=== PATIENT | male | born 1965 | race Caucasian/White ===

== ENCOUNTER → 2017-03-16 | Outpatient (CLI) | payer OTHER ==
[~2017-03-16] MED LIST: ACET325S8 PO; ALBUAER3 INH; AZIT500T2 PO; GABA300C5 PO; METH125I2 IM; PRED-503 PO; TYLE325T PO; XARE15TA PO
[2017-03-16 11:58] LABS: AUTOMATED NEUTROPHIL # 4.2 TH/MM3 (1.8-7.7); BASOPHIL # 0.1 TH/MM3 (0-0.2); EOSINOPHIL # 0.1 TH/MM3 (0-0.4); EOSINOPHIL % 1.4 % (0.0-4.0); HEMATOCRIT 42.7 % (39.0-51.0); HEMO FLAGS DIFF FINAL; LYMPH % 26.3 % (9.0-44.0); LYMPHOCYTE # 1.8 TH/MM3 (1.0-4.8); MEAN CELL VOLUME 92.7 FL (80.0-100.0); MEAN CORPUSCULAR HEMOGLOBIN 32.2 PG (27.0-34.0); MEAN CORPUSCULAR HGB CONC 34.7 % (32.0-36.0); MONO % 9.3 % (0.0-8.0); PLATELET COUNT 190 TH/MM3 (150-450); RED BLOOD COUNT 4.61 MIL/MM3 (4.50-5.90); RED CELL DISTRIBUTION WIDTH 14.7 % (11.6-17.2); WHITE BLOOD COUNT 6.7 TH/MM3 (4.0-11.0)
[2017-03-16 12:28] LABS: ALT (GPT) 20 U/L (12-78); ANION GAP 12 MEQ/L (5-15); AST (GOT) 31 U/L (15-37); BICARBONATE 24.1 MEQ/L (21.0-32.0); BLOOD UREA NITROGEN 5 MG/DL (7-18); CHLORIDE 100 MEQ/L (98-107); GLOMERULAR FILTRATION RATE 99 ML/MIN (>89); GLUCOSE,FASTING 75 MG/DL (74-99); POTASSIUM 3.9 MEQ/L (3.5-5.1); SODIUM (NA) 136 MEQ/L (136-145)
[2017-03-16 12:38] LABS: ALKALINE PHOSPHATASE 162 U/L (45-117); HDL CHOLESTEROL 118.8 MG/DL (40.0-60.0); LDL CHOLESTEROL 16 MG/DL (0-99)
== END ==
LOC: CLAB 11:33
PROVIDERS: ATTEND Family Medicine
DX: M25.512 Pain in left shoulder (principal); Z72.0 Tobacco use; M72.2 Plantar fascial fibromatosis; G62.9 Polyneuropathy, unspecified; F10.10 Alcohol abuse, uncomplicated
CPT/HCPCS: 36415; 80053; 80061; 84443; 85025

== ENCOUNTER 2017-03-24 13:01 | Emergency (ER) | payer OTHER ==
[~2017-03-24] VITALS: Ht 182.9 cm; Wt 54.5 kg
[~2017-03-24 13:01] MED LIST changes: -ALBUAER3 INH; -AZIT500T2 PO; -METH125I2 IM; -PRED-503 PO; -TYLE325T PO; -XARE15TA PO
[2017-03-24 13:02] VITALS: BP 207/93; PULSE 70; RESP 16; TEMP 97.8; O2SAT 98
--- NOTE | 2017-03-24 13:08 | PD ---
Physical Exam Date Seen by Provider: Mar 24, 2017 Time Seen by Provider: 13:06 Narrative 51 YOWM C/O SOB WORSE OVER 3 WEEKS. H/O PNEUMONIA AND COPD. NO F/C. VS REVIEWED PT WAITING FOR BED PLACEMENT. Data Data Last Documented VS Vital Signs Date Time Temp Pulse Resp B/P Pulse Ox O2 Delivery O2 Flow Rate FiO2 03/24/17 13:02 97.8 70 16 207/93 98 Room Air MDM Supervised Visit with CARA: No Condition: Stable Young Rubio Mar 24, 2017 13:08
--- NOTE | 2017-03-24 13:18 | PD ---
HPI Chief Complaint: Respiratory Symptoms Time Seen by Provider: 13:18 Travel History International Travel<30 days: No Contact w/Intl Traveler<30days: No Traveled to known affect area: No History of Present Illness HPI 51-year-old male presents to emergency Department with complaint of shortness of breath 3 weeks. Shortness of breath is worse while he is at work doing activity and in the humidity. Reports history of COPD. History of pneumonia and hospitalization 1 year ago. Has not used an inhaler and has never been prescribed one. Denies chest pain. Denies fevers, vomiting. Reports occasional cough with clear sputum production. Reports tobacco use daily. Denies hemoptysis. Denies recent surgery or travel. Patient's blood pressure is elevated in the ER. He denies headache, lightheadedness, dizziness, change in vision, diaphoresis, chest pain. Has been told his blood pressure was elevated in the past but has never been prescribed medications or diagnosed with hypertension. Symptoms are mild in severity. Allergies to aspirin. Has no other medical complaints. No other modifying factors or associated signs and symptoms. PFSH Past Medical History Blood Disorders: No Cardiovascular Problems: No Diminished Hearing: No Endocrine: No Gastrointestinal Disorders: Yes Genitourinary: Yes (DYSPHAGIA) Implanted Vascular Access Dvce: Yes Musculoskeletal: No Neurologic: No Psychiatric: No Reproductive: Yes (pneumonia) Respiratory: Yes (copd) Immunizations Current: No Pneumonia: Yes (in august) Ulcer: Yes (PEPTIC, bleeding ) Past Surgical History Abdominal Surgery: Yes (9 SURGERIES ILEOSTOMY, REVERSILE, ULCERS) Body Medical Devices: a few brennan or slips in abdomen for surgery Other Surgery: Yes Social History Alcohol Use: Yes (<6 PK daily) Tobacco Use: No (quit 08/24) Substance Use: No Allergies-Medications (Allergen,Severity, Reaction): Coded Allergies: aspirin (Unverified Allergy, Mild, ULCERS, 03/23/17) *MDRO Multi-Drug Resistant Organism (Verified Adverse Reaction, Unknown, ) 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 Reported Meds & Prescriptions Reported Meds & Active Scripts Active Azithromycin 500 Mg Tab 500 Mg PO DAILY Proair Hfa 8.5 GM Inh (Albuterol Sulfate) 90 Mcg/Act Aer 2 Puff INH Q4-6H PRN 108 mcg/actuation Deltasone (Prednisone) 20 Mg Tab 40 Mg PO DAILY 4 Days start 03/25/2017 Gabapentin 300 Mg Cap 300 Mg PO TID Reported Tylenol (Acetaminophen) 325 Mg Tab 500 Mg PO DAILY 4 tabs as needed once a day Review of Systems Except as stated in HPI: all other systems reviewed are Neg Physical Exam Narrative GENERAL: Thin, male patient, in no acute distress; afebrile, nontoxic- appearing; afebrile, nontoxic-appearing SKIN: Warm and dry. HEAD: Atraumatic. Normocephalic. EYES: Pupils equal and round. No scleral icterus. No injection or drainage. ENT: Mucosa pink and moist. EARS: Bilateral pinnae and external canals appear within normal limits. NECK: Trachea midline. CARDIOVASCULAR: Regular rate and rhythm. No murmur appreciated. RESPIRATORY: No accessory muscle use. Lungs with Wheezing throughout to auscultation. Breath sounds equal bilaterally. No retractions or tachypnea. No Audible wheezing noted. GASTROINTESTINAL: Flat. MUSCULOSKELETAL: No obvious deformities. No clubbing. No cyanosis. No edema. NEUROLOGICAL: Awake and alert. Oriented 3. No obvious cranial nerve deficits. Motor grossly within normal limits. Normal speech. Moves all extremities. 5/5 strength to all extremities. PSYCHIATRIC: Appropriate mood and affect; insight and judgment normal. Data Data Last Documented VS Vital Signs Date Time Temp Pulse Resp B/P Pulse Ox O2 Delivery O2 Flow Rate FiO2 03/24/17 13:26 58 18 178/97 99 Room Air 03/24/17 13:02 97.8 Orders Prednisone (Deltasone) (03/24/17 13:30) Albuterol Neb (Albuterol Neb) (03/24/17 13:30) Chest, Pa & Lat (03/24/17 13:16) [facility] Medical Decision Making Medical Screen Exam Complete: Yes Emergency Medical Condition: Yes Medical Record Reviewed: Yes Differential Diagnosis COPD exacerbation, pneumonia, less likely PE Narrative Course 51-year-old male with history of COPD physical exam and history of present illness consistent with COPD exacerbation. Patient does have history of pneumonia and hospitalization 1 year ago. I will obtain a chest x-ray to rule out acute findings. Patient is in no acute distress. His oxygen saturation is 98% on room air and he is without retractions or tachypnea. Wheezing throughout on auscultation of the lungs. Albuterol nebulizer, Deltasone, chest x-ray ordered. Patient's blood pressure is elevated in the ER. Blood pressure recheck decreased and I reviewed the patient's record and it is consistent with past blood pressures. Patient is asymptomatic. Patient has a follow-up appointment with Dr. Alvarez on Wednesday and I discussed with the patient to mention blood pressure and having Dr. Alvarez follow his blood pressure. 1415: Patient reports improvement in symptoms. Denies shortness of breath at this time. Says his breathing has improved immensely. On reexamination his lungs are clear and equal throughout. Chest x-ray concludes advanced COPD. Pro-air inhaler, Deltasone, azithromycin prescribed for home. Patient has follow-up appointment with Dr. Alvarez on Wednesday. Instructed patient to follow up with primary care provider. Patient verbalizes understanding and agreement with treatment plan. Patient is medically cleared and stable for discharge. Discussed reasons to return to the emergency department. Patient agrees with treatment plan. The patients vital signs are stable and the patient is stable for outpatient follow-up and treatment. Patient discharged home, stable and in no acute distress. Diagnosis Primary Impression: COPD exacerbation Referrals: Primary Care Physician Patient Instructions: COPD (Chronic Obstructive Pulmonary Disease) (ED), General Instructions Departure Forms: Tests/Procedures, Work Release Enter return to work date: Mar 25, 2017 Additional Instructions: Use albuterol inhaler as needed for shortness of breath and/or wheezing Take oral steroids as prescribed and complete full course Avoid asthma triggers such as smoking cigarettes, second hand smoke, dust, known allergens Follow-up with primary care provider Return to emergency department immediately with worsening of symptoms Med/Other Pt SpecificInfo: Prescription(s) given Scripts Azithromycin 500 Mg Fum954 Mg PO DAILY #5 TAB Ref 0 Prov:Zoraida Rios 03/24/17 Albuterol 8.5 GM Inh (Proair Hfa 8.5 GM Inh)90 Mcg/Act Aer2 Puff INH Q4-6H PRN ( SOB/WHEEZING) #1 INHALER Ref 0 108 mcg/actuation Prov:Zoraida Rios 03/24/17 Prednisone (Deltasone)20 Mg Tab40 Mg PO DAILY 4 Days Ref 0 start 03/25/2017 Prov:Zoraida Rios 03/24/17 Disposition: 01 DISCHARGE HOME Condition: Stable Zoraida Rios Mar 24, 2017 13:18
[2017-03-24 13:26] VITALS: BP 178/97; PULSE 58; RESP 18; O2SAT 99
[2017-03-24] MEDS ORDERED: RESP: ALBUTEROL 2.5 MG/3 ML NEB (SCH) INH ONE (13:30)
[2017-03-24] MEDS ORDERED: predniSONE 20 MG TAB PO ONE (13:30)
[2017-03-24] MEDS ORDERED: PRED-503 PO (14:17)
[2017-03-24] MEDS ORDERED: AZIT500T2 PO (14:17)
[2017-03-24] MEDS ORDERED: ALBUAER3 INH (14:17)
--- NOTE | 2017-03-24 15:23 | RADRPT ---
EXAM DATE/TIME: 03/24/2017 13:56 [facility] COMPARISON: BA SWALLOW W/SPEECH PATHOLOGY, April 29, 2016, 0:00. INDICATIONS : Short of breath, with congestion x3 wks. MEDICAL HISTORY : Chronic obstructive pulmonary disease. Pneumonia SURGICAL HISTORY : None. ENCOUNTER: Initial ACUITY: 3 weeks PAIN SCORE: 0/10 LOCATION: Bilateral chest FINDINGS: The exam demonstrates advanced COPD. No focal or segmental pneumonia is identified. There are areas o f chronic interstitial changes and scarring. The heart and mediastinal contours are within normal limits. Visualized bony structures are grossly i ntact. CONCLUSION: 1. Advanced COPD. Yony Sanders MD on March 24, 2017 at 15:21 Board Certified Radiologist. This report was verified electronically.
[2017-04-13] MEDS ORDERED: TYLE325T PO (09:34)
[2017-04-13] MEDS ORDERED: ALBUAER3 INH (10:18)
[2017-04-13] MEDS ORDERED: METH125I2 IM (10:18)
== END 2017-03-24 15:07 | disposition home or self-care (01) ==
LOC: NEPK 13:01
DX: J44.1 Chronic obstructive pulmonary disease with (acute) exacerbation (principal)
CPT/HCPCS: 71020; 94664; 99284; J7512; J7613

== ENCOUNTER 2017-05-19 15:51 | Inpatient (IN) | payer OTHER ==
[~2017-05-19] VITALS: Ht 182.9 cm; Wt 54.6 kg
[~2017-05-19 15:51] MED LIST changes: -IOHEXOL 350 MG/ML 10 ML VIAL (for RAD DIAG) IVCONTRAST ONE; -XARE15TA PO
--- NOTE | 2017-05-19 15:54 | PD ---
HPI Chief Complaint: PE Time Seen by Provider: 15:53 Travel History International Travel<30 days: No Contact w/Intl Traveler<30days: No Traveled to known affect area: No History of Present Illness HPI 51-year-old male came to the emergency room with history of progressive shortness of breath for past 3 months. Patient says he is having trouble ambulating even few steps without getting short of breath. His cough is worsening. He is producing a lot of phlegm which is mostly whitish in color. No blood in his mucus. No history of fever or chills. He has lost more than 20 pounds in 3 months. Patient smokes at least half a pack of cigarettes per day and has been smoking since he was 17 years old. His primary care sent him for a CAT scan of his chest to rule out PE and he was sent from CT since he has bilateral PE. Patient says he gets occasional chest pain/chest heaviness. Oxygen saturation was 93% on room air. Rest of the hemodynamics was within acceptable limits. No history of dizziness or lightheadedness. No history of syncopal episode. [facility], [facility] Past Medical History Narrative Medical List of his past medical, surgical, social and family history is reviewed from the nursing note. Blood Disorders: No Cardiovascular Problems: No Diminished Hearing: No Endocrine: No Gastrointestinal Disorders: Yes Genitourinary: Yes (DYSPHAGIA) Implanted Vascular Access Dvce: Yes Musculoskeletal: No Neurologic: No Psychiatric: No Reproductive: Yes (pneumonia) Respiratory: Yes (copd) Immunizations Current: No Pneumonia: Yes (in august) Ulcer: Yes (PEPTIC, bleeding ) Past Surgical History Abdominal Surgery: Yes (9 SURGERIES ILEOSTOMY, REVERSILE, ULCERS) Body Medical Devices: a few brennan or slips in abdomen for surgery Other Surgery: Yes Social History Alcohol Use: Yes (<6 PK daily) Tobacco Use: No (quit 08/24) Substance Use: No Allergies-Medications (Allergen,Severity, Reaction): Coded Allergies: aspirin (Unverified Allergy, Mild, ULCERS, 04/13/17) Comments List of his allergies reviewed from the nursing note. Reported Meds & Prescriptions Reported Meds & Active Scripts Active Proair Hfa 8.5 GM Inh (Albuterol Sulfate) 90 Mcg/Act Aer 2 Puff INH Q4-6H PRN 108 mcg/actuation Gabapentin 300 Mg Cap 300 Mg PO TID Reported Tylenol (Acetaminophen) 325 Mg Tab 650 Mg PO Q4H PRN Narrative Medication List of his home medications reviewed from the nursing note. Review of Systems Except as stated in HPI: all other systems reviewed are Neg General / Constitutional: Positive: Weight Loss Respiratory: Positive: Cough, Shortness of Breath Physical Exam Narrative GENERAL: Awake, alert, emaciated, moderate distress SKIN: Focused skin assessment warm/dry. Pale HEAD: Atraumatic. Normocephalic. EYES: Pupils equal and round. No scleral icterus. No injection or drainage. ENT: No nasal bleeding or discharge. Mucous membranes pink and moist. NECK: Trachea midline. No JVD. CARDIOVASCULAR: Regular rate and rhythm. No murmur appreciated. RESPIRATORY: No accessory muscle use. Clear to auscultation. Breath sounds equal bilaterally. GASTROINTESTINAL: Abdomen soft, non-tender, nondistended. Hepatic and splenic margins not palpable. MUSCULOSKELETAL: No obvious deformities. No clubbing. No cyanosis. No edema. NEUROLOGICAL: Awake and alert. No obvious cranial nerve deficits. Motor grossly within normal limits. Normal speech. PSYCHIATRIC: Appropriate mood and affect; insight and judgment normal. Data Data Last Documented VS Vital Signs Date Time Temp Pulse Resp B/P (MAP) Pulse Ox O2 Delivery O2 Flow Rate FiO2 05/19/17 16:44 77 168/82 (110) 05/19/17 16:44 25 96 05/19/17 16:20 Room Air 05/19/17 15:59 98.8 Orders Orders Complete Blood Count With Diff (05/19/17 15:55) Ecg Monitoring (05/19/17 15:55) Bilateral Bp Monitoring (05/19/17 15:55) Iv Access Insert/Monitor (05/19/17 15:55) Oximetry (05/19/17 15:55) Oxygen Administration (05/19/17 15:55) Sodium Chloride 0.9% Flush (Ns Flush) (05/19/17 16:00) Heparin Infusion CHRISTIANA.Q1H (05/19/17 16:20) Heparin Inj (Heparin Inj) (05/19/17 16:30) Act Partial Throm Time (Ptt) (05/19/17 16:20) Cbc No Diff, Includes Plts (05/22/17 06:00) Occult Blood (Hemoccult) Stool (05/19/17 16:20) Admit To Inpatient (05/19/17 ) Vital Signs (Adult) CHRISTIANA.Q4H (05/19/17 16:25) Sodium Chloride 0.9% Flush (Ns Flush) (05/19/17 16:30) Sodium Chloride 0.9% Flush (Ns Flush) (05/19/17 21:00) Inpatient Certification (05/19/17 ) Admit Order (Ed Use Only) (05/19/17 16:54) Labs Laboratory Tests Test 05/19/17 16:20 White Blood Count 8.0 TH/MM3 Red Blood Count 4.74 MIL/MM3 Hemoglobin 15.0 GM/DL Hematocrit 45.3 % Mean Corpuscular Volume 95.7 FL Mean Corpuscular Hemoglobin 31.6 PG Mean Corpuscular Hemoglobin Concent 33.1 % Red Cell Distribution Width 15.3 % Platelet Count 299 TH/MM3 Mean Platelet Volume 7.6 FL Neutrophils (%) (Auto) 61.0 % Lymphocytes (%) (Auto) 28.2 % Monocytes (%) (Auto) 8.2 % Eosinophils (%) (Auto) 2.0 % Basophils (%) (Auto) 0.6 % Neutrophils # (Auto) 4.9 TH/MM3 Lymphocytes # (Auto) 2.3 TH/MM3 Monocytes # (Auto) 0.7 TH/MM3 Eosinophils # (Auto) 0.2 TH/MM3 Basophils # (Auto) 0.0 TH/MM3 CBC Comment DIFF FINAL Differential Comment MDM Medical Decision Making Medical Screen Exam Complete: Yes Emergency Medical Condition: Yes Medical Record Reviewed: Yes Differential Diagnosis PE, lung cancer Narrative Course [address] scan was read as PE along with multiple lung masses which could be lung cancer. This would explain his other associated symptoms along with the new onset PE. I started him on heparin bolus and drip. He needs pulmonology workup with a bronchoscopy and rule out lung cancer. I've admitted him to the residence. Critical Care Narrative Aggregate critical care time was 30 minutes. Time to perform other separately billable procedures was not included in the critical care time. My time did not include minutes spent treating any other patients simultaneously or on activities that did not directly contribute to the patient's treatment. The services I provided to this patient were to treat and/or prevent clinically significant deterioration that could result in: PE bilat, lung mass vs possible mets, heparin bolus and drip I provided critical care services requiring my management, as noted below: Chart data review, documentation time, medication orders and management, vital sign assessments/reviewing monitor data, ordering and reviewing lab tests, ordering and interpreting/reviewing x-rays and diagnostic studies, care of the patient and discussion of the patient with the admitting physicians. Procedures EKG Prior to Arrival: No Diagnosis Primary Impression: Pulmonary embolism Qualified Codes: I26.99 - Other pulmonary embolism without acute cor pulmonale Additional Impression: Lung mass Admitting Information Admitting Physician Requests: it Kath Martinez MD May 19, 2017 15:54
[2017-05-19 15:59] VITALS: BP 165/92; PULSE 68; PULSE 77; RESP 15; TEMP 98.8; O2SAT 97
[2017-05-19] MEDS ORDERED: SODIUM CHLORIDE 0.9% FLUSH 10 ML FLUSH IVF PRN (16:00)
[2017-05-19] MEDS ORDERED: HEPARIN SODIUM - IV 10,000 UNITS/10 ML VIAL IV ONE (16:30)
[2017-05-19] MEDS ORDERED: SODIUM CHLORIDE 0.9% FLUSH 10 ML FLUSH IV FLUSH PRN (16:30)
[2017-05-19] MEDS ORDERED: HEPARIN-D5W 25,000 U/250 ML 250 ML IV ONE (16:30)
[2017-05-19 16:44] VITALS: BP 168/82; PULSE 62; PULSE 77; RESP 25; O2SAT 96
--- NOTE | 2017-05-19 16:46 | HHI.HP ---
[facility] Service Family Medicine Primary Care Physician Veronica Alvarez MD Admission Diagnosis Diagnoses: International Travel<30 Days: No Contact w/Intl Traveler<30days: No Known Affected Area: No History of Present Illness 51-year-old male is taken urgently to the ED after CTA is done and reveals bilateral nodular areas of consolidation, reflecting either pulmonary emboli or metastatic disease. This CTA reveals new findings as compared to CTA done one year ago. The patient states he has been feeling short of breath for the last 3 months. His shortness of breath started 1 day all of a sudden and he has continued to have shortness of breath every day during heavy activity. He particularly notices this when he is walking up the stairs to work every morning. He does also sometimes experience some chest pressure when he experiences this shortness of breath. The patient denies any fever/chills. The patient states that he has lost 20 pounds over the last 3 months. He has continued to smoke half a pack every day. He denies any sinusitis or sputum producing cough. He denies any sick household members or recent illnesses. Patient does complain of occasional leg cramping in the right leg. He states that 3-4 months ago his right leg was swollen, red, and painful. He attributed this to a sprain in his right ankle. Patient denies any current leg pains. Patient denies any current chest pain/shortness of breath/dizziness. (Celsa Barillas MD R2) Review of Systems Constitutional: DENIES: Fatigue, Fever Endocrine: DENIES: Polydipsia, Polyuria Eyes: DENIES: Blurred vision, Diplopia Ears, nose, mouth, throat: DENIES: Vertigo, Nasal discharge Respiratory: DENIES: Sputum production Cardiovascular: DENIES: Palpitations, Syncope Gastrointestinal: DENIES: Constipation, Diarrhea Genitourinary: DENIES: Urinary frequency, Urinary incontinence Musculoskeletal: DENIES: Joint pain Hematologic/lymphatic: DENIES: Bruising Neurologic: DENIES: Abnormal gait, Headache Psychiatric: DENIES: Anxiety, Confusion (Celsa Barillas MD R2) Past Family Social History Past Medical History COPD History of cavitary pneumoniain August 2015 History of Actinobacter infection in 2001 Past Surgical History Perforated peptic ulcer repair at 18 y/o with recurrent peptic ulcers [id number] status post ileostomy/reversal in 1999 (Celsa Barillas MD R2) Allergies: Coded Allergies: aspirin (Unverified Allergy, Mild, ULCERS, 04/13/17) Family History none that he knows of Social History smokin/2 ppd x 30 years drinkin tallboys per day x 30 years other drugs: denies (Celsa Barillsa MD R2) Physical Exam Vital Signs Vital Signs Date Time Temp Pulse Resp B/P (MAP) Pulse Ox O2 Delivery O2 Flow Rate FiO2 05/19/17 16:44 77 05/19/17 15:59 98.8 77 15 165/92 (116) 97 05/19/17 15:59 68 165/92 (116) Physical Exam GENERAL: This is a cachectic, good natured, conversational patient SKIN: No rashes, ecchymoses or lesions. Cool and dry. HEAD: Atraumatic. Normocephalic. No temporal or scalp tenderness. EYES: Pupils equal round and reactive. Extraocular motions intact. No scleral icterus. No injection or drainage. ENT: Nose without bleeding, purulent drainage or septal hematoma. Throat without erythema, tonsillar hypertrophy or exudate. Uvula midline. Airway patent. NECK: Trachea midline. No JVD or lymphadenopathy. Supple, nontender, no meningeal signs. CARDIOVASCULAR: Regular rate and rhythm without murmurs, gallops, or rubs. RESPIRATORY: Clear to auscultation. Breath sounds equal bilaterally. No wheezes , rales, or rhonchi. GASTROINTESTINAL: Abdomen soft, non-tender, nondistended. No hepato-splenomegaly , or palpable masses. No guarding. MUSCULOSKELETAL: Extremities without clubbing, cyanosis, or edema. No joint tenderness, effusion, or edema noted. No calf tenderness. Negative Homans sign bilaterally. NEUROLOGICAL: Awake and alert. Cranial nerves II through XII intact. Motor and sensory grossly within normal limits. Five out of 5 muscle strength in all muscle groups. Normal speech. (Celsa Barillas MD R2) Caprini VTE Risk Assessment Caprini VTE Risk Assessment: Mod/High Risk (score >= 2) Caprini Risk Assessment Model Point Value = 1 Point Value = 2 Point Value = 3 Point Value = 5 Age 41-60 Minor surgery BMI > 25 kg/m2 Swollen legs Varicose veins or History of unexplained or recurrent spontaneous Oral contraceptives or hormone replacement Sepsis (< 1 month) Serious lung disease, including pneumonia (< 1 month) Abnormal pulmonary function Acute myocardial infarction Congestive heart failure (< 1 month) History of inflammatory bowel disease Medical patient at bed rest Age 61-74 Arthroscopic surgery Major open surgery (> 45 min) Laparoscopic surgery (> 45 min) Malignancy Confined to bed (> 72 hours) Immobilizing plaster cast Central venous access Age >= 75 History of VTE Family history of VTE Factor V Leiden Prothrombin [id number] Lupus anticoagulant Anticardiolipin antibodies Elevated serum homocysteine Heparin-induced thrombocytopenia Other congenital or acquired thrombophilia Stroke (< 1 month) Elective arthroplasty Hip, pelvis, or leg fracture Acute spinal cord injury (< 1 month) Prophylaxis Regimen Total Risk Factor Score Risk Level Prophylaxis Regimen 0-1 Low Early ambulation 2 Moderate Order ONE of the following: *Sequential Compression Device (SCD) *Heparin 5000 units SQ BID 3-4 Higher Order ONE of the following medications: *Heparin 5000 units SQ TID *Enoxaparin/Lovenox 40 mg SQ daily (WT < 150 kg, CrCl > 30 mL/min) *Enoxaparin/Lovenox 30 mg SQ daily (WT < 150 kg, CrCl > 10-29 mL/min) *Enoxaparin/Lovenox 30 mg SQ BID (WT < 150 kg, CrCl > 30 mL/min) AND/OR *Sequential Compression Device (SCD) 5 or more Highest Order ONE of the following medications: *Heparin 5000 units SQ TID (Preferred with Epidurals) *Enoxaparin/Lovenox 40 mg SQ daily (WT < 150 kg, CrCl > 30 mL/min) *Enoxaparin/Lovenox 30 mg SQ daily (WT < 150 kg, CrCl > 10-29 mL/min) *Enoxaparin/Lovenox 30 mg SQ BID (WT < 150 kg, CrCl > 30 mL/min) AND *Sequential Compression Device (SCD) (Celsa Barillas MD R2) Assessment and Plan Assessment and Plan 51-year-old male, history of alcohol and tobacco abuse, with a 3 month history of weight loss and shortness of breath presents with multiple bilateral PEs and bilateral DVTs. Code Status Full code Discussed Condition With Dr. Colbert (Celsa Barillas MD R2) Attending Attestation THIS CASE WAS DISCUSSED WITH THE RESIDENT PHYSICIANS. I HAVE REVIEWED THE RECORD AND AGREE WITH THE ABOVE NOTE AND PLAN OF CARE WAS DISCUSSED. I HAVE AUTHORIZED THE ORDER FOR ADMISSION TO AN IN-PATIENT STATUS. (Joanne Mancia MD) Problem List: (1) Pulmonary embolism ICD Codes: I26.99 - Other pulmonary embolism without acute cor pulmonale Status: Acute Plan: -Heparin drip -pulse ox - telemetry -O2 to titrate O2 sat >93% - will consider coumadin vs. novel anticoagulation agent ABG: ph: 7.50, pO2: 88 , pCO2: 34 - consistent with respiratory alkalosis via PE CTA: Bilateral nodular areas of consolidation which are new from the prior study and likely relate to an acute inflammatory or infectious process. I cannot exclude septic emboli.The prior examination is one year ago as opposed to one month ago. This changes the list of differential possibilities for these lung lesions. I would place at the top of the list metastatic disease as a primary consideration. Septic emboli will still be within the differential. (2) Hypercoagulable state ICD Codes: D68.59 - Other primary thrombophilia Status: Acute Plan: Weight loss and multiple clots, r/o carcinoma - f/u CBC, BMP - f/u glucose, HbA1c - f/u Calcium - f/u UA - f/u LFTs - f/u TSH - f/u Hemoccult - f/u ESR/CRP - f/u HIV Ab - f/u Hep C ab - f/u with colonoscopy when stable (3) Weight loss ICD Codes: R63.4 - Abnormal weight loss Status: Acute Plan: see workup for HIV/Carcinoma above (4) Shortness of breath dyspnea ICD Codes: R06.02 - Shortness of breath Status: Acute Plan: Likely related to PE vs. cardiac cause - f/u EKG - f/u troponin x 3 (5) Alcohol abuse ICD Codes: F10.10 - Alcohol abuse, uncomplicated Status: Chronic Plan: CIWA protocol - Rally pack No history of withdrawal or seizures per patient (6) Peptic ulcer disease with hemorrhage ICD Codes: K27.4 - Chronic or unspecified peptic ulcer, site unspecified, with hemorrhage Status: Chronic Plan: Multiple episodes of peptic ulcers, perforations, and bowel surgeries - Protonix 40 daily for prophylaxis - Monitor H&H - Daily abdominal exams (7) fen/ppx Status: Acute Plan: Fluids: Encourage by mouth fluid intake Electrolytes: BMP within normal limits, follow-up BMP tomorrow Nutrition: Regular diet GI prophylaxis: Protonix 40 daily - history of peptic ulcers (Celsa Barillas MD R2) Physician Certification 2 Midnight Certification Type: Admission for Inpatient Services Order for Inpatient Services The services are ordered in accordance with Medicare regulations or non- Medicare payer requirements, as applicable. In the case of services not specified as inpatient-only, they are appropriately provided as inpatient services in accordance with the 2-midnight benchmark. Estimated LOS (days): 2 days is the estimated time the patient will need to remain in the hospital, assuming treatment plan goals are met and no additional complications. Post-Hospital Plan: Not yet determined (Clesa Barillas MD R2) 2 Midnight Certification Type: Admission for Inpatient Services Post-Hospital Plan: Not yet determined (Joanne Mancia MD) Problem Qualifiers (1) Pulmonary embolism: Qualified Codes: I26.99 - Other pulmonary embolism without acute cor pulmonale Celsa Barillas MD R2 May 19, 2017 16:46 Joanne Mancia MD May 20, 2017 14:34
[2017-05-19] MEDS ORDERED: HEPARIN 25,000 UNITS-D5W 250 ML - PREMIX IV ONE (17:15)
[2017-05-19 17:20] LABS: AUTOMATED NEUTROPHIL # 4.9 TH/MM3 (1.8-7.7); BASOPHIL % 0.6 % (0.0-2.0); EOSINOPHIL # 0.2 TH/MM3 (0-0.4); HEMATOCRIT 45.3 % (39.0-51.0); HEMO FLAGS DIFF FINAL; LYMPH % 28.2 % (9.0-44.0); LYMPHOCYTE # 2.3 TH/MM3 (1.0-4.8); MEAN CELL VOLUME 95.7 FL (80.0-100.0); MEAN CORPUSCULAR HEMOGLOBIN 31.6 PG (27.0-34.0); MEAN CORPUSCULAR HGB CONC 33.1 % (32.0-36.0); MONO % 8.2 % (0.0-8.0); PLATELET COUNT 299 TH/MM3 (150-450); RED BLOOD COUNT 4.74 MIL/MM3 (4.50-5.90); RED CELL DISTRIBUTION WIDTH 15.3 % (11.6-17.2)
[2017-05-19] MEDS ORDERED: LORazepam 1 MG TAB PO PRN (17:45)
[2017-05-19] MEDS ORDERED: LORazepam 2 MG TAB PO PRN (17:45)
[2017-05-19] MEDS ORDERED: LORazepam 2 MG/ML VIAL IV PUSH PRN ×4 (17:45)
[2017-05-19] MEDS ORDERED: FLUMAZENIL 0.5 MG/5 ML VIAL IV PUSH PRN (17:45)
[2017-05-19] MEDS ORDERED: ONDANSETRON HCL 4 MG/2 ML VIAL IV PUSH PRN (17:45)
[2017-05-19 17:55] VITALS: BP 174/100; PULSE 59; RESP 22; TEMP 98; O2SAT 98
--- NOTE | 2017-05-19 19:06 | RADRPT ---
EXAM DATE/TIME: 05/19/2017 18:10 [facility] COMPARISON: No previous studies available for comparison. INDICATIONS : Bilateral leg swelling. MEDICAL HISTORY : Chronic obstructive pulmonary disease. Glasses. Emphysema. Pnemonia. Peptic ulcer. Dysphagia. Ingui nal hernia. SURGICAL HISTORY : Inguinal hernia repair. Colon resection. Ileostomy. ENCOUNTER: Initial ACUITY: 1 day PAIN SCORE: 0/10 LOCATION: Bilateral legs. TECHNIQUE: Venous ultrasound of the left and right leg was performed from the inguinal ligament to the proximal calf. Real-time, color Doppler and spectral tracing, compression and augmentation techniques were us ed. FINDINGS: RIGHT LEG: There is evidence of nonocclusive thrombus throughout the right lower extremity. This involves the pe roneal and posterior tibial veins in the calf, the popliteal vein and mid and distal SFV are involved . There does appear to be flow in the proximal SFA. There is flow in the greater saphenous vein. LEFT LEG: There is evidence of nonocclusive thrombus throughout the left lower extremity. This extends from the calf all the way up to the common femoral vein at the groin. There is also thrombus in the greater s aphenous vein. CONCLUSION: Bilateral DVT with nonocclusive thrombus noted in the deep venous systems of both lower extremities. Piter Garcia MD on May 19, 2017 at 19:00 Board Certified Radiologist. This report was verified electronically.
[2017-05-19 19:08] LABS: BLOOD GAS BASE EXCESS 1.7 mmol/L (-2-2); BLOOD GAS HCO3 25 mmol/L (22-26); BLOOD GAS O2 HGB SATURATION 88 % (90-100); BLOOD GAS OXYGEN CONTENT 16.2 Vol % (12.0-20.0); BLOOD GAS PCO2 32 mmHg (38-42); BLOOD GAS PO2 60 mmHg (61-120); BLOOD GAS TOTAL HGB 13.1 G/DL (12.0-16.0); DRAW SITE RT RADIAL; FIO2 21 %; NUMBER OF ARTERIAL PUNCTURES 1; OXYGEN DEVICE ROOM AIR; TEMP CORR TO 98.6; ULNAR PULSE PRESENT
[2017-05-19 19:09] LABS: CRITICAL VALUE YES; STAT NO
[2017-05-19] MEDS ORDERED: cloNIDine HCL 0.1 MG TAB PO PRN (19:45)
[2017-05-19 20:00] VITALS: BP 170/85; PULSE 53; PULSE 79; RESP 17; TEMP 97.9; O2SAT 98
[2017-05-19] MEDS: GABAPENTIN 300 MG CAP PO SCH (20:18)
[2017-05-19] MEDS: PANTOPRAZOLE SOD 40 MG DELAYED RELEASE TAB PO SCH (20:18)
[2017-05-19] MEDS: SODIUM CHLORIDE 0.9% FLUSH 10 ML FLUSH IV FLUSH SCH (20:18)
[2017-05-19 21:00] VITALS: BP 158/78
[2017-05-19 22:00] LABS: APTT (PATIENT) 30.7 SEC (24.3-30.1)
[2017-05-19 22:07] LABS: ANION GAP 7 MEQ/L (5-15); BLOOD UREA NITROGEN 6 MG/DL (7-18); CHLORIDE 103 MEQ/L (98-107); GLOMERULAR FILTRATION RATE 103 ML/MIN (>89); POTASSIUM 4.3 MEQ/L (3.5-5.1); SODIUM (NA) 138 MEQ/L (136-145)
[2017-05-19 22:20] LABS: ALCOHOL LESS THAN 3 MG/DL (0-5)
[2017-05-19 22:24] LABS: HEMOGLOBIN A1b 1.6 %; HEMOGLOBIN Ao 84.7 %; HEMOGLOBIN P3 5.3 %
[2017-05-20] VITALS (8 sets, daily range): BP systolic 152–159; BP diastolic 85–92; PULSE 57–83; RESP 16–20; TEMP 97.4–98.4; O2SAT 89–95
[2017-05-20 05:14] LABS: AUTOMATED NEUTROPHIL # 3.4 TH/MM3 (1.8-7.7); BASOPHIL # 0.1 TH/MM3 (0-0.2); BASOPHIL % 1.1 % (0.0-2.0); EOSINOPHIL # 0.3 TH/MM3 (0-0.4); EOSINOPHIL % 3.9 % (0.0-4.0); HEMATOCRIT 39.2 % (39.0-51.0); HEMO FLAGS DIFF FINAL; LYMPH % 36.5 % (9.0-44.0); LYMPHOCYTE # 2.5 TH/MM3 (1.0-4.8); MEAN CELL VOLUME 94.7 FL (80.0-100.0); MEAN CORPUSCULAR HGB CONC 33.7 % (32.0-36.0); MONO % 8.1 % (0.0-8.0); NEUT % 50.4 % (16.0-70.0); PLATELET COUNT 266 TH/MM3 (150-450); RED BLOOD COUNT 4.14 MIL/MM3 (4.50-5.90); WHITE BLOOD COUNT 6.8 TH/MM3 (4.0-11.0)
[2017-05-20 05:36] LABS: APTT (PATIENT) 66.5 SEC (24.3-30.1); PROTHROMBIN TIME - PATIENT 10.7 SEC (9.8-11.6)
[2017-05-20 05:42] LABS: ALT (GPT) 14 U/L (12-78); ANION GAP 8 MEQ/L (5-15); AST (GOT) 18 U/L (15-37); BICARBONATE 27.4 MEQ/L (21.0-32.0); BLOOD UREA NITROGEN 6 MG/DL (7-18); CHLORIDE 103 MEQ/L (98-107); GLOMERULAR FILTRATION RATE 144 ML/MIN (>89); POTASSIUM 3.6 MEQ/L (3.5-5.1); SODIUM (NA) 138 MEQ/L (136-145)
[2017-05-20 05:46] LABS: ALKALINE PHOSPHATASE 195 U/L (45-117); TOTAL BILIRUBIN ADULT 0.6 MG/DL (0.2-1.0)
[2017-05-20] MEDS: PANTOPRAZOLE SOD 40 MG DELAYED RELEASE TAB PO SCH (08:25)
[2017-05-20] MEDS: MULTIVITAMINS/MINERALS THERAPEUTIC TAB PO SCH (08:25)
[2017-05-20] MEDS: GABAPENTIN 300 MG CAP PO SCH ×3 (08:25→16:57)
[2017-05-20] MEDS: THIAMINE HCL 100 MG TAB PO SCH (08:25)
[2017-05-20] MEDS: FOLIC ACID 1 MG TAB PO SCH (08:25)
[2017-05-20] MEDS: SODIUM CHLORIDE 0.9% FLUSH 10 ML FLUSH IV FLUSH SCH ×2 (08:26→19:57)
[2017-05-20] MEDS ORDERED: PNEUMOCOCCAL POLYVALENT INJ 25 MCG/0.5 ML SYR IM ONE (10:00)
[2017-05-20] MEDS ORDERED: INFLUENZA VIRUS VACCINE (QUADRIVALENT) 0.5 ML SYR IM ONE (10:00)
--- NOTE | 2017-05-20 12:14 | EKG ---
Date Performed: 05/20/2017 Time Performed: 07:59:12 PTAGE: 51 years EKG: Sinus rhythm . Prolonged QT interval Possible anterior infarct - age undetermined Low QRS voltages in precordial l fanny Abnormal ECG No prior tracing DOCTOR: Katlin Milner Interpretating Date/Time 05/20/2017 12:12:15
--- NOTE | 2017-05-20 13:15 | HHI.FPPN ---
Problem Problem List: (1) Pulmonary embolism (2) Hypercoagulable state (3) Weight loss (4) Shortness of breath dyspnea (5) Tobacco use disorder Subjective Subjective 51 year old male that was admitted for bilateral DVT and PE -- he is normally active but had noticed all the sudden that he was SOB when going up and down stairs for the past couple of months. Describes LE swelling intermittently that is severe. ALso decribes an unintentional 20 pound weight loss over the past two months. Did not think much about this but then eventually went to the doctor and CT chest was done which showed bilateral PE along with probable metastatic lesions to the lungs. He was transferred to the ED and admitted. At the time of my exam the patient is resting comfortably in bed. Describe no symptoms of SOB or LE edema. States he feels fine and overnight his vitals remained stable. PMH/PSH COPD h/o cavitary pnuemonia in 2016 h/o actinobater infection h/o PUD with rupture and repair h/o ileostomy and reversal SOCIAL + tobacco and + ETOH, no illicits does work, does not have home of his own - lives with friends/family FH no known cancers, NC at this time ROS negative except as above ALL: [facility] Objective Objective Laboratory Tests - Abnormals Test 05/19/17 16:20 05/19/17 18:55 05/19/17 21:14 05/20/17 04:50 Monocytes (%) (Auto) 8.2 % 8.1 % Blood Gas Oxygen Saturation 88 % Arterial Blood pH 7.50 Arterial Blood Partial Pressure CO2 32 mmHg Arterial Blood Partial Pressure O2 60 mmHg Erythrocyte Sedimentation Rate 33 mm/hr Activated Partial Thromboplast Time 30.7 SEC 66.5 SEC Blood Urea Nitrogen 6 MG/DL 6 MG/DL Troponin I LESS THAN 0.02 NG/ML LESS THAN 0.02 NG/ML C-Reactive Protein 3.80 MG/DL Red Blood Count 4.14 MIL/MM3 Creatinine 0.59 MG/DL Random Glucose 69 MG/DL Total Protein 6.3 GM/DL Albumin 2.1 GM/DL Calcium Level 8.1 MG/DL Alkaline Phosphatase 195 U/L Vital Signs 05/19/17 05/19/17 05/19/17 05/19/17 15:59 15:59 16:20 16:44 Temp 98.8 Pulse 68 77 62 Resp 15 25 B/P (MAP) 165/92 (116) 165/92 (116) 168/82 (110) Pulse Ox 97 96 96 O2 Delivery Room Air 05/19/17 05/19/17 05/19/17 05/19/17 16:44 17:55 20:00 20:00 Temp 98.0 97.9 Pulse 77 59 53 79 Resp 22 17 B/P (MAP) 168/82 (110) 174/100 (124) 170/85 (113) Pulse Ox 98 98 05/19/17 05/20/17 05/20/17 05/20/17 21:00 00:00 04:00 08:00 Temp 97.4 98.4 97.6 Pulse 83 71 73 Resp 16 16 18 B/P (MAP) 158/78 (104) 155/92 (113) 153/85 (107) 152/88 (109) Pulse Ox 94 94 89 05/20/17 05/20/17 05/20/17 08:31 08:37 12:00 Temp 98.0 Pulse 57 68 Resp 16 B/P (MAP) 159/92 (114) Pulse Ox 92 93 FiO2 21 Physical exam O. CONSTITUTIONAL/GEN: cachectic appearing male, no respiratory distress EYES: conjunctiva normal, PERRLA, EOMI. ENT: Mouth and pharynx normal. NECK: thyroid midline, carotids symmetrical. LUNGS: clear A-P, respiratory effort is normal. CARDIOVASCULAR: RR without murmur or gallop. No significant edema. GI/ABD: soft without masses, without organomegaly, surgical scar from prior bowel ileostomy : no CVA tenderness NEURO: No focal deficits. Gait is normal SKIN: color normal, no rashes noted. HEME/LYMPH: no bruising, petechia or significant adenopathy MUSC: back is normal in appearance. Extremities are normal in appearance except for extreme thinness and some muscle wasting. PSYCH/MENTAL STATUS: Alert and oriented x 3. Assessment Assessment: (1) Pulmonary embolism Plan: this is bilateral and likely the result of the bilateral DVTs, CT report does not rule out septic emboli but given the clinical picture this is low likelihood at this time. He is hemodynamically stable and clinically stable as well. Continue the heparin drip with close monitoring Oxygen if needed hemodynamic support if needed cause is unknown and workup pending -- given the CT and his clinical picture -- high likelihood of cancer with mets (2) Lung mass Plan: high likelihood of metastatic lesions in his lungs -- workup pending to assess for underlying cancer and source. Check abd/pelvis CT and brain CT as well CEA and PSA, Calcium sent (3) Weight loss Plan: likely due to probable underlying malignancy -- will support his diet with additional protein supplement shakes at this time r/o HIV, hep C and TB as well (4) Hypercoagulable state Plan: likely probable underlying malignancy but will also rule out other source of hypercoagulability as well -- workup is pending (5) Peptic ulcer disease with hemorrhage Plan: this is historical but will continue PPI for prevention (6) Tobacco use disorder Plan: nicotine patch if needed tobacco cessation counseling prior to discharge Assessment 51 year old male with bilateral PE and DVT and probable underlying malignancy with metastatic lesions to the lungs. Workup pending to assess for possible malignancy and source, possible underlying other hypercoagulable issue or infectious process. He remains stable at this time. Will continue with anticoagulation of heparin and close monitoring of his oxygenation and hemodynamic status until we can determine the source as above. PLAN PLAN Patient was seen and dw the resident team - Dr. Anand, Dr. Barillas, Joanne Moses MD May 20, 2017 13:15
[2017-05-20] MEDS ORDERED: DIATRIZOATE MEGLUM/DIATRIZOATE SOD 9 ML CUP PO ONE (13:18)
[2017-05-20 14:32] LABS: APTT (PATIENT) 40.9 SEC (24.3-30.1)
[2017-05-20] MEDS ORDERED: HEPARIN SODIUM - IV 10,000 UNITS/10 ML VIAL IV PUSH PRN (21:15)
[2017-05-20] MEDS ORDERED: HEPARIN - 10,000 UNITS/ML IV ADDITIVE IV PUSH PRN (21:15)
[2017-05-20] MEDS ORDERED: IOHEXOL 350 MG/ML 10 ML VIAL (for RAD DIAG) IVCONTRAST ONE (21:25)
--- NOTE | 2017-05-20 21:59 | RADRPT ---
EXAM DATE/TIME: 05/20/2017 21:18 [facility] COMPARISON: No previous studies available for comparison. INDICATIONS : Possible lung carcinoma, evaluate metastatic disease. IV CONTRAST: 100 cc Omnipaque 350 (iohexol) IV ; Cumulative dose for multiple exams. RADIATION DOSE: 44.17 CTDIvol (mGy) MEDICAL HISTORY : Carcinoma, lung. SURGICAL HISTORY : None. ENCOUNTER: Initial ACUITY: 1 day PAIN SCALE: 0/10 LOCATION: cranial TECHNIQUE: Multiple contiguous axial images were obtained of the head. Using automated exposure control and adj ustment of the mA and/or kV according to patient size, radiation dose was kept as low as reasonably a chievable to obtain optimal diagnostic quality images. DICOM format image data is available electro nically for review and comparison. FINDINGS: CEREBRUM: The ventricles are normal for age. No evidence of midline shift, cerebral edema or blood products. No extra-axial fluid collections are seen. POSTERIOR FOSSA: The cerebellum and brainstem are intact. The 4th ventricle is midline. The cerebellar pontine angle is unremarkable. EXTRACRANIAL: The visualized portion of the orbits is intact. SKULL: The calvaria is intact. No evidence of skull fracture. POST CONTRAST: No abnormal areas of parenchymal or dural enhancement. No evidence of blood-brain barrier breakdown. CONCLUSION: Normal examination for a patient of this age. Young Dodd MD on May 20, 2017 at 21:56 Board Certified Radiologist. This report was verified electronically.
--- NOTE | 2017-05-20 22:02 | RADRPT ---
EXAM DATE/TIME: 05/20/2017 21:21 [facility] COMPARISON: No previous studies available for comparison. INDICATIONS : Possible lung carcinoma, evaluate metastatic disease. IV CONTRAST: 100 cc Omnipaque 350 (iohexol) IV ; Cumulative dose for multiple exams. ORAL CONTRAST: Prescribed oral contrast ingested. RADIATION DOSE: 4.52 CTDIvol (mGy) MEDICAL HISTORY : Carcinoma, lung. SURGICAL HISTORY : Colon resection. ENCOUNTER: Initial ACUITY: 1 day PAIN SCALE: 0/10 LOCATION: abdomen TECHNIQUE: Volumetric scanning of the abdomen and pelvis was performed. Using automated exposure control and ad justment of the mA and/or kV according to patient size, radiation dose was kept as low as reasonably achievable to obtain optimal diagnostic quality images. DICOM format image data is available electro nically for review and comparison. FINDINGS: Parenchymal scarring noted at both lung bases. No acute findings in the liver, spleen, adrenals, kidn eys or pancreas. Previous cholecystectomy. No bowel obstruction. No free air or free fluid. No acute bony abnormalities. CONCLUSION: 1. Negative for metastatic disease in the abdomen and pelvis. Parenchymal scarring at the lung bases with mild bronchiectasis on the right. Cholecystectomy. Young Dodd MD on May 20, 2017 at 21:58 Board Certified Radiologist. This report was verified electronically.
[2017-05-20 22:20] LABS: M. TUBERCULOSIS PCR NOT DETECTED (NOT DETECT)
[2017-05-20 23:26] LABS: APTT (PATIENT) 30.3 SEC (24.3-30.1)
[2017-05-21] VITALS (9 sets, daily range): BP systolic 135–159; BP diastolic 79–93; PULSE 51–75; RESP 18–20; TEMP 97–98.6; O2SAT 95–99
[2017-05-21] MEDS: ACETAMINOPHEN 325 MG TAB PO PRN (00:12)
[2017-05-21] MEDS: HEPARIN-D5W 25,000 U/250 ML 250 ML IV PRN (00:17)
[2017-05-21] MEDS: PANTOPRAZOLE SOD 40 MG DELAYED RELEASE TAB PO SCH (09:43)
[2017-05-21] MEDS: GABAPENTIN 300 MG CAP PO SCH ×3 (09:43→17:04)
[2017-05-21] MEDS: THIAMINE HCL 100 MG TAB PO SCH (09:43)
[2017-05-21] MEDS: SODIUM CHLORIDE 0.9% FLUSH 10 ML FLUSH IV FLUSH SCH ×2 (09:43→20:21)
[2017-05-21] MEDS: FOLIC ACID 1 MG TAB PO SCH (09:43)
[2017-05-21] MEDS: MULTIVITAMINS/MINERALS THERAPEUTIC TAB PO SCH (09:43)
[2017-05-21 11:42] LABS: HEMATOCRIT 38.8 % (39.0-51.0); REVIEW FLAG FINAL
[2017-05-21 11:48] LABS: APTT (PATIENT) 37.8 SEC (24.3-30.1)
[2017-05-21 12:04] LABS: MAGNESIUM 1.6 MG/DL (1.5-2.5); POTASSIUM 3.3 MEQ/L (3.5-5.1)
--- NOTE | 2017-05-21 13:47 | HHI.FPPN ---
Subjective Remarks Patient seen and examined this morning. Patient continues to be asymptomatic and felt completely fine. Patient has no complaints overnight. Patient denies chest pain/shortness of breath/dizziness. Patient denies fever/chills. He shouldn't is asking when he will be discharged. (Celsa Barillas MD R2) Objective Vitals Vital Signs Date Time Temp Pulse Resp B/P (MAP) Pulse Ox O2 Delivery O2 Flow Rate FiO2 05/21/17 11:21 21 05/21/17 10:00 51 05/21/17 08:00 97.4 69 18 135/83 (100) 99 05/21/17 04:00 98.6 75 20 148/82 (104) 95 05/21/17 00:00 98.0 75 18 149/79 (102) 96 05/20/17 20:28 21 05/20/17 20:00 97.5 75 20 158/90 (112) 94 05/20/17 16:00 97.4 67 16 158/92 (114) 95 I/O 05/20/17 05/20/17 05/20/17 05/21/17 05/21/17 05/21/17 07:00 15:00 23:00 07:00 15:00 23:00 Intake Total 960 ml 919 ml 580 ml Output Total 950 ml 700 ml 350 ml Balance 10 ml 219 ml 230 ml Intake Oral 960 ml 720 ml 580 ml IV Total 199 ml Output Urine Total 950 ml 700 ml 350 ml # Bowel Movements 1 1 (Celsa Barillas MD R2) Result Diagram: 05/21/17 1115 05/21/17 1115 Objective Remarks GENERAL: No acute distress, lying comfortably, skinny chachectic male SKIN: Warm and dry. HEAD: Normocephalic. EYES: No scleral icterus. No injection or drainage. NECK: Supple, trachea midline. No JVD or lymphadenopathy. CARDIOVASCULAR: Regular rate and rhythm without murmurs, gallops, or rubs. RESPIRATORY: Distant Breath sounds, course rhonchi and crackles in lower lobes equal bilaterally. No accessory muscle use. GASTROINTESTINAL: abdomen sunk in, Abdomen soft, non-tender, nondistended. MUSCULOSKELETAL: No cyanosis, or edema. BACK: Nontender without obvious deformity. No CVA tenderness. (Celsa Barillas MD R2) A/P Assessment and Plan 51-year-old male, history of alcohol and tobacco abuse, with a 3 month history of weight loss and shortness of breath presents with multiple bilateral PEs and bilateral DVTs. Discharge Planning pending heme/onc consult and establishment, and anticoagulation d/c plan (Celsa Barillas MD R2) Attending Attestation Patient seen and examined. Case reviewed and discussed with the resident team. Agree with plan of care as discussed with me and documented in the resident note. OUr workup thus far has been pretty unrevealing -- will consult heme/onc for assistance with the workup and plan for this patient. MD SCAR (Joanne Mancia MD) Problem List: (1) Pulmonary embolism ICD Codes: I26.99 - Other pulmonary embolism without acute cor pulmonale Status: Acute Plan: -Heparin drip -pulse ox - telemetry -O2 to titrate O2 sat >93% - will consider coumadin vs. novel anticoagulation agent - consult case management for future d/c planning ABG: ph: 7.50, pO2: 88 , pCO2: 34 - consistent with respiratory alkalosis via PE CTA: Bilateral nodular areas of consolidation which are new from the prior study and likely relate to an acute inflammatory or infectious process. I cannot exclude septic emboli.The prior examination is one year ago as opposed to one month ago. This changes the list of differential possibilities for these lung lesions. I would place at the top of the list metastatic disease as a primary consideration. Septic emboli will still be within the differential. (2) Hypercoagulable state ICD Codes: D68.59 - Other primary thrombophilia Status: Acute Plan: Weight loss and multiple clots, r/o carcinoma - f/u CBC, BMP : WNL - f/u glucose, HbA1c: WNL - f/u Calcium: WNL - f/u UA - f/u LFTs: WNL - f/u TSH: WNL - f/u Hemoccult : negative - f/u ESR/CRP : 33/3.80 - f/u HIV Ab: negative - f/u Hep C ab: negative - CEA: 5.3 - f/u with colonoscopy when stable - f/u with heme/onc for coagulability w/u , cancer w/u (3) Weight loss ICD Codes: R63.4 - Abnormal weight loss Status: Acute Plan: see workup for HIV/Carcinoma above (4) Shortness of breath dyspnea ICD Codes: R06.02 - Shortness of breath Status: Acute Plan: Likely related to PE vs. cardiac cause - EKG x2 : WNL - troponin x 3: WNL (5) Alcohol abuse ICD Codes: F10.10 - Alcohol abuse, uncomplicated Status: Chronic Plan: CIWA protocol - Rally pack No history of withdrawal or seizures per patient (6) Peptic ulcer disease with hemorrhage ICD Codes: K27.4 - Chronic or unspecified peptic ulcer, site unspecified, with hemorrhage Status: Chronic Plan: Multiple episodes of peptic ulcers, perforations, and bowel surgeries - Protonix 40 daily for prophylaxis - Monitor H&H - Daily abdominal exams (7) fen/ppx Status: Acute Plan: Fluids: Encourage by mouth fluid intake Electrolytes: BMP within normal limits, follow-up BMP tomorrow Nutrition: Regular diet GI prophylaxis: Protonix 40 daily - history of peptic ulcers (Celsa Barillas MD R2) Problem Qualifiers (1) Pulmonary embolism: Qualified Codes: I26.99 - Other pulmonary embolism without acute cor pulmonale Celsa Barillas MD R2 May 21, 2017 13:47 Joanne Mancia MD May 21, 2017 14:21
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
[2017-05-21] MEDS: POTASSIUM CHLORIDE 10 MEQ CAP PO SCH (17:04)
[2017-05-21 22:50] LABS: APTT (PATIENT) 51.1 SEC (24.3-30.1)
[2017-05-22] VITALS (7 sets, daily range): BP systolic 131–157; BP diastolic 73–90; PULSE 56–85; RESP 18–20; TEMP 97.8–99.2; O2SAT 96–99
[2017-05-22] MEDS: HEPARIN-D5W 25,000 U/250 ML 250 ML IV PRN (02:43)
[2017-05-22 05:35] LABS: AUTOMATED NEUTROPHIL # 5.5 TH/MM3 (1.8-7.7); BASOPHIL # 0.1 TH/MM3 (0-0.2); BASOPHIL % 0.7 % (0.0-2.0); EOSINOPHIL # 0.2 TH/MM3 (0-0.4); EOSINOPHIL % 1.9 % (0.0-4.0); HEMATOCRIT 35.2 % (39.0-51.0); HEMO FLAGS DIFF FINAL; LYMPHOCYTE # 2.3 TH/MM3 (1.0-4.8); MEAN CELL VOLUME 93.7 FL (80.0-100.0); MEAN CORPUSCULAR HEMOGLOBIN 32.1 PG (27.0-34.0); MEAN CORPUSCULAR HGB CONC 34.3 % (32.0-36.0); MONO % 11.2 % (0.0-8.0); NEUT % 61.2 % (16.0-70.0); PLATELET COUNT 275 TH/MM3 (150-450); RED BLOOD COUNT 3.75 MIL/MM3 (4.50-5.90); RED CELL DISTRIBUTION WIDTH 14.9 % (11.6-17.2)
[2017-05-22 05:42] LABS: APTT (PATIENT) 39.2 SEC (24.3-30.1)
[2017-05-22 05:44] LABS: BICARBONATE 24.8 MEQ/L (21.0-32.0); POTASSIUM 3.8 MEQ/L (3.5-5.1)
[2017-05-22] MEDS: THIAMINE HCL 100 MG TAB PO SCH (08:29)
[2017-05-22] MEDS: GABAPENTIN 300 MG CAP PO SCH ×3 (08:29→17:05)
[2017-05-22] MEDS: SODIUM CHLORIDE 0.9% FLUSH 10 ML FLUSH IV FLUSH SCH ×2 (08:30→21:10)
[2017-05-22] MEDS: POTASSIUM CHLORIDE 10 MEQ CAP PO SCH (08:30)
[2017-05-22] MEDS: MULTIVITAMINS/MINERALS THERAPEUTIC TAB PO SCH (08:30)
[2017-05-22] MEDS: FOLIC ACID 1 MG TAB PO SCH (08:30)
[2017-05-22] MEDS: PANTOPRAZOLE SOD 40 MG DELAYED RELEASE TAB PO SCH (08:30)
--- NOTE | 2017-05-22 10:15 | HHI.FPPN ---
Subjective Remarks Patient feels well. Denies any complaints. AFVSS. Patient reports that he can walk to the bathroom without TOVAR, but he cannot walk to the nurses' station without TOVAR. (Miles Anand MD R2) Objective Vitals Vital Signs Date Time Temp Pulse Resp B/P (MAP) Pulse Ox O2 Delivery O2 Flow Rate FiO2 05/22/17 08:00 98.3 68 20 134/77 (96) 97 05/22/17 08:00 85 05/22/17 04:00 98.0 77 20 131/90 (104) 96 05/22/17 00:00 99.2 75 20 143/84 (103) 99 05/21/17 20:31 99 05/21/17 20:15 75 05/21/17 20:00 98.5 71 20 159/93 (115) 96 05/21/17 16:00 97.3 75 18 146/80 (102) 99 05/21/17 12:00 97.0 75 18 145/87 (106) 99 05/21/17 11:21 21 I/O 05/21/17 05/21/17 05/21/17 05/22/17 05/22/17 05/22/17 07:00 15:00 23:00 07:00 15:00 23:00 Intake Total 580 ml 1140 ml 1314 ml Output Total 350 ml 1100 ml 775 ml Balance 230 ml 40 ml 539 ml Intake Oral 580 ml 960 ml 1080 ml IV Total 180 ml 234 ml Output Urine Total 350 ml 1100 ml 775 ml # Bowel Movements 1 0 (Miles Anand MD R2) Result Diagram: 05/22/1743905/22/17439 Imaging Last Impressions Head CT 05/20/17 Signed Impressions: Service Date/Time: May 21:18 - CONCLUSION: Normal examination for a patient of this age. Young Dodd MD Abdomen/Pelvis CT 05/20/17 Signed Impressions: Service Date/Time: May 21:21 - CONCLUSION: 1. Negative for metastatic disease in the abdomen and pelvis. Parenchymal scarring at the lung bases with mild bronchiectasis on the right. Cholecystectomy. Young Dodd MD Lower Extremity Ultrasound 05/19/17 Signed Impressions: Service Date/Time: Friday, May 19, 2017 18:10 - CONCLUSION: Bilateral DVT with nonocclusive thrombus noted in the deep venous systems of both lower extremities. Piter Garcia MD Objective Remarks GENERAL: No acute distress, sitting up in bed eating breakfast comfortably, cachetic male SKIN: Warm and dry. HEAD: Normocephalic. EYES: No scleral icterus. No injection or drainage. NECK: Supple, trachea midline. No JVD or lymphadenopathy. CARDIOVASCULAR: Regular rate and rhythm without murmurs, gallops, or rubs. RESPIRATORY: Coarse breath sounds relatively equal bilaterally. No accessory muscle use. GASTROINTESTINAL: Extensive laparotomy scar s/p multiple surgeries. Abdomen soft , non-tender, nondistended. MUSCULOSKELETAL: No cyanosis, or edema. BACK: Nontender without obvious deformity. (Miles Anand MD R2) A/P Assessment and Plan 51-year-old male, history of alcohol and tobacco abuse, with a 3 month history of weight loss and shortness of breath presented with multiple bilateral PEs and bilateral DVTs. Admitted for AC and cancer work up. Discharge Planning pending heme/onc consult and establishment, and anticoagulation d/c plan (Miles Anand MD R2) Attending Attestation Patient seen and examined. Case reviewed and discussed with the resident team. Agree with plan of care as discussed with me and documented in the resident note. (Joanne Mancia MD) Problem List: (1) Pulmonary embolism ICD Codes: I26.99 - Other pulmonary embolism without acute cor pulmonale Status: Acute Plan: -Stop Heparin drip and transition to Xarelto -pulse ox -telemetry -O2 to titrate O2 sat >93% -consult case management for future d/c planning -Heme/Onc c/s appreciated re hypercoagulability ABG: ph: 7.50, pO2: 88 , pCO2: 34 - consistent with respiratory alkalosis via PE CTA: Bilateral nodular areas of consolidation which are new from the prior study and likely relate to an acute inflammatory or infectious process. I cannot exclude septic emboli.The prior examination is one year ago as opposed to one month ago. This changes the list of differential possibilities for these lung lesions. I would place at the top of the list metastatic disease as a primary consideration. Septic emboli will still be within the differential. (2) Hypercoagulable state ICD Codes: D68.59 - Other primary thrombophilia Status: Acute Plan: Weight loss and multiple clots, r/o carcinoma -GI, oncology, pulmonology consults appreciated. Work up: - CBC, BMP : WNL - glucose, HbA1c: WNL - Calcium: WNL - f/u UA - LFTs: WNL - TSH: WNL - Hemoccult : negative - ESR/CRP : 33/3.80 - HIV Ab: negative - Hep C ab: negative - CEA: 5.3 (3) Weight loss ICD Codes: R63.4 - Abnormal weight loss Status: Acute Plan: see A/P for clots from possible infection or malignancy above (4) Shortness of breath dyspnea ICD Codes: R06.02 - Shortness of breath Status: Acute Plan: Likely related to PE vs. lung vs. cardiac cause Work up: - EKG : WNL - troponin x 3: WNL (5) Alcohol abuse ICD Codes: F10.10 - Alcohol abuse, uncomplicated Status: Resolved Plan: CIWA scores all 0. -d/c CIWA -d/c Rally pack No history of withdrawal or seizures per patient. (6) Peptic ulcer disease with hemorrhage ICD Codes: K27.4 - Chronic or unspecified peptic ulcer, site unspecified, with hemorrhage Status: Resolved Plan: Multiple episodes of peptic ulcers, perforations, and bowel surgeries - Protonix 40 daily for prophylaxis - Monitor H&H - Daily abdominal exams (7) fen/ppx Status: Acute Plan: Fluids: Encourage by mouth fluid intake Electrolytes: BMP within normal limits, follow-up BMP tomorrow Nutrition: Regular diet GI prophylaxis: Protonix 40 daily - history of peptic ulcers (Miles Anand MD R2) Problem Qualifiers (1) Pulmonary embolism: Qualified Codes: I26.99 - Other pulmonary embolism without acute cor pulmonale Miles Anand MD R2 May 22, 2017 10:15 Joanne Mancia MD May 23, 2017 10:25
--- NOTE | 2017-05-22 10:24 | PD.ONC.PN ---
Subjective Subjective Remarks Afebrile overnight. Patient feeling good today. Ate 2 bagels and some fruit for breakfast. No bleeding. No pain. Objective Data Date Time Temp Pulse Resp B/P (MAP) Pulse Ox O2 Delivery O2 Flow Rate FiO2 05/22/17 08:00 98.3 68 20 134/77 (96) 97 05/22/17 08:00 85 05/22/17 04:00 98.0 77 20 131/90 (104) 96 05/22/17 00:00 99.2 75 20 143/84 (103) 99 05/21/17 20:31 99 05/21/17 20:15 75 05/21/17 20:00 98.5 71 20 159/93 (115) 96 05/21/17 16:00 97.3 75 18 146/80 (102) 99 05/21/17 12:00 97.0 75 18 145/87 (106) 99 05/21/17 11:21 21 05/22/17 05/22/17 05/22/17 07:00 15:00 23:00 Intake Total 1314 ml Output Total 775 ml Balance 539 ml Result Diagram: 05/22/17 0440 05/22/17 0440 Laboratory Results Laboratory Tests Test 05/21/17 11:15 05/21/17 21:59 05/22/17 04:40 Hemoglobin 13.0 GM/DL 12.1 GM/DL Hematocrit 38.8 % 35.2 % Activated Partial Thromboplast Time 37.8 SEC 51.1 SEC 39.2 SEC Blood Urea Nitrogen 6 MG/DL 6 MG/DL Creatinine 0.53 MG/DL 0.48 MG/DL Random Glucose 123 MG/DL 86 MG/DL Calcium Level 8.5 MG/DL 8.6 MG/DL Phosphorus Level 2.6 MG/DL Magnesium Level 1.6 MG/DL Sodium Level 135 MEQ/L 135 MEQ/L Potassium Level 3.3 MEQ/L 3.8 MEQ/L Chloride Level 102 MEQ/L 102 MEQ/L Carbon Dioxide Level 24.0 MEQ/L 24.8 MEQ/L Anion Gap 9 MEQ/L 8 MEQ/L Estimat Glomerular Filtration Rate 163 ML/MIN 183 ML/MIN Tumor Marker Alpha Fetoprotein 7.4 NG/ML CA 19-9 Antigen 15.8 U/ML CA 125 Antigen 13.7 U/ML Tumor Marker HCG LESS THAN 1 MIU/ML White Blood Count 9.0 TH/MM3 Red Blood Count 3.75 MIL/MM3 Mean Corpuscular Volume 93.7 FL Mean Corpuscular Hemoglobin 32.1 PG Mean Corpuscular Hemoglobin Concent 34.3 % Red Cell Distribution Width 14.9 % Platelet Count 275 TH/MM3 Mean Platelet Volume 7.8 FL Neutrophils (%) (Auto) 61.2 % Lymphocytes (%) (Auto) 25.0 % Monocytes (%) (Auto) 11.2 % Eosinophils (%) (Auto) 1.9 % Basophils (%) (Auto) 0.7 % Neutrophils # (Auto) 5.5 TH/MM3 Lymphocytes # (Auto) 2.3 TH/MM3 Monocytes # (Auto) 1.0 TH/MM3 Eosinophils # (Auto) 0.2 TH/MM3 Basophils # (Auto) 0.1 TH/MM3 CBC Comment DIFF FINAL Differential Comment Culture Results Microbiology Date/Time Source Procedure Growth Status 05/20/17 10:32 Stool Stool Stool Occult Blood (CHATA) - Final HEMOCCULT NEGATIVE Complete Imaging Studies Last Impressions Head CT 05/20/17 0000 Signed Impressions: Service Date/Time: May 21:18 - CONCLUSION: Normal examination for a patient of this age. Young Dodd MD Abdomen/Pelvis CT 05/20/17 0000 Signed Impressions: Service Date/Time: May 21:21 - CONCLUSION: 1. Negative for metastatic disease in the abdomen and pelvis. Parenchymal scarring at the lung bases with mild bronchiectasis on the right. Cholecystectomy. Young Dodd MD Lower Extremity Ultrasound 05/19/17 0000 Signed Impressions: Service Date/Time: Friday, May 19, 2017 18:10 - CONCLUSION: Bilateral DVT with nonocclusive thrombus noted in the deep venous systems of both lower extremities. Piter Garcia MD Administered Medications Medications (Trade) Dose Ordered Sig/Willow Route PRN Reason Start Time Stop Time Status Last Admin Dose Admin Sodium Chloride (NS Flush) 2 ml BID IV FLUSH 05/19/17 21:00 05/21/17 09:43 Acetaminophen (Tylenol) 650 mg Q4H PRN PO PAIN SCALE 1 TO 2 05/19/17 17:00 05/21/17 00:12 Gabapentin (Neurontin) 300 mg TID PO 05/19/17 18:00 05/22/17 08:29 Folic Acid (Folate) 1 mg DAILY PO 05/20/17 09:00 05/25/17 08:59 05/22/17 08:30 Thiamine HCl (Vitamin B1) 100 mg DAILY PO 05/20/17 09:00 05/22/17 08:29 Multivitamins/ Minerals Therapeutic (Theragran M Tab) 1 tab DAILY PO 05/20/17 09:00 05/25/17 08:59 05/22/17 08:30 Pantoprazole Sodium (Protonix) 40 mg DAILY PO 05/19/17 17:45 05/22/17 08:30 Heparin Sodium (Porcine) (Heparin Inj) 2,500 units UNSCH PRN IV PUSH APTT 25 TO 39 05/20/17 21:15 05/21/17 00:33 Heparin Sodium/ Dextrose 250 ml @ 9.486 mls/ hr TITRATE PRN IV Coagulation management 05/20/17 15:15 05/22/17 02:43 Potassium Chloride (KCl) 20 meq DAILY PO 05/21/17 14:15 05/22/17 08:30 Objective Remarks GENERAL: Pleasant middle aged male upright in bed in nad. SKIN: Warm and dry. HEAD: Normocephalic. EYES: No injection or drainage. NECK: Supple, trachea midline. CARDIOVASCULAR: Regular rate and rhythm RESPIRATORY: occasional wheeze GASTROINTESTINAL: Abdomen soft, non-tender, nondistended. EXTREMITIES: No cyanosis NEUROLOGICAL: No obvious focal deficit. Awake, alert, and oriented x3. Assessment/Plan Problem List: (1) Pulmonary embolism ICD Codes: I26.99 - Other pulmonary embolism without acute cor pulmonale Status: Acute Plan: --on heparin gtt --U/S legs shows bilateral LE DVT (2) Mass of middle lobe of right lung ICD Codes: R91.8 - Other nonspecific abnormal finding of lung field Status: Acute Plan: --CTA: showed bilateral nodular areas of consolidation. differential includes septic emboli, metastatic disease --CEA elevated --CT ab/pelvis showed no mets --GI following but has no plans for EGD at this time. Assessment 51y/o male with DVT, PE, weight loss. h/o COPD, perforated peptic ulcer repair -- alcohol and tobacco abuse Attending Statement The exam, history, and the medical decision-making described in the above note were completed with the assistance of the mid-level provider. I reviewed and agree with the findings presented. I attest that I had a [id number] encounter with the patient on the same day, and personally performed and documented my assessment and findings in the medical record. no c/o offer Ok to start xarelto. No lung mass bx at this time due to PE. GI input reviewed. Tumor markers are NL except CEA is mildly high. Problem Qualifiers (1) Pulmonary embolism: Qualified Codes: I26.99 - Other pulmonary embolism without acute cor pulmonale Seema Gunderson May 22, 2017 10:24 Benedict Hastings MD May 22, 2017 19:40
--- NOTE | 2017-05-22 10:44 | MB ---
cc: SUNDAR BACA M.D. DATE OF CONSULTATION: 05/21/2017 REASON FOR CONSULTATION: Consult requested by Dr. Montoya for evaluation of bilateral DVT of the lower legs with bilateral pulmonary embolism. HISTORY OF PRESENT ILLNESS Mohit is a 51-year-old male. He has a history of perforated peptic ulcer disease. The patient underwent partial gastrectomy and has had multiple abdominal surgeries. According to him he had a total of nine abdominal surgeries, at one time he had the colostomy bag. This was subsequently reversed. He also has a history of lung nodules and underwent bronchoscopy and lung biopsies last year which was reported to be negative. The patient has been evaluated by infectious disease on multiple occasions. No TB was detected. The patient was in his usual state of health up until about 2 months ago he started losing weight. He stated he loss 20 pounds. He was started having severe difficulty breathing he call his primary physician Dr. Alvarez who had ordered the CT angiogram which showed bilateral pulmonary embolism. The patient was advised to report to the emergency room. The patient is admitted to the hospital. The patient has been started on anticoagulant by the family practice residency program. The patient has been on heparin. The plan is to transition into as Xarelto. I have been asked to see the patient for further evaluation. The patient states that his breathing has somewhat improved. He denies any nausea or vomiting. He is complaining of weight loss in spite of having a good appetite. The rest of the review of systems is negative. PAST MEDICAL HISTORY 1. Perforated gastric ulcer. 2. Multiple lung masses in the past 3. bronchoscopy and biopsy 4. lung biopsies have been negative. PAST SURGICAL HISTORY Multiple abdominal surgeries Also he underwent partial gastrectomy for perforated gastric ulcer at a young age. ALLERGIES ASPIRIN MEDICATIONS 1. Folic acid 2. vitamin B1. 3. Folate. 4. Protonix. 5. Neurontin. 6. Tylenol. 7. Zofran. 8. Heparin. FAMILY HISTORY: Family history is noncontributory. SOCIAL HISTORY The patient smokes cigarettes. Seven cigarettes a day also drinks alcohol six pack a day. PHYSICAL EXAMINATION: IN GENERAL: Physical examination is a well-developed, white male in no apparent distress. VITAL SIGNS: Temperature 97.3, heart rate is 75, blood pressure 146/80, O2 saturation 99%. HEAD, EYES, EARS, NOSE, AND THROAT: Pupils equal, round, reactive to light and accommodation, extraocular muscles intact, anicteric. No oral lesions noted. NECK: No lymphadenopathy noted. LUNGS: Clear. No wheezing, rhonchi or rales. HEART: Heart is regular rate and rhythm. ABDOMEN: Abdomen is soft, multiple surgical scars noted. EXTREMITIES: No pedal edema. NEUROLOGIC: Neurology awake, alert, oriented times three. SKIN: No significant lesions noted. ASSESSMENT: 1) Bilateral DVTs with bilateral pulmonary embolism. This is his first episode. 2) 20 pounds weight loss in the last two months. The etiology of that is unknown. 3) Lung Masses 4) History of PUD s/p Partial gastrectomy for perforation. PLAN I have reviewed his available records and I have discussed with the patient regarding the bilateral DVTs with bilateral pulmonary embolism. I agree with anticoagulation with heparin and transitioned into Xarelto. I would not recommend to order any hypercoagulable panel at this time since the management is not going to be changed. Given the weight loss, he could have underlying malignancy which certainly can cause hypercoagulable state. I will order the tumor markers. The patient had a CT scan of the chest which showed lung masses. The CT scan of the abdomen and pelvis is negative. The patient previously had bronchoscopy and lung mass biopsies which have been negative. The patient should be evaluated by buhr mill operator for repeat bronchoscopy once the patient becomes stable from pulmonary embolism standpoint. Also my recommendation is to consult GI to evaluate for upper endoscopy and colonoscopy, to find out if he has any GI malignancy which could could be causing the weight loss and hypercoagulable state causing pulmonary embolism and bilateral DVTs. Further recommendations based on his hospital stay. Thank you for asking my opinion. MD MARTELL Desouza/krupa /12:32 AM /10:30 AM VITALIY
[2017-05-22 13:37] LABS: APTT (PATIENT) 48.2 SEC (24.3-30.1)
[2017-05-22] MEDS ORDERED: HEPARIN-D5W 25,000 U/250 ML 250 ML IV PRN (15:30)
[2017-05-22] MEDS ORDERED: HEPARIN - 10,000 UNITS/ML IV ADDITIVE IV PUSH PRN (15:30)
[2017-05-22 17:24] LABS: BLOOD, URINE NEG (NEG); GLUCOSE,URINE 300 mg/dL (NEG); KETONE, URINE NEG (NEG); NITRITE,URINE NEG (NEG); URINE COLOR YELLOW (YELLW/STRAW)
[2017-05-22 17:25] LABS: COMMENT (UR) CULT NOT INDICATED; CULTURE IF INDICATED CULT NOT INDICATED
[2017-05-22 18:52] LABS: APTT (PATIENT) 35.3 SEC (24.3-30.1)
[2017-05-22] MEDS: RIVAROXABAN 15 MG TAB PO SCH (21:10)
[2017-05-23] VITALS (8 sets, daily range): BP systolic 123–170; BP diastolic 73–84; PULSE 54–101; RESP 18–20; TEMP 97.5–98.9; O2SAT 93–100
[2017-05-23] MEDS: ACETAMINOPHEN 325 MG TAB PO PRN (05:25)
--- NOTE | 2017-05-23 08:30 | HHI.FPPN ---
Subjective Remarks Was afebrile overnight. No tachycardia or hypoxemia overnight. O2 sats 97%. Patient denies pain. Endorses a lot of congestion/phlegm. States that this morning when he went to the bathroom he coughed up "clot of blood." He is concerned about peptic ulcer. No other complaints. (Tasha Singleton MD R1) Objective Vitals Vital Signs Date Time Temp Pulse Resp B/P (MAP) Pulse Ox O2 Delivery O2 Flow Rate FiO2 05/23/17 05:00 98.3 67 20 146/74 (98) 97 05/23/17 00:00 98.1 62 20 150/84 (106) 97 05/23/17 00:00 98.9 101 20 123/84 (97) 100 05/22/17 21:08 99 21 05/22/17 20:00 97.8 56 18 152/80 (104) 99 05/22/17 16:00 98.0 80 18 154/80 (104) 97 05/22/17 12:00 99.0 73 18 157/73 (101) 97 I/O 05/22/17 05/22/17 05/22/17 05/23/17 05/23/17 05/23/17 07:00 15:00 23:00 07:00 15:00 23:00 Intake Total 1314 ml 960 ml 480 ml Output Total 775 ml 1500 ml Balance 539 ml -540 ml 480 ml Intake Oral 1080 ml 960 ml 480 ml IV Total 234 ml Output Urine Total 775 ml 1500 ml # Voids 2 # Bowel Movements 1 1 (Tasha Singleton MD R1) Result Diagram: 05/22/1743905/22/17439 Objective Remarks GENERAL: No acute distress, cachetic male SKIN: Warm and dry. HEAD: Normocephalic. EYES: No scleral icterus. No injection or drainage. NECK: Supple, trachea midline. CARDIOVASCULAR: Regular rate and rhythm without murmurs, gallops, or rubs. RESPIRATORY: Coarse breath sounds relatively equal bilaterally. No accessory muscle use. GASTROINTESTINAL: Extensive laparotomy scar s/p multiple surgeries. Abdomen soft , non-tender, nondistended. MUSCULOSKELETAL: No cyanosis, or edema. (Tasha Singleton MD R1) A/P Assessment and Plan 51-year-old male, history of alcohol and tobacco abuse, with a 3 month history of weight loss and shortness of breath presented with multiple bilateral PEs and bilateral DVTs. Admitted for AC and cancer work up. Discharge Planning Cleared for discharge by case management (Tasha Singleton MD R1) Attending Attestation Patient seen and examined. Case reviewed and discussed with the resident team. Agree with plan of care as discussed with me and documented in the resident note. (Joanne Mancia MD) Problem List: (1) Pulmonary embolism ICD Codes: I26.99 - Other pulmonary embolism without acute cor pulmonale Status: Acute Plan: -Xarelto 05/22 -pulse ox -telemetry -consult case management for future d/c planning -Heme/Onc consulted (2) Hypercoagulable state ICD Codes: D68.59 - Other primary thrombophilia Status: Acute Plan: Weight loss and multiple clots, r/o carcinoma - CEA and ESR/CRP elevated - can pursue further work-up outpatient after further treatment of PE (3) Weight loss ICD Codes: R63.4 - Abnormal weight loss Status: Acute Plan: see A/P for clots from possible infection or malignancy above (4) Shortness of breath dyspnea ICD Codes: R06.02 - Shortness of breath Status: Acute Plan: Likely related to PE vs. lung vs. cardiac cause Work up: - EKG : WNL - troponin x 3: WNL (5) fen/ppx Status: Acute Plan: Fluids: Encourage by mouth fluid intake Nutrition: Regular diet GI prophylaxis: Protonix 40 daily - history of peptic ulcers (Tasha Singleton MD R1) Problem Qualifiers (1) Pulmonary embolism: Qualified Codes: I26.99 - Other pulmonary embolism without acute cor pulmonale Tasha Singleton MD R1 May 23, 2017 08:30 Joanne Mancia MD May 23, 2017 11:31
[2017-05-23] MEDS: POTASSIUM CHLORIDE 10 MEQ CAP PO SCH (08:48)
[2017-05-23] MEDS: RIVAROXABAN 15 MG TAB PO SCH ×2 (08:48→21:31)
[2017-05-23] MEDS: SODIUM CHLORIDE 0.9% FLUSH 10 ML FLUSH IV FLUSH SCH ×2 (08:48→21:32)
[2017-05-23] MEDS: GABAPENTIN 300 MG CAP PO SCH ×3 (08:48→17:37)
--- NOTE | 2017-05-23 10:44 | PD.ONC.PN ---
Subjective Subjective Remarks Afebrile overnight. Patient resting in bed in nad. Took first dose of xarelto this AM. tolerating breakfast. wanting to know when he can go home. Objective Data Date Time Temp Pulse Resp B/P (MAP) Pulse Ox O2 Delivery O2 Flow Rate FiO2 05/23/17 08:00 97.7 54 18 137/73 (94) 97 05/23/17 05:00 98.3 67 20 146/74 (98) 97 05/23/17 00:00 98.1 62 20 150/84 (106) 97 05/23/17 00:00 98.9 101 20 123/84 (97) 100 05/22/17 21:08 99 21 05/22/17 20:00 97.8 56 18 152/80 (104) 99 05/22/17 16:00 98.0 80 18 154/80 (104) 97 05/22/17 12:00 99.0 73 18 157/73 (101) 97 05/23/17 05/23/17 05/23/17 07:00 15:00 23:00 Intake Total 480 ml Balance 480 ml Result Diagram: 05/22/170 05/22/17439 Laboratory Results Laboratory Tests Test 05/22/17 12:40 05/22/17 17:00 05/22/17 18:20 Activated Partial Thromboplast Time 48.2 SEC 35.3 SEC Urine Color YELLOW Urine Turbidity CLEAR Urine pH 7.0 Urine Specific [place] 1.008 Urine Protein NEG mg/dL Urine Glucose (UA) 300 mg/dL Urine Ketones NEG mg/dL Urine Occult Blood NEG Urine Nitrite NEG Urine Bilirubin NEG Urine Urobilinogen LESS THAN 2.0 MG/DL Urine Leukocyte Esterase NEG Urine RBC LESS THAN 1 /hpf Urine WBC 1 /hpf Microscopic Urinalysis Comment CULT NOT INDICATED Administered Medications Medications (Trade) Dose Ordered Sig/Willow Route PRN Reason Start Time Stop Time Status Last Admin Dose Admin Sodium Chloride (NS Flush) 2 ml BID IV FLUSH 05/19/17 21:00 05/23/17 08:48 Acetaminophen (Tylenol) 650 mg Q4H PRN PO PAIN SCALE 1 TO 2 05/19/17 17:00 05/23/17 05:25 Gabapentin (Neurontin) 300 mg TID PO 05/19/17 18:00 05/23/17 08:48 Potassium Chloride (KCl) 20 meq DAILY PO 05/21/17 14:15 05/23/17 08:48 Rivaroxaban (Xarelto) 15 mg BID PO 05/22/17 21:00 05/23/17 08:48 Objective Remarks GENERAL: Middle aged male sitting up in bed eating breakfast. SKIN: Warm and dry. HEAD: Normocephalic. EYES: No injection or drainage. NECK: Supple, trachea midline. CARDIOVASCULAR: Regular rate and rhythm RESPIRATORY: diminished at bases, scattered wheeze GASTROINTESTINAL: Abdomen soft, non-tender, nondistended. EXTREMITIES: No cyanosis NEUROLOGICAL: No obvious focal deficit. Awake, alert, and oriented x3. Assessment/Plan Problem List: (1) Pulmonary embolism ICD Codes: I26.99 - Other pulmonary embolism without acute cor pulmonale Status: Acute Plan: 05/23: continue xarelto, monitor for bleeding. --U/S legs shows bilateral LE DVT (2) Mass of middle lobe of right lung ICD Codes: R91.8 - Other nonspecific abnormal finding of lung field Status: Acute Plan: 05/23: fs faxed to new patient referrals for follow up in clinic once discharged. --CTA: showed bilateral nodular areas of consolidation. differential includes septic emboli, metastatic disease --CEA elevated --CT ab/pelvis showed no mets --GI following but has no plans for EGD at this time. Assessment 51y/o male with DVT, PE, weight loss. h/o COPD, perforated peptic ulcer repair -- alcohol and tobacco abuse Attending Statement The exam, history, and the medical decision-making described in the above note were completed with the assistance of the mid-level provider. I reviewed and agree with the findings presented. I attest that I had a [id number] encounter with the patient on the same day, and personally performed and documented my assessment and findings in the medical record. No new c/o wants to go home now on xarelto ok to d/c Problem Qualifiers (1) Pulmonary embolism: Qualified Codes: I26.99 - Other pulmonary embolism without acute cor pulmonale Seema Gunderson May 23, 2017 10:44 Benedict Hastings MD May 23, 2017 17:37
[2017-05-23 12:05] LABS: AUTOMATED NEUTROPHIL # 3.7 TH/MM3 (1.8-7.7); BASOPHIL # 0.1 TH/MM3 (0-0.2); BASOPHIL % 0.9 % (0.0-2.0); EOSINOPHIL # 0.1 TH/MM3 (0-0.4); EOSINOPHIL % 1.7 % (0.0-4.0); HEMATOCRIT 37.3 % (39.0-51.0); HEMO FLAGS DIFF FINAL; LYMPHOCYTE # 1.8 TH/MM3 (1.0-4.8); MEAN CELL VOLUME 94.8 FL (80.0-100.0); MEAN CORPUSCULAR HEMOGLOBIN 31.7 PG (27.0-34.0); MEAN CORPUSCULAR HGB CONC 33.5 % (32.0-36.0); MONO % 12.4 % (0.0-8.0); PLATELET COUNT 294 TH/MM3 (150-450); RED BLOOD COUNT 3.93 MIL/MM3 (4.50-5.90); RED CELL DISTRIBUTION WIDTH 14.9 % (11.6-17.2); WHITE BLOOD COUNT 6.5 TH/MM3 (4.0-11.0)
[2017-05-23 12:29] LABS: BICARBONATE 24.7 MEQ/L (21.0-32.0); POTASSIUM 3.6 MEQ/L (3.5-5.1)
--- NOTE | 2017-05-23 14:18 | MB ---
cc: JUAN MARTINEZ M.D. DATE OF CONSULTATION: 05/23/2017. REASON FOR CONSULTATION: DVT and PE. HISTORY OF PRESENT ILLNESS: Mr. Brady is a 51-year-old male who has been complaining of increasing shortness of breath. He had seen Dr. Alvarez in the outpatient where a CT angiogram was ordered of the chest revealing bilateral pulmonary emboli. Lower extremity ultrasound revealed DVT as well. The patient was started on anticoagulant therapy. The patient's shortness of breath has improved. He denies history of fevers, chills, cough or expectoration or hemoptysis. The patient has had progressive weight loss over the last two to three months. PAST MEDICAL HISTORY: His past medical history is: 1. Perforated peptic ulcer, which was surgically treated. 2. History of progressive weight loss, as mentioned above. 3. Bilateral nodules with negative bronchoscopy and biopsy and infectious disease evaluation negative with no suggestive of active infection. 4. He has had multiple abdominal surgeries in the past and partial gastrectomy for a perforated peptic ulcer. MEDICATIONS AT HOME: 1. Folic acid. 2. Vitamin D1. 3. Protonix. 4. Neurontin. 5. Zofran as needed. 6. Tylenol. 7. Heparin. 8. Presently on Xarelto. FAMILY HISTORY: Positive for hypertension, heart disease and otherwise unremarkable. SOCIAL HISTORY: Long heavy smoking history of about 30 pack/years. Drinks a six-pack a day. He does not use drugs. REVIEW OF SYSTEMS: A twelve-point review of systems is as per the history of present illness and past history, otherwise negative. PHYSICAL EXAMINATION: GENERAL: On exam, the patient is alert. VITAL SIGNS: Temperature 97.5, pulse 80, respirations 16, blood pressure 140/78, oxygen saturation 99% room air. HEAD, EYES, EARS, NOSE, THROAT: Exam unremarkable. Eyes without icterus. NECK: Without adenopathy or thyroid enlargement. Central trachea. CHEST: Without dullness to percussion, clear to auscultation. CARDIAC: PMI distant. S1-S2 audible. No murmur or rub. ABDOMEN: Lax. Bowel sounds audible. EXTREMITIES: No clubbing, cyanosis or edema. IMAGING STUDIES: CT abdomen and pelvis without suggestion of metastatic disease. Some scarring at lung bases is noted. LABORATORY DATA: White count 6.5, hemoglobin 12, hematocrit 37, platelets 7.9. Arterial blood gas room air shows pH 7.50, pCO2 32 and pO2 of 60. IMPRESSION: 1. DVT, PE. 2. Abnormal chest x-ray; workup negative for active infection TB or malignancy. 3. Weight loss. PLAN: The patient is anticoagulated. He is on Xarelto at present. Oncology is following the patient. Dr. Hastings has seen him and evaluation for possible underlying malignancy is being undertaken in view of the patient's weight loss. We will check baseline pulmonary function and chest x-ray. Will follow the patient's course along with you and depending on findings proceed further. I do thank you for asking me to partake in Mr. Brady's care. Juan Martinez MD WWW/[facility] /12:21 PM /2:06 PM
--- NOTE | 2017-05-23 15:34 | RADRPT ---
EXAM DATE/TIME: 05/23/2017 14:33 [place] COMPARISON: CHEST PA & LAT, March 24, 2017, 13:56. INDICATIONS : Short of breath. Wheezing. MEDICAL HISTORY : Carcinoma, lung. SURGICAL HISTORY : Colon resection. ENCOUNTER: Subsequent ACUITY: 4 - 6 days PAIN SCORE: 0/10 LOCATION: Bilateral chest FINDINGS: The cardiac silhouette is normal in transverse diameter. The lungs are hyperinflated. There are sever e emphysematous changes bilaterallyThere is no evidence of pneumothorax. No pleural effusions are id entified. There is a new 15 mm nodule in the left midlung. Malignancy is not excluded. CT scan is rec ommended for further evaluation if clinically indicated. Severe bilaterally CONCLUSION: 1. Severe emphysema 2. No acute cardiopulmonary disease. 3. 15 mm nodule left midlung. CT scan is recommended for further evaluation if clinically indicated. Alonzo Vazquez MD on May 23, 2017 at 15:30 Board Certified Radiologist. This report was verified electronically.
[2017-05-24] VITALS: BP 148/81; PULSE 59; RESP 16; TEMP 98.3; O2SAT 96
[2017-05-24 04:00] VITALS: BP 148/76; PULSE 73; RESP 20; TEMP 98.4; O2SAT 97
[2017-05-24 08:00] VITALS: BP 134/87; PULSE 78; RESP 18; TEMP 98.7; O2SAT 97
[2017-05-24 08:41] VITALS: O2SAT 97
[2017-05-24] MEDS: POTASSIUM CHLORIDE 10 MEQ CAP PO SCH (08:41)
[2017-05-24] MEDS: RIVAROXABAN 15 MG TAB PO SCH (08:41)
[2017-05-24] MEDS: GABAPENTIN 300 MG CAP PO SCH ×2 (08:41→14:04)
[2017-05-24] MEDS: SODIUM CHLORIDE 0.9% FLUSH 10 ML FLUSH IV FLUSH SCH (08:42)
--- NOTE | 2017-05-24 10:34 | PD.ONC.PN ---
Subjective Subjective Remarks Afebrile overnight. Patient resting in bed eating breakfast. Denies any bleeding. Tolerating xarelto. dyspnea improved. Objective Data Date Time Temp Pulse Resp B/P (MAP) Pulse Ox O2 Delivery O2 Flow Rate FiO2 05/24/17 08:41 97 05/24/17 08:00 98.7 78 18 134/87 (103) 97 05/24/17 04:00 98.4 73 20 148/76 (100) 97 05/24/17 00:00 98.3 59 16 148/81 (103) 96 05/23/17 21:04 98 21 05/23/17 20:00 97.5 77 18 170/83 (112) 98 05/23/17 16:08 98 05/23/17 16:00 97.6 75 18 164/81 (108) 93 05/23/17 12:00 97.5 56 18 146/79 (101) 93 05/24/17 05/24/17 05/24/17 07:00 15:00 23:00 Intake Total 240 ml Balance 240 ml Result Diagram: 05/23/17 1040 05/23/17 1040 Laboratory Results Laboratory Tests Test 05/23/17 10:40 White Blood Count 6.5 TH/MM3 Red Blood Count 3.93 MIL/MM3 Hemoglobin 12.5 GM/DL Hematocrit 37.3 % Mean Corpuscular Volume 94.8 FL Mean Corpuscular Hemoglobin 31.7 PG Mean Corpuscular Hemoglobin Concent 33.5 % Red Cell Distribution Width 14.9 % Platelet Count 294 TH/MM3 Mean Platelet Volume 7.9 FL Neutrophils (%) (Auto) 57.0 % Lymphocytes (%) (Auto) 28.0 % Monocytes (%) (Auto) 12.4 % Eosinophils (%) (Auto) 1.7 % Basophils (%) (Auto) 0.9 % Neutrophils # (Auto) 3.7 TH/MM3 Lymphocytes # (Auto) 1.8 TH/MM3 Monocytes # (Auto) 0.8 TH/MM3 Eosinophils # (Auto) 0.1 TH/MM3 Basophils # (Auto) 0.1 TH/MM3 CBC Comment DIFF FINAL Differential Comment Blood Urea Nitrogen 5 MG/DL Creatinine 0.53 MG/DL Random Glucose 88 MG/DL Calcium Level 8.6 MG/DL Sodium Level 136 MEQ/L Potassium Level 3.6 MEQ/L Chloride Level 102 MEQ/L Carbon Dioxide Level 24.7 MEQ/L Anion Gap 9 MEQ/L Estimat Glomerular Filtration Rate 163 ML/MIN Administered Medications Medications (Trade) Dose Ordered Sig/Willow Route PRN Reason Start Time Stop Time Status Last Admin Dose Admin Sodium Chloride (NS Flush) 2 ml BID IV FLUSH 05/19/17 21:00 05/24/17 08:42 Acetaminophen (Tylenol) 650 mg Q4H PRN PO PAIN SCALE 1 TO 2 05/19/17 17:00 05/23/17 05:25 Gabapentin (Neurontin) 300 mg TID PO 05/19/17 18:00 05/24/17 08:41 Potassium Chloride (KCl) 20 meq DAILY PO 05/21/17 14:15 05/24/17 08:41 Rivaroxaban (Xarelto) 15 mg BID PO 05/22/17 21:00 05/24/17 08:41 Objective Remarks GENERAL: Middle aged male upright in bed in nad SKIN: Warm and dry. HEAD: Normocephalic. EYES: No injection or drainage. NECK: Supple, trachea midline. CARDIOVASCULAR: Regular rate and rhythm RESPIRATORY: occasional wheeze GASTROINTESTINAL: Abdomen soft, non-tender, nondistended. EXTREMITIES: No cyanosis NEUROLOGICAL: awake and alert, normal speech. moving all extremities. Assessment/Plan Problem List: (1) Pulmonary embolism ICD Codes: I26.99 - Other pulmonary embolism without acute cor pulmonale Status: Acute Plan: 05/24: continue xarelto. patient clear for discharge. will need follow up with Dr. Hastings in clinic in 1-2 weeks. --fs faxed to npr --U/S legs shows bilateral LE DVT (2) Mass of middle lobe of right lung ICD Codes: R91.8 - Other nonspecific abnormal finding of lung field Status: Acute Plan: --fs faxed to new patient referrals for follow up in clinic --CTA: showed bilateral nodular areas of consolidation. differential includes septic emboli, metastatic disease --CEA elevated --CT ab/pelvis showed no mets --GI following but has no plans for EGD at this time. Assessment 51y/o male with DVT, PE, weight loss. h/o COPD, perforated peptic ulcer repair -- alcohol and tobacco abuse Attending Statement no ne wc/o tolerating xarelto well clear for d/c sign off available prn The exam, history, and the medical decision-making described in the above note were completed with the assistance of the mid-level provider. I reviewed and agree with the findings presented. I attest that I had a [id number] encounter with the patient on the same day, and personally performed and documented my assessment and findings in the medical record. Problem Qualifiers (1) Pulmonary embolism: Qualified Codes: I26.99 - Other pulmonary embolism without acute cor pulmonale Seema Gunderson May 24, 2017 10:34 Benedict Hastings MD May 24, 2017 17:34
[2017-05-24 12:00] VITALS: BP 161/83; PULSE 69; RESP 18; TEMP 97.5; O2SAT 94
[2017-05-24] MEDS ORDERED: XARE15TA PO (15:05)
--- NOTE | 2017-05-24 15:05 | HHI.DCPOC ---
Discharge Care Plan Diagnosis: (1) Gastritis (2) Hypokalemia (3) Lung mass (4) Hypercoagulable state (5) Pulmonary embolism Goals to Promote Your Health * To prevent worsening of your condition and complications * To maintain your health at the optimal level Directions to Meet Your Goals Take your medications as prescribed Follow your dietary instruction Follow activity as directed Keep your appointments as scheduled Take your immunizations and boosters as scheduled If your symptoms worsen call your PCP, if no PCP go to Urgent Care Center or Emergency Room Smoking is Dangerous to Your Health. Avoid second hand smoke Call the 24-hour hour crisis hotline for domestic abuse at Maninder Byrd MD, R3 May 24, 2017 15:05
--- NOTE | 2017-05-24 15:29 | HHI.FPPN ---
Subjective Remarks No fevers. No complaints. Adequate oral intake and output. Patient is stable, would like to go home. (Tasha Singleton MD R1) Objective Vitals Vital Signs Date Time Temp Pulse Resp B/P (MAP) Pulse Ox O2 Delivery O2 Flow Rate FiO2 05/24/17 12:00 97.5 69 18 161/83 (109) 94 05/24/17 08:41 97 05/24/17 08:00 98.7 78 18 134/87 (103) 97 05/24/17 07:15 Room Air 05/24/17 04:00 98.4 73 20 148/76 (100) 97 05/24/17 00:00 98.3 59 16 148/81 (103) 96 05/23/17 21:04 98 21 05/23/17 20:00 97.5 77 18 170/83 (112) 98 05/23/17 16:08 98 05/23/17 16:00 97.6 75 18 164/81 (108) 93 I/O 05/23/17 05/23/17 05/23/17 05/24/17 05/24/17 05/24/17 07:00 15:00 23:00 07:00 15:00 23:00 Intake Total 480 ml 960 ml 240 ml Output Total 1600 ml Balance 480 ml -640 ml 240 ml Intake Oral 480 ml 960 ml 240 ml Output Urine Total 1600 ml # Voids 2 3 # Bowel Movements 1 1 0 (Tasha Singleton MD R1) Result Diagram: 05/23/17 1040 05/23/17 1040 Objective Remarks GENERAL: No acute distress, cachetic male SKIN: Warm and dry. HEAD: Normocephalic. EYES: No scleral icterus. No injection or drainage. NECK: Supple, trachea midline. CARDIOVASCULAR: Regular rate and rhythm without murmurs, gallops, or rubs. RESPIRATORY: Coarse breath sounds bilaterally. No accessory muscle use. GASTROINTESTINAL: Extensive laparotomy scar s/p multiple surgeries. Abdomen soft , non-tender, nondistended. MUSCULOSKELETAL: No cyanosis, or edema. (Tasha Singleton MD R1) A/P Assessment and Plan 51-year-old male, history of alcohol and tobacco abuse, with a 3 month history of weight loss and shortness of breath presented with multiple bilateral PEs and bilateral DVTs. Admitted for AC and cancer work up. Discharge Planning Cleared for discharge by case management (Tasha Singleton MD R1) Attending Attestation Patient seen and examined. Case reviewed and discussed with the resident team. Agree with plan of care as discussed with me and documented in the resident note. (Joanne Mancia MD) Problem List: (1) Pulmonary embolism ICD Codes: I26.99 - Other pulmonary embolism without acute cor pulmonale Status: Acute Plan: -Xarelto 05/22 -pulse ox -telemetry (2) Lung nodule < 6cm on CT ICD Codes: R91.1 - Solitary pulmonary nodule Plan: 15mm nodule in left midlung seen on CT Pulmonology would like f/u in office to manage outpatient (3) Weight loss ICD Codes: R63.4 - Abnormal weight loss Status: Acute Plan: see A/P for clots from possible infection or malignancy above - will f/u with GI to investigate for GI malignancy at 2 week f/u visit (4) Shortness of breath dyspnea ICD Codes: R06.02 - Shortness of breath Status: Acute Plan: Likely related to PE vs. lung vs. cardiac cause Work up: - EKG : WNL - troponin x 3: WNL (5) fen/ppx Status: Acute Plan: Fluids: Encourage by mouth fluid intake Nutrition: Regular diet GI prophylaxis: Protonix 40 daily - history of peptic ulcers (Tasha Singleton MD R1) Problem Qualifiers (1) Pulmonary embolism: Qualified Codes: I26.99 - Other pulmonary embolism without acute cor pulmonale Tasha Singleton MD R1 May 24, 2017 15:29 Joanne Mancia MD May 24, 2017 15:39
[2017-05-24 16:00] VITALS: BP 160/90; PULSE 67; RESP 18; TEMP 97.7; O2SAT 98
--- NOTE | 2017-05-24 16:20 | HHI.PR ---
Subjective Remarks alewrt VSS Objective Vital Signs Date Time Temp Pulse Resp B/P (MAP) Pulse Ox O2 Delivery O2 Flow Rate FiO2 05/24/17 12:00 97.5 69 18 161/83 (109) 94 05/24/17 08:41 97 05/24/17 08:00 98.7 78 18 134/87 (103) 97 05/24/17 07:15 Room Air 05/24/17 04:00 98.4 73 20 148/76 (100) 97 05/24/17 00:00 98.3 59 16 148/81 (103) 96 05/23/17 21:04 98 21 05/23/17 20:00 97.5 77 18 170/83 (112) 98 I/O 05/23/17 05/23/17 05/23/17 05/24/17 05/24/17 05/24/17 07:00 15:00 23:00 07:00 15:00 23:00 Intake Total 480 ml 960 ml 240 ml Output Total 1600 ml Balance 480 ml -640 ml 240 ml Intake Oral 480 ml 960 ml 240 ml Output Urine Total 1600 ml # Voids 2 3 # Bowel Movements 1 1 0 Result Diagram: 05/23/17 1040 05/23/17 1040 Objective Remarks GENERAL: SKIN: Warm and dry. HEAD: Atraumatic. Normocephalic. EYES: Pupils equal and round. No scleral icterus. No injection or drainage. ENT: No nasal bleeding or discharge. Mucous membranes pink and moist. NECK: Trachea midline. No JVD. CARDIOVASCULAR: Regular rate and rhythm. RESPIRATORY: No accessory muscle use. Clear to auscultation. Breath sounds equal bilaterally. GASTROINTESTINAL: Abdomen soft, non-tender, nondistended. Hepatic and splenic margins not palpable. MUSCULOSKELETAL: Extremities without clubbing, cyanosis, or edema. No obvious deformities. NEUROLOGICAL: Awake and alert. No obvious cranial nerve deficits. Motor grossly within normal limits. Five out of 5 muscle strength in the arms and legs. Normal speech. PSYCHIATRIC: Appropriate mood and affect; insight and judgment normal. Assessment and Plan Assessment and Plan DVT PE PLAN OK FOR D/C OFFICE I WEEK Juan Martinez MD May 24, 2017 16:20
[2017-05-24 16:30] LABS: MITOGEN MINUS NIL RESULT >10.00 IU/mL; NIL RESULT 0.04 IU/mL; QUANTIFERON TB GOLD RESULT Negative (Negative)
--- NOTE | 2017-05-27 11:58 | HHI.DS ---
Discharge Summary Admission Date May 19, 2017 at 16:55 Discharge Date: May 24, 2017 Admitting Diagnosis (1) Pulmonary embolism Plan: -Xarelto 05/22 -pulse ox -telemetry ICD Codes: I26.99 - Other pulmonary embolism without acute cor pulmonale Status: Acute (2) Lung nodule < 6cm on CT Plan: 15mm nodule in left midlung seen on CT Pulmonology would like f/u in office to manage outpatient ICD Codes: R91.1 - Solitary pulmonary nodule (3) Weight loss Plan: see A/P for clots from possible infection or malignancy above - will f/u with GI to investigate for GI malignancy at 2 week f/u visit ICD Codes: R63.4 - Abnormal weight loss Status: Chronic (4) Shortness of breath dyspnea Plan: Likely related to PE vs. lung vs. cardiac cause Work up: - EKG : WNL - troponin x 3: WNL ICD Codes: R06.02 - Shortness of breath Status: Acute (5) fen/ppx Plan: Fluids: Encourage by mouth fluid intake Nutrition: Regular diet GI prophylaxis: Protonix 40 daily - history of peptic ulcers [facility], hematology, pulmonology Brief History 51-year-old male is taken urgently to the ED after CTA is done and reveals bilateral nodular areas of consolidation, reflecting either pulmonary emboli or metastatic disease. This CTA reveals new findings as compared to CTA done one year ago. The patient states he has been feeling short of breath for the last 3 months. His shortness of breath started 1 day all of a sudden and he has continued to have shortness of breath every day during heavy activity. He particularly notices this when he is walking up the stairs to work every morning. He does also sometimes experience some chest pressure when he experiences this shortness of breath. The patient denies any fever/chills. The patient states that he has lost 20 pounds over the last 3 months. He has continued to smoke half a pack every day. He denies any sinusitis or sputum producing cough. He denies any sick household members or recent illnesses. Patient does complain of occasional leg cramping in the right leg. He states that 3-4 months ago his right leg was swollen, red, and painful. He attributed this to a sprain in his right ankle. Patient denies any current leg pains. Patient denies any current chest pain/shortness of breath/dizziness. CBC/BMP: 05/23/17 1040 05/23/17 1040 Imaging Lower extremity U/S 05/19 : CONCLUSION: Bilateral DVT with nonocclusive thrombus noted in the deep venous systems of both lower extremities. CT Brain wwo IV contrast 05/20: CONCLUSION: Normal examination for a patient of this age. CT Abdomen IV Contrast 05/20: CONCLUSION: 1. Negative for metastatic disease in the abdomen and pelvis. Parenchymal scarring at the lung bases with mild bronchiectasis on the right. Cholecystectomy. CXR PA LAT 05/23: CONCLUSION: 1. Severe emphysema 2. No acute cardiopulmonary disease. 3. 15 mm nodule left midlung. CT scan is recommended for further evaluation if clinically indicated. PE at Discharge GENERAL: No acute distress, cachetic male SKIN: Warm and dry. HEAD: Normocephalic. EYES: No scleral icterus. No injection or drainage. NECK: Supple, trachea midline. CARDIOVASCULAR: Regular rate and rhythm without murmurs, gallops, or rubs. RESPIRATORY: Coarse breath sounds bilaterally. No accessory muscle use. GASTROINTESTINAL: Extensive laparotomy scar s/p multiple surgeries. Abdomen soft , non-tender, nondistended. MUSCULOSKELETAL: No cyanosis, or edema. Hospital Course Patient is a 51-year-old male with a history of alcohol and tobacco use and 3 month history of weight loss was admitted for chronic shortness of breath and leg cramping. He went to his primary care who sent him for a CT of the chest to rule out PE, CT of the chest showed bilateral PEs and 15 mm nodule in the left midlung. Found to have bilateral DVTs with lower extremity ultrasound. Patient was admitted for multiple bilateral PEs and bilateral DVTs. Patient was placed on a heparin drip. Was thought that patient's weight loss was secondary to underlying malignancy. HIV, hep C, and TB was ruled out. Tumor markers were ordered and saldivar CT was performed. CEA was found to be mildly high. Patient was started on Xarelto in the hospital and d/c'd on oral Xarelto with orders to follow up with pulmonology, oncology (for further cancer work-up), and PCP within a wek. Pt Condition on Discharge: Stable Discharge Disposition: Discharge Home Discharge Instructions DIET: Follow Instructions for: As Tolerated, No Restrictions Speech Therapy-Diet Recommends: Regular Activities you can perform: Regular-No Restrictions Follow up Referrals: Oncology/Hematology - 1 Week with Benedict Hastings MD PCP Follow-up - 1 Week Pulmonology - 1 Week with Juan Martinez MD New Medications: Rivaroxaban (Xarelto) 15 Mg Tab 15 MG PO Q12HR for Blood Clot Prevention for 21 Days, #42 TAB 0 Refills Please take 15 mg BID for 21 days, followed by 20 mg daily with food. Continued Medications: Acetaminophen (Tylenol) 325 Mg Tab 650 MG PO Q4H PRN for PAIN SCALE 1 TO 2, TAB 0 Refills Albuterol 8.5 GM Inh (Proair Hfa 8.5 GM Inh) 90 Mcg/Act Aer 2 PUFF INH Q4-6H PRN for SOB/WHEEZING, #1 INHALER 1 Refill 108 mcg/actuation Gabapentin (Gabapentin) 300 Mg Cap 300 MG PO TID, #90 CAP 4 Refills Tasha Singleton MD R1 May 27, 2017 11:58
== END 2017-05-24 18:10 | disposition home or self-care (01) | DRG 176 ==
LOC: NEPE 15:51 → NEDA 16:55 → N04A 17:46
PROVIDERS: ADMIT Family Medicine; ATTEND Family Medicine
DX: I26.99 Other pulmonary embolism without acute cor pulmonale (principal); R64 Cachexia; D68.59 Other primary thrombophilia; I82.493 Acute embolism and thrombosis of other specified deep vein of lower extremity, bilateral; Z68.1 Body mass index [BMI] 19.9 or less, adult; R63.4 Abnormal weight loss; J44.9 Chronic obstructive pulmonary disease, unspecified; F10.10 Alcohol abuse, uncomplicated; Z87.11 Personal history of peptic ulcer disease; Z90.3 Acquired absence of stomach [part of]; R91.8 Other nonspecific abnormal finding of lung field; F17.210 Nicotine dependence, cigarettes, uncomplicated; Z23 Encounter for immunization
CPT/HCPCS: 36600; 70470; 71020; 74177; 80048; 80053; 80307; 81001; 81240; 81241; 82105; 82272; 82378; 82805; 82948; 83036; 83735; 84100; 84153; 84443; 84484; 84702; 85014; 85018; 85025; 85303; 85306; 85598; 85610; 85613; 85652; 85730; 86140; 86146; 86147; 86301; 86304; 86480; 86703; 86803; 87556; 87798; 90686; 90732; 93005; 93970; 94150; J1644; Q2038; Q9963; Q9967

== ENCOUNTER → 2017-05-19 | Outpatient (CLI) | payer OTHER ==
[~2017-05-19] MED LIST changes: -ACET325S8 PO; +ALBUAER3 INH; +IOHEXOL 350 MG/ML 10 ML VIAL (for RAD DIAG) IVCONTRAST ONE; +TYLE325T PO; +XARE15TA PO
--- NOTE | 2017-05-19 16:02 | RADRPT ---
EXAM DATE/TIME: 05/19/2017 14:46 This report includes an Addendum and supersedes previous reports for this exam. [facility] COMPARISON: CT THORAX W CONTRAST, May 25, 2016, 15:07. INDICATIONS : History of lung mass. Shortness of breath. IV CONTRAST: 62 cc Omnipaque 350 (iohexol) IV RADIATION DOSE: 5.1 CTDIvol (mGy) MEDICAL HISTORY : Smoker, lung mass SURGICAL HISTORY : None. ENCOUNTER: Initial ACUITY: 2 weeks PAIN SCALE: 0/10 LOCATION: chest TECHNIQUE: Volumetric scanning of the chest was performed. Using automated exposure control and adjustment of t he mA and/or kV according to patient size, radiation dose was kept as low as reasonably achievable to obtain optimal diagnostic quality images. DICOM format image data is available electronically for review and comparison. Follow-up recommendations for detected pulmonary nodules are based at a minimum on nodule size and pa tient risk factors according to Fleischner Society Guidelines. FINDINGS: LUNGS: Diffuse emphysematous changes. 3 nodular densities has shown interval appearance from the prior study . Within the posterior segment of the right upper lobe this measures 2.6 x 1.8 cm, anterior segment o f the left upper lobe 1.8 x 1.5 cm, and superior segment of the left lower lobe 1.6 x 1.1 cm. Linear areas of scarring are seen scattered throughout the lungs. PLEURA: There is no pleural thickening or pleural effusion. MEDIASTINUM: Multiple filling defects are seen bilaterally consistent with acute pulmonary emboli. There is modest volume of thrombus seen. Thrombus is seen involving the peripheral right main pulmonary artery exten ding into the apical segmental branch of the right upper lobe as well as thrombus in the distal inter lobar pulmonary artery on the right with extension into the basilar segmental branches. Thrombus is s een within the peripheral left main pulmonary artery with extension into the lingular and lower lobe segmental branches. These filling defects are new from the prior exam. AXILLAE: Within normal limits. No lymphadenopathy. SKELETAL: Within normal limits for patient age. MISCELLANEOUS: The visualized upper abdominal organs demonstrate no acute abnormality. CONCLUSION: 1. Acute pulmonary emboli which is moderate in volume as detailed above. 2. Diffuse emphysematous changes. 3. Bilateral nodular areas of consolidation which are new from the prior study and likely relate to a n acute inflammatory or infectious process. I cannot exclude septic emboli. 4. The patient was transported to the emergency department. I spoke to the charge nurse prior to archuleta sport of the patient. Matt Brooks Jr., MD on May 19, 2017 at 15:55 Board Certified Radiologist. This report was verified electronically. ADDENDUM: The prior examination is one year ago as opposed to one month ago. This changes the list of different ial possibilities for these lung lesions. I would place at the top of the list metastatic disease as a primary consideration. Septic emboli will still be within the differential. Matt Brooks Jr., MD on May 19, 2017 at 16:24 Board Certified Radiologist. This report was verified electronically.
== END ==
LOC: HRAD 13:33
PROVIDERS: ATTEND Family Medicine
DX: R91.8 Other nonspecific abnormal finding of lung field (principal); R63.4 Abnormal weight loss; F17.200 Nicotine dependence, unspecified, uncomplicated
CPT/HCPCS: 71260; Q9967

== ENCOUNTER 2017-06-08 15:18 | Inpatient (IN) | payer OTHER ==
[~2017-06-08] VITALS: Ht 182.9 cm; Wt 60.9 kg
[~2017-06-08 15:18] MED LIST changes: +XARE15TA PO
[2017-06-08 15:21] VITALS: BP 127/91; PULSE 108; RESP 18; TEMP 98.8; O2SAT 97
--- NOTE | 2017-06-08 15:46 | PD ---
Physical Exam Date Seen by Provider: Jun 08, 2017 Time Seen by Provider: 15:44 Narrative 51-year-old white male presents to emergency department for evaluation of flulike symptoms. He states that he has had subjective fever chills, cough, congestion, blood-tinged sputum. He states he was just discharged the hospital the last few weeks for DVT and PE. The patient is currently taken Xarelto Vital signs reviewed. Pt waiting for bed placement. Data Data Last Documented VS Vital Signs Date Time Temp Pulse Resp B/P (MAP) Pulse Ox O2 Delivery O2 Flow Rate FiO2 06/08/17 15:21 98.8 108 18 127/91 (103) 97 Room Air [facility] Medical Record Reviewed: No Supervised Visit with CARA: Young Kern Jun 08, 2017 15:46
--- NOTE | 2017-06-08 17:51 | RADRPT ---
EXAM DATE/TIME: 06/08/2017 17:34 [facility] COMPARISON: CHEST SINGLE AP, December 17, 2015, 5:31. INDICATIONS : Cough and left rib pain. MEDICAL HISTORY : Carcinoma, lung. SURGICAL HISTORY : Colon resection. ENCOUNTER: Initial ACUITY: 1 day PAIN SCORE: 3/10 LOCATION: Bilateral chest FINDINGS: The cardiac silhouette is normal in transverse diameter. There is parenchymal opacity in the left upp er lobe characteristic of pneumonia. In addition there is a new nodular density in the right upper lo be measuring 10 mm. Malignancy is not excluded. There is tenting of both hemidiaphragms. CONCLUSION: 1. Left upper lobe pneumonia 2. Right upper lobe nodules above. CT scan is recommended for further evaluation if clinically indica lauren. Alonzo Vazquez MD on June 08, 2017 at 17:47 Board Certified Radiologist. This report was verified electronically.
[2017-06-08 17:59] VITALS: BP 141/97; PULSE 77; RESP 22; O2SAT 99
[2017-06-08 18:19] LABS: AUTOMATED NEUTROPHIL # 14.7 TH/MM3 (1.8-7.7); BASOPHIL # 0.1 TH/MM3 (0-0.2); BASOPHIL % 0.3 % (0.0-2.0); EOSINOPHIL % 0.1 % (0.0-4.0); HEMATOCRIT 38.4 % (39.0-51.0); HEMO FLAGS DIFF FINAL; LYMPH % 10.9 % (9.0-44.0); MEAN CORPUSCULAR HEMOGLOBIN 31.8 PG (27.0-34.0); MEAN CORPUSCULAR HGB CONC 33.8 % (32.0-36.0); MONO % 8.4 % (0.0-8.0); NEUT % 80.3 % (16.0-70.0); PLATELET COUNT 387 TH/MM3 (150-450); RED BLOOD COUNT 4.08 MIL/MM3 (4.50-5.90); RED CELL DISTRIBUTION WIDTH 14.6 % (11.6-17.2); WHITE BLOOD COUNT 18.3 TH/MM3 (4.0-11.0)
[2017-06-08 18:41] LABS: ANION GAP 8 MEQ/L (5-15); AST (GOT) 11 U/L (15-37); BLOOD UREA NITROGEN 10 MG/DL (7-18); CHLORIDE 98 MEQ/L (98-107); GLOMERULAR FILTRATION RATE 102 ML/MIN (>89); MAGNESIUM 1.6 MG/DL (1.5-2.5); POTASSIUM 4.6 MEQ/L (3.5-5.1); SODIUM (NA) 132 MEQ/L (136-145)
[2017-06-08 18:42] LABS: ALT (GPT) 14 U/L (12-78)
[2017-06-08 18:44] LABS: ALKALINE PHOSPHATASE 157 U/L (45-117); TOTAL BILIRUBIN ADULT 0.9 MG/DL (0.2-1.0)
[2017-06-08 18:46] LABS: APTT (PATIENT) 53.5 SEC (24.3-30.1); INTERNATIONAL NORMALIZED RATIO 1.2 RATIO; PROTHROMBIN TIME - PATIENT 13.5 SEC (9.8-11.6)
[2017-06-08] MEDS ORDERED: IOHEXOL 350 MG/ML 10 ML VIAL (for RAD DIAG) IVCONTRAST ONE (19:24)
--- NOTE | 2017-06-08 19:41 | RADRPT ---
EXAM DATE/TIME: 06/08/2017 18:55 [facility] COMPARISON: No previous studies available for comparison. INDICATIONS : Cephalgia. RADIATION DOSE: 56.35 CTDIvol (mGy) MEDICAL HISTORY : None SURGICAL HISTORY : None. ENCOUNTER: Initial ACUITY: 1 day PAIN SCALE: 5/10 LOCATION: cranial TECHNIQUE: Multiple contiguous axial images were obtained of the head. Using automated exposure control and adj ustment of the mA and/or kV according to patient size, radiation dose was kept as low as reasonably a chievable to obtain optimal diagnostic quality images. DICOM format image data is available electro nically for review and comparison. FINDINGS: CEREBRUM: There is mild to moderate atrophic change with sulcal and ventricular prominence. Mild periventricula r white matter lucencies are noted most characteristic of chronic small vessel ischemic change.. No evidence of midline shift, mass lesion, hemorrhage or acute infarction. No extra-axial fluid collect ions are seen. POSTERIOR FOSSA: The cerebellum and brainstem are intact. The 4th ventricle is midline. The cerebellopontine angle i s unremarkable. EXTRACRANIAL: The visualized portion of the orbits is intact. SKULL: The calvaria is intact. No evidence of skull fracture. CONCLUSION: 1. Mild to moderate atrophic change and chronic small vessel ischemic changes. 2. No acute hemorrhage or mass effect. Miles Kauffman MD on June 08, 2017 at 19:38 Board Certified Radiologist. This report was verified electronically.
[2017-06-08] MEDS ORDERED: cefTRIAXone INJ 1,000 MG in SODIUM CHLORIDE 0.9% INJ 100 ML IV ONE (19:45)
--- NOTE | 2017-06-08 19:47 | RADRPT ---
EXAM DATE/TIME: 06/08/2017 19:02 [facility] COMPARISON: CHEST SINGLE AP, June 08, 2017, 17:34. INDICATIONS : Short of breath. Abnormal chest x-ray demonstrating right upper lobe nodular opacity and left upper l obe pneumonia IV CONTRAST: 50 cc Omnipaque 350 (iohexol) IV RADIATION DOSE: 4.60 CTDIvol (mGy) MEDICAL HISTORY : Chronic obstructive pulmonary disease. Emphysema. Pulmonary Embolisms SURGICAL HISTORY : None. ENCOUNTER: Initial ACUITY: 1 week PAIN SCALE: 0/10 LOCATION: chest TECHNIQUE: Volumetric scanning of the chest was performed using a pulmonary embolism protocol MIP images were re constructed. Using automated exposure control and adjustment of the mA and/or kV according to patien t size, radiation dose was kept as low as reasonably achievable to obtain optimal diagnostic quality images. DICOM format image data is available electronically for review and comparison. Follow-up recommendations for detected pulmonary nodules are based at a minimum on nodule size and pa tient risk factors according to Fleischner Society Guidelines. FINDINGS: PULMONARY ARTERIES: The main pulmonary artery and right and left main branch vessels are patent. There is a small area of pulmonary embolism with nonocclusive filling defect in the proximal left lower lobe pulmonary artery best seen on coronal image #71. No additional filling defects are identified. LUNGS: There is no pneumothorax . There is hyperinflation and underlying emphysema with bullous change. Ther e is a dense area consolidation in the left upper lobe central cavitary areas. There are bronchograms . There is a cavitary lesion in the right upper lobe measuring 1.9 x 2.5 cm. There is a small cavitar y lesion in the superior segment of the left lower lobe measuring up to 1.5 cm. PLEURAE: There is no pleural thickening or pleural effusion. MEDIASTINUM: There is good visualization of the great vessels of the middle mediastinum. No evidence of mediastin al or hilar adenopathy/mass. MUSCULOSKELETAL: Within normal limits for patient age. MISCELLANEOUS: The visualized upper abdominal organs demonstrate no acute abnormality. CONCLUSION: 1. Small area of pulmonary embolism involving the proximal left lower lobe artery. 2. Dense consolidation in the left upper lobe with multiple small cavities centrally. This could repr esent a necrotic pneumonia or fungal infection. 3. 2 smaller cavitary masses. 4. Underlying emphysema. Miles Kauffman MD on June 08, 2017 at 19:39 Board Certified Radiologist. This report was verified electronically.
[2017-06-08] MEDS ORDERED: SODIUM CHLORIDE 0.9% FLUSH 10 ML FLUSH IV FLUSH PRN ×2 (20:30→23:15)
--- NOTE | 2017-06-08 20:30 | PD ---
HPI Chief Complaint: Cold / Flu Symptoms Time Seen by Provider: 17:16 Travel History International Travel<30 days: No Contact w/Intl Traveler<30days: No Traveled to known affect area: No History of Present Illness HPI 51-year-old male that presents to the ED for evaluation of cold-like symptoms for the past 3 days. Patient was recently released about 2 weeks ago for pulmonary embolism on Xarelto and gabapentin. He states that he's been compliant with the medications but for the past 3 days he developed congestion and cough as well as headache and some shortness of breath and left rib pain. Per patient he comes and goes. Per patient symptoms are different from when he was admitted. Per patient he was doing okay since been discharged except for not been able to have follow-up as was told. He states that he does not have any shortness of breath or time with cough. He also having hemodialysis. He has an allergy to aspirin. He denies any chest pain other than the left rib pain with cough and deep breaths. Denies any nausea or vomiting. No bowel movement or urinary issues. States having body aches and chills. PFSH Past Medical History Hx Anticoagulant Therapy: Yes (XARELTO) Blood Disorders: No Cancer: No Cardiovascular Problems: No COPD: Yes Diminished Hearing: No Endocrine: No Gastrointestinal Disorders: Yes Genitourinary: No Immune Disorder: No Inguinal Hernia: Yes Implanted Vascular Access Dvce: Yes Musculoskeletal: No Neurologic: No Psychiatric: No Reproductive: No Respiratory: Yes (copd, pneumonia) Immunizations Current: No Pneumonia: Yes Ulcer: Yes (PEPTIC, bleeding ) Tetanus Vaccination: < 5 Years Influenza Vaccination: Yes Past Surgical History Abdominal Surgery: Yes (9 SURGERIES ILEOSTOMY, REVERSILE, ) Body Medical Devices: a few brennan or slips in abdomen for surgery Other Surgery: Yes Social History Alcohol Use: Yes (couple of beers daily) Tobacco Use: Yes (1/2 PPD ) Substance Use: No Allergies-Medications (Allergen,Severity, Reaction): Coded Allergies: aspirin (Unverified Allergy, Mild, ULCERS, 06/08/17) Reported Meds & Prescriptions Reported Meds & Active Scripts Active Xarelto (Rivaroxaban) 15 Mg Tab 15 Mg PO Q12HR 21 Days Please take 15 mg BID for 21 days, followed by 20 mg daily with food. Proair Hfa 8.5 GM Inh (Albuterol Sulfate) 90 Mcg/Act Aer 2 Puff INH Q4-6H PRN 108 mcg/actuation Gabapentin 300 Mg Cap 300 Mg PO TID Reported Tylenol (Acetaminophen) 325 Mg Tab 650 Mg PO Q4H PRN Review of Systems Except as stated in HPI: all other systems reviewed are Neg Physical Exam Narrative GENERAL: Well-nourished, well-developed patient in no apparent distress. SKIN: Warm and dry. HEAD: Atraumatic. Normocephalic. EYES: Pupils equal and round reactive to light and accommodation. No scleral icterus. No injection or drainage. ENT: No nasal bleeding or discharge. Mucous membranes pink and moist. TMs are clear with no sign of infection or perforation. No mastoid tenderness. Ear canals are intact bilaterally. No lymphadenopathy. Nostril mucosa is red and moist with clear mucus noted. No sinus tenderness to palpation noted. Tonsils are not enlarged or swollen. No ulvua Deviation. Tongue is midline. NECK: Trachea midline. No JVD. No meningeal signs noted CARDIOVASCULAR: Regular rate and rhythm. RESPIRATORY: No accessory muscle use. Clear to auscultation. Breath sounds equal bilaterally. GASTROINTESTINAL: Abdomen soft, non-tender, nondistended. Hepatic and splenic margins not palpable. MUSCULOSKELETAL: Extremities without clubbing, cyanosis, or edema. No obvious deformities. NEUROLOGICAL: Awake and alert. No obvious cranial nerve deficits. Motor grossly within normal limits. Five out of 5 muscle strength in the arms and legs. Normal speech. PSYCHIATRIC: Appropriate mood and affect; insight and judgment normal. Data Data Last Documented VS Vital Signs Date Time Temp Pulse Resp B/P (MAP) Pulse Ox O2 Delivery O2 Flow Rate FiO2 06/08/17 17:59 22 99 Room Air 06/08/17 17:59 77 06/08/17 15:21 98.8 Orders Orders Complete Blood Count With Diff (06/08/17 17:16) Comprehensive Metabolic Panel (06/08/17 17:16) Prothrombin Time / Inr (Pt) (06/08/17 17:16) Act Partial Throm Time (Ptt) (06/08/17 17:16) Blood Culture (06/08/17 17:16) Urinalysis - C+S If Indicated (06/08/17 17:16) Magnesium (Mg) (06/08/17 17:16) Influenzae A/B Antigen (06/08/17 17:16) Chest, Single Ap (06/08/17 17:16) Iv Access Insert/Monitor (06/08/17 17:16) Ecg Monitoring (06/08/17 17:16) Oximetry (06/08/17 17:16) Type And Screen (06/08/17 17:16) Ct Brain W/O Iv Contrast(Rout) (06/08/17 ) Ct Pulmonary Angiogram (06/08/17 17:49) Iohexol 350 Inj (Omnipaque 350 Inj) (06/08/17 19:24) Ceftriaxone Inj (Rocephin Inj) (06/08/17 19:45) Red Blood Cells (Rbc) (06/08/17 17:50) Admit Order (Ed Use Only) (06/08/17 20:23) Labs Laboratory Tests Test 06/08/17 17:50 White Blood Count 18.3 TH/MM3 Red Blood Count 4.08 MIL/MM3 Hemoglobin 13.0 GM/DL Hematocrit 38.4 % Mean Corpuscular Volume 94.0 FL Mean Corpuscular Hemoglobin 31.8 PG Mean Corpuscular Hemoglobin Concent 33.8 % Red Cell Distribution Width 14.6 % Platelet Count 387 TH/MM3 Mean Platelet Volume 7.4 FL Neutrophils (%) (Auto) 80.3 % Lymphocytes (%) (Auto) 10.9 % Monocytes (%) (Auto) 8.4 % Eosinophils (%) (Auto) 0.1 % Basophils (%) (Auto) 0.3 % Neutrophils # (Auto) 14.7 TH/MM3 Lymphocytes # (Auto) 2.0 TH/MM3 Monocytes # (Auto) 1.5 TH/MM3 Eosinophils # (Auto) 0.0 TH/MM3 Basophils # (Auto) 0.1 TH/MM3 CBC Comment DIFF FINAL Differential Comment Prothrombin Time 13.5 SEC Prothromb Time International Ratio 1.2 RATIO Activated Partial Thromboplast Time 53.5 SEC Blood Urea Nitrogen 10 MG/DL Creatinine 0.80 MG/DL Random Glucose 95 MG/DL Total Protein 7.4 GM/DL Albumin 2.4 GM/DL Calcium Level 9.0 MG/DL Magnesium Level 1.6 MG/DL Alkaline Phosphatase 157 U/L Aspartate Amino Transf (AST/SGOT) 11 U/L Alanine Aminotransferase (ALT/SGPT) 14 U/L Total Bilirubin 0.9 MG/DL Sodium Level 132 MEQ/L Potassium Level 4.6 MEQ/L Chloride Level 98 MEQ/L Carbon Dioxide Level 26.0 MEQ/L Anion Gap 8 MEQ/L Estimat Glomerular Filtration Rate 102 ML/MIN MDM Medical Decision Making Medical Screen Exam Complete: Yes Emergency Medical Condition: Yes Medical Record Reviewed: Yes Interpretation(s) Last Impressions CT Angiography 06/08/17 1749 Signed Impressions: Service Date/Time: Thursday, June 08, 2017 19:02 - CONCLUSION: 1. Small area of pulmonary embolism involving the proximal left lower lobe artery. 2. Dense consolidation in the left upper lobe with multiple small cavities centrally. This could represent a necrotic pneumonia or fungal infection. 3. 2 smaller cavitary masses. 4. Underlying emphysema. Miles Kauffman MD Chest X-Ray 06/08/17 1716 Signed Impressions: Service Date/Time: Thursday, June 08, 2017 17:34 - CONCLUSION: 1. Left upper lobe pneumonia 2. Right upper lobe nodules above. CT scan is recommended for further evaluation if clinically indicated. Alonzo Vazquez MD Head CT 06/08/17 0000 Signed Impressions: Service Date/Time: Thursday, June 08, 2017 18:55 - CONCLUSION: 1. Mild to moderate atrophic change and chronic small vessel ischemic changes. 2. No acute hemorrhage or mass effect. Miles Kauffman MD CBC & BMP Diagram 06/08/17 17:50 Total Protein 7.4, Albumin 2.4 L, Calcium Level 9.0, Magnesium Level 1.6, Alkaline Phosphatase 157 H, Aspartate Amino Transf (AST/SGOT) 11 L, Alanine Aminotransferase (ALT/SGPT) 14, Total Bilirubin 0.9 influenza negative Differential Diagnosis Pneumonia versus URI versus influenza versus COPD exacerbation versus PE versus cough Narrative Course 51-year-old male that presents to the ED for evaluation of cold-like symptoms. Patient was properly examined and was found to have signs and symptoms concerning for infectious etiology. Patient does have risk factors for PE including having had PE are in the past as well as tachycardia on initial evaluation. Patient also has pleurisy. Recommendation at this time per my attending Dr. Marte is to do another CTA as well as blood work and imaging to make sure there is nothing else. Labs and imaging were done. Labs and imaging show positive for what appears to be new onset pneumonia. On the left lung. Patient does have a leukocytosis. Patient had recent admission. My attending HIS coronaries with need for admission. Patient agrees with this plan as well. Patient was started on ceftriaxone and azithromycin at this time. Case discussed with the residents who agreed to admission. Patient was admitted. Sepsis Criteria SIRS Criteria (2 or more): Heart rate over 90, WBC > 94722, < 4000 or > 10% bands Sepsis Criteria (SIRS+source): Infect source susp/known Criteria Outcome: Meets sepsis criteria Diagnosis Primary Impression: Pneumonia with cavity of lung Additional Impressions: Pulmonary embolism Qualified Codes: I27.82 - Chronic pulmonary embolism Sepsis Qualified Codes: A41.9 - Sepsis, unspecified organism Admitting Information Admitting Physician Requests: Admit Guanakito Lee Jun 08, 2017 20:30
[2017-06-08 20:42] VITALS: O2SAT 97
[2017-06-08 20:59] VITALS: BP 164/89; PULSE 90; RESP 20; O2SAT 94
[2017-06-08] MEDS ORDERED: SODIUM CHLORIDE 0.9% FLUSH 10 ML FLUSH IV FLUSH SCH (21:00)
[2017-06-08] MEDS ORDERED: AZITHROMYCIN INJ 500 MG in SODIUM CHLOR 0.9% 250 ML INJ 250 ML IV ONE (21:00)
[2017-06-08] MEDS: SODIUM CHLOR 0.9% 1000 ML INJ 1,000 ML IV SCH ×2 (21:00→22:18)
--- NOTE | 2017-06-08 21:22 | HHI.HP ---
HPI Service Family Medicine Primary Care Physician No Primary Care Physician Admission Diagnosis acute pneumonia, PE, recent admission Diagnoses: International Travel<30 Days: No Contact w/Intl Traveler<30days: No Known Affected Area: No History of Present Illness CC: Worsening chest pain HPI: Started having pain on the left side of his chest. The pain has gotten worse in the past 3-4 days. He got worried that he had another blood clot. The pain was a "12,15,19 out of 10". He was also having a productive cough during the past several days. The sputum is a very yellow / green. Also having headaches and body aches during this time. He also had fevers and chills. He was sent home from work today because sweat was pouring down his face. "I just felt drained". No hemoptysis or vomiting. The past couple of days he is having SOB when coughing. He denies burning with urination. He denies any abdominal pain. He denies diarrhea, no blood in urine or stools. Does report nose bleeds recently. He has been taking his xarelto regularly. Denies recent travel. Denies exposure to fungi that he knows. ROS: Lost 50 lbs in the past 4 months MEDS: Xarelto BID Gabapentin Ax: NKDA PMHx: Foot ulcers PUD Blood clots PSHx: Colostomy reversal 9 abdominal surgeries FMx: Mother - Peptic ulcers in mother, heart failure, COPD, PAD. Brother - healthy sister - healthy Father - unknown Social: Lives with Step Dad 1/2 ppd for the past 25 years Etoh - "I had to cut way back" - currently 2 beers a day (16 ounces). Cocaine or Heroine Sexually active with GF Past Family Social History Allergies: Coded Allergies: aspirin (Unverified Allergy, Mild, ULCERS, 06/08/17) Physical Exam Vital Signs Vital Signs Date Time Temp Pulse Resp B/P (MAP) Pulse Ox O2 Delivery O2 Flow Rate FiO2 06/08/17 20:59 90 20 164/89 (114) 94 06/08/17 20:42 97 21 06/08/17 17:59 22 99 Room Air 06/08/17 17:59 77 22 141/97 (112) 99 Room Air 06/08/17 15:21 98.8 108 18 127/91 (103) 97 Room Air Physical Exam GENERAL: Thin-appearing, cachectic, disheveled, in no acute distress. SKIN: Warm and dry. EYES: Pupils equal round and reactive. Movements intact. HENT: Normocephalic. Atraumatic. MMM. NECK: No visible JVD or lymphadenopathy. CARDIOVASCULAR: Warm and well perfused. Tachycardia. No obvious murmurs. Pulses 2+ tallish remedies. No calf tenderness. No pitting edema of the lower extremities. RESPIRATORY: Normal respiratory effort. Diffuse rhonchi on expiration throughout, decreased breath sounds at left base. Transmitted upper airway sounds. GASTROINTESTINAL: Abdomen nondistended. Multiple abdominal scars. Nontender to palpation. MUSCULOSKELETAL: Strength grossly WNL. BACK: Without obvious deformity. NEURO/PSYCH: Afocal. Awake, alert, and oriented x3. Laboratory Laboratory Tests Test 06/08/17 17:50 White Blood Count 18.3 Red Blood Count 4.08 Hemoglobin 13.0 Hematocrit 38.4 Mean Corpuscular Volume 94.0 Mean Corpuscular Hemoglobin 31.8 Mean Corpuscular Hemoglobin Concent 33.8 Red Cell Distribution Width 14.6 Platelet Count 387 Mean Platelet Volume 7.4 Neutrophils (%) (Auto) 80.3 Lymphocytes (%) (Auto) 10.9 Monocytes (%) (Auto) 8.4 Eosinophils (%) (Auto) 0.1 Basophils (%) (Auto) 0.3 Neutrophils # (Auto) 14.7 Lymphocytes # (Auto) 2.0 Monocytes # (Auto) 1.5 Eosinophils # (Auto) 0.0 Basophils # (Auto) 0.1 CBC Comment DIFF FINAL Differential Comment Prothrombin Time 13.5 Prothromb Time International Ratio 1.2 Activated Partial Thromboplast Time 53.5 Blood Urea Nitrogen 10 Creatinine 0.80 Random Glucose 95 Total Protein 7.4 Albumin 2.4 Calcium Level 9.0 Magnesium Level 1.6 Alkaline Phosphatase 157 Aspartate Amino Transf (AST/SGOT) 11 Alanine Aminotransferase (ALT/SGPT) 14 Total Bilirubin 0.9 Sodium Level 132 Potassium Level 4.6 Chloride Level 98 Carbon Dioxide Level 26.0 Anion Gap 8 Estimat Glomerular Filtration Rate 102 Date/Time Source Procedure Growth Status 06/08/17 17:50 Blood Peripheral Aerobic Blood Culture Pending Received 06/08/17 17:50 Blood Peripheral Anaerobic Blood Culture Pending Received 06/08/17 17:50 Nasal Washing Influenza Types A,B Antigen (CHATA) - Final NEGATIVE FOR FLU A AND B ANTIGEN.... Complete Result Diagram: 06/08/17174906/08/171749 Imaging Last [address] Angiography 06/08/171748 Signed Impressions: Service Date/Time: Thursday, June 08, 2017 19:02 - CONCLUSION: 1. Small area of pulmonary embolism involving the proximal left lower lobe artery. 2. Dense consolidation in the left upper lobe with multiple small cavities centrally. This could represent a necrotic pneumonia or fungal infection. 3. 2 smaller cavitary masses. 4. Underlying emphysema. Miles Kauffman MD Chest X-Ray 06/08/17 1716 Signed Impressions: Service Date/Time: Thursday, June 08, 2017 17:34 - CONCLUSION: 1. Left upper lobe pneumonia 2. Right upper lobe nodules above. CT scan is recommended for further evaluation if clinically indicated. Alonzo Vazquez MD Head CT 06/08/17 0000 Signed Impressions: Service Date/Time: Thursday, June 08, 2017 18:55 - CONCLUSION: 1. Mild to moderate atrophic change and chronic small vessel ischemic changes. 2. No acute hemorrhage or mass effect. Miles Kauffman MD Septic Shock Reassessment Heart: Regular rate and rhythm Lungs: Course Skin: Warm Peripheral Pulses: Bounding Right Radial Bounding Left Radial Bounding Right Posterior Tibial Bounding Left Posterior Tibial Capillary Refill: <2 seconds Caprini VTE Risk Assessment Caprini VTE Risk Assessment: No/Low Risk (score <= 1) VTE Pharm Contraindication: Caprini Risk Assessment Model Point Value = 1 Point Value = 2 Point Value = 3 Point Value = 5 Age 41-60 Minor surgery BMI > 25 kg/m2 Swollen legs Varicose veins or History of unexplained or recurrent spontaneous Oral contraceptives or hormone replacement Sepsis (< 1 month) Serious lung disease, including pneumonia (< 1 month) Abnormal pulmonary function Acute myocardial infarction Congestive heart failure (< 1 month) History of inflammatory bowel disease Medical patient at bed rest Age 61-74 Arthroscopic surgery Major open surgery (> 45 min) Laparoscopic surgery (> 45 min) Malignancy Confined to bed (> 72 hours) Immobilizing plaster cast Central venous access Age >= 75 History of VTE Family history of VTE Factor V Leiden Prothrombin [id number] Lupus anticoagulant Anticardiolipin antibodies Elevated serum homocysteine Heparin-induced thrombocytopenia Other congenital or acquired thrombophilia Stroke (< 1 month) Elective arthroplasty Hip, pelvis, or leg fracture Acute spinal cord injury (< 1 month) Prophylaxis Regimen Total Risk Factor Score Risk Level Prophylaxis Regimen 0-1 Low Early ambulation 2 Moderate Order ONE of the following: *Sequential Compression Device (SCD) *Heparin 5000 units SQ BID 3-4 Higher Order ONE of the following medications: *Heparin 5000 units SQ TID *Enoxaparin/Lovenox 40 mg SQ daily (WT < 150 kg, CrCl > 30 mL/min) *Enoxaparin/Lovenox 30 mg SQ daily (WT < 150 kg, CrCl > 10-29 mL/min) *Enoxaparin/Lovenox 30 mg SQ BID (WT < 150 kg, CrCl > 30 mL/min) AND/OR *Sequential Compression Device (SCD) 5 or more Highest Order ONE of the following medications: *Heparin 5000 units SQ TID (Preferred with Epidurals) *Enoxaparin/Lovenox 40 mg SQ daily (WT < 150 kg, CrCl > 30 mL/min) *Enoxaparin/Lovenox 30 mg SQ daily (WT < 150 kg, CrCl > 10-29 mL/min) *Enoxaparin/Lovenox 30 mg SQ BID (WT < 150 kg, CrCl > 30 mL/min) AND *Sequential Compression Device (SCD) Assessment and Plan Assessment and Plan Mr. Brady is a 51-year-old male, presenting with increasing respiratory distress, who was recently discharged on May 24, 2017 after being diagnosed with lateral pulmonary emboli. He was found to have a dense consolidation left upper lobe. He will be admitted with the presumptive diagnosis of necrotic pneumonia. Code Status Full Code. Discussed Condition With [facility] Dr. Cruz Problem List: (1) Sepsis ICD Codes: A41.9 - Sepsis, unspecified organism Status: Resolved Plan: Presents with sepsis WBC 18.3 k, Tachycardia to 108, and source of infection being lungs. Likely source is a necrotizing pneumonia given CT scan that showed : "Dense consolidation in the left upper lobe with multiple small cavity centrally." PLAN: Given 1 L normal saline, we will start maintenance fluids. Start broad-spectrum antibiotics to cover for a hospital-acquired pneumonia: * Zosyn 4.5 g every 8 hours * Levaquin 750 mg IV daily * Vancomycin 1 g every 12 hours Will get blood cultures, UA (negative for signs of UTI), urine legionella and pneumococcal Ags, sputum cultures. Follow lactic acid. (2) Pulmonary embolism ICD Codes: I26.99 - Other pulmonary embolism without acute cor pulmonale Status: Acute Plan: Previous pulmonary embolism, anticoagulated with Xarelto twice a day. Will continue. Repeat CT showed no new Emboli. Hemodynamically stable. Previous CT from 05/19/2017 showed "multiple filling defects are seen bilaterally consistent with acute pulmonary emboli. There is modest volume of thrombus seen. Thrombus is seen involving the right main pulmonary artery extending to the segmental branch of the right lower as well as a thrombus in the distal interlobar pulmonary artery on the right which extended to the basilar segmental branches. Thrombus is seen within the left peripheral main pulmonary artery." Repeat CTA on 06/08/17 showed "small area of pulmonary embolism involving the proximal left lower lobe artery." (3) Peptic ulcer disease with hemorrhage ICD Codes: K27.4 - Chronic or unspecified peptic ulcer, site unspecified, with hemorrhage Status: Resolved Plan: He was diagnosed with peptic ulcer disease requiring 9 abdominal surgeries. We will treat with pantoprazole 40 mg by mouth daily while hospitalized. (4) Tobacco use disorder ICD Codes: F17.200 - Nicotine dependence, unspecified, uncomplicated Status: Acute Plan: Nicotine patches as necessary. (5) Mass of middle lobe of right lung ICD Codes: R91.8 - Other nonspecific abnormal finding of lung field Status: Acute Plan: Weight loss of 50 pounds within the past 4 months. TB test on 05/20/17 were negative. Coccidioides antigens and antibodies were negative. HIV 1 and 2 antibodies were negative. Hepatitis C antibodies negative. M. tuberculosis DNA PCR was not detected. Quantiferon gold was also negative. Elevated CEA of 5.3 normal was between 0.2-5.0. CA 19-9 ag WNL CA 125 WNL PSA WNL HCG WNL AFP WNL Beta-2-GPI IgG, IgA, IgM WNL Anticariolipin IgA IgM IgG WNL. (6) Weight loss ICD Codes: R63.4 - Abnormal weight loss Status: Chronic Plan: He'll need follow-up with pulmonology as an outpatient once pneumonia has cleared. (7) Pneumonia with cavity of lung ICD Codes: J18.9 - Pneumonia, unspecified organism; J98.4 - Other disorders of lung Status: Acute Plan: Plan as above. (8) Alcohol abuse ICD Codes: F10.10 - Alcohol abuse, uncomplicated Status: Resolved Plan: CIWA protocol (9) fen/ppx Status: Acute Plan: Fluids: NS 100 ml/hr Electrolytes: WNL (na 132) continue to monitor. DVT ppx: xarleto GI ppx: Pantoprazole 40 mg daily PO. [facility] Dr. Cruz. Physician Certification 2 Midnight Certification Type: Admission for Inpatient Services Order for Inpatient Services The services are ordered in accordance with Medicare regulations or non- Medicare payer requirements, as applicable. In the case of services not specified as inpatient-only, they are appropriately provided as inpatient services in accordance with the 2-midnight benchmark. Estimated LOS (days): 3 3 days is the estimated time the patient will need to remain in the hospital, assuming treatment plan goals are met and no additional complications. Post-Hospital Plan: Home Problem Qualifiers (1) Sepsis: Qualified Codes: A41.9 - Sepsis, unspecified organism (2) Pulmonary embolism: Qualified Codes: I27.82 - Chronic pulmonary embolism Maninder Byrd MD, R3 Jun 08, 2017 21:22
[2017-06-08 22:39] VITALS: PULSE 105
[2017-06-08] MEDS ORDERED: SODIUM CHLOR 0.9% 1000 ML INJ 1,000 ML IV ONE (23:00)
[2017-06-08] MEDS ORDERED: Vancomycin Consult Pharmacy 1 EA OTHER SCH (23:00)
[2017-06-08] MEDS ORDERED: NITROGLYCERIN 0.4 MG SL 25 TABS/BTL SL PRN (23:15)
[2017-06-08] MEDS ORDERED: LORazepam 1 MG TAB PO PRN (23:15)
[2017-06-08] MEDS ORDERED: LORazepam 2 MG/ML VIAL IV PUSH PRN ×4 (23:15)
[2017-06-08] MEDS ORDERED: FLUMAZENIL 0.5 MG/5 ML VIAL IV PUSH PRN (23:15)
[2017-06-08] MEDS ORDERED: LORazepam 2 MG TAB PO PRN (23:15)
[2017-06-08] MEDS ORDERED: MORPHINE SULFATE 2 MG/ML INJ IM PRN (23:15)
[2017-06-08] MEDS: LEVOFLOXACIN 750 MG PREMIX INJ 150 ML IV SCH (23:43)
[2017-06-08] MEDS: RIVAROXABAN 15 MG TAB PO SCH (23:44)
[2017-06-08 23:49] LABS: BLOOD, URINE NEG (NEG); COMMENT (UR) CULT NOT INDICATED; CULTURE IF INDICATED CULT NOT INDICATED; GLUCOSE,URINE NEG (NEG); HYALINE CAST, URINE 1 /lpf (RARE); KETONE, URINE NEG (NEG); MUCUS URINE FEW /lpf (OCC); NITRITE,URINE NEG (NEG); PH, URINE 5.5 (5.0-8.5); SQUAMOUS EPITHELIAL CELL URINE <1 /hpf (0-5); URINE COLOR YELLOW (YELLW/STRAW)
[2017-06-09] VITALS (9 sets, daily range): BP systolic 124–147; BP diastolic 62–77; PULSE 77–98; RESP 16–20; TEMP 99.1–101.1; O2SAT 95–100
[2017-06-09] MEDS ORDERED: VANCOMYCIN INJ 1,000 MG in SODIUM CHLOR 0.9% 250 ML INJ 250 ML IV SCH (01:00)
[2017-06-09 02:11] LABS: LACTIC ACID GHOST NOT REPORTABLE
[2017-06-09] MEDS: PIPERACIL-TAZO 4.5 GM PREMIX 100 ML IV SCH ×3 (02:29→17:16)
[2017-06-09 04:00] LABS: AUTOMATED NEUTROPHIL # 12.1 TH/MM3 (1.8-7.7); BASOPHIL # 0.1 TH/MM3 (0-0.2); BASOPHIL % 0.3 % (0.0-2.0); EOSINOPHIL # 0.1 TH/MM3 (0-0.4); EOSINOPHIL % 0.6 % (0.0-4.0); HEMATOCRIT 35.2 % (39.0-51.0); HEMO FLAGS DIFF FINAL; LYMPH % 11.2 % (9.0-44.0); LYMPHOCYTE # 1.7 TH/MM3 (1.0-4.8); MEAN CELL VOLUME 93.4 FL (80.0-100.0); MEAN CORPUSCULAR HEMOGLOBIN 30.8 PG (27.0-34.0); MONO % 8.6 % (0.0-8.0); NEUT % 79.3 % (16.0-70.0); PLATELET COUNT 373 TH/MM3 (150-450); RED BLOOD COUNT 3.77 MIL/MM3 (4.50-5.90); RED CELL DISTRIBUTION WIDTH 14.6 % (11.6-17.2); WHITE BLOOD COUNT 15.2 TH/MM3 (4.0-11.0)
[2017-06-09 04:19] LABS: ALKALINE PHOSPHATASE 123 U/L (45-117); ALT (GPT) 11 U/L (12-78); ANION GAP 10 MEQ/L (5-15); AST (GOT) 10 U/L (15-37); BLOOD UREA NITROGEN 7 MG/DL (7-18); CHLORIDE 98 MEQ/L (98-107); GLOMERULAR FILTRATION RATE 113 ML/MIN (>89); POTASSIUM 3.6 MEQ/L (3.5-5.1); SODIUM (NA) 133 MEQ/L (136-145); TOTAL BILIRUBIN ADULT 0.6 MG/DL (0.2-1.0)
[2017-06-09] MEDS ORDERED: PNEUMOCOCCAL POLYVALENT INJ 25 MCG/0.5 ML SYR IM ONE (09:00)
[2017-06-09] MEDS ORDERED: INFLUENZA VIRUS VACCINE (QUADRIVALENT) 0.5 ML SYR IM ONE (09:00)
[2017-06-09] MEDS: DOCUSATE SODIUM 50 MG/SENNA 8.6 MG TAB PO SCH ×2 (09:00→21:00)
--- NOTE | 2017-06-09 09:35 | HHI.HP ---
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 The pain has gotten worse in the past 3-4 days. He got worried that he had another blood clot. The pain was a "12,15,19 out of 10". He was also having a productive cough during the past several days. The sputum is a very yellow / green. Also having headaches and body aches during this time. He also had fevers and chills. He was sent home from work because sweat was pouring down his face. "I just felt drained". No hemoptysis or vomiting. The past couple of days he is having SOB when coughing. He denies burning with urination. He denies any abdominal pain. He denies diarrhea, no blood in urine or stools. Does report nose bleeds recently. He has been taking his xarelto regularly. Denies recent travel. Denies exposure to fungi that he knows. ROS: Lost 50 lbs in the past 4 months, decreased appetite MEDS: Xarelto BID Gabapentin Ax: NKDA PMHx: Foot ulcers PUD Blood clots PSHx: Colostomy reversal 9 abdominal surgeries FMx: Mother - Peptic ulcers in mother, heart failure, COPD, PAD. Brother - healthy sister - healthy Father - unknown Social: Lives with Step Dad 1/2 ppd for the past 25 years Etoh - "I had to cut way back" - currently 2 beers a day (16 ounces). Cocaine or Heroine Sexually active with GF Review of Systems Constitutional: COMPLAINS OF: Weight loss (decreased appetite) Respiratory: COMPLAINS OF: Cough, Shortness of breath Cardiovascular: COMPLAINS OF: Chest pain Gastrointestinal: COMPLAINS OF: Anorexia, DENIES: Vomiting, Difficulty Swallowing Integumentary: DENIES: Abnormal pigmentation Neurologic: DENIES: Abnormal gait, Speech Problems Past Family Social History Allergies: Coded Allergies: aspirin (Unverified Allergy, Mild, ULCERS, 06/08/17) Physical Exam Vital Signs Vital Signs Date Time Temp Pulse Resp B/P (MAP) Pulse Ox O2 Delivery O2 Flow Rate FiO2 06/09/17 08:00 100.1 87 18 129/70 (89) 98 06/09/17 04:00 101.1 93 18 124/67 (86) 97 06/09/17 00:00 100.2 81 18 147/62 (90) 96 06/08/17 22:54 06/08/17 22:39 105 06/08/17 20:59 90 20 164/89 (114) 94 06/08/17 20:42 97 21 06/08/17 17:59 22 99 Room Air 06/08/17 17:59 77 22 141/97 (112) 99 Room Air 06/08/17 15:21 98.8 108 18 127/91 (103) 97 Room Air Physical Exam GENERAL: Thin-appearing, cachectic, disheveled, in no acute distress. SKIN: Warm and dry. EYES: Pupils equal round and reactive. Movements intact. HENT: Normocephalic. Atraumatic. MMM. NECK: No visible JVD or lymphadenopathy. CARDIOVASCULAR: Warm and well perfused. Tachycardia. No obvious murmurs. Pulses 2+ . No calf tenderness. No pitting edema of the lower extremities. RESPIRATORY: Normal respiratory effort. Diffuse rhonchi on expiration throughout, decreased breath sounds at left base. Transmitted upper airway sounds. GASTROINTESTINAL: Abdomen nondistended. Multiple abdominal scars. Nontender to palpation. MUSCULOSKELETAL: Strength grossly WNL. BACK: Without obvious deformity. NEURO/PSYCH: Afocal. Awake, alert, and oriented x3. Laboratory Laboratory Tests Test 06/08/17 17:50 06/08/17 23:30 06/09/17 00:00 06/09/17 03:14 White Blood Count 18.3 15.2 Red Blood Count 4.08 3.77 Hemoglobin 13.0 11.6 Hematocrit 38.4 35.2 Mean Corpuscular Volume 94.0 93.4 Mean Corpuscular Hemoglobin 31.8 30.8 Mean Corpuscular Hemoglobin Concent 33.8 33.0 Red Cell Distribution Width 14.6 14.6 Platelet Count 387 373 Mean Platelet Volume 7.4 7.2 Neutrophils (%) (Auto) 80.3 79.3 Lymphocytes (%) (Auto) 10.9 11.2 Monocytes (%) (Auto) 8.4 8.6 Eosinophils (%) (Auto) 0.1 0.6 Basophils (%) (Auto) 0.3 0.3 Neutrophils # (Auto) 14.7 12.1 Lymphocytes # (Auto) 2.0 1.7 Monocytes # (Auto) 1.5 1.3 Eosinophils # (Auto) 0.0 0.1 Basophils # (Auto) 0.1 0.1 CBC Comment DIFF FINAL DIFF FINAL Differential Comment Prothrombin Time 13.5 Prothromb Time International Ratio 1.2 Activated Partial Thromboplast Time 53.5 Blood Urea Nitrogen 10 7 Creatinine 0.80 0.73 Random Glucose 95 91 Total Protein 7.4 6.0 Albumin 2.4 1.8 Calcium Level 9.0 7.7 Magnesium Level 1.6 Alkaline Phosphatase 157 123 Aspartate Amino Transf (AST/SGOT) 11 10 Alanine Aminotransferase (ALT/SGPT) 14 11 Total Bilirubin 0.9 0.6 Sodium Level 132 133 Potassium Level 4.6 3.6 Chloride Level 98 98 Carbon Dioxide Level 26.0 25.0 Anion Gap 8 10 Estimat Glomerular Filtration Rate 102 113 Troponin I LESS THAN 0.02 LESS THAN 0.02 LESS THAN 0.02 Urine Color YELLOW Urine Turbidity HAZY Urine pH 5.5 Urine Specific [place] 1.050 Urine Protein 30 Urine Glucose (UA) NEG Urine Ketones NEG Urine Occult Blood NEG Urine Nitrite NEG Urine Bilirubin NEG Urine Urobilinogen 2.0 Urine Leukocyte Esterase NEG Urine RBC 1 Urine WBC 1 Urine Squamous Epithelial Cells <1 Urine Amorphous Sediment RARE Urine Hyaline Casts 1 Urine Mucus FEW Microscopic Urinalysis Comment CULT NOT INDICATED Lactic Acid Level 2.3 1.5 Date/Time Source Procedure Growth Status 06/08/17 17:50 Blood Peripheral Aerobic Blood Culture Pending Received 06/08/17 17:50 Blood Peripheral Anaerobic Blood Culture Pending Received 06/08/17 17:50 Nasal Washing Influenza Types A,B Antigen (CHATA) - Final NEGATIVE FOR FLU A AND B ANTIGEN.... Complete 06/08/17 23:30 Urine Random Urine Legionella Antigen - Final PRESUMPTIVE NEGATIVE FOR LEGIONELLA P... Complete 06/08/17 23:30 Urine Random Urine Streptococcus pneumoniae Antigen (M - Final PRESUMPTIVE NEGATIVE FOR STREPTOCOCCU... Complete Result Diagram: 06/09/1731306/09/174 Imaging Last [address] Angiography 06/08/17 1749 Signed Impressions: Service Date/Time: Thursday, June 08, 2017 19:02 - CONCLUSION: 1. Small area of pulmonary embolism involving the proximal left lower lobe artery. 2. Dense consolidation in the left upper lobe with multiple small cavities centrally. This could represent a necrotic pneumonia or fungal infection. 3. 2 smaller cavitary masses. 4. Underlying emphysema. Miles Kauffman MD Chest X-Ray 06/08/17 1716 Signed Impressions: Service Date/Time: Thursday, June 08, 2017 17:34 - CONCLUSION: 1. Left upper lobe pneumonia 2. Right upper lobe nodules above. CT scan is recommended for further evaluation if clinically indicated. Alonzo Vazquez MD Head CT 06/08/17 0000 Signed Impressions: Service Date/Time: Thursday, June 08, 2017 18:55 - CONCLUSION: 1. Mild to moderate atrophic change and chronic small vessel ischemic changes. 2. No acute hemorrhage or mass effect. Miles Kauffman MD Caprini VTE Risk Assessment Caprini VTE Risk Assessment: No/Low Risk (score <= 1) VTE Pharm Contraindication: Caprini Risk Assessment Model Point Value = 1 Point Value = 2 Point Value = 3 Point Value = 5 Age 41-60 Minor surgery BMI > 25 kg/m2 Swollen legs Varicose veins or History of unexplained or recurrent spontaneous Oral contraceptives or hormone replacement Sepsis (< 1 month) Serious lung disease, including pneumonia (< 1 month) Abnormal pulmonary function Acute myocardial infarction Congestive heart failure (< 1 month) History of inflammatory bowel disease Medical patient at bed rest Age 61-74 Arthroscopic surgery Major open surgery (> 45 min) Laparoscopic surgery (> 45 min) Malignancy Confined to bed (> 72 hours) Immobilizing plaster cast Central venous access Age >= 75 History of VTE Family history of VTE Factor V Leiden Prothrombin [id number] Lupus anticoagulant Anticardiolipin antibodies Elevated serum homocysteine Heparin-induced thrombocytopenia Other congenital or acquired thrombophilia Stroke (< 1 month) Elective arthroplasty Hip, pelvis, or leg fracture Acute spinal cord injury (< 1 month) Prophylaxis Regimen Total Risk Factor Score Risk Level Prophylaxis Regimen 0-1 Low Early ambulation 2 Moderate Order ONE of the following: *Sequential Compression Device (SCD) *Heparin 5000 units SQ BID 3-4 Higher Order ONE of the following medications: *Heparin 5000 units SQ TID *Enoxaparin/Lovenox 40 mg SQ daily (WT < 150 kg, CrCl > 30 mL/min) *Enoxaparin/Lovenox 30 mg SQ daily (WT < 150 kg, CrCl > 10-29 mL/min) *Enoxaparin/Lovenox 30 mg SQ BID (WT < 150 kg, CrCl > 30 mL/min) AND/OR *Sequential Compression Device (SCD) 5 or more Highest Order ONE of the following medications: *Heparin 5000 units SQ TID (Preferred with Epidurals) *Enoxaparin/Lovenox 40 mg SQ daily (WT < 150 kg, CrCl > 30 mL/min) *Enoxaparin/Lovenox 30 mg SQ daily (WT < 150 kg, CrCl > 10-29 mL/min) *Enoxaparin/Lovenox 30 mg SQ BID (WT < 150 kg, CrCl > 30 mL/min) AND *Sequential Compression Device (SCD) Assessment and Plan Assessment and Plan Mr. Brady is a 51-year-old male, presenting with increasing respiratory distress, who was recently discharged on May 24, 2017 after being diagnosed with lateral pulmonary emboli. He was found to have a dense consolidation left upper lobe. He will be admitted with the presumptive diagnosis of necrotic pneumonia. Problem List: (1) Sepsis ICD Codes: A41.9 - Sepsis, unspecified organism Status: Resolved Plan: Presents with sepsis WBC 18.3 k, Tachycardia to 108, and source of infection being lungs. Likely source is a necrotizing pneumonia given CT scan that showed : "Dense consolidation in the left upper lobe with multiple small cavity centrally." PLAN: Given 1 L normal saline, we will start maintenance fluids. Start broad-spectrum antibiotics to cover for a hospital-acquired pneumonia: * Zosyn 4.5 g every 8 hours * Levaquin 750 mg IV daily * Vancomycin 1 g every 12 hours Will get blood cultures, UA (negative for signs of UTI), urine legionella and pneumococcal Ags, sputum cultures. Follow lactic acid. he has seen Dr Farooq in the past so will consult him (2) Pulmonary embolism ICD Codes: I26.99 - Other pulmonary embolism without acute cor pulmonale Status: Acute Plan: Previous pulmonary embolism, anticoagulated with Xarelto twice a day. Will continue. Repeat CT showed no new Emboli. Hemodynamically stable. Previous CT from 05/19/2017 showed "multiple filling defects are seen bilaterally consistent with acute pulmonary emboli. There is modest volume of thrombus seen. Thrombus is seen involving the right main pulmonary artery extending to the segmental branch of the right lower as well as a thrombus in the distal interlobar pulmonary artery on the right which extended to the basilar segmental branches. Thrombus is seen within the left peripheral main pulmonary artery." Repeat CTA on 06/08/17 showed "small area of pulmonary embolism involving the proximal left lower lobe artery. (3) Peptic ulcer disease with hemorrhage ICD Codes: K27.4 - Chronic or unspecified peptic ulcer, site unspecified, with hemorrhage Status: Resolved Plan: He was diagnosed with peptic ulcer disease requiring 9 abdominal surgeries. We will treat with pantoprazole 40 mg by mouth daily while hospitalized. (4) Tobacco use disorder ICD Codes: F17.200 - Nicotine dependence, unspecified, uncomplicated Status: Acute Plan: Nicotine patches as necessary. (5) Mass of middle lobe of right lung ICD Codes: R91.8 - Other nonspecific abnormal finding of lung field Status: Acute Plan: Weight loss of 50 pounds within the past 4 months. TB test on 05/20/17 were negative. Coccidioides antigens and antibodies were negative. HIV 1 and 2 antibodies were negative. Hepatitis C antibodies negative. M. tuberculosis DNA PCR was not detected. Quantiferon gold was also negative. Elevated CEA of 5.3 normal was between 0.2-5.0. CA 19-9 ag WNL CA 125 WNL PSA WNL HCG WNL AFP WNL Beta-2-GPI IgG, IgA, IgM WNL Anticariolipin IgA IgM IgG WNL. consider biopsy (6) Weight loss ICD Codes: R63.4 - Abnormal weight loss Status: Chronic Plan: He'll need follow-up with pulmonology as an outpatient once pneumonia has cleared. (7) Pneumonia with cavity of lung ICD Codes: J18.9 - Pneumonia, unspecified organism; J98.4 - Other disorders of lung Status: Acute Plan: Plan as above. (8) Alcohol abuse ICD Codes: F10.10 - Alcohol abuse, uncomplicated Status: Resolved Plan: CIWA protocol (9) fen/ppx Status: Acute Plan: Fluids: NS 100 ml/hr Electrolytes: WNL (na 132) continue to monitor. DVT ppx: xarleto GI ppx: Pantoprazole 40 mg daily PO. Problem Qualifiers (1) Sepsis: Qualified Codes: A41.9 - Sepsis, unspecified organism (2) Pulmonary embolism: Qualified Codes: I27.82 - Chronic pulmonary embolism Jennifer Cruz MD Jun 09, 2017 09:35
[2017-06-09] MEDS: RESP: ALBUTEROL 2.5 MG/IPRATROPIUM 0.5 MG NEB (SCH) NEB ×2 (09:59→14:28)
[2017-06-09] MEDS: THIAMINE HCL 100 MG TAB PO SCH (10:29)
[2017-06-09] MEDS: SODIUM CHLORIDE 0.9% FLUSH 10 ML FLUSH IV FLUSH SCH ×2 (10:29→21:22)
[2017-06-09] MEDS: PANTOPRAZOLE SOD 40 MG DELAYED RELEASE TAB PO SCH (10:29)
[2017-06-09] MEDS: MULTIVITAMINS/MINERALS THERAPEUTIC TAB PO SCH (10:29)
[2017-06-09] MEDS: FOLIC ACID 1 MG TAB PO SCH (10:29)
[2017-06-09] MEDS: RIVAROXABAN 15 MG TAB PO SCH ×2 (10:55→21:21)
--- NOTE | 2017-06-09 15:26 | EKG ---
Date Performed: 06/09/2017 Time Performed: 04:40:52 PTAGE: 51 years EKG: Sinus rhythm Possible anteroseptal infarct - age undetermined Abnormal ECG PREVIOUS TRACING : 06/09/2017 00.14 Compared to prior tracing no significant change DOCTOR: Glen John Interpretating Date/Time 06/09/2017 15:25:13
--- NOTE | 2017-06-09 15:31 | EKG ---
Date Performed: 06/09/2017 Time Performed: 00:14:00 PTAGE: 51 years EKG: Sinus rhythm Possible septal infarct - age undetermined Abnormal ECG PREVIOUS TRACING : 05/20/2017 07.59 DOCTOR: Glen John Interpretating Date/Time 06/09/2017 15:30:13
[2017-06-09] MEDS: VANCOMYCIN 1,000 MG/NS 250 ML IV SCH ×2 (15:45)
[2017-06-09] MEDS: SODIUM CHLOR 0.9% 1000 ML INJ 1,000 ML IV SCH (16:19)
[2017-06-09] MEDS: LEVOFLOXACIN 750 MG PREMIX INJ 150 ML IV SCH (23:34)
[2017-06-10] VITALS (10 sets, daily range): BP systolic 125–153; BP diastolic 67–80; PULSE 71–85; RESP 16–19; TEMP 98.5–101.3; O2SAT 93–98
[2017-06-10] MEDS: PIPERACIL-TAZO 4.5 GM PREMIX 100 ML IV SCH ×3 (00:44→16:46)
[2017-06-10] MEDS: VANCOMYCIN 1,000 MG/NS 250 ML IV SCH ×4 (02:16→14:18)
[2017-06-10] MEDS: SODIUM CHLOR 0.9% 1000 ML INJ 1,000 ML IV SCH ×5 (02:22→22:14)
[2017-06-10] MEDS: RESP: ALBUTEROL 2.5 MG/IPRATROPIUM 0.5 MG NEB (SCH) NEB ×3 (08:25→21:03)
[2017-06-10 09:18] LABS: AUTOMATED NEUTROPHIL # 14.5 TH/MM3 (1.8-7.7); BASOPHIL % 0.1 % (0.0-2.0); EOSINOPHIL # 0.1 TH/MM3 (0-0.4); EOSINOPHIL % 0.4 % (0.0-4.0); HEMATOCRIT 31.1 % (39.0-51.0); LYMPH % 8.3 % (9.0-44.0); LYMPHOCYTE # 1.5 TH/MM3 (1.0-4.8); MEAN CELL VOLUME 93.9 FL (80.0-100.0); MEAN CORPUSCULAR HEMOGLOBIN 30.7 PG (27.0-34.0); MEAN CORPUSCULAR HGB CONC 32.6 % (32.0-36.0); MONO % 10.7 % (0.0-8.0); NEUT % 80.5 % (16.0-70.0); PLATELET COUNT 314 TH/MM3 (150-450); RED BLOOD COUNT 3.31 MIL/MM3 (4.50-5.90); RED CELL DISTRIBUTION WIDTH 14.7 % (11.6-17.2)
[2017-06-10 09:21] LABS: HEMO FLAGS AUTO DIFF
--- NOTE | 2017-06-10 09:40 | MB ---
cc: JUAN MARTINEZ M.D. DATE OF CONSULTATION: 06/10/2017 REASON FOR CONSULTATION Pulmonary embolism and question lung mass. HISTORY OF PRESENT ILLNESS Mr. Brady is a 51-year-old male, smoker, who was admitted with left chest pain. CT angiogram reveals evidence of pulmonary embolization. He has a chronic cough, expectoration of occasionally white-yellowish sputum. No hemoptysis. No TB, no previous industrial exposure. Denies shortness of breath. PAST MEDICAL HISTORY 1. Pulmonary embolism. 2. Peptic ulcer disease. 3. Foot ulceration. MEDICATION 1. Xarelto. 2. Gabapentin. ALLERGIES ASPIRIN. FAMILY HISTORY Noncontributory. SOCIAL HISTORY Smokes half a pack a day for the last 25 years. Drinks two beers a day. Does not use drugs. REVIEW OF SYSTEMS 12-point review of systems as per HPI and past history, otherwise negative. PHYSICAL EXAMINATION GENERAL: The patient is alert. VITAL SIGNS: Temperature 98, pulse 80, respirations 20, blood pressure 140/90, oxygen saturation 94% on room air. HEENT: Exam unremarkable. Eyes without icterus. NECK: Without adenopathy or thyroid enlargement. CHEST: Few scattered rhonchi bilaterally. CARDIOVASCULAR: PMI distant. S1-S2 audible. No murmur or rub. ABDOMEN: Lax, bowel sounds audible. EXTREMITIES: No clubbing, cyanosis or edema. SKIN: Normal. No lymphadenopathy. LABORATORY DATA White count 18,000, hemoglobin 13, hematocrit 38, platelets 387,000, sodium 132, potassium 4.6, BUN 10, creatinine 0.8. CT angiogram with small emboli in the left lower lung, left upper lobe pneumonia with cavitation. IMPRESSION 1. Pulmonary embolism. 2. Pneumonia with cavitation. 3. Tobacco abuse. 4. Peptic ulcer disease. PLAN The patient does have cavitary pneumonia, etiology of which is not clear. Infectious process related to recurrent aspiration is a possibility, chronic inflammatory process like TB, fungal infection are considerations as well. Malignancy to be entertained. Would continue antibiotic therapy. Infectious disease should be consulted for further evaluation as well. Anticoagulant therapy would be appropriate. Would consult hematology to evaluate for hypercoagulable state. The patient has been on Xarelto. I will follow the patient's course closely. If need be bronchoscopic examination would be undertaken. I do thank you for asking me to partake in Mr. Brady's care. Juan Martinez MD WWW/HARSHADL /9:07 AM /9:31 AM
[2017-06-10] MEDS: PANTOPRAZOLE SOD 40 MG DELAYED RELEASE TAB PO SCH (09:42)
[2017-06-10] MEDS: THIAMINE HCL 100 MG TAB PO SCH (09:42)
[2017-06-10] MEDS: DOCUSATE SODIUM 50 MG/SENNA 8.6 MG TAB PO SCH ×2 (09:42→21:00)
[2017-06-10] MEDS: RIVAROXABAN 15 MG TAB PO SCH ×2 (09:42→22:11)
[2017-06-10] MEDS: SODIUM CHLORIDE 0.9% FLUSH 10 ML FLUSH IV FLUSH SCH ×2 (09:43→22:11)
[2017-06-10] MEDS: MULTIVITAMINS/MINERALS THERAPEUTIC TAB PO SCH (09:43)
[2017-06-10] MEDS: FOLIC ACID 1 MG TAB PO SCH (09:43)
[2017-06-10 10:06] LABS: BANDS 9 % (0-6); BASOPHILS 1 % (0-2); NEUTROPHIL # MANUAL DIFF 15.3 TH/MM3 (1.8-7.7); POLYS (SEG NEUTROPHILS) 76 % (16-70); WBC DIFF SAMPLE 100
[2017-06-10 10:07] LABS: PLATELET ESTIMATE SMEAR NORMAL (NORMAL); PLATELET MORPHOLOGY NORMAL (NORMAL); SCAN/DIFF FINAL DIFF MANUAL; TOXIC GRANULATION 1+ (NORMAL)
[2017-06-10 10:30] LABS: ANION GAP 11 MEQ/L (5-15); BICARBONATE 24.3 MEQ/L (21.0-32.0); BLOOD UREA NITROGEN 4 MG/DL (7-18); CHLORIDE 99 MEQ/L (98-107); GLOMERULAR FILTRATION RATE 131 ML/MIN (>89); POTASSIUM 3.3 MEQ/L (3.5-5.1); SODIUM (NA) 134 MEQ/L (136-145)
[2017-06-10 10:46] LABS: ALKALINE PHOSPHATASE 112 U/L (45-117); ALT (GPT) 9 U/L (12-78); AST (GOT) 14 U/L (15-37); TOTAL BILIRUBIN ADULT 0.7 MG/DL (0.2-1.0)
[2017-06-10] MEDS ORDERED: PHARMACY ORDERED LAB ONE (13:45)
--- NOTE | 2017-06-10 14:45 | HHI.FPPN ---
Subjective Remarks No acute events overnight. Tmax of 100.2. Vital stable. Patient denies any fevers or chills, chest pain, shortness of breath, or worsening cough. Denies night sweats. No pain or swelling in legs. (Nicolas Palomares MD R2) Objective Vitals Vital Signs Date Time Temp Pulse Resp B/P (MAP) Pulse Ox O2 Delivery O2 Flow Rate FiO2 06/10/17 12:00 98.5 71 17 125/70 (88) 97 06/10/17 08:28 93 21 06/10/17 08:00 98.7 76 17 153/73 (99) 94 06/10/17 03:43 98.8 79 16 137/73 (94) 96 06/09/17 23:00 99.9 81 16 146/76 (99) 97 06/09/17 20:00 77 06/09/17 19:50 99.1 80 16 133/77 (95) 97 06/09/17 16:15 100.2 81 20 147/76 (99) 95 I/O 06/09/17 06/09/17 06/09/17 06/10/17 06/10/17 06/10/17 07:00 15:00 23:00 07:00 15:00 23:00 Intake Total 1940 ml 700 ml 3700 ml Output Total 300 ml Balance 1940 ml 700 ml 3400 ml Intake Oral 240 ml 700 ml 1200 ml IV Total 1700 ml 2500 ml Output Urine Total 300 ml # Voids 1 2 2 # Bowel Movements 1 1 2 (Nicolas Palomares MD R2) Result Diagram: 06/10/17 0556 06/10/17 0556 Objective Remarks GENERAL: Thin-appearing, cachectic, disheveled, in no acute distress. SKIN: Warm and dry. EYES: EOMI. No scleral icterus. No injection. HENT: Normocephalic. Atraumatic. MMM. NECK: No JVD. CARDIOVASCULAR: Regular rate and rhythm. No obvious murmurs. Pulses 2+. No calf tenderness. No pitting edema of the lower extremities. RESPIRATORY: Normal respiratory effort. Diffuse rhonchi on expiration throughout , decreased breath sounds at left base. Transmitted upper airway sounds. GASTROINTESTINAL: Abdomen nondistended. Multiple abdominal scars. Soft. Nontender to palpation. MUSCULOSKELETAL: Strength grossly WNL. NEURO/PSYCH: Afocal. Awake, alert, and oriented x3. (Nicolas Palomares MD R2) A/P Assessment and Plan Mr. Brady is a 51-year-old male, presenting with increasing respiratory distress, who was recently discharged on May 24, 2017 after being diagnosed with lateral pulmonary emboli. He was found to have a dense consolidation left upper lobe. He will be admitted with the presumptive diagnosis of necrotic pneumonia. (Nicolas Palomares MD R2) Attending Attestation Patient seen and examined. Case reviewed and discussed with the resident team. Agree with plan of care as discussed with me and documented in the resident note. appreciate help of Pulmonary. his huge weight loss and decline is concerning as well as his cavitary lesions (Jennifer Cruz MD) Problem List: (1) Sepsis ICD Codes: A41.9 - Sepsis, unspecified organism Status: Acute Plan: Presents meeting sepsis criteria Likely source is a necrotizing pneumonia given CT scan with findings of dense consolidation in the left upper lobe with multiple small cavity centrally Continue broad-spectrum antibiotics to cover for a hospital-acquired pneumonia: * Zosyn 4.5 g every 8 hours * Levaquin 750 mg IV daily * Vancomycin 1 g every 12 hours Blood cultures no growth after 2 days Regional and streptococcal antigens negative Will need repeat specimen of sputum for culture Acid-fast bacilli and fungal culture ordered Pulmonology consulted, appreciate recommendations Etiology of cavitary pneumonia is unclear at this time Would appreciate infectious disease consultation for recommendations on antibiotic therapy (2) Pulmonary embolism ICD Codes: I26.99 - Other pulmonary embolism without acute cor pulmonale Status: Acute Plan: Previous pulmonary embolism, anticoagulated with Xarelto twice a day. Will continue. Repeat CT showed no new Emboli. Hemodynamically stable. Previous CT from 05/19/2017 showed "multiple filling defects are seen bilaterally consistent with acute pulmonary emboli. There is modest volume of thrombus seen. Thrombus is seen involving the right main pulmonary artery extending to the segmental branch of the right lower as well as a thrombus in the distal interlobar pulmonary artery on the right which extended to the basilar segmental branches. Thrombus is seen within the left peripheral main pulmonary artery." Repeat CTA on 06/08/17 showed "small area of pulmonary embolism involving the proximal left lower lobe artery. 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 TB test on 05/20/17 were negative. Coccidioides antigens and antibodies were negative. HIV 1 and 2 antibodies were negative. Hepatitis C antibodies negative. M. tuberculosis DNA PCR was not detected. Quantiferon gold was also negative. Elevated CEA of 5.3 normal was between 0.2-5.0. CA 19-9 ag WNL CA 125 WNL PSA WNL HCG WNL AFP WNL Beta-2-GPI IgG, IgA, IgM WNL Anti-cariolipin. IgA IgM IgG WNL. Consider bronchoscopic examination per pulmonology recommendations for further investigation if this may be a malignancy (4) Pneumonia with cavity of lung ICD Codes: J18.9 - Pneumonia, unspecified organism; J98.4 - Other disorders of lung Status: Acute Plan: Plan as above. (5) Alcohol abuse ICD Codes: F10.10 - Alcohol abuse, uncomplicated Status: Resolved Plan: CIWA protocol Rally pack (6) Peptic ulcer disease with hemorrhage ICD Codes: K27.4 - Chronic or unspecified peptic ulcer, site unspecified, with hemorrhage Status: Resolved Plan: He was diagnosed with peptic ulcer disease requiring 9 abdominal surgeries Continue Protonix 40 mg po daily (7) fen/ppx Status: Acute Plan: Fluids: NS at 100 cc/hr Electrolytes: continue to monitor Nutrition: regular DVT ppx: Continue Xarelto GI ppx: Protonix 40 mg po daily (Nicolas Palomares MD R2) Problem Qualifiers (1) Sepsis: Qualified Codes: A41.9 - Sepsis, unspecified organism (2) Pulmonary embolism: Qualified Codes: I27.82 - Chronic pulmonary embolism Nicolas Palomares MD R2 Jun 10, 2017 14:45 Jennifer Cruz MD Jun 11, 2017 15:43
[2017-06-10] MEDS ORDERED: POTASSIUM CHLORIDE 20 MEQ CONTROLLED RELEASE TAB PO ONE (15:00)
[2017-06-10] MEDS: VANCOMYCIN INJ 1,250 MG in SODIUM CHLOR 0.9% 250 ML INJ 250 ML IV SCH (22:12)
[2017-06-10] MEDS: ACETAMINOPHEN 325 MG TAB PO PRN (23:12)
[2017-06-10] MEDS: LEVOFLOXACIN 750 MG PREMIX INJ 150 ML IV SCH (23:12)
[2017-06-11] VITALS (10 sets, daily range): BP systolic 119–156; BP diastolic 58–86; PULSE 63–95; RESP 16–18; TEMP 98.5–99.9; O2SAT 95–99
[2017-06-11] MEDS: PIPERACIL-TAZO 4.5 GM PREMIX 100 ML IV SCH ×3 (00:38→17:04)
[2017-06-11 08:17] LABS: AUTOMATED NEUTROPHIL # 13.7 TH/MM3 (1.8-7.7); BASOPHIL % 0.1 % (0.0-2.0); EOSINOPHIL # 0.2 TH/MM3 (0-0.4); EOSINOPHIL % 1.1 % (0.0-4.0); HEMATOCRIT 29.3 % (39.0-51.0); HEMO FLAGS DIFF FINAL; LYMPH % 6.8 % (9.0-44.0); LYMPHOCYTE # 1.1 TH/MM3 (1.0-4.8); MEAN CELL VOLUME 93.1 FL (80.0-100.0); MEAN CORPUSCULAR HEMOGLOBIN 30.9 PG (27.0-34.0); MEAN CORPUSCULAR HGB CONC 33.2 % (32.0-36.0); MONO % 10.1 % (0.0-8.0); NEUT % 81.9 % (16.0-70.0); PLATELET COUNT 295 TH/MM3 (150-450); RED BLOOD COUNT 3.15 MIL/MM3 (4.50-5.90); RED CELL DISTRIBUTION WIDTH 14.3 % (11.6-17.2); WHITE BLOOD COUNT 16.7 TH/MM3 (4.0-11.0)
--- NOTE | 2017-06-11 08:21 | HHI.PR ---
Subjective Remarks ALERT NO SOB N Objective Vital Signs Date Time Temp Pulse Resp B/P (MAP) Pulse Ox O2 Delivery O2 Flow Rate FiO2 06/11/17 04:05 98.5 70 18 119/63 (81) 99 06/11/17 04:00 Room Air 06/11/17 00:00 Room Air 06/10/17 23:25 100.8 85 18 139/67 (91) 97 06/10/17 21:04 93 21 06/10/17 20:00 76 06/10/17 20:00 Room Air 06/10/17 19:55 99.0 72 18 144/80 (101) 98 06/10/17 17:37 75 06/10/17 16:00 101.3 80 19 147/74 (98) 96 06/10/17 12:00 98.5 71 17 125/70 (88) 97 06/10/17 08:28 93 21 I/O 06/10/17 06/10/17 06/10/17 06/11/17 06/11/17 06/11/17 07:00 15:00 23:00 07:00 15:00 23:00 Intake Total 3700 ml 1380 ml 992.5 ml Output Total 300 ml 1000 ml Balance 3400 ml 380 ml 992.5 ml Intake Oral 1200 ml 380 ml 480 ml IV Total 2500 ml 1000 ml 512.5 ml Output Urine Total 300 ml 1000 ml # Voids 2 2 5 # Bowel Movements 2 1 2 Result Diagram: 06/10/17 0556 06/10/17 0556 Assessment and Plan Assessment and Plan CAVITARY PNA PE PLAN ANTICOAGS ANTIBIOTICS INCREASE ACTIVITY F/U CXRAY Juan Martinez MD Jun 11, 2017 08:21
[2017-06-11] MEDS: MULTIVITAMINS/MINERALS THERAPEUTIC TAB PO SCH (08:28)
[2017-06-11] MEDS: PANTOPRAZOLE SOD 40 MG DELAYED RELEASE TAB PO SCH (08:28)
[2017-06-11] MEDS: RIVAROXABAN 15 MG TAB PO SCH ×2 (08:28→22:50)
[2017-06-11] MEDS: THIAMINE HCL 100 MG TAB PO SCH (08:28)
[2017-06-11] MEDS: FOLIC ACID 1 MG TAB PO SCH (08:28)
[2017-06-11] MEDS: DOCUSATE SODIUM 50 MG/SENNA 8.6 MG TAB PO SCH ×2 (08:31→22:49)
[2017-06-11] MEDS: SODIUM CHLORIDE 0.9% FLUSH 10 ML FLUSH IV FLUSH SCH (08:31)
[2017-06-11 08:41] LABS: BICARBONATE 21.5 MEQ/L (21.0-32.0)
[2017-06-11] MEDS: RESP: ALBUTEROL 2.5 MG/IPRATROPIUM 0.5 MG NEB (SCH) NEB ×3 (08:41→20:48)
[2017-06-11 08:47] LABS: POTASSIUM 2.7 MEQ/L (3.5-5.1)
[2017-06-11] MEDS: POTASSIUM CHLORIDE 25 MEQ EFFERVESCENT TAB PO SCH ×2 (10:33→22:49)
[2017-06-11] MEDS: VANCOMYCIN INJ 1,250 MG in SODIUM CHLOR 0.9% 250 ML INJ 250 ML IV SCH ×2 (10:34→22:50)
--- NOTE | 2017-06-11 16:03 | HHI.FPPN ---
Subjective Remarks Vitals within normal limits. Good intake and output. Patient states he has had a good appetite while here. Denies shortness of breath or fevers. (Tasha Singleton MD R1) Objective Vitals Vital Signs Date Time Temp Pulse Resp B/P (MAP) Pulse Ox O2 Delivery O2 Flow Rate FiO2 06/11/17 12:00 98.6 68 16 140/77 (98) 98 06/11/17 08:41 98 21 06/11/17 08:00 Room Air 06/11/17 08:00 98.5 63 16 132/70 (90) 98 06/11/17 08:00 80 06/11/17 04:05 98.5 70 18 119/63 (81) 99 06/11/17 04:00 Room Air 06/11/17 00:00 Room Air 06/10/17 23:25 100.8 85 18 139/67 (91) 97 06/10/17 21:04 93 21 06/10/17 20:00 76 06/10/17 20:00 Room Air 06/10/17 19:55 99.0 72 18 144/80 (101) 98 06/10/17 17:37 75 06/10/17 16:00 101.3 80 19 147/74 (98) 96 I/O 06/10/17 06/10/17 06/10/17 06/11/17 06/11/17 06/11/17 07:00 15:00 23:00 07:00 15:00 23:00 Intake Total 3700 ml 1380 ml 992.5 ml 100 ml Output Total 300 ml 1000 ml Balance 3400 ml 380 ml 992.5 ml 100 ml Intake Oral 1200 ml 380 ml 480 ml IV Total 2500 ml 1000 ml 512.5 ml 100 ml Output Urine Total 300 ml 1000 ml # Voids 2 2 5 # Bowel Movements 2 1 2 (Tasha Singleton MD R1) Result Diagram: 06/11/1715 06/11/17 0715 Objective Remarks GENERAL: Thin-appearing, cachectic, disheveled, in no acute distress. SKIN: Warm and dry. EYES: EOMI. No scleral icterus. No injection. HENT: Normocephalic. Atraumatic. MMM. NECK: No JVD. CARDIOVASCULAR: Regular rate and rhythm. No obvious murmurs. No calf tenderness. No pitting edema of the lower extremities. RESPIRATORY: Normal respiratory effort. Decreased breath sounds bilaterally with occasional crackles. GASTROINTESTINAL: Abdomen nondistended. Multiple abdominal scars. Soft. Nontender to palpation. MUSCULOSKELETAL: Strength grossly WNL. NEURO/PSYCH: Afocal. Awake, alert, and oriented x3. (Tasha Singleton MD R1) A/P Assessment and Plan Mr. Brady is a 51-year-old male admitted for sepsis secondary to cavitary pneumona. Was recently discharged on May 24, 2017 after being diagnosed with bilateral pulmonary emboli and bilateral DVTs (d/c'd on Xarelto) . He was found to have a dense consolidation left upper lobe leading to suspicion for cancer but was recommended to follow-up outpatient for further work-up. He has a history of lung nodules and underwent bronchoscopy and lung biopsies last year which was reported to be negative. The patient has been evaluated by infectious disease on multiple occasions. No TB was detected at that time. 06/08 CTA shows dense consolidation in the left upper lobe with multiple small cavities centrally. 2 smaller cavitary masses can be seen as well. On admission, patient was placed on broad-spectrum antibiotics. Sputum and blood cx testing for Tb, fungus, and bacteria were ordered. Pulmonology and ID were consulted to obtain further recommendations. Differential: fungal infx v Tb v neoplastic process. May consider ordering bronchoscopy of masses. Discharge Planning D/C pending complete clinical work-up (Tasha Singleton MD R1) Attending Attestation Patient seen and examined. Case reviewed and discussed with the resident team. Agree with plan of care as discussed with me and documented in the resident note. will replace K and still unsure of exact cause of pneumonia (Jennifer Cruz MD) Problem List: (1) Cavitary pneumonia ICD Codes: J18.9 - Pneumonia, unspecified organism; J98.4 - Other disorders of lung Plan: Improved Presents w/increasing dyspnea, productive cough, and chest pain, met sepsis criteria Likely source is a cavitary pneumonia given CT scan with findings of dense consolidation in the left upper lobe with multiple small cavity centrally Blood cx negative urine antigens, flu negative acid-fast bacilli and fungal cx ordered Continue broad-spectrum antibiotics to cover for a hospital-acquired pneumonia: * Zosyn 4.5 g every 8 hours * Levaquin 750 mg IV daily * Vancomycin 1 g every 12 hours ID consulted, appreciate recs (2) Pulmonary embolism ICD Codes: I26.99 - Other pulmonary embolism without acute cor pulmonale Status: Chronic Plan: Previous pulmonary embolism, anticoagulated with Xarelto twice a day. Will continue. Repeat CT showed no new Emboli. Hemodynamically stable. (3) Peptic ulcer disease with hemorrhage ICD Codes: K27.4 - Chronic or unspecified peptic ulcer, site unspecified, with hemorrhage Status: Resolved Plan: He was diagnosed with peptic ulcer disease requiring 9 abdominal surgeries Continue Protonix 40 mg po daily (4) fen/ppx Status: Acute Plan: Fluids: NS at 100 cc/hr Electrolytes: continue to monitor Nutrition: regular DVT ppx: Continue Xarelto GI ppx: Protonix 40 mg po daily (Tasha Singleton MD R1) Problem Qualifiers (1) Pulmonary embolism: Qualified Codes: I27.82 - Chronic pulmonary embolism Tasha Singleton MD R1 Jun 11, 2017 16:03 Jennifer Cruz MD Jun 14, 2017 14:21
[2017-06-11] MEDS: ACETAMINOPHEN 325 MG TAB PO PRN (22:49)
[2017-06-12] VITALS (7 sets, daily range): BP systolic 138–181; BP diastolic 67–87; PULSE 58–83; RESP 16–17; TEMP 97.8–98.7; O2SAT 95–100
[2017-06-12] MEDS: LEVOFLOXACIN 750 MG PREMIX INJ 150 ML IV SCH (00:36)
[2017-06-12] MEDS: PIPERACIL-TAZO 4.5 GM PREMIX 100 ML IV SCH ×4 (01:54→23:30)
[2017-06-12] MEDS: ACETAMINOPHEN 325 MG TAB PO PRN (05:28)
[2017-06-12] MEDS: SODIUM CHLOR 0.9% 1000 ML INJ 1,000 ML IV SCH ×2 (05:28→17:30)
[2017-06-12] MEDS: RESP: ALBUTEROL 2.5 MG/IPRATROPIUM 0.5 MG NEB (SCH) NEB ×3 (08:10→20:00)
[2017-06-12] MEDS: PANTOPRAZOLE SOD 40 MG DELAYED RELEASE TAB PO SCH (08:59)
[2017-06-12] MEDS: RIVAROXABAN 15 MG TAB PO SCH ×2 (09:00→21:15)
[2017-06-12] MEDS: DOCUSATE SODIUM 50 MG/SENNA 8.6 MG TAB PO SCH (09:00)
[2017-06-12] MEDS: POTASSIUM CHLORIDE 25 MEQ EFFERVESCENT TAB PO SCH ×2 (09:00→21:15)
[2017-06-12] MEDS ORDERED: PHARMACY ORDERED LAB ONE (09:45)
[2017-06-12] MEDS: VANCOMYCIN INJ 1,250 MG in SODIUM CHLOR 0.9% 250 ML INJ 250 ML IV SCH (10:00)
--- NOTE | 2017-06-12 11:55 | RADRPT ---
EXAM DATE/TIME: 06/12/2017 11:21 [facility] COMPARISON: CT PULMONARY ANGIOGRAM, June 08, 2017, 19:02. CHEST SINGLE AP, June 08, 2017, 17:34. CHEST PA & LAT, May 23, 2017, 14:33. INDICATIONS : Chest pain. MEDICAL HISTORY : Carcinoma, lung. SURGICAL HISTORY : Colon resection. ENCOUNTER: Initial ACUITY: 1 week PAIN SCORE: 3/10 LOCATION: Bilateral chest FINDINGS: Progressive airspace consolidation in the left midlung zone with redemonstration of bilateral cavitar y masses. Diffuse emphysematous changes with bilateral small pleural effusions and associated airspac e disease at the lung bases. Cardiomediastinal contours are stable. Remainder of the exam is unchange d. CONCLUSION: 1. Progressive airspace consolidation in the left midlung zone. 2. Redemonstration of bilateral cavitary masses. 3. Interval development of small bilateral pleural effusions with associated airspace disease at the lung bases, likely atelectasis. Sohan Callahan MD on June 12, 2017 at 11:50 Board Certified Radiologist. This report was verified electronically.
--- NOTE | 2017-06-12 13:55 | HHI.FPPN ---
Subjective Remarks Patient states he is feeling well today. Endorses some upper back pain and increased diarrhea/stool output. States stools are watery and loose, denies change in color. States he has been getting stool softeners and does not want to receive it anymore. (Tasha Singleton MD R1) Objective Vitals Vital Signs Date Time Temp Pulse Resp B/P (MAP) Pulse Ox O2 Delivery O2 Flow Rate FiO2 06/12/17 12:00 97.8 58 17 153/74 (100) 100 06/12/17 08:12 96 21 06/12/17 08:00 97.8 72 17 151/68 (95) 96 06/12/17 03:52 98.2 72 16 138/67 (90) 96 06/11/17 23:26 99.2 95 16 122/58 (79) 96 06/11/17 21:00 Room Air 06/11/17 20:48 98 21 06/11/17 20:45 77 06/11/17 20:22 99.1 76 16 156/78 (104) 95 06/11/17 16:00 99.9 80 16 153/86 (108) 96 06/11/17 15:00 76 I/O 06/11/17 06/11/17 06/11/17 06/12/17 06/12/17 06/12/17 07:00 15:00 23:00 07:00 15:00 23:00 Intake Total 992.5 ml 100 ml 420 ml 2220 ml Balance 992.5 ml 100 ml 420 ml 2220 ml Intake Oral 480 ml 420 ml 720 ml IV Total 512.5 ml 100 ml 1500 ml # Voids 5 4 6 # Bowel Movements 2 2 3 (Tasha Singleton MD R1) Result Diagram: 06/11/1771406/11/17714 Objective Remarks GENERAL: Thin-appearing, cachectic, disheveled, in no acute distress. SKIN: Warm and dry. EYES: EOMI. No scleral icterus. No injection. HENT: Normocephalic. Atraumatic. MMM. NECK: No JVD. CARDIOVASCULAR: Regular rate and rhythm. No obvious murmurs. No calf tenderness. No pitting edema of the lower extremities. RESPIRATORY: Normal respiratory effort. Decreased breath sounds bilaterally with occasional crackles. GASTROINTESTINAL: Abdomen nondistended. Multiple abdominal scars. Soft. Nontender to palpation. MUSCULOSKELETAL: Strength grossly WNL. NEURO/PSYCH: Afocal. Awake, alert, and oriented x3. (Tasha Singleton MD R1) A/P Assessment and Plan Mr. Brady is a 51-year-old male admitted for sepsis secondary to cavitary pneumona. Was recently discharged on May 24, 2017 after being diagnosed with bilateral pulmonary emboli and bilateral DVTs (d/c'd on Xarelto) . He was found to have a dense consolidation left upper lobe leading to suspicion for cancer but was recommended to follow-up outpatient for further work-up. He has a history of lung nodules and underwent bronchoscopy and lung biopsies last year which was reported to be negative. The patient has been evaluated by infectious disease on multiple occasions. No TB was detected at that time. 06/08 CTA shows dense consolidation in the left upper lobe with multiple small cavities centrally. 2 smaller cavitary masses can be seen as well. On admission, patient was placed on broad-spectrum antibiotics. Sputum and blood cx testing for Tb, fungus, and bacteria were ordered. Pulmonology and ID were consulted to obtain further recommendations. Differential: fungal infx v Tb v neoplastic process. May consider ordering bronchoscopy of masses. Discharge Planning D/C pending complete clinical work-up (Tasha Singleton MD R1) Attending Attestation Patient seen and examined. Case reviewed and discussed with the resident team. Agree with plan of care as discussed with me and documented in the resident note. concerning for thrombosis and weight loss (Jennifer Cruz MD) Problem List: (1) Cavitary pneumonia ICD Codes: J18.9 - Pneumonia, unspecified organism; J98.4 - Other disorders of lung Plan: Improved, Day 5 Abx Presents w/increasing dyspnea, productive cough, and chest pain, met sepsis criteria Likely source is a cavitary pneumonia given CT scan with findings of dense consolidation in the left upper lobe with multiple small cavity centrally Alcohol abuse hx, possible aspiration. Cannot rule out neoplastic etiology HIV, Hep C, and Tb (gold, DNA,mitogen, antigen) negative from 05/19 admission blood cx, urine antigens, flu negative, acid fast and fungal smears negative acid-fast bacilli and fungal cx ordered Spoke with pulmonology today. Plan for possible bronchoscopy before d/c Continue broad-spectrum antibiotics to cover for a hospital-acquired pneumonia: 06/08 * Zosyn 4.5 g every 8 hours * Levaquin 750 mg IV daily * Vancomycin 1 g every 12 hours ID consulted, juanito blandon (2) Pulmonary embolism ICD Codes: I26.99 - Other pulmonary embolism without acute cor pulmonale Status: Chronic Plan: Previous pulmonary embolism, anticoagulated with Xarelto twice a day. Will continue. Repeat CT showed no new Emboli. Hemodynamically stable. (3) Peptic ulcer disease with hemorrhage ICD Codes: K27.4 - Chronic or unspecified peptic ulcer, site unspecified, with hemorrhage Status: Resolved Plan: He was diagnosed with peptic ulcer disease requiring 9 abdominal surgeries Continue Protonix 40 mg po daily (4) Diarrhea ICD Codes: R19.7 - Diarrhea, unspecified Plan: Patient attributes to stool softeners 5x BM since yesterday (5) fen/ppx Status: Acute Plan: Fluids: NS at 100 cc/hr Electrolytes: continue to monitor Nutrition: regular DVT ppx: Continue Xarelto GI ppx: Protonix 40 mg po daily (Tasha Singleton MD R1) Problem Qualifiers (1) Pulmonary embolism: Qualified Codes: I27.82 - Chronic pulmonary embolism Tasha Singleton MD R1 Jun 12, 2017 13:55 Jennifer Cruz MD Jun 14, 2017 14:22
[2017-06-12 14:36] LABS: ANION GAP 14 MEQ/L (5-15); AST (GOT) 17 U/L (15-37); BICARBONATE 18.7 MEQ/L (21.0-32.0); BLOOD UREA NITROGEN 8 MG/DL (7-18); CHLORIDE 107 MEQ/L (98-107); GLOMERULAR FILTRATION RATE 39 ML/MIN (>89); POTASSIUM 3.3 MEQ/L (3.5-5.1); SODIUM (NA) 140 MEQ/L (136-145)
[2017-06-12 14:37] LABS: ALT (GPT) 10 U/L (12-78)
[2017-06-12 14:39] LABS: ALKALINE PHOSPHATASE 94 U/L (45-117); TOTAL BILIRUBIN ADULT 0.7 MG/DL (0.2-1.0)
--- NOTE | 2017-06-12 15:15 | HHI.PR ---
Subjective Remarks ALERT NO SOB COUGH WHITISH YELLOWISH SPUTUM CXRAY PRORESSIVE INFILTRATES Objective Vital Signs Date Time Temp Pulse Resp B/P (MAP) Pulse Ox O2 Delivery O2 Flow Rate FiO2 06/12/17 12:00 97.8 58 17 153/74 (100) 100 06/12/17 08:12 96 21 06/12/17 08:00 97.8 72 17 151/68 (95) 96 06/12/17 03:52 98.2 72 16 138/67 (90) 96 06/11/17 23:26 99.2 95 16 122/58 (79) 96 06/11/17 21:00 Room Air 06/11/17 20:48 98 21 06/11/17 20:45 77 06/11/17 20:22 99.1 76 16 156/78 (104) 95 06/11/17 16:00 99.9 80 16 153/86 (108) 96 I/O 06/11/17 06/11/17 06/11/17 06/12/17 06/12/17 06/12/17 07:00 15:00 23:00 07:00 15:00 23:00 Intake Total 992.5 ml 100 ml 420 ml 2220 ml Balance 992.5 ml 100 ml 420 ml 2220 ml Intake Oral 480 ml 420 ml 720 ml IV Total 512.5 ml 100 ml 1500 ml # Voids 5 4 6 # Bowel Movements 2 2 3 Result Diagram: 06/11/17 0715 06/12/17 1010 Objective Remarks GENERAL: SKIN: Warm and dry. HEAD: Atraumatic. Normocephalic. EYES: Pupils equal and round. No scleral icterus. No injection or drainage. ENT: No nasal bleeding or discharge. Mucous membranes pink and moist. NECK: Trachea midline. No JVD. CARDIOVASCULAR: Regular rate and rhythm. RESPIRATORY: No accessory muscle use. Clear to auscultation. Breath sounds equal bilaterally. GASTROINTESTINAL: Abdomen soft, non-tender, nondistended. Hepatic and splenic margins not palpable. MUSCULOSKELETAL: Extremities without clubbing, cyanosis, or edema. No obvious deformities. NEUROLOGICAL: Awake and alert. No obvious cranial nerve deficits. Motor grossly within normal limits. Five out of 5 muscle strength in the arms and legs. Normal speech. PSYCHIATRIC: Appropriate mood and affect; insight and judgment normal. Assessment and Plan Assessment and Plan PROGRESSIVE CAVITARY PNA PE PLAN ANTICOAGS ANTIBIOTICS INCREASE ACTIVITY BRONCHOSCOPY WEDNESDAY Juan Martinez MD Jun 12, 2017 15:15
--- NOTE | 2017-06-12 17:37 | PD.ID.CON ---
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 necrotic pneumonia or fungal infection Expectorated sputum with normal rylie (NRF), negative AFB/fungal smears Presented with low grade temp up to 101 and leukocytosis up to 18K Improved leukoctytoisis, resolved fever on current abx denies hemoptyysis Weight deficit appaers chronic , going as far as into 2012 He was seen by Dr Martinez and bronch is planned on Wednesday Last bronch in 2015, no malignacy and no growth other than NRF Review of Systems Constitutional: COMPLAINS OF: Weight loss Respiratory: COMPLAINS OF: Cough, Shortness of breath Cardiovascular: COMPLAINS OF: Chest pain, Dyspnea on Exertion Except as stated in HPI: all other systems reviewed are Neg Past Family Social History Allergies: Coded Allergies: aspirin (Unverified Allergy, Mild, ULCERS, 06/08/17) Past Medical History His past medical history is: 1. Perforated peptic ulcer, which was surgically treated. 2. History of progressive weight loss, as mentioned above. 3. Bilateral nodules with negative bronchoscopy and biopsy and infectious disease evaluation negative with no suggestive of active infection. 4. He has had multiple abdominal surgeries in the past and partial gastrectomy for a perforated peptic ulcer. Past Surgical History Multiple abd surgeries related rto perforated ulcers bronchoispcopy in 12/2015 Active Ordered Medications Medications where reviewed in EMR Antibiotics Include: zosyn levaquine vancomycin Family History Positive for hypertension, heart disease and otherwise unremarkable. Social History + tobacco 30 pack/years. Drinks a six-pack a day. No drugs. Physical Exam Vital Signs Vital Signs Date Time Temp Pulse Resp B/P (MAP) Pulse Ox O2 Delivery O2 Flow Rate FiO2 06/12/17 12:00 97.8 58 17 153/74 (100) 100 06/12/17 09:13 Room Air 06/12/17 08:12 96 21 06/12/17 08:00 97.8 72 17 151/68 (95) 96 06/12/17 03:52 98.2 72 16 138/67 (90) 96 06/11/17 23:26 99.2 95 16 122/58 (79) 96 06/11/17 21:00 Room Air 06/11/17 20:48 98 21 06/11/17 20:45 77 06/11/17 20:22 99.1 76 16 156/78 (104) 95 Physical Exam CONSTITUTIONAL/GENERAL: This is a thin undernourished patient, in no apparent distress. TUBES/LINES/DRAINS: SKIN: No jaundice, rashes, or lesions. Ecchymoses on upper extremities. No wounds seen anteriorly. Skin temperature appropriate. Not diaphoretic. HEAD: Atraumatic. Normocephalic. EYES: Pupils equal and round and reactive. Extraocular motions intact. No scleral icterus. No injection or drainage. Fundi not examined. ENT: Hearing grossly normal. Nose without bleeding or purulent drainage. Oral mucosae without visible erythema, exudates, masses, or lesions. Extremely poor dentition Temporal wasting NECK: Trachea midline. Supple, nontender. CARDIOVASCULAR: Regular rate and rhythm without murmurs, gallops, or rubs. No JVD. Peripheral pulses symmetric. RESPIRATORY/CHEST: Symmetric, unlabored respirations. Rhonchi L to auscultation. Breath sounds equal bilaterally. No wheezes, rales, or rhonchi. GASTROINTESTINAL: Abdomen soft, non-tender, nondistended. No hepato-splenomegaly , or palpable masses. No guarding. Bowel sounds present. GENITOURINARY: Without palpable bladder distension. MUSCULOSKELETAL: Extremities + clubbing, cyanosis, or edema. No joint tenderness or effusion noted. No calf tenderness. No mottling Excellent 2/2 periferal pulses LYMPHATICS: No palpable cervical axillae or supraclavicular adenopathy. NEUROLOGICAL: Awake and alert. Motor and sensory grossly within normal limits. Follows commands. Clear speech . Moves all extremities. PSYCHIATRIC: No obvious anxiety/depression. no apparent hallucinations or other psychotic thought process. Laboratory Laboratory Tests Test 06/12/17 10:10 Blood Urea Nitrogen 8 Creatinine 1.82 Random Glucose 84 Total Protein 5.4 Albumin 1.4 Calcium Level 8.0 Alkaline Phosphatase 94 Aspartate Amino Transf (AST/SGOT) 17 Alanine Aminotransferase (ALT/SGPT) 10 Total Bilirubin 0.7 Sodium Level 140 Potassium Level 3.3 Chloride Level 107 Carbon Dioxide Level 18.7 Anion Gap 14 Estimat Glomerular Filtration Rate 39 Vancomycin Level Trough 31.3 Date/Time Source Procedure Growth Status 06/08/17 17:50 Blood Peripheral Aerobic Blood Culture - Preliminary NO GROWTH IN 4 DAYS Resulted 06/08/17 17:50 Blood Peripheral Anaerobic Blood Culture - Preliminary NO GROWTH IN 4 DAYS Resulted 06/09/17 11:30 Sputum Expectorated Sputum Fungal Smear - Final NO FUNGAL ELEMENTS SEEN. Resulted 06/09/17 11:30 Sputum Expectorated Sputum Fungal Culture Pending Resulted 06/08/17 23:30 Urine Random Urine Legionella Antigen - Final PRESUMPTIVE NEGATIVE FOR LEGIONELLA P... Complete 06/08/17 23:30 Urine Random Urine Streptococcus pneumoniae Antigen (M - Final PRESUMPTIVE NEGATIVE FOR STREPTOCOCCU... Complete Result Diagram: 06/11/17 0715 06/12/17 1010 Imaging Last Impressions Chest X-Ray 06/12/17 0000 Signed Impressions: Service Date/Time: Monday, June 12, 2017 11:21 - CONCLUSION: 1. Progressive airspace consolidation in the left midlung zone. 2. Redemonstration of bilateral cavitary masses. 3. Interval development of small bilateral pleural effusions with associated airspace disease at the lung bases, likely atelectasis. Sohan Callahan MD CT Angiography 06/08/17 1749 Signed Impressions: Service Date/Time: Thursday, June 08, 2017 19:02 - CONCLUSION: 1. Small area of pulmonary embolism involving the proximal left lower lobe artery. 2. Dense consolidation in the left upper lobe with multiple small cavities centrally. This could represent a necrotic pneumonia or fungal infection. 3. 2 smaller cavitary masses. 4. Underlying emphysema. Miles Kauffman MD Head CT 06/08/17 0000 Signed Impressions: Service Date/Time: Thursday, June 08, 2017 18:55 - CONCLUSION: 1. Mild to moderate atrophic change and chronic small vessel ischemic changes. 2. No acute hemorrhage or mass effect. Miles Kauffman MD Assessment and Plan Assessment and Plan Cavitary PNA FAUSTO ? bacterial vs fungal PNA ? underlying cancer Recent PE Tobacco +, ETOHism COPD -c ont zosyn dc vanco - dc levaquine agree with plan for bronch - more rec;'s per bronchoscopy and path results Tamara Barrett MD Jun 12, 2017 17:37
[2017-06-12 17:49] LABS: AUTOMATED NEUTROPHIL # 18.7 TH/MM3 (1.8-7.7); BASOPHIL % 0.1 % (0.0-2.0); EOSINOPHIL # 0.1 TH/MM3 (0-0.4); EOSINOPHIL % 0.5 % (0.0-4.0); HEMATOCRIT 31.5 % (39.0-51.0); HEMO FLAGS DIFF FINAL; LYMPH % 3.7 % (9.0-44.0); LYMPHOCYTE # 0.8 TH/MM3 (1.0-4.8); MEAN CELL VOLUME 93.4 FL (80.0-100.0); MEAN CORPUSCULAR HEMOGLOBIN 30.8 PG (27.0-34.0); MONO % 7.2 % (0.0-8.0); NEUT % 88.5 % (16.0-70.0); PLATELET COUNT 309 TH/MM3 (150-450); RED BLOOD COUNT 3.37 MIL/MM3 (4.50-5.90); RED CELL DISTRIBUTION WIDTH 14.4 % (11.6-17.2); WHITE BLOOD COUNT 21.1 TH/MM3 (4.0-11.0)
[2017-06-12] MEDS ORDERED: POTASSIUM CHLORIDE 10 MEQ CONTROLLED RELEASE TAB PO ONE (18:45)
[2017-06-12] MEDS: TEMAZEPAM 15 MG CAP PO PRN (21:15)
[2017-06-13] VITALS (9 sets, daily range): BP systolic 125–159; BP diastolic 58–83; PULSE 75–98; RESP 16–18; TEMP 97.8–99.3; O2SAT 90–100
[2017-06-13 01:43] LABS: C. DIFF EPI 027 PRESUMPTIVE NEGATIVE (NEGATIVE)
[2017-06-13] MEDS: SODIUM CHLOR 0.9% 1000 ML INJ 1,000 ML IV SCH ×3 (02:55→21:00)
[2017-06-13] MEDS: RESP: ALBUTEROL 2.5 MG/IPRATROPIUM 0.5 MG NEB (SCH) NEB ×3 (07:44→20:17)
[2017-06-13 08:34] LABS: HEMATOCRIT 28.5 % (39.0-51.0); MEAN CELL VOLUME 92.2 FL (80.0-100.0); MEAN CORPUSCULAR HGB CONC 33.7 % (32.0-36.0); PLATELET COUNT 317 TH/MM3 (150-450); RED BLOOD COUNT 3.09 MIL/MM3 (4.50-5.90); RED CELL DISTRIBUTION WIDTH 14.5 % (11.6-17.2); REVIEW FLAG FINAL; WHITE BLOOD COUNT 20.5 TH/MM3 (4.0-11.0)
[2017-06-13 08:59] LABS: AST (GOT) 20 U/L (15-37); BLOOD UREA NITROGEN 8 MG/DL (7-18); CHLORIDE 110 MEQ/L (98-107); POTASSIUM 3.2 MEQ/L (3.5-5.1); SODIUM (NA) 141 MEQ/L (136-145)
[2017-06-13 09:25] LABS: ALKALINE PHOSPHATASE 107 U/L (45-117); ALT (GPT) 9 U/L (12-78); ANION GAP 11 MEQ/L (5-15); BICARBONATE 20.3 MEQ/L (21.0-32.0); GLOMERULAR FILTRATION RATE 41 ML/MIN (>89); TOTAL BILIRUBIN ADULT 0.6 MG/DL (0.2-1.0)
[2017-06-13] MEDS: POTASSIUM CHLORIDE 25 MEQ EFFERVESCENT TAB PO SCH ×2 (09:41→20:56)
[2017-06-13] MEDS: RIVAROXABAN 15 MG TAB PO SCH ×2 (09:41→20:56)
[2017-06-13] MEDS: PANTOPRAZOLE SOD 40 MG DELAYED RELEASE TAB PO SCH (09:41)
[2017-06-13] MEDS: PIPERACIL-TAZO 4.5 GM PREMIX 100 ML IV SCH ×3 (09:42→18:17)
--- NOTE | 2017-06-13 10:40 | HHI.FPPN ---
Subjective Remarks Reports worse SOB this AM when walking to the restroom. Needed to use his rescue inhaler. Refused breathing treatment yesterday because his chest felt tight and painful "across both cavities." Denies new fevers or chills. Denies difficulties with bowel or bladder functions. (Maninder Byrd MD, R3) Objective Vitals Vital Signs Date Time Temp Pulse Resp B/P (MAP) Pulse Ox O2 Delivery O2 Flow Rate FiO2 06/13/17 08:00 97.8 87 18 157/83 (107) 90 06/13/17 07:46 93 21 06/13/17 04:00 98.2 84 16 137/79 (98) 92 06/13/17 00:00 99.3 85 16 138/67 (90) 95 06/12/17 20:20 95 21 06/12/17 20:05 76 06/12/17 20:00 98.7 83 17 181/87 (118) 96 06/12/17 20:00 Room Air 06/12/17 12:00 97.8 58 17 153/74 (100) 100 I/O 06/12/17 06/12/17 06/12/17 06/13/17 06/13/17 06/13/17 07:00 15:00 23:00 07:00 15:00 23:00 Intake Total 2220 ml 350 ml 1050 ml 1295 ml Balance 2220 ml 350 ml 1050 ml 1295 ml Intake Oral 720 ml 0 ml 840 ml IV Total 1500 ml 350 ml 1050 ml 455 ml # Voids 6 6 2 # Bowel Movements 3 2 2 (Maninder Byrd MD, R3) Result Diagram: 06/13/17 0705 06/13/17 0702 Imaging Last 72 hours Impressions Chest X-Ray 06/12/17 0000 Signed Impressions: Service Date/Time: Monday, June 12, 2017 11:21 - CONCLUSION: 1. Progressive airspace consolidation in the left midlung zone. 2. Redemonstration of bilateral cavitary masses. 3. Interval development of small bilateral pleural effusions with associated airspace disease at the lung bases, likely atelectasis. Sohan Callahan MD Objective Remarks GENERAL: Thin-appearing, cachectic, disheveled, in no acute distress. SKIN: Warm and dry. EYES: EOMI. No scleral icterus. No injection. HENT: Normocephalic. Atraumatic. MMM. NECK: No JVD. CARDIOVASCULAR: Regular rate and rhythm. No obvious murmurs. No calf tenderness. No pitting edema of the lower extremities. RESPIRATORY: Normal respiratory effort. Decreased breath sounds bilaterally with occasional crackles. GASTROINTESTINAL: Abdomen nondistended. Multiple abdominal scars. Soft. Nontender to palpation. MUSCULOSKELETAL: Strength grossly WNL. NEURO/PSYCH: Afocal. Awake, alert, and oriented x3. (Maninder Byrd MD, R3) A/P Assessment and Plan Mr. Brady is a 51-year-old male admitted for sepsis secondary to cavitary pneumonia. Was recently discharged on May 24, 2017, after being diagnosed with bilateral pulmonary emboli and bilateral DVTs (d/c'd on Xarelto) . He was found to have a dense consolidation left upper lobe leading to suspicion for cancer but was recommended to follow-up outpatient for further work-up. He has a history of lung nodules and underwent bronchoscopy and lung biopsies last year which was reported to be negative. The patient has been evaluated by infectious disease on multiple occasions. No TB was detected at that time. 06/08 CTA shows dense consolidation in the left upper lobe with multiple small cavities centrally. 2 smaller cavitary masses can be seen as well. On admission, patient was placed on broad-spectrum antibiotics. Sputum and blood cx testing for Tb, fungus, and bacteria were ordered. Pulmonology and ID were consulted to obtain further recommendations. Differential: fungal infx v Tb v neoplastic process. May consider ordering bronchoscopy of masses. Discharge Planning D/C pending complete clinical work-up (Maninder Byrd MD, R3) Attending Attestation Patient seen and examined. Case reviewed and discussed with the resident team. Agree with plan of care as discussed with me and documented in the resident note. getting bronchoscopy Wednesday (Jennifer Cruz MD) Problem List: (1) Cavitary pneumonia ICD Codes: J18.9 - Pneumonia, unspecified organism; J98.4 - Other disorders of lung Plan: Improved, Day 5 Abx Presents w/increasing dyspnea, productive cough, and chest pain, met sepsis criteria Likely source is a cavitary pneumonia given CT scan with findings of dense consolidation in the left upper lobe with multiple small cavity centrally Alcohol abuse hx, possible aspiration. Cannot rule out neoplastic etiology HIV, Hep C, and Tb (gold, DNA,mitogen, antigen) negative from 05/19 admission blood cx, urine antigens, flu negative, acid fast and fungal smears negative acid-fast bacilli and fungal cx ordered Spoke with pulmonology today. Plan for possible bronchoscopy before d/c Continue broad-spectrum antibiotics to cover for a hospital-acquired pneumonia: 06/08 * Zosyn 4.5 g every 8 hours (Day 5) * Levaquin 750 mg IV daily (DC 06/12) * Vancomycin 1 g every 12 hours (DC 06/12) ID consulted, appreciate recs Pulmonology plans to precede with bronchoscopy on Wednesday06/14/2017. (2) Pulmonary embolism ICD Codes: I26.99 - Other pulmonary embolism without acute cor pulmonale Status: Chronic Plan: Previous pulmonary embolism, anticoagulated with Xarelto twice a day. Will continue. Repeat CT showed no new Emboli. Hemodynamically stable. (3) Peptic ulcer disease with hemorrhage ICD Codes: K27.4 - Chronic or unspecified peptic ulcer, site unspecified, with hemorrhage Status: Resolved Plan: He was diagnosed with peptic ulcer disease requiring 9 abdominal surgeries Continue Protonix 40 mg po daily (4) Diarrhea ICD Codes: R19.7 - Diarrhea, unspecified Plan: Patient attributes to stool softeners 5x BM since yesterday (5) fen/ppx Status: Acute Plan: Fluids: NS at 100 cc/hr Electrolytes: continue to monitor Nutrition: regular DVT ppx: Continue Xarelto GI ppx: Protonix 40 mg po daily (Maninder Byrd MD, R3) Problem Qualifiers (1) Pulmonary embolism: Qualified Codes: I27.82 - Chronic pulmonary embolism Maninder Byrd MD, R3 Jun 13, 2017 10:40 Jennifer Cruz MD Jun 14, 2017 14:23
[2017-06-13] MEDS: ACETAMINOPHEN 325 MG TAB PO PRN ×2 (13:29→18:16)
[2017-06-13] MEDS ORDERED: AZITHROMYCIN INJ 500 MG in SODIUM CHLOR 0.9% 250 ML INJ 250 ML IV SCH (14:00)
[2017-06-13] MEDS ORDERED: cefTRIAXone INJ 2,000 MG in SODIUM CHLORIDE 0.9% INJ 100 ML IV SCH (14:00)
[2017-06-13] MEDS ORDERED: POTASSIUM CHLORIDE 10 MEQ CONTROLLED RELEASE TAB PO ONE (14:00)
[2017-06-13] MEDS ORDERED: PIPERACIL-TAZO 3.375 GM PREMIX 50 ML IV SCH (16:00)
--- NOTE | 2017-06-13 16:41 | HHI.PR ---
Subjective Remarks ALERT NO SOB COUGH WHITISH YELLOWISH SPUTUM CXRAY PRORESSIVE INFILTRATES Objective Vital Signs Date Time Temp Pulse Resp B/P (MAP) Pulse Ox O2 Delivery O2 Flow Rate FiO2 06/13/17 14:29 18 06/13/17 12:00 98.4 75 18 159/81 (107) 97 06/13/17 08:00 97.8 87 18 157/83 (107) 90 06/13/17 07:46 93 21 06/13/17 07:00 Room Air 21 06/13/17 04:00 98.2 84 16 137/79 (98) 92 06/13/17 00:00 99.3 85 16 138/67 (90) 95 06/12/17 20:20 95 21 06/12/17 20:05 76 06/12/17 20:00 98.7 83 17 181/87 (118) 96 06/12/17 20:00 Room Air I/O 06/12/17 06/12/17 06/12/17 06/13/17 06/13/17 06/13/17 07:00 15:00 23:00 07:00 15:00 23:00 Intake Total 2220 ml 350 ml 1050 ml 1295 ml Balance 2220 ml 350 ml 1050 ml 1295 ml Intake Oral 720 ml 0 ml 840 ml IV Total 1500 ml 350 ml 1050 ml 455 ml # Voids 6 6 2 # Bowel Movements 3 2 2 Result Diagram: 06/13/17 0706/13/17 07 Objective Remarks GENERAL: SKIN: Warm and dry. HEAD: Atraumatic. Normocephalic. EYES: Pupils equal and round. No scleral icterus. No injection or drainage. ENT: No nasal bleeding or discharge. Mucous membranes pink and moist. NECK: Trachea midline. No JVD. CARDIOVASCULAR: Regular rate and rhythm. RESPIRATORY: No accessory muscle use. Clear to auscultation. Breath sounds equal bilaterally. GASTROINTESTINAL: Abdomen soft, non-tender, nondistended. Hepatic and splenic margins not palpable. MUSCULOSKELETAL: Extremities without clubbing, cyanosis, or edema. No obvious deformities. NEUROLOGICAL: Awake and alert. No obvious cranial nerve deficits. Motor grossly within normal limits. Five out of 5 muscle strength in the arms and legs. Normal speech. PSYCHIATRIC: Appropriate mood and affect; insight and judgment normal. Assessment and Plan Assessment and Plan PROGRESSIVE CAVITARY PNA PE PLAN ANTICOAGS ANTIBIOTICS INCREASE ACTIVITY BRONCHOSCOPY WEDNESDAY Juna Martinez MD Jun 13, 2017 16:41
[2017-06-13 18:44] LABS: BASOPHIL % 0.2 % (0.0-2.0); EOSINOPHIL # 0.1 TH/MM3 (0-0.4); EOSINOPHIL % 0.8 % (0.0-4.0); HEMATOCRIT 29.6 % (39.0-51.0); HEMO FLAGS DIFF FINAL; LYMPH % 5.9 % (9.0-44.0); LYMPHOCYTE # 1.1 TH/MM3 (1.0-4.8); MEAN CELL VOLUME 92.6 FL (80.0-100.0); MEAN CORPUSCULAR HEMOGLOBIN 31.2 PG (27.0-34.0); MEAN CORPUSCULAR HGB CONC 33.7 % (32.0-36.0); MONO % 8.4 % (0.0-8.0); NEUT % 84.7 % (16.0-70.0); PLATELET COUNT 329 TH/MM3 (150-450); RED BLOOD COUNT 3.19 MIL/MM3 (4.50-5.90); RED CELL DISTRIBUTION WIDTH 14.9 % (11.6-17.2); WHITE BLOOD COUNT 18.9 TH/MM3 (4.0-11.0)
[2017-06-13 19:03] LABS: INTERNATIONAL NORMALIZED RATIO 1.7 RATIO; PROTHROMBIN TIME - PATIENT 19.2 SEC (9.8-11.6)
[2017-06-13] MEDS: TEMAZEPAM 15 MG CAP PO PRN (20:55)
[2017-06-13] MEDS: PIPERACIL-TAZO 3.375 GM PREMIX 50 ML IV SCH (22:51)
--- NOTE | 2017-06-13 23:16 | HHI.PR ---
Addendum to Inpatient Note Additional Information OFF SERVICE NOTE 51 y/o M w/hx of bilateral PEs and DVTs (on Xarelto) presenting w/SOB. Recent hospitalization 05/19 for bilateral PEs and DVTs. Cancer was suspected due to associated months of unintentional weight loss. Tb work-up and cancer markers were negative. D/C'd to follow up for assessment outpatient. On this admission, CT was significant for for FAUSTO cavitary lesion and 2 smaller cavitary masses. Admitted for sepsis secondary to cavitary pneumonia. Pulmonology consulted. Placed on Vanc, Levaquin, and Zosyn. ID consulted, DC'd Vanc and Levaquin. Currently on Zosyn Day 6 (06/09). Patient has seen improvement in his symptoms. Bronchoscopy planned for tomorrow. If any questions thus far, please notify me. Thank you for caring for this patient. Tasha Singleton MD R1 Jun 13, 2017 23:16
[2017-06-14] VITALS (9 sets, daily range): BP systolic 132–174; BP diastolic 66–86; PULSE 64–77; RESP 18–20; TEMP 97.1–99; O2SAT 94–99
[2017-06-14] MEDS: ACETAMINOPHEN 325 MG TAB PO PRN ×3 (01:45→21:43)
[2017-06-14] MEDS: SODIUM CHLOR 0.9% 1000 ML INJ 1,000 ML IV SCH ×2 (03:00→17:00)
[2017-06-14] MEDS: PIPERACIL-TAZO 3.375 GM PREMIX 50 ML IV SCH ×3 (05:01→18:09)
--- NOTE | 2017-06-14 08:27 | HHI.PR ---
Subjective Remarks ALERT NO SOB COUGH WHITISH YELLOWISH SPUTUM CXRAY PRORESSIVE INFILTRATES Objective Vital Signs Date Time Temp Pulse Resp B/P (MAP) Pulse Ox O2 Delivery O2 Flow Rate FiO2 06/14/17 04:13 Room Air 06/14/17 04:00 97.8 64 20 132/81 (98) 95 06/14/17 00:48 Room Air 06/14/17 00:00 98.4 66 20 133/66 (88) 94 06/13/17 20:26 98 06/13/17 20:20 93 06/13/17 20:00 97.9 77 18 125/78 (94) 97 06/13/17 20:00 Room Air 06/13/17 19:16 18 06/13/17 16:00 98.4 90 18 129/58 (81) 100 06/13/17 12:00 98.4 75 18 159/81 (107) 97 I/O 06/13/17 06/13/17 06/13/17 06/14/17 06/14/17 06/14/17 07:00 15:00 23:00 07:00 15:00 23:00 Intake Total 1295 ml 795 ml 1360 ml 705 ml 700 ml Output Total 800 ml 600 ml 0 ml Balance 1295 ml 795 ml 560 ml 105 ml 700 ml Intake Oral 840 ml 1260 ml 0 ml IV Total 455 ml 795 ml 100 ml 705 ml 700 ml Output Urine Total 800 ml 600 ml Estimated Blood Loss 0 ml # Voids 2 2 # Bowel Movements 2 0 0 Result Diagram: 06/13/17 1801 06/13/17 0702 Objective Remarks GENERAL: SKIN: Warm and dry. HEAD: Atraumatic. Normocephalic. EYES: Pupils equal and round. No scleral icterus. No injection or drainage. ENT: No nasal bleeding or discharge. Mucous membranes pink and moist. NECK: Trachea midline. No JVD. CARDIOVASCULAR: Regular rate and rhythm. RESPIRATORY: No accessory muscle use. Clear to auscultation. Breath sounds equal bilaterally. GASTROINTESTINAL: Abdomen soft, non-tender, nondistended. Hepatic and splenic margins not palpable. MUSCULOSKELETAL: Extremities without clubbing, cyanosis, or edema. No obvious deformities. NEUROLOGICAL: Awake and alert. No obvious cranial nerve deficits. Motor grossly within normal limits. Five out of 5 muscle strength in the arms and legs. Normal speech. PSYCHIATRIC: Appropriate mood and affect; insight and judgment normal. Assessment and Plan Assessment and Plan PROGRESSIVE CAVITARY PNA PE PLAN ANTICOAGS ANTIBIOTICS INCREASE ACTIVITY BRONCHOSCOPY WEDNESDAY Juan Martinez MD Jun 14, 2017 08:27
[2017-06-14] MEDS ORDERED: DO NOT ADM ANY ANTICOAGULANT DRUGS PRN (08:34)
[2017-06-14] MEDS: RESP: ALBUTEROL 2.5 MG/IPRATROPIUM 0.5 MG NEB (SCH) NEB ×3 (08:35→20:00)
[2017-06-14] MEDS: PANTOPRAZOLE SOD 40 MG DELAYED RELEASE TAB PO SCH (09:29)
[2017-06-14] MEDS: RIVAROXABAN 15 MG TAB PO SCH ×2 (09:29→21:45)
[2017-06-14] MEDS: POTASSIUM CHLORIDE 25 MEQ EFFERVESCENT TAB PO SCH ×2 (09:30→21:44)
--- NOTE | 2017-06-14 11:03 | MR ---
cc: JUAN MARTINEZ M.D. DATE: 06/14/2017 PROCEDURE PERFORMED Fiberoptic bronchoscopy, flexible. REASON FOR BRONCHOSCOPY Cavitary infiltrate left upper lung. PROCEDURE Fiberoptic bronchoscopy was performed via LMA. Vocal cords intact. Trachea mildly hyperemic. Riya is sharp. Right mainstem bronchus, right upper, middle and lower lobe, left main bronchus, left upper and lower lobe inspected. Washings were obtained from both sides of the tracheobronchial tree for routine TB, fungal cultures, cytological exam. The right upper, middle lobes were without obstruction or mass lesion. The left upper and lower lobes were without obstruction or mass lesion. Moderate amount of thick mucoid whitish secretion was removed. Cytologic brush biopsy left upper lung lobe and lingula as well as microbiology brushing sent for cultures. The procedure was well tolerated. The patient was transferred to recovery in stable condition. IMPRESSION 1. Mild tracheobronchitis. 2. No obstruction or mass lesion. 3. Samples obtained for cultures and cytology. 4. The procedure was well tolerated. 5. The patient was transferred to recovery in stable condition. Juan Martinez MD WWW/DC /8:34 AM /10:56 AM
[2017-06-14] MEDS ORDERED: PROPOFOL 200 MG/20 ML AMP IV ONE (12:00)
[2017-06-14] MEDS ORDERED: MIDAZOLAM HCL 2 MG/2 ML VIAL IV ONE (12:00)
[2017-06-14] MEDS ORDERED: GLYCOPYRROLATE 1 MG/5 ML SYRINGE IV PUSH ONE (12:00)
[2017-06-14] MEDS ORDERED: LIDOCAINE HCL 1% PF 5 ML AMPULE OTHER ONE (12:00)
[2017-06-14] MEDS ORDERED: PHENYLEPH/NS 1000 MCG/10 ML SYR IV ONE (12:00)
--- NOTE | 2017-06-14 14:36 | HHI.FPPN ---
Subjective Remarks No acute events overnight. Afebrile, vital signs within normal limits and stable. The pressure moderately elevated, see below. Today expresses frustration over the process of medical care but otherwise feels well. He endorses persistent shortness of breath, especially on walking. Denies chest pain, leg pain. (Manny Hassan MD R2) Objective Vitals Vital Signs Date Time Temp Pulse Resp B/P (MAP) Pulse Ox O2 Delivery O2 Flow Rate FiO2 06/14/17 12:47 97.1 75 20 162/86 (111) 99 06/14/17 12:21 98 21 06/14/17 10:30 97.5 77 20 146/78 (100) 95 06/14/17 09:38 74 06/14/17 09:10 98.0 80 15 143/85 (104) 100 Room Air 2 06/14/17 08:45 90 15 105/75 (85) 100 Room Air 2 06/14/17 08:35 97.0 80 15 103/66 (78) 100 Simple Mask 6 06/14/17 04:13 Room Air 06/14/17 04:00 97.8 64 20 132/81 (98) 95 06/14/17 00:48 Room Air 06/14/17 00:00 98.4 66 20 133/66 (88) 94 06/13/17 20:26 98 06/13/17 20:20 93 06/13/17 20:00 97.9 77 18 125/78 (94) 97 06/13/17 20:00 Room Air 06/13/17 19:16 18 06/13/17 16:00 98.4 90 18 129/58 (81) 100 I/O 06/13/17 06/13/17 06/13/17 06/14/17 06/14/17 06/14/17 07:00 15:00 23:00 07:00 15:00 23:00 Intake Total 1295 ml 795 ml 1360 ml 705 ml 800 ml Output Total 800 ml 600 ml 0 ml Balance 1295 ml 795 ml 560 ml 105 ml 800 ml Intake Oral 840 ml 1260 ml 0 ml IV Total 455 ml 795 ml 100 ml 705 ml 800 ml Output Urine Total 800 ml 600 ml 0 ml Estimated Blood Loss 0 ml # Voids 2 2 # Bowel Movements 2 0 0 (Manny Hassan MD R2) Result Diagram: 06/13/17 1801 06/13/17 0702 Objective Remarks GENERAL: Thin-appearing, cachectic, disheveled, in no acute distress. SKIN: Warm and dry. NECK: No JVD. CARDIOVASCULAR: Regular rate and rhythm. No obvious murmurs. No calf tenderness. No edema BLE. RESPIRATORY: Normal respiratory effort. Decreased breath sounds bilaterally with no crackles or wheezes. GASTROINTESTINAL: Abdomen nondistended. Multiple abdominal scars. Soft. Nontender to palpation. MUSCULOSKELETAL: Strength grossly WNL. NEURO/PSYCH: Afocal. Awake, alert. Grossly nonfocal. (Manny Hassan MD R2) A/P Assessment and Plan Mr. Brady is a 51-year-old male admitted for sepsis secondary to cavitary pneumonia. Was recently discharged on May 24, 2017, after being diagnosed with bilateral pulmonary emboli and bilateral DVTs (d/c'd on Xarelto) . He was found to have a dense consolidation left upper lobe leading to suspicion for cancer but was recommended to follow-up outpatient for further work-up. He has a history of lung nodules and underwent bronchoscopy and lung biopsies last year which was reported to be negative. The patient has been evaluated by infectious disease on multiple occasions. No TB was detected at that time. 06/08 CTA shows dense consolidation in the left upper lobe with multiple small cavities centrally. 2 smaller cavitary masses can be seen as well. On admission, patient was placed on broad-spectrum antibiotics. Sputum and blood cx testing for Tb, fungus, and bacteria were ordered. Pulmonology and ID were consulted to obtain further recommendations. Differential: fungal infx v Tb v neoplastic process. May consider ordering bronchoscopy of masses. Discharge Planning D/C pending complete clinical work-up (Manny Hassan MD R2) Attending Attestation Patient seen and examined. Case reviewed and discussed with the resident team. Agree with plan of care as discussed with me and documented in the resident note. appreciate help of Pulmonary and ID (Jennifer Cruz MD) Problem List: (1) Cavitary pneumonia ICD Codes: J18.9 - Pneumonia, unspecified organism; J98.4 - Other disorders of lung Plan: Improved, Day 6 Abx Likely source is a cavitary pneumonia given CT scan with findings of dense consolidation in the left upper lobe with multiple small cavity centrally Alcohol abuse hx, possible aspiration. Cannot rule out neoplastic etiology HIV, Hep C, and Tb (gold, DNA,mitogen, antigen) negative from 05/19 admission blood cx, urine antigens, flu negative, acid fast and fungal smears negative acid-fast bacilli and fungal cx ordered Bronchoscopy performed 06/14, cultures of washings are pending Consulted pulmonology, appreciate assistance - Bronchoscopy performed with washings, see below ID consulted, appreciate recommendations - Awaiting bronchoscopy culture results Continue broad-spectrum antibiotics to cover for a hospital-acquired pneumonia * Zosyn 4.5 g every 8 hours (Day 6) * s/p Levaquin 750 mg IV daily (DC 06/12) * s/p Vancomycin 1 g every 12 hours (DC 06/12) (2) Pulmonary embolism ICD Codes: I26.99 - Other pulmonary embolism without acute cor pulmonale Status: Chronic Plan: Previous pulmonary embolism, anticoagulated with Xarelto 15 mg twice a day. Will continue. Repeat CT showed no new Emboli. Hemodynamically stable. (3) Peptic ulcer disease with hemorrhage ICD Codes: K27.4 - Chronic or unspecified peptic ulcer, site unspecified, with hemorrhage Status: Resolved Plan: He was diagnosed with peptic ulcer disease requiring 9 abdominal surgeries Continue Protonix 40 mg po daily (4) Diarrhea ICD Codes: R19.7 - Diarrhea, unspecified Plan: Improved from yesterday (5) fen/ppx Status: Acute Plan: Fluids: NS at 100 cc/hr Electrolytes: continue to monitor Nutrition: regular DVT ppx: On Xarelto GI ppx: Protonix 40 mg po daily (Manny Hassan MD R2) Problem Qualifiers (1) Pulmonary embolism: Qualified Codes: I27.82 - Chronic pulmonary embolism Manny Hassan MD R2 Jun 14, 2017 14:36 Jennifer Cruz MD Jun 19, 2017 14:48
--- NOTE | 2017-06-14 15:29 | RADRPT ---
EXAM DATE/TIME: 06/14/2017 14:13 [facility] COMPARISON: CHEST PA & LAT, June 12, 2017, 11:21. INDICATIONS : Shortness of breath; pneumonia. MEDICAL HISTORY : Chronic obstructive pulmonary disease. Emphysema. Pulmonary embolisms. SURGICAL HISTORY : Colon resection. ENCOUNTER: Subsequent ACUITY: 1 week PAIN SCORE: 0/10 LOCATION: Bilateral chest FINDINGS: Lungs are markedly hyperinflated with progression of consolidative changes laterally in the left lung . Moderate airspace disease emboli are present in the right lung. There is minimal blunting of the right and left culture and sulci. CONCLUSION: Minimal progression of the masslike opacity left mid lung. Moderate hyperinflation. Juan Carlos Sanders MD FACR on June 14, 2017 at 15:26 Board Certified Radiologist. This report was verified electronically.
[2017-06-14 16:38] LABS: AUTOMATED NEUTROPHIL # 14.6 TH/MM3 (1.8-7.7); BASOPHIL % 0.1 % (0.0-2.0); EOSINOPHIL # 0.3 TH/MM3 (0-0.4); EOSINOPHIL % 1.8 % (0.0-4.0); HEMATOCRIT 37.7 % (39.0-51.0); HEMO FLAGS DIFF FINAL; LYMPH % 6.5 % (9.0-44.0); LYMPHOCYTE # 1.1 TH/MM3 (1.0-4.8); MEAN CELL VOLUME 93.8 FL (80.0-100.0); MEAN CORPUSCULAR HEMOGLOBIN 30.4 PG (27.0-34.0); MEAN CORPUSCULAR HGB CONC 32.4 % (32.0-36.0); MONO % 7.2 % (0.0-8.0); NEUT % 84.4 % (16.0-70.0); PLATELET COUNT 358 TH/MM3 (150-450); RED BLOOD COUNT 4.01 MIL/MM3 (4.50-5.90); RED CELL DISTRIBUTION WIDTH 15.1 % (11.6-17.2); WHITE BLOOD COUNT 17.4 TH/MM3 (4.0-11.0)
[2017-06-14 16:54] LABS: MAGNESIUM 1.4 MG/DL (1.5-2.5); POTASSIUM 4.3 MEQ/L (3.5-5.1)
[2017-06-15] VITALS (10 sets, daily range): BP systolic 120–166; BP diastolic 67–90; PULSE 65–113; RESP 16–20; TEMP 97.6–98.5; O2SAT 94–99
[2017-06-15] MEDS: PIPERACIL-TAZO 3.375 GM PREMIX 50 ML IV SCH ×3 (00:33→13:20)
[2017-06-15] MEDS: SODIUM CHLOR 0.9% 1000 ML INJ 1,000 ML IV SCH ×2 (03:53→14:05)
[2017-06-15] MEDS: POTASSIUM CHLORIDE 25 MEQ EFFERVESCENT TAB PO SCH ×2 (08:16→22:05)
[2017-06-15] MEDS: PANTOPRAZOLE SOD 40 MG DELAYED RELEASE TAB PO SCH (08:19)
[2017-06-15] MEDS: ACETAMINOPHEN 325 MG TAB PO PRN ×2 (08:19→22:06)
[2017-06-15] MEDS: RIVAROXABAN 15 MG TAB PO SCH ×2 (08:20→22:06)
[2017-06-15] MEDS: RESP: ALBUTEROL 2.5 MG/IPRATROPIUM 0.5 MG NEB (SCH) NEB ×3 (08:29→20:55)
[2017-06-15] MEDS ORDERED: RESP: ALBUTEROL 2.5 MG/3 ML NEB (PRN) NEB (11:00)
--- NOTE | 2017-06-15 12:01 | HHI.FPPN ---
Subjective Remarks Patient seen and examined at bedside. Pt reports improvement of sxs after breathing treatments. No acute events overnight. VS WNL. Denies CP, chills, fever. (Ron Ulloa MD, R1) Objective Vitals Vital Signs Date Time Temp Pulse Resp B/P (MAP) Pulse Ox O2 Delivery O2 Flow Rate FiO2 06/15/17 08:29 96 06/15/17 08:15 Nasal Cannula 3.00 06/15/17 08:01 98.2 80 18 150/78 (102) 94 06/15/17 04:00 98.5 68 20 141/69 (93) 96 06/15/17 00:00 98.2 70 20 138/90 (106) 99 06/14/17 20:34 95 06/14/17 20:00 67 06/14/17 20:00 Room Air 06/14/17 20:00 99.0 68 18 174/81 (112) 97 164/80 (108) 06/14/17 16:00 97.7 72 20 140/85 (103) 96 06/14/17 16:00 Room Air 06/14/17 12:47 97.1 75 20 162/86 (111) 99 06/14/17 12:21 98 21 I/O 06/14/17 06/14/17 06/14/17 06/15/17 06/15/17 06/15/17 07:00 15:00 23:00 07:00 15:00 23:00 Intake Total 705 ml 800 ml 1180 ml 530 ml Output Total 600 ml 0 ml Balance 105 ml 800 ml 1180 ml 530 ml Intake Oral 0 ml 480 ml 480 ml IV Total 705 ml 800 ml 700 ml 50 ml Output Urine Total 600 ml 0 ml Estimated Blood Loss 0 ml # Voids 5 3 # Bowel Movements 0 1 0 (Ron Ulloa MD, R1) Result Diagram: 06/14/17 1555 06/14/17 1555 Objective Remarks GENERAL: Thin-appearing, cachectic, disheveled, in no acute distress. SKIN: Warm and dry. NECK: No JVD. CARDIOVASCULAR: Regular rate and rhythm. No obvious murmurs. No calf tenderness. No edema BLE. RESPIRATORY: Normal respiratory effort. Decreased breath sounds bilaterally. Expiratory wheezing noted on Left lung freeman. GASTROINTESTINAL: Abdomen nondistended. Multiple abdominal scars. Soft. Nontender to palpation. MUSCULOSKELETAL: Strength grossly WNL. NEURO/PSYCH: Afocal. Awake, alert. Grossly nonfocal. (Ron Ulloa MD, R1) A/P Assessment and Plan Mr. Brady is a 51-year-old male admitted for sepsis secondary to cavitary pneumonia. Was recently discharged on May 24, 2017, after being diagnosed with bilateral pulmonary emboli and bilateral DVTs (d/c'd on Xarelto) . He was found to have a dense consolidation left upper lobe leading to suspicion for cancer but was recommended to follow-up outpatient for further work-up. He has a history of lung nodules and underwent bronchoscopy and lung biopsies last year which was reported to be negative. The patient has been evaluated by infectious disease on multiple occasions. No TB was detected at that time. 06/08 CTA shows dense consolidation in the left upper lobe with multiple small cavities centrally. 2 smaller cavitary masses can be seen as well. On admission, patient was placed on broad-spectrum antibiotics. Sputum and blood cx testing for Tb, fungus, and bacteria were ordered. Pulmonology and ID following. Differential: fungal infx v Tb v neoplastic process. Pt s/p bronchoscopy, results pending. Discharge Planning D/C pending complete clinical work-up (Ron Ulloa MD, R1) Attending Attestation Patient seen and examined. Case reviewed and discussed with the resident team. Agree with plan of care as discussed with me and documented in the resident note. some SOB after PE plus infection (Jennifer Cruz MD) Problem List: (1) Cavitary pneumonia ICD Codes: J18.9 - Pneumonia, unspecified organism; J98.4 - Other disorders of lung Plan: Improved, Day 7 Abx Likely source is a cavitary pneumonia given CT scan with findings of dense consolidation in the left upper lobe with multiple small cavity centrally Alcohol abuse hx, possible aspiration. Cannot rule out neoplastic etiology HIV, Hep C, and Tb (gold, DNA,mitogen, antigen) negative from 05/19 admission blood cx, urine antigens, flu negative, acid fast and fungal smears negative acid-fast bacilli and fungal cx ordered -c/w duonebs Q6h, albuterol 2.5mg neb Q6h added PRN for sob Bronchoscopy performed 06/14, cultures of washings are pending Consulted pulmonology, appreciate assistance - Bronchoscopy performed with washings, see below ID consulted, appreciate recommendations - Awaiting bronchoscopy culture results Continue broad-spectrum antibiotics to cover for a hospital-acquired pneumonia * Zosyn 4.5 g every 8 hours (Day 7) * s/p Levaquin 750 mg IV daily (DC 11/) * s/p Vancomycin 1 g every 12 hours (DC 06/12) (2) Pulmonary embolism ICD Codes: I26.99 - Other pulmonary embolism without acute cor pulmonale Status: Chronic Plan: Previous pulmonary embolism, anticoagulated with Xarelto 15 mg twice a day. Will continue. Repeat CT showed no new Emboli. Hemodynamically stable. (3) Peptic ulcer disease with hemorrhage ICD Codes: K27.4 - Chronic or unspecified peptic ulcer, site unspecified, with hemorrhage Status: Resolved Plan: He was diagnosed with peptic ulcer disease requiring 9 abdominal surgeries Continue Protonix 40 mg po daily -Pt with downtrending H/H, will continue to monitor -f/u am labs- cbc (4) fen/ppx Status: Acute Plan: Fluids: NS at 100 cc/hr Electrolytes: continue to monitor Nutrition: regular DVT ppx: On Xarelto GI ppx: Protonix 40 mg po daily (Ron Ulloa MD, R1) Problem Qualifiers (1) Pulmonary embolism: Qualified Codes: I27.82 - Chronic pulmonary embolism Ron Ulloa MD, R1 Jun 15, 2017 12:01 Jennifer Cruz MD Jun 19, 2017 14:49
[2017-06-15 12:47] LABS: AUTOMATED NEUTROPHIL # 13.6 TH/MM3 (1.8-7.7); BASOPHIL % 0.3 % (0.0-2.0); EOSINOPHIL # 0.1 TH/MM3 (0-0.4); EOSINOPHIL % 0.8 % (0.0-4.0); HEMATOCRIT 31.2 % (39.0-51.0); HEMO FLAGS DIFF FINAL; LYMPH % 6.7 % (9.0-44.0); LYMPHOCYTE # 1.1 TH/MM3 (1.0-4.8); MEAN CELL VOLUME 91.8 FL (80.0-100.0); MEAN CORPUSCULAR HEMOGLOBIN 30.9 PG (27.0-34.0); MEAN CORPUSCULAR HGB CONC 33.7 % (32.0-36.0); MONO % 9.1 % (0.0-8.0); NEUT % 83.1 % (16.0-70.0); PLATELET COUNT 375 TH/MM3 (150-450); RED CELL DISTRIBUTION WIDTH 14.8 % (11.6-17.2); WHITE BLOOD COUNT 16.3 TH/MM3 (4.0-11.0)
[2017-06-15] MEDS ORDERED: MAGNESIUM SULFATE 1 GM PREMIX 100 ML IV ONE (13:15)
[2017-06-15 13:22] LABS: BICARBONATE 18.1 MEQ/L (21.0-32.0); POTASSIUM 3.4 MEQ/L (3.5-5.1)
--- NOTE | 2017-06-15 16:32 | HHI.PR ---
Subjective Remarks ALERT NO SOB COUGH WHITISH YELLOWISH SPUTUM CXRAY PRORESSIVE INFILTRATES Objective Vital Signs Date Time Temp Pulse Resp B/P (MAP) Pulse Ox O2 Delivery O2 Flow Rate FiO2 06/15/17 14:09 68 06/15/17 12:16 97.6 113 18 120/67 (84) 95 06/15/17 08:29 96 06/15/17 08:15 Nasal Cannula 3.00 06/15/17 08:01 98.2 80 18 150/78 (102) 94 06/15/17 07:30 65 06/15/17 04:00 98.5 68 20 141/69 (93) 96 06/15/17 00:00 98.2 70 20 138/90 (106) 99 06/14/17 20:34 95 06/14/17 20:00 67 06/14/17 20:00 Room Air 06/14/17 20:00 99.0 68 18 174/81 (112) 97 164/80 (108) I/O 06/14/17 06/14/17 06/14/17 06/15/17 06/15/17 06/15/17 07:00 15:00 23:00 07:00 15:00 23:00 Intake Total 705 ml 800 ml 1180 ml 530 ml 1150 ml Output Total 600 ml 0 ml Balance 105 ml 800 ml 1180 ml 530 ml 1150 ml Intake Oral 0 ml 480 ml 480 ml IV Total 705 ml 800 ml 700 ml 50 ml 1150 ml Output Urine Total 600 ml 0 ml Estimated Blood Loss 0 ml # Voids 5 3 # Bowel Movements 0 1 0 Result Diagram: 06/15/17 1232 06/15/17 1232 Objective Remarks GENERAL: SKIN: Warm and dry. HEAD: Atraumatic. Normocephalic. EYES: Pupils equal and round. No scleral icterus. No injection or drainage. ENT: No nasal bleeding or discharge. Mucous membranes pink and moist. NECK: Trachea midline. No JVD. CARDIOVASCULAR: Regular rate and rhythm. RESPIRATORY: No accessory muscle use. Clear to auscultation. Breath sounds equal bilaterally. GASTROINTESTINAL: Abdomen soft, non-tender, nondistended. Hepatic and splenic margins not palpable. MUSCULOSKELETAL: Extremities without clubbing, cyanosis, or edema. No obvious deformities. NEUROLOGICAL: Awake and alert. No obvious cranial nerve deficits. Motor grossly within normal limits. Five out of 5 muscle strength in the arms and legs. Normal speech. PSYCHIATRIC: Appropriate mood and affect; insight and judgment normal. Assessment and Plan Assessment and Plan PROGRESSIVE CAVITARY PNA PE ASPERGILLUS IN BRONCHIAL WASHINGS PLAN ANTICOAGS ANTIBIOTICS INCREASE ACTIVITY BRONCHOSCOPY WEDNESDAY ANTI FUNGUL THERAPY Juan Martinez MD Jun 15, 2017 16:32
--- NOTE | 2017-06-15 16:37 | HHI.IDPN ---
Subjective Subjective Remarks co worsening TOVAR afebrile growing Aspergilla in BAL clx Antibiotics zosyn Allergies: Coded Allergies: aspirin (Unverified Allergy, Mild, ULCERS, 06/08/17) Objective . Vital Signs Date Time Temp Pulse Resp B/P (MAP) Pulse Ox O2 Delivery O2 Flow Rate FiO2 06/15/17 14:09 68 06/15/17 12:16 97.6 113 18 120/67 (84) 95 06/15/17 08:29 96 06/15/17 08:15 Nasal Cannula 3.00 06/15/17 08:01 98.2 80 18 150/78 (102) 94 06/15/17 07:30 65 06/15/17 04:00 98.5 68 20 141/69 (93) 96 06/15/17 00:00 98.2 70 20 138/90 (106) 99 06/14/17 20:34 95 06/14/17 20:00 67 06/14/17 20:00 Room Air 06/14/17 20:00 99.0 68 18 174/81 (112) 97 164/80 (108) 06/15/17 06/15/17 06/16/17 15:00 23:00 07:00 Intake Total 1150 ml Balance 1150 ml IV Total 1150 ml . Laboratory Tests Test 06/13/17 18:01 06/14/17 15:55 06/15/17 12:32 White Blood Count 18.9 TH/MM3 17.4 TH/MM3 16.3 TH/MM3 Red Blood Count 3.19 MIL/MM3 4.01 MIL/MM3 3.40 MIL/MM3 Hemoglobin 10.0 GM/DL 12.2 GM/DL 10.5 GM/DL Hematocrit 29.6 % 37.7 % 31.2 % Mean Corpuscular Volume 92.6 FL 93.8 FL 91.8 FL Mean Corpuscular Hemoglobin 31.2 PG 30.4 PG 30.9 PG Mean Corpuscular Hemoglobin Concent 33.7 % 32.4 % 33.7 % Red Cell Distribution Width 14.9 % 15.1 % 14.8 % Platelet Count 329 TH/MM3 358 TH/MM3 375 TH/MM3 Mean Platelet Volume 7.9 FL 7.7 FL 7.9 FL Neutrophils (%) (Auto) 84.7 % 84.4 % 83.1 % Lymphocytes (%) (Auto) 5.9 % 6.5 % 6.7 % Monocytes (%) (Auto) 8.4 % 7.2 % 9.1 % Eosinophils (%) (Auto) 0.8 % 1.8 % 0.8 % Basophils (%) (Auto) 0.2 % 0.1 % 0.3 % Neutrophils # (Auto) 16.0 TH/MM3 14.6 TH/MM3 13.6 TH/MM3 Lymphocytes # (Auto) 1.1 TH/MM3 1.1 TH/MM3 1.1 TH/MM3 Monocytes # (Auto) 1.6 TH/MM3 1.3 TH/MM3 1.5 TH/MM3 Eosinophils # (Auto) 0.1 TH/MM3 0.3 TH/MM3 0.1 TH/MM3 Basophils # (Auto) 0.0 TH/MM3 0.0 TH/MM3 0.0 TH/MM3 CBC Comment DIFF FINAL DIFF FINAL DIFF FINAL Differential Comment Laboratory Tests Test 06/14/17 15:55 06/15/17 12:32 Blood Urea Nitrogen 11 MG/DL 12 MG/DL Creatinine 1.71 MG/DL 1.53 MG/DL Random Glucose 88 MG/DL 104 MG/DL Calcium Level 7.8 MG/DL 7.9 MG/DL Magnesium Level 1.4 MG/DL Sodium Level 140 MEQ/L 140 MEQ/L Potassium Level 4.3 MEQ/L 3.4 MEQ/L Chloride Level 108 MEQ/L 110 MEQ/L Carbon Dioxide Level 20.0 MEQ/L 18.1 MEQ/L Anion Gap 12 MEQ/L 12 MEQ/L Estimat Glomerular Filtration Rate 42 ML/MIN 48 ML/MIN Microbiology Date/Time Source Procedure Growth Status 06/14/17 08:10 Bronchial Brushings Other Fungal Smear - Final Resulted 06/14/17 08:10 Bronchial Brushings Other Fungal Culture Pending Resulted 06/14/17 08:10 Bronchial Brushings Other Acid Fast Stain - Final NO ACID FAST BACILLI SEEN Resulted 06/14/17 08:10 Bronchial Brushings Other Mycobacterial Culture Pending Resulted 06/14/17 08:10 Bronchial Brushings Other Bronchial Aspirate Culture - Preliminary NO GROWTH IN 24 HOURS. Resulted 06/14/17 08:10 Bronchial Washings Other Fungal Smear - Final NO FUNGAL ELEMENTS SEEN. Resulted 06/14/17 08:10 Bronchial Washings Other Fungal Culture Pending Resulted 06/14/17 08:10 Bronchial Washings Other Acid Fast Stain - Final NO ACID FAST BACILLI SEEN Resulted 06/14/17 08:10 Bronchial Washings Other Mycobacterial Culture Pending Resulted 06/14/17 08:10 Bronchial Washings Other Gram Stain - Final Resulted 06/14/17 08:10 Bronchial Culture - Preliminary Aspergillus Species Resulted Imaging Last Impressions Chest X-Ray 06/14/17 0700 Signed Impressions: Service Date/Time: Wednesday, June 14, 2017 14:13 - CONCLUSION: Minimal progression of the masslike opacity left mid lung. Moderate hyperinflation. Juan Carlos Sanders MD FACR CT Angiography 06/08/17 1749 Signed Impressions: Service Date/Time: Thursday, June 08, 2017 19:02 - CONCLUSION: 1. Small area of pulmonary embolism involving the proximal left lower lobe artery. 2. Dense consolidation in the left upper lobe with multiple small cavities centrally. This could represent a necrotic pneumonia or fungal infection. 3. 2 smaller cavitary masses. 4. Underlying emphysema. Miles Kauffman MD Head CT 06/08/17 0000 Signed Impressions: Service Date/Time: Thursday, June 08, 2017 18:55 - CONCLUSION: 1. Mild to moderate atrophic change and chronic small vessel ischemic changes. 2. No acute hemorrhage or mass effect. Miles Kauffman MD Physical Exam CONSTITUTIONAL/GENERAL: This is a thin undernourished patient, in no apparent distress. TUBES/LINES/DRAINS: SKIN: No jaundice, rashes, or lesions. . Skin temperature appropriate. Not diaphoretic. EYES: Pupils equal and round and reactive. No scleral icterus. No injection or drainage. Fundi not examined. ENT: Hearing grossly normal. Nose without bleeding or purulent drainage. Oral mucosae without visible erythema, exudates, masses, or lesions. Extremely poor dentition Temporal wasting CARDIOVASCULAR: Regular rate and rhythm without murmurs, gallops, or rubs. No JVD. Peripheral pulses symmetric. RESPIRATORY/CHEST: Symmetric, unlabored respirations. Rhonchi L to auscultation. Breath sounds equal bilaterally. No wheezes, rales, or rhonchi. GASTROINTESTINAL: Abdomen soft, non-tender, nondistended. No hepato-splenomegaly , or palpable masses. No guarding. Bowel sounds present. GENITOURINARY: Without palpable bladder distension. MUSCULOSKELETAL: Extremities + clubbing, cyanosis, or edema. No joint tenderness or effusion noted. No calf tenderness. No mottling Excellent 2/2 periferal pulses NEUROLOGICAL: Awake and alert. Motor and sensory grossly within normal limits. Follows commands. Clear speech . Moves all extremities. PSYCHIATRIC: No obvious anxiety/depression. no apparent hallucinations or other psychotic thought process. Assessment & Plan Remarks Cavitary PNA FAUSTO fungal PNA, growing aspergilla, however just one culture ? underlying cancer Recent PE Tobacco +, ETOHism COPD new/worsening SOB -dc zosyn - fu clx start voriconazole LFTs - chk CXR dw Tamara Newell MD Jun 15, 2017 16:37
--- NOTE | 2017-06-15 18:24 | RADRPT ---
EXAM DATE/TIME: 06/15/2017 17:35 [facility] COMPARISON: CHEST PA & LAT, June 14, 2017, 14:13. CHEST SINGLE AP, June 08, 2017, 17:34. INDICATIONS : Short of breath. pneumonia. MEDICAL HISTORY : Chronic obstructive pulmonary disease. Emphysema. Pulmonary pneumonia. SURGICAL HISTORY : Colon resection. ENCOUNTER: Initial ACUITY: 1 week PAIN SCORE: 0/10 LOCATION: Bilateral chest FINDINGS: Portable AP views of the chest demonstrate a normal-sized cardiac silhouette. Lungs remain hyperinfla lauren. The severe left upper lobe airspace consolidation and right lower lung zone air space consolidat ion remain present and not significantly changed. There is persistent blunting of the costophrenic alexandra lci. No pneumothorax is identified. CONCLUSION: Stable chest x-ray with severe left upper lobe and mild right lower lung zone airspace consolidation with small bilateral pleural effusions. Teodoro Boothe MD on June 15, 2017 at 18:21 Board Certified Radiologist. This report was verified electronically.
[2017-06-15] MEDS: TEMAZEPAM 15 MG CAP PO PRN (22:05)
[2017-06-16] VITALS (8 sets, daily range): BP systolic 148–162; BP diastolic 78–86; PULSE 63–112; RESP 18–20; TEMP 97.8–99.4; O2SAT 92–95
[2017-06-16] MEDS: SODIUM CHLOR 0.9% 1000 ML INJ 1,000 ML IV SCH ×2 (02:33→08:19)
[2017-06-16] MEDS: POTASSIUM CHLORIDE 25 MEQ EFFERVESCENT TAB PO SCH ×2 (08:16→22:36)
[2017-06-16] MEDS: SODIUM CHLORIDE 0.9% IV SCH ×2 (08:16→22:33)
[2017-06-16] MEDS: VORICONAZOLE IV SCH ×2 (08:16→22:33)
[2017-06-16] MEDS: RIVAROXABAN 15 MG TAB PO SCH ×2 (08:17→22:37)
[2017-06-16] MEDS: PANTOPRAZOLE SOD 40 MG DELAYED RELEASE TAB PO SCH (08:17)
[2017-06-16 09:14] LABS: AUTOMATED NEUTROPHIL # 10.7 TH/MM3 (1.8-7.7); BASOPHIL # 0.1 TH/MM3 (0-0.2); BASOPHIL % 0.6 % (0.0-2.0); EOSINOPHIL # 0.5 TH/MM3 (0-0.4); EOSINOPHIL % 3.3 % (0.0-4.0); HEMATOCRIT 30.1 % (39.0-51.0); HEMO FLAGS DIFF FINAL; LYMPH % 9.5 % (9.0-44.0); LYMPHOCYTE # 1.3 TH/MM3 (1.0-4.8); MEAN CELL VOLUME 91.5 FL (80.0-100.0); MEAN CORPUSCULAR HEMOGLOBIN 30.6 PG (27.0-34.0); MEAN CORPUSCULAR HGB CONC 33.5 % (32.0-36.0); MONO % 10.1 % (0.0-8.0); NEUT % 76.5 % (16.0-70.0); PLATELET COUNT 403 TH/MM3 (150-450); RED BLOOD COUNT 3.29 MIL/MM3 (4.50-5.90); RED CELL DISTRIBUTION WIDTH 14.8 % (11.6-17.2)
[2017-06-16] MEDS: RESP: ALBUTEROL 2.5 MG/IPRATROPIUM 0.5 MG NEB (SCH) NEB ×3 (09:34→19:49)
[2017-06-16 13:01] LABS: INDIRECT BILIRUBIN 0.2 MG/DL (0.0-0.8); TOTAL BILIRUBIN ADULT 0.4 MG/DL (0.2-1.0)
[2017-06-16] MEDS ORDERED: RESP: IPRATROPIUM 0.5 MG/2.5 ML NEB NEB SCH (16:00)
--- NOTE | 2017-06-16 19:03 | HHI.PR ---
Subjective Remarks ALERT NO SOB COUGH WHITISH YELLOWISH SPUTUM CXRAY PRORESSIVE INFILTRATES Objective Vital Signs Date Time Temp Pulse Resp B/P (MAP) Pulse Ox O2 Delivery O2 Flow Rate FiO2 06/16/17 16:01 99.4 81 18 152/81 (104) 95 06/16/17 16:00 95 Room Air 06/16/17 12:00 95 Room Air 06/16/17 12:00 98.6 112 20 148/83 (104) 95 06/16/17 09:35 94 21 06/16/17 08:01 98.1 69 18 162/86 (111) 95 06/16/17 08:00 94 Room Air 06/16/17 04:00 98.2 67 20 158/79 (105) 92 06/16/17 00:00 97.8 63 20 153/78 (103) 92 06/15/17 20:58 96 06/15/17 20:00 Room Air 06/15/17 20:00 98.5 70 16 166/80 (108) 96 I/O 06/15/17 06/15/17 06/15/17 06/16/17 06/16/17 06/16/17 07:00 15:00 23:00 07:00 15:00 23:00 Intake Total 530 ml 1150 ml 720 ml 965 ml 720 ml Output Total 600 ml Balance 530 ml 1150 ml 720 ml -600 ml 965 ml 720 ml Intake Oral 480 ml 720 ml 720 ml IV Total 50 ml 1150 ml 965 ml Output Urine Total 600 ml # Voids 3 3 3 # Bowel Movements 0 1 0 Result Diagram: 06/16/17 0810 06/15/17 1232 Objective Remarks GENERAL: SKIN: Warm and dry. HEAD: Atraumatic. Normocephalic. EYES: Pupils equal and round. No scleral icterus. No injection or drainage. ENT: No nasal bleeding or discharge. Mucous membranes pink and moist. NECK: Trachea midline. No JVD. CARDIOVASCULAR: Regular rate and rhythm. RESPIRATORY: No accessory muscle use. Clear to auscultation. Breath sounds equal bilaterally. GASTROINTESTINAL: Abdomen soft, non-tender, nondistended. Hepatic and splenic margins not palpable. MUSCULOSKELETAL: Extremities without clubbing, cyanosis, or edema. No obvious deformities. NEUROLOGICAL: Awake and alert. No obvious cranial nerve deficits. Motor grossly within normal limits. Five out of 5 muscle strength in the arms and legs. Normal speech. PSYCHIATRIC: Appropriate mood and affect; insight and judgment normal. Assessment and Plan Assessment and Plan PROGRESSIVE CAVITARY PNA PE ASPERGILLUS IN BRONCHIAL WASHINGS PLAN ANTICOAGS ANTIBIOTICS INCREASE ACTIVITY ANTI FUNGUL THERAPY Juan Martinez MD Jun 16, 2017 19:03
--- NOTE | 2017-06-16 20:08 | HHI.FPPN ---
Subjective Remarks Seen and examined ~0930. Feeling the same as yesterday, still having some productive cough and dyspnea on exertion. Hasn't gotten up to walk very much. No fevers/chills. No other concerns. (Manny Hassan MD R2) Objective Vitals Vital Signs Date Time Temp Pulse Resp B/P (MAP) Pulse Ox O2 Delivery O2 Flow Rate FiO2 06/16/17 19:51 94 06/16/17 16:01 99.4 81 18 152/81 (104) 95 06/16/17 16:00 95 Room Air 06/16/17 12:00 95 Room Air 06/16/17 12:00 98.6 112 20 148/83 (104) 95 06/16/17 09:35 94 21 06/16/17 08:01 98.1 69 18 162/86 (111) 95 06/16/17 08:00 94 Room Air 06/16/17 04:00 98.2 67 20 158/79 (105) 92 06/16/17 00:00 97.8 63 20 153/78 (103) 92 06/15/17 20:58 96 06/15/17 20:00 Room Air 06/15/17 20:00 98.5 70 16 166/80 (108) 96 I/O 06/15/17 06/15/17 06/15/17 06/16/17 06/16/17 06/16/17 07:00 15:00 23:00 07:00 15:00 23:00 Intake Total 530 ml 1150 ml 720 ml 965 ml 720 ml Output Total 600 ml Balance 530 ml 1150 ml 720 ml -600 ml 965 ml 720 ml Intake Oral 480 ml 720 ml 720 ml IV Total 50 ml 1150 ml 965 ml Output Urine Total 600 ml # Voids 3 3 3 # Bowel Movements 0 1 0 (Manny Hassan MD R2) Result Diagram: 06/16/17 0810 06/15/17 1232 Objective Remarks GENERAL: Thin-appearing, cachectic, disheveled, in no acute distress. SKIN: Warm and dry. NECK: No JVD. CARDIOVASCULAR: Regular rate and rhythm. No obvious murmurs. No calf tenderness. No edema BLE. RESPIRATORY: Normal respiratory effort. Decreased breath sounds bilaterally. Expiratory wheezing noted on Left lung freeman, slightly decreased from previously. GASTROINTESTINAL: Abdomen nondistended. Multiple abdominal scars. Soft. Nontender to palpation. NEURO/PSYCH: Afocal. Awake, alert. Grossly nonfocal. (Manny Hassan MD R2) A/P Assessment and Plan Mr. Brady is a 51-year-old male admitted for sepsis secondary to cavitary pneumonia. Was recently discharged on May 24, 2017, after being diagnosed with bilateral pulmonary emboli and bilateral DVTs (d/c'd on Xarelto) . He was found to have a dense consolidation left upper lobe leading to suspicion for cancer but was recommended to follow-up outpatient for further work-up. He has a history of lung nodules and underwent bronchoscopy and lung biopsies last year which was reported to be negative. The patient has been evaluated by infectious disease on multiple occasions. No TB was detected at that time. 06/08 CTA shows dense consolidation in the left upper lobe with multiple small cavities centrally. 2 smaller cavitary masses can be seen as well. On admission, patient was placed on broad-spectrum antibiotics. Sputum and blood cx testing for Tb, fungus, and bacteria were ordered. Pulmonology and ID following. Differential: fungal infx v Tb v neoplastic process. Pt s/p bronchoscopy, results pending. Discharge Planning D/C pending final ID antibiotic recommendations (Manny Hassan MD R2) Attending Attestation Patient seen and examined. Case reviewed and discussed with the resident team. Agree with plan of care as discussed with me and documented in the resident note. very weak after his long illness and multiple hospitalizations, declines rehab and wants to go home (Jennifer Cruz MD) Problem List: (1) Cavitary pneumonia ICD Codes: J18.9 - Pneumonia, unspecified organism; J98.4 - Other disorders of lung Plan: Improved Likely source is a cavitary pneumonia given CT scan with findings of dense consolidation in the left upper lobe with multiple small cavity centrally Alcohol abuse hx, possible aspiration. Cannot rule out neoplastic etiology HIV, Hep C, and Tb (gold, DNA,mitogen, antigen) negative from 05/19 admission blood cx, urine antigens, flu negative, acid fast and fungal smears negative Bronchoscopy performed 06/14 Fungal Cx bronchial washing showing aspergillus Cont duonebs Q6h, albuterol 2.5mg neb Q6h added PRN for sob Home O2 walk test (stable at rest of room air, but has TOVAR) Increase activity with PT Consulted pulmonology, appreciate assistance - Bronchoscopy performed with washings 06/14 - Increase activity as above ID consulted, appreciate recommendations - Bronchoscopy culture shows Aspergillus - Voriconazole IV 100 mg Q12H - tomorrow AM, start voriconazole PO 200 mg BID Antibiotic history * s/p Zosyn 4.5 g every 8 hours (06/08-06/15) * s/p Levaquin 750 mg IV daily (-06/12) * s/p Vancomycin 1 g every 12 hours (06/09-06/12) (2) Pulmonary embolism ICD Codes: I26.99 - Other pulmonary embolism without acute cor pulmonale Status: Chronic Plan: Previous pulmonary embolism, anticoagulated with Xarelto 15 mg twice a day. Will continue. Repeat CT showed no new Emboli. Hemodynamically stable. (3) Peptic ulcer disease with hemorrhage ICD Codes: K27.4 - Chronic or unspecified peptic ulcer, site unspecified, with hemorrhage Status: Resolved Plan: He was diagnosed with peptic ulcer disease requiring 9 abdominal surgeries Continue Protonix 40 mg po daily -Pt with stable H/H, will continue to monitor (4) fen/ppx Status: Acute Plan: Fluids: PO only Electrolytes: continue to monitor Nutrition: regular DVT ppx: On Xarelto GI ppx: Protonix 40 mg po daily (Manny Hassan MD R2) Problem Qualifiers (1) Pulmonary embolism: Qualified Codes: I27.82 - Chronic pulmonary embolism Manny Hassan MD R2 Jun 16, 2017 20:08 Jennifer Cruz MD Jun 19, 2017 14:50
[2017-06-16] MEDS: TEMAZEPAM 15 MG CAP PO PRN (22:37)
[2017-06-17] VITALS: BP 138/74; PULSE 72; RESP 16; TEMP 98.3; O2SAT 91
[2017-06-17 04:00] VITALS: BP 141/85; PULSE 78; RESP 18; TEMP 98.6; O2SAT 93
[2017-06-17 08:00] VITALS: BP_SYST 118; BP_SYST 132; BP_DIAS 72; BP_DIAS 73; PULSE 71; PULSE 91; RESP 18; RESP 20; TEMP 98; TEMP 98.3; O2SAT 92; O2SAT 96
[2017-06-17 08:23] LABS: AUTOMATED NEUTROPHIL # 9.5 TH/MM3 (1.8-7.7); BASOPHIL # 0.1 TH/MM3 (0-0.2); BASOPHIL % 0.8 % (0.0-2.0); EOSINOPHIL # 0.4 TH/MM3 (0-0.4); EOSINOPHIL % 2.9 % (0.0-4.0); HEMATOCRIT 27.3 % (39.0-51.0); HEMO FLAGS DIFF FINAL; LYMPH % 13.6 % (9.0-44.0); LYMPHOCYTE # 1.8 TH/MM3 (1.0-4.8); MEAN CELL VOLUME 90.3 FL (80.0-100.0); MEAN CORPUSCULAR HEMOGLOBIN 29.8 PG (27.0-34.0); MONO % 9.5 % (0.0-8.0); NEUT % 73.2 % (16.0-70.0); PLATELET COUNT 390 TH/MM3 (150-450); RED BLOOD COUNT 3.02 MIL/MM3 (4.50-5.90); RED CELL DISTRIBUTION WIDTH 14.6 % (11.6-17.2)
[2017-06-17 08:45] VITALS: O2SAT 93
[2017-06-17 08:56] LABS: ALKALINE PHOSPHATASE 213 U/L (45-117); ALT (GPT) 10 U/L (12-78); ANION GAP 12 MEQ/L (5-15); AST (GOT) 17 U/L (15-37); BICARBONATE 21.1 MEQ/L (21.0-32.0); BLOOD UREA NITROGEN 7 MG/DL (7-18); CHLORIDE 109 MEQ/L (98-107); GLOMERULAR FILTRATION RATE 54 ML/MIN (>89); SODIUM (NA) 142 MEQ/L (136-145); TOTAL BILIRUBIN ADULT 0.3 MG/DL (0.2-1.0)
[2017-06-17 08:59] LABS: POTASSIUM 2.7 MEQ/L (3.5-5.1)
[2017-06-17] MEDS: RIVAROXABAN 15 MG TAB PO SCH ×2 (10:11→21:43)
[2017-06-17] MEDS: VORICONAZOLE 200 MG TAB PO SCH ×2 (10:11→21:43)
[2017-06-17] MEDS: PANTOPRAZOLE SOD 40 MG DELAYED RELEASE TAB PO SCH (10:11)
[2017-06-17] MEDS: POTASSIUM CHLORIDE 25 MEQ EFFERVESCENT TAB PO SCH ×2 (10:11→21:00)
[2017-06-17] MEDS ORDERED: POTASSIUM CHLORIDE 10 MEQ CONTROLLED RELEASE TAB PO ONE (10:30)
[2017-06-17 12:00] VITALS: BP 177/86; PULSE 65; RESP 20; TEMP 98.4; O2SAT 98
[2017-06-17 14:20] LABS: BICARBONATE 23.4 MEQ/L (21.0-32.0); MAGNESIUM 1.4 MG/DL (1.5-2.5)
--- NOTE | 2017-06-17 14:25 | HHI.FPPN ---
Subjective Remarks No fevers overnight. O2 saturation 98% on room air. Some isolated episodes of hypertension. No significant change since yesterday. She having a productive cough. Still having dyspnea on exertion. No chest pain. No calf tenderness or swelling. Has increased loose stools, multiple times a day. White count trending down to 13 today from 21.5 on 06/12. 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 (Miles Reyes MD R3) Objective Vitals Vital Signs Date Time Temp Pulse Resp B/P (MAP) Pulse Ox O2 Delivery O2 Flow Rate FiO2 06/17/17 12:00 98.4 65 20 177/86 (116) 98 06/17/17 09:00 93 Room Air 06/17/17 08:00 98.0 71 18 132/73 (92) 92 06/17/17 04:00 98.6 78 18 141/85 (103) 93 06/17/17 00:00 98.3 72 16 138/74 (95) 91 06/16/17 20:00 Room Air 06/16/17 20:00 99.2 71 18 06/16/17 19:51 94 06/16/17 16:01 99.4 81 18 152/81 (104) 95 06/16/17 16:00 95 Room Air I/O 06/16/17 06/16/17 06/16/17 06/17/17 06/17/17 06/17/17 07:00 15:00 23:00 07:00 15:00 23:00 Intake Total 965 ml 720 ml 580 ml Output Total 600 ml Balance -600 ml 965 ml 720 ml 580 ml Intake Oral 720 ml 480 ml IV Total 965 ml 100 ml Output Urine Total 600 ml # Voids 3 6 # Bowel Movements 0 4 (Miles Reyes MD R3) Result Diagram: 06/17/17 0735 06/17/17 0735 Imaging Last 72 hours Impressions Chest X-Ray 06/15/17 0000 Signed Impressions: Service Date/Time: Thursday, June 15, 2017 17:35 - CONCLUSION: Stable chest x-ray with severe left upper lobe and mild right lower lung zone airspace consolidation with small bilateral pleural effusions. Teodoro Boothe MD Objective Remarks GENERAL: Thin male, no distress, sitting up in bed, somewhat disheveled appearance, on room air SKIN: No rashes or lesions CARDIOVASCULAR: Regular rate and rhythm. No murmurs. No calf tenderness. No edema BLE. RESPIRATORY: Wheezing heard more in lung bases, not on oxygen, no respiratory distress, 98% O2 on room air GASTROINTESTINAL: Abdomen nondistended. Multiple abdominal scars. Soft. Nontender to palpation. NEURO/PSYCH: Awake, alert. (Miles Reyes MD R3) A/P Assessment and Plan 51-year-old male admitted for sepsis secondary to cavitary pneumonia. Was recently discharged on May 24, 2017, after being diagnosed with bilateral pulmonary emboli and bilateral DVTs (d/c'd on Xarelto). He was found to have a dense consolidation left upper lobe leading to suspicion for cancer but was recommended to follow-up outpatient for further work-up. He has a history of lung nodules and underwent bronchoscopy and lung biopsies last year which was reported to be negative. The patient has been evaluated by infectious disease on multiple occasions. No TB was detected at that time. 06/08 CTA shows dense consolidation in the left upper lobe with multiple small cavities centrally. 2 smaller cavitary masses can be seen as well. On admission, patient was placed on broad-spectrum antibiotics. Sputum and blood cx testing for Tb, fungus, and bacteria were ordered. Pulmonology and ID following. Discharge Planning D/C pending final ID antibiotic recommendations and safe disposition. Working with case management to ensure he can afford all of his medications. Physical therapy to evaluate his functional status before discharge. (Miles Reyes MD R3) Attending Attestation Patient seen and examined. Case reviewed and discussed with the resident team. Agree with plan of care as discussed with me and documented in the resident note. improvement overall in his WBC (Jennifer Cruz MD) Problem List: (1) Cavitary pneumonia ICD Codes: J18.9 - Pneumonia, unspecified organism; J98.4 - Other disorders of lung Plan: Likely source is a cavitary pneumonia given CT scan with findings of dense consolidation in the left upper lobe with multiple small cavities centrally Alcohol abuse hx, possible aspiration. HIV, Hep C, and Tb (gold, DNA,mitogen, antigen) negative from 05/19 admission blood cx, urine antigens, flu negative, acid fast and fungal smears negative Bronchoscopy performed 06/14 Fungal Cx bronchial washing showing aspergillus Cont duonebs Q6h, albuterol 2.5mg neb Q6h added PRN for sob Home O2 walk test (stable at rest of room air, but has TOVAR) PT to evaluate functional status Case management to ensure he can get his medications at discharge Consulted pulmonology, appreciate assistance - Bronchoscopy performed with washings 06/14 ID consulted, appreciate recommendations - Bronchoscopy culture shows Aspergillus - Voriconazole IV 200 mg Q12H started 05/17, monitor liver enzymes Antibiotic history * s/p Zosyn 4.5 g every 8 hours (06/08-06/15) * s/p Levaquin 750 mg IV daily (D108/09-06/12) * s/p Vancomycin 1 g every 12 hours (06/09-06/12) Previous workup for lung mass and weight loss: TB test on 05/20/17 were negative. Coccidioides antigens and antibodies were negative. HIV 1 and 2 antibodies were negative. Hepatitis C antibodies negative. M. tuberculosis DNA PCR was not detected. Quantiferon gold was also negative. Elevated CEA of 5.3 normal was between 0.2-5.0. CA 19-9 ag WNL CA 125 WNL PSA WNL HCG WNL AFP WNL Beta-2-GPI IgG, IgA, IgM WNL Anticardiolipin IgA IgM IgG WNL. Lung biopsies last year negative (2) Pulmonary embolism ICD Codes: I26.99 - Other pulmonary embolism without acute cor pulmonale Status: Chronic Plan: Previous pulmonary embolism. Repeat CT showed no new Emboli. Hemodynamically stable. - Continue Xarelto 15 mg bid - Ensure he can get Xarelto at discharge, working with case management. (3) Peptic ulcer disease with hemorrhage ICD Codes: K27.4 - Chronic or unspecified peptic ulcer, site unspecified, with hemorrhage Status: Resolved Plan: He was diagnosed with peptic ulcer disease requiring 9 abdominal surgeries. Pt with stable H/H, will continue to monitor. - Continue Protonix 40 mg po daily (4) fen/ppx Status: Acute Plan: Fluids: PO only Electrolytes: hypokalemia, having diarrhea, continue to monitor Nutrition: regular DVT ppx: On Xarelto GI ppx: Protonix 40 mg po daily (Miles Reyes MD R3) Problem Qualifiers (1) Pulmonary embolism: Qualified Codes: I27.82 - Chronic pulmonary embolism Miles Reyes MD R3 Jun 17, 2017 14:25 Jennifer Cruz MD Jun 19, 2017 14:51
--- NOTE | 2017-06-17 16:50 | HHI.IDPN ---
Subjective Subjective Remarks no new co afebrile growing Aspergilla in BAL clx, just one clx Antibiotics Vfend Allergies: Coded Allergies: aspirin (Unverified Allergy, Mild, ULCERS, 06/08/17) Objective . Vital Signs Date Time Temp Pulse Resp B/P (MAP) Pulse Ox O2 Delivery O2 Flow Rate FiO2 06/17/17 12:00 98.4 65 20 177/86 (116) 98 06/17/17 09:00 93 Room Air 06/17/17 08:00 98.0 71 18 132/73 (92) 92 06/17/17 04:00 98.6 78 18 141/85 (103) 93 06/17/17 00:00 98.3 72 16 138/74 (95) 91 06/16/17 20:00 Room Air 06/16/17 20:00 99.2 71 18 06/16/17 19:51 94 . Laboratory Tests Test 06/16/17 08:10 06/17/17 07:35 White Blood Count 14.0 TH/MM3 13.0 TH/MM3 Red Blood Count 3.29 MIL/MM3 3.02 MIL/MM3 Hemoglobin 10.1 GM/DL 9.0 GM/DL Hematocrit 30.1 % 27.3 % Mean Corpuscular Volume 91.5 FL 90.3 FL Mean Corpuscular Hemoglobin 30.6 PG 29.8 PG Mean Corpuscular Hemoglobin Concent 33.5 % 33.0 % Red Cell Distribution Width 14.8 % 14.6 % Platelet Count 403 TH/MM3 390 TH/MM3 Mean Platelet Volume 7.6 FL 7.6 FL Neutrophils (%) (Auto) 76.5 % 73.2 % Lymphocytes (%) (Auto) 9.5 % 13.6 % Monocytes (%) (Auto) 10.1 % 9.5 % Eosinophils (%) (Auto) 3.3 % 2.9 % Basophils (%) (Auto) 0.6 % 0.8 % Neutrophils # (Auto) 10.7 TH/MM3 9.5 TH/MM3 Lymphocytes # (Auto) 1.3 TH/MM3 1.8 TH/MM3 Monocytes # (Auto) 1.4 TH/MM3 1.2 TH/MM3 Eosinophils # (Auto) 0.5 TH/MM3 0.4 TH/MM3 Basophils # (Auto) 0.1 TH/MM3 0.1 TH/MM3 CBC Comment DIFF FINAL DIFF FINAL Differential Comment Laboratory Tests Test 06/16/17 08:10 06/17/17 07:35 06/17/17 13:20 Total Bilirubin 0.4 MG/DL 0.3 MG/DL Direct Bilirubin 0.2 MG/DL Indirect Bilirubin 0.2 MG/DL Aspartate Amino Transf (AST/SGOT) 15 U/L 17 U/L Alanine Aminotransferase (ALT/SGPT) 12 U/L 10 U/L Alkaline Phosphatase 225 U/L 213 U/L Total Protein 5.8 GM/DL 5.4 GM/DL Albumin 1.3 GM/DL 1.2 GM/DL Blood Urea Nitrogen 7 MG/DL 7 MG/DL Creatinine 1.38 MG/DL 1.47 MG/DL Random Glucose 82 MG/DL 79 MG/DL Calcium Level 8.4 MG/DL 8.8 MG/DL Sodium Level 142 MEQ/L 143 MEQ/L Potassium Level 2.7 MEQ/L 3.0 MEQ/L Chloride Level 109 MEQ/L 108 MEQ/L Carbon Dioxide Level 21.1 MEQ/L 23.4 MEQ/L Anion Gap 12 MEQ/L 12 MEQ/L Estimat Glomerular Filtration Rate 54 ML/MIN 50 ML/MIN Magnesium Level 1.4 MG/DL Imaging Last Impressions Chest X-Ray 06/15/17 0000 Signed Impressions: Service Date/Time: Thursday, June 15, 2017 17:35 - CONCLUSION: Stable chest x-ray with severe left upper lobe and mild right lower lung zone airspace consolidation with small bilateral pleural effusions. Teodoro Boothe MD CT Angiography 06/08/17 1749 Signed Impressions: Service Date/Time: Thursday, June 08, 2017 19:02 - CONCLUSION: 1. Small area of pulmonary embolism involving the proximal left lower lobe artery. 2. Dense consolidation in the left upper lobe with multiple small cavities centrally. This could represent a necrotic pneumonia or fungal infection. 3. 2 smaller cavitary masses. 4. Underlying emphysema. Miles Kauffman MD Head CT 06/08/17 0000 Signed Impressions: Service Date/Time: Thursday, June 08, 2017 18:55 - CONCLUSION: 1. Mild to moderate atrophic change and chronic small vessel ischemic changes. 2. No acute hemorrhage or mass effect. Miles Kauffman MD Physical Exam CONSTITUTIONAL/GENERAL: This is a thin undernourished patient, in no apparent distress. TUBES/LINES/DRAINS: SKIN: No jaundice, rashes, or lesions. . Skin temperature appropriate. Not diaphoretic. EYES: Pupils equal and round and reactive. No scleral icterus. No injection or drainage. Fundi not examined. ENT: Hearing grossly normal. Nose without bleeding or purulent drainage. Oral mucosae without visible erythema, exudates, masses, or lesions. Extremely poor dentition Temporal wasting CARDIOVASCULAR: Regular rate and rhythm without murmurs, gallops, or rubs. No JVD. Peripheral pulses symmetric. RESPIRATORY/CHEST: Symmetric, unlabored respirations. Rhonchi L to auscultation. Breath sounds equal bilaterally. No wheezes, rales, or rhonchi. GASTROINTESTINAL: Abdomen soft, non-tender, nondistended. No hepato-splenomegaly , or palpable masses. No guarding. Bowel sounds present. GENITOURINARY: Without palpable bladder distension. MUSCULOSKELETAL: Extremities + clubbing, cyanosis, or edema. No joint tenderness or effusion noted. No calf tenderness. No mottling Excellent 2/2 periferal pulses NEUROLOGICAL: Awake and alert. Motor and sensory grossly within normal limits. Follows commands. Clear speech . Moves all extremities. PSYCHIATRIC: No obvious anxiety/depression. no apparent hallucinations or other psychotic thought process. Assessment & Plan Remarks Cavitary PNA FAUSTO fungal PNA, growing aspergilla, however just one culture ? underlying cancer Recent PE Tobacco +, ETOHism COPD new/worsening SOB- no changes on CXR - fu clx cont voriconazole; liekly will d/c on Vfend x 6 -8 wks fu LFTs weekly - chk CXR dw Tamara Rodriguez MD Jun 17, 2017 16:50
[2017-06-17] MEDS ORDERED: POTASSIUM CHLORIDE 20 MEQ CONTROLLED RELEASE TAB PO ONE (17:00)
[2017-06-17 20:00] VITALS: BP 179/93; PULSE 79; RESP 18; TEMP 98.7; O2SAT 92
[2017-06-17] MEDS: ACETAMINOPHEN 325 MG TAB PO PRN (22:30)
[2017-06-18] VITALS: BP 131/61; PULSE 74; RESP 18; TEMP 98.6; O2SAT 91
[2017-06-18 02:54] LABS: C. DIFF EPI 027 PRESUMPTIVE NEGATIVE (NEGATIVE)
[2017-06-18 04:00] VITALS: BP 151/76; PULSE 60; RESP 18; TEMP 97.6; O2SAT 94
[2017-06-18 08:00] VITALS: BP 154/85; PULSE 64; RESP 19; TEMP 97.9; O2SAT 92
[2017-06-18 08:40] LABS: MEAN CELL VOLUME 90.2 FL (80.0-100.0); MEAN CORPUSCULAR HEMOGLOBIN 30.4 PG (27.0-34.0); MEAN CORPUSCULAR HGB CONC 33.8 % (32.0-36.0); PLATELET COUNT 413 TH/MM3 (150-450); RED CELL DISTRIBUTION WIDTH 14.7 % (11.6-17.2); REVIEW FLAG FINAL; WHITE BLOOD COUNT 13.1 TH/MM3 (4.0-11.0)
[2017-06-18 09:52] LABS: BICARBONATE 21.1 MEQ/L (21.0-32.0)
[2017-06-18 10:10] LABS: ALKALINE PHOSPHATASE 193 U/L (45-117); ALT (GPT) 10 U/L (12-78); AST (GOT) 15 U/L (15-37); BLOOD UREA NITROGEN 8 MG/DL (7-18); GLOMERULAR FILTRATION RATE 52 ML/MIN (>89); TOTAL BILIRUBIN ADULT 0.3 MG/DL (0.2-1.0)
[2017-06-18 10:11] LABS: ANION GAP 14 MEQ/L (5-15); CHLORIDE 108 MEQ/L (98-107); POTASSIUM 3.3 MEQ/L (3.5-5.1); SODIUM (NA) 143 MEQ/L (136-145)
[2017-06-18] MEDS: POTASSIUM CHLORIDE 20 MEQ CONTROLLED RELEASE TAB PO SCH ×2 (10:11→21:45)
[2017-06-18] MEDS: PANTOPRAZOLE SOD 40 MG DELAYED RELEASE TAB PO SCH (10:11)
[2017-06-18] MEDS: POTASSIUM CHLORIDE 25 MEQ EFFERVESCENT TAB PO SCH ×2 (10:11→21:45)
[2017-06-18] MEDS: VORICONAZOLE 200 MG TAB PO SCH ×2 (10:11→21:44)
[2017-06-18] MEDS: RIVAROXABAN 15 MG TAB PO SCH ×2 (10:12→21:44)
[2017-06-18] MEDS ORDERED: ALBUAER3 INH (11:24)
[2017-06-18] MEDS ORDERED: IPRA17I INH (11:24)
[2017-06-18] MEDS ORDERED: VORI200 PO (11:24)
--- NOTE | 2017-06-18 11:28 | HHI.DCPOC ---
Discharge Care Plan Diagnosis: (1) Cavitary pneumonia (2) Aspergillus pneumonia (3) Pulmonary embolism (4) COPD exacerbation (5) Weight loss Goals to Promote Your Health * To prevent worsening of your condition and complications * To maintain your health at the optimal level Directions to Meet Your Goals Follow up with Dr. Martinez as directed in 2 weeks; you will need to call his office for an appointment Follow up with your new primary care provider in a week or so Take your inhalers (Albuterol and Ipratropium) as directed Continue to avoid smoking cigarettes Check labwork weekly as ordered; results will get faxed to Dr. Martinez and Dr. Johnston until you set up with another PCP Take your medications as prescribed Follow your dietary instruction Follow activity as directed Keep your appointments as scheduled Take your immunizations and boosters as scheduled If your symptoms worsen call your PCP, if no PCP go to Urgent Care Center or Emergency Room Smoking is Dangerous to Your Health. Avoid second hand smoke Call the 24-hour hour crisis hotline for domestic abuse at Manny Hassan MD R2 Jun 18, 2017 11:28 am
[2017-06-18 12:00] VITALS: BP 156/79; PULSE 92; RESP 19; TEMP 97.9; O2SAT 96
--- NOTE | 2017-06-18 12:37 | HHI.FPPN ---
Subjective Remarks No acute events overnight. Vitals as below. Today feels well and has been walking without difficulty. Denies CP. Mild SOB at baseline. Mild productive cough, improved overall from yesterday. (Manny Hassan MD R2) Objective Vitals Vital Signs Date Time Temp Pulse Resp B/P (MAP) Pulse Ox O2 Delivery O2 Flow Rate FiO2 06/18/17 10:17 Room Air 06/18/17 08:00 97.9 64 19 154/85 (108) 92 06/18/17 04:00 97.6 60 18 151/76 (101) 94 06/18/17 04:00 Room Air 06/18/17 00:00 Room Air 06/18/17 00:00 98.6 74 18 131/61 (84) 91 06/17/17 21:37 21 06/17/17 20:00 98.7 79 18 179/93 (121) 92 06/17/17 20:00 Room Air I/O 06/17/17 06/17/17 06/17/17 06/18/17 06/18/17 06/18/17 07:00 15:00 23:00 07:00 15:00 23:00 Intake Total 580 ml 720 ml 1080 ml Output Total 1500 ml Balance 580 ml 720 ml -420 ml Intake Oral 480 ml 720 ml 1080 ml IV Total 100 ml Output Urine Total 1500 ml # Voids 6 3 2 # Bowel Movements 4 1 4 (Manny Hassan MD R2) Result Diagram: 06/18/17 0720 06/18/17 0720 Imaging Last Impressions Chest X-Ray 06/15/17 0000 Signed Impressions: Service Date/Time: Thursday, June 15, 2017 17:35 - CONCLUSION: Stable chest x-ray with severe left upper lobe and mild right lower lung zone airspace consolidation with small bilateral pleural effusions. Teodoro Boothe MD CT Angiography 06/08/17 1749 Signed Impressions: Service Date/Time: Thursday, June 08, 2017 19:02 - CONCLUSION: 1. Small area of pulmonary embolism involving the proximal left lower lobe artery. 2. Dense consolidation in the left upper lobe with multiple small cavities centrally. This could represent a necrotic pneumonia or fungal infection. 3. 2 smaller cavitary masses. 4. Underlying emphysema. Miles Kauffman MD Head CT 06/08/17 0000 Signed Impressions: Service Date/Time: Thursday, June 08, 2017 18:55 - CONCLUSION: 1. Mild to moderate atrophic change and chronic small vessel ischemic changes. 2. No acute hemorrhage or mass effect. Miles Kauffman MD Objective Remarks GENERAL: Thin male, no distress, sitting up in bed, comfortable on room air SKIN: No rashes or lesions CARDIOVASCULAR: normal rate, regular rhythm. No murmurs. No calf tenderness. No edema BLE. RESPIRATORY: Wheezing left anterior lung field not on oxygen, no respiratory distress, 98% O2 on room air GASTROINTESTINAL: Abdomen nondistended. Multiple abdominal scars. Soft. Nontender to palpation. NEURO/PSYCH: Awake, alert. (Manny Hassan MD R2) A/P Assessment and Plan 51-year-old male admitted for sepsis secondary to cavitary pneumonia. Was recently discharged on May 24, 2017, after being diagnosed with bilateral pulmonary emboli and bilateral DVTs (d/c'd on Xarelto). He was found to have a dense consolidation left upper lobe leading to suspicion for cancer but was recommended to follow-up outpatient for further work-up. He has a history of lung nodules and underwent bronchoscopy and lung biopsies last year which was reported to be negative. The patient has been evaluated by infectious disease on multiple occasions. No TB was detected at that time. 06/08 CTA shows dense consolidation in the left upper lobe with multiple small cavities centrally. 2 smaller cavitary masses can be seen as well. On admission, patient was placed on broad-spectrum antibiotics. Sputum and blood cx testing for Tb, fungus, and bacteria were ordered. Pulmonology and ID following. Discharge Planning D/C tomorrow after one more day of monitoring LFTs on voriconazole (Manny Hassan MD R2) Attending Attestation Patient seen and examined. Case reviewed and discussed with the resident team. Agree with plan of care as discussed with me and documented in the resident note. plan for d/c home soon (Jennifer Cruz MD) Problem List: (1) Cavitary pneumonia ICD Codes: J18.9 - Pneumonia, unspecified organism; J98.4 - Other disorders of lung Plan: CT scan with findings of dense consolidation in the left upper lobe with multiple small cavities centrally Alcohol abuse hx, possible aspiration. HIV, Hep C, and Tb (gold, DNA,mitogen, antigen) negative from 05/19 admission blood cx, urine antigens, flu negative, acid fast and fungal smears negative Bronchoscopy performed 06/14 Fungal Cx bronchial washing showing aspergillus Cont duonebs Q6h, albuterol 2.5mg neb Q6h added PRN for sob - At home - ipratropium inhaler Q6H scheduled, albuterol Q6H for 2 weeks then PRN PT evaluated functional status - determined no needs for discharge Case management to ensure he can get his medications at discharge Consulted pulmonology, appreciate assistance - Bronchoscopy performed with washings 06/14 - Will see patient in office 2 weeks after discharge ID consulted, appreciate recommendations - Bronchoscopy culture shows Aspergillus - Voriconazole IV 200 mg Q12H started 05/17, monitor liver enzymes - Will need 6 weeks minimum of voriconazole most likely, pulmonology to determine final duration in office - Weekly CBC, LFT while on voriconazole - Refer to ophthalmology for periodic monitoring of pulmonary toxicity Antibiotic history * s/p Zosyn 4.5 g every 8 hours (06/08-06/15) * s/p Levaquin 750 mg IV daily (D108/09-06/12) * s/p Vancomycin 1 g every 12 hours (06/09-06/12) Previous workup for lung mass and weight loss: TB test on 05/20/17 were negative. Coccidioides antigens and antibodies were negative. HIV 1 and 2 antibodies were negative. Hepatitis C antibodies negative. M. tuberculosis DNA PCR was not detected. Quantiferon gold was also negative. Elevated CEA of 5.3 normal was between 0.2-5.0. CA 19-9 ag WNL CA 125 WNL PSA WNL HCG WNL AFP WNL Beta-2-GPI IgG, IgA, IgM WNL Anticardiolipin IgA IgM IgG WNL. Lung biopsies last year negative (2) Pulmonary embolism ICD Codes: I26.99 - Other pulmonary embolism without acute cor pulmonale Status: Chronic Plan: Previous pulmonary embolism. Repeat CT showed no new Emboli. Hemodynamically stable. - Continue Xarelto 15 mg bid x 20 days, then 20 mg daily for remainder of treatment (6 total months) - Ensure he can get Xarelto at discharge (3) Peptic ulcer disease with hemorrhage ICD Codes: K27.4 - Chronic or unspecified peptic ulcer, site unspecified, with hemorrhage Status: Resolved Plan: He was diagnosed with peptic ulcer disease requiring 9 abdominal surgeries. Pt with stable H/H, will continue to monitor. - Continue Protonix 40 mg po daily (4) fen/ppx Status: Acute Plan: Fluids: PO only Electrolytes: hypokalemia, having diarrhea, continue to monitor Nutrition: regular DVT ppx: On Xarelto GI ppx: Protonix 40 mg po daily (Manny Hassan MD R2) Problem Qualifiers (1) Pulmonary embolism: Qualified Codes: I27.82 - Chronic pulmonary embolism Manny Hassan MD R2 Jun 18, 2017 12:37 Jennifer Cruz MD Jun 19, 2017 14:52
[2017-06-18] MEDS ORDERED: XARE20TA PO (14:15)
--- NOTE | 2017-06-18 14:41 | HHI.IDPN ---
Subjective Subjective Remarks afebrile growing Aspergilla in BAL clx, just one clx states he feels better cough with large amount of thin bloody sputum (dark blood) Antibiotics Vfend Allergies: Coded Allergies: aspirin (Unverified Allergy, Mild, ULCERS, 06/08/17) Objective . Vital Signs Date Time Temp Pulse Resp B/P (MAP) Pulse Ox O2 Delivery O2 Flow Rate FiO2 06/18/17 12:00 97.9 92 19 156/79 (104) 96 06/18/17 10:17 Room Air 06/18/17 08:00 97.9 64 19 154/85 (108) 92 06/18/17 04:00 97.6 60 18 151/76 (101) 94 06/18/17 04:00 Room Air 06/18/17 00:00 Room Air 06/18/17 00:00 98.6 74 18 131/61 (84) 91 06/17/17 21:37 21 06/17/17 20:00 98.7 79 18 179/93 (121) 92 06/17/17 20:00 Room Air . Laboratory Tests Test 06/17/17 07:35 06/18/17 07:20 White Blood Count 13.0 TH/MM3 13.1 TH/MM3 Red Blood Count 3.02 MIL/MM3 3.00 MIL/MM3 Hemoglobin 9.0 GM/DL 9.1 GM/DL Hematocrit 27.3 % 27.0 % Mean Corpuscular Volume 90.3 FL 90.2 FL Mean Corpuscular Hemoglobin 29.8 PG 30.4 PG Mean Corpuscular Hemoglobin Concent 33.0 % 33.8 % Red Cell Distribution Width 14.6 % 14.7 % Platelet Count 390 TH/MM3 413 TH/MM3 Mean Platelet Volume 7.6 FL 7.6 FL Neutrophils (%) (Auto) 73.2 % Lymphocytes (%) (Auto) 13.6 % Monocytes (%) (Auto) 9.5 % Eosinophils (%) (Auto) 2.9 % Basophils (%) (Auto) 0.8 % Neutrophils # (Auto) 9.5 TH/MM3 Lymphocytes # (Auto) 1.8 TH/MM3 Monocytes # (Auto) 1.2 TH/MM3 Eosinophils # (Auto) 0.4 TH/MM3 Basophils # (Auto) 0.1 TH/MM3 CBC Comment DIFF FINAL Differential Comment Laboratory Tests Test 06/17/17 07:35 06/17/17 13:20 06/18/17 07:20 Blood Urea Nitrogen 7 MG/DL 7 MG/DL 8 MG/DL Creatinine 1.38 MG/DL 1.47 MG/DL 1.44 MG/DL Random Glucose 82 MG/DL 79 MG/DL 78 MG/DL Total Protein 5.4 GM/DL 5.8 GM/DL Albumin 1.2 GM/DL 1.3 GM/DL Calcium Level 8.4 MG/DL 8.8 MG/DL 8.3 MG/DL Alkaline Phosphatase 213 U/L 193 U/L Aspartate Amino Transf (AST/SGOT) 17 U/L 15 U/L Alanine Aminotransferase (ALT/SGPT) 10 U/L 10 U/L Total Bilirubin 0.3 MG/DL 0.3 MG/DL Sodium Level 142 MEQ/L 143 MEQ/L 143 MEQ/L Potassium Level 2.7 MEQ/L 3.0 MEQ/L 3.3 MEQ/L Chloride Level 109 MEQ/L 108 MEQ/L 108 MEQ/L Carbon Dioxide Level 21.1 MEQ/L 23.4 MEQ/L 21.1 MEQ/L Anion Gap 12 MEQ/L 12 MEQ/L 14 MEQ/L Estimat Glomerular Filtration Rate 54 ML/MIN 50 ML/MIN 52 ML/MIN Magnesium Level 1.4 MG/DL Imaging Last Impressions Chest X-Ray 06/15/17 0000 Signed Impressions: Service Date/Time: Thursday, June 15, 2017 17:35 - CONCLUSION: Stable chest x-ray with severe left upper lobe and mild right lower lung zone airspace consolidation with small bilateral pleural effusions. Teodoro Boothe MD CT Angiography 06/08/17 1749 Signed Impressions: Service Date/Time: Thursday, June 08, 2017 19:02 - CONCLUSION: 1. Small area of pulmonary embolism involving the proximal left lower lobe artery. 2. Dense consolidation in the left upper lobe with multiple small cavities centrally. This could represent a necrotic pneumonia or fungal infection. 3. 2 smaller cavitary masses. 4. Underlying emphysema. Miles Kauffman MD Head CT 06/08/17 0000 Signed Impressions: Service Date/Time: Thursday, June 08, 2017 18:55 - CONCLUSION: 1. Mild to moderate atrophic change and chronic small vessel ischemic changes. 2. No acute hemorrhage or mass effect. Miles Kauffman MD Physical Exam CONSTITUTIONAL/GENERAL: This is a thin undernourished patient, in no apparent distress. TUBES/LINES/DRAINS: SKIN: No jaundice, rashes, or lesions. . Skin temperature appropriate. Not diaphoretic. EYES: Pupils equal and round and reactive. No scleral icterus. No injection or drainage. Fundi not examined. ENT: Hearing grossly normal. Nose without bleeding or purulent drainage. Oral mucosae without visible erythema, exudates, masses, or lesions. Extremely poor dentition Temporal wasting CARDIOVASCULAR: Regular rate and rhythm without murmurs, gallops, or rubs. No JVD. Peripheral pulses symmetric. RESPIRATORY/CHEST: Symmetric, unlabored respirations. Rhonchi L to auscultation. Breath sounds equal bilaterally. No wheezes, rales, or rhonchi. GASTROINTESTINAL: Abdomen soft, non-tender, nondistended. No hepato-splenomegaly , or palpable masses. No guarding. Bowel sounds present. MUSCULOSKELETAL: Extremities + clubbing, cyanosis, or edema. No joint tenderness or effusion noted. No calf tenderness. No mottling NEUROLOGICAL: Awake and alert. Non focal PSYCHIATRIC: No obvious anxiety/depression. no apparent hallucinations or other psychotic thought process. Assessment & Plan Remarks Cavitary PNA FAUSTO fungal PNA, growing aspergilla, however just one culture no e/o underlying cancer on cytology Recent PE Tobacco +, ETOHism COPD new/worsening SOB- no changes on CXR - fu clx cont voriconazole; liekly will d/c on Vfend x 6 -8 wks fu LFTs weekly Monitoring parameters: CBC, creatinine, LFTs, total CKs and visual changes - chk above labs weekly - pt was instructed report nausea, vomiting, visual problems - chk CXR dw Ángel Cedeno,Tamara Baer MD Jun 18, 2017 14:41
[2017-06-18] MEDS ORDERED: POTA20TA5 PO (14:57)
[2017-06-18 16:00] VITALS: BP 165/98; PULSE 80; RESP 19; TEMP 98.1; O2SAT 94
--- NOTE | 2017-06-18 16:39 | HHI.PR ---
Subjective Remarks ALERT NO SOB COUGH WHITISH YELLOWISH SPUTUM CXRAY PRORESSIVE INFILTRATES Objective Vital Signs Date Time Temp Pulse Resp B/P (MAP) Pulse Ox O2 Delivery O2 Flow Rate FiO2 06/18/17 12:00 97.9 92 19 156/79 (104) 96 06/18/17 10:17 Room Air 06/18/17 08:00 97.9 64 19 154/85 (108) 92 06/18/17 04:00 97.6 60 18 151/76 (101) 94 06/18/17 04:00 Room Air 06/18/17 00:00 Room Air 06/18/17 00:00 98.6 74 18 131/61 (84) 91 06/17/17 21:37 21 06/17/17 20:00 98.7 79 18 179/93 (121) 92 06/17/17 20:00 Room Air I/O 06/17/17 06/17/17 06/17/17 06/18/17 06/18/17 06/18/17 07:00 15:00 23:00 07:00 15:00 23:00 Intake Total 580 ml 720 ml 1080 ml Output Total 1500 ml Balance 580 ml 720 ml -420 ml Intake Oral 480 ml 720 ml 1080 ml IV Total 100 ml Output Urine Total 1500 ml # Voids 6 3 2 # Bowel Movements 4 1 4 Result Diagram: 06/18/1771906/18/1720 Objective Remarks GENERAL: SKIN: Warm and dry. HEAD: Atraumatic. Normocephalic. EYES: Pupils equal and round. No scleral icterus. No injection or drainage. ENT: No nasal bleeding or discharge. Mucous membranes pink and moist. NECK: Trachea midline. No JVD. CARDIOVASCULAR: Regular rate and rhythm. RESPIRATORY: No accessory muscle use. Clear to auscultation. Breath sounds equal bilaterally. GASTROINTESTINAL: Abdomen soft, non-tender, nondistended. Hepatic and splenic margins not palpable. MUSCULOSKELETAL: Extremities without clubbing, cyanosis, or edema. No obvious deformities. NEUROLOGICAL: Awake and alert. No obvious cranial nerve deficits. Motor grossly within normal limits. Five out of 5 muscle strength in the arms and legs. Normal speech. PSYCHIATRIC: Appropriate mood and affect; insight and judgment normal. Assessment and Plan Assessment and Plan PROGRESSIVE CAVITARY PNA PE ASPERGILLUS IN BRONCHIAL WASHINGS PLAN ANTICOAGS ANTIBIOTICS INCREASE ACTIVITY ANTI FUNGUL THERAPY Juan Martinez MD Jun 18, 2017 16:39
[2017-06-18 20:00] VITALS: BP 166/87; PULSE 76; RESP 17; TEMP 99.3; O2SAT 94
[2017-06-18] MEDS: ACETAMINOPHEN 325 MG TAB PO PRN (21:56)
[2017-06-19] VITALS: BP 142/78; PULSE 102; RESP 17; TEMP 98.3; O2SAT 94
[2017-06-19 04:00] VITALS: BP 148/75; PULSE 66; RESP 17; TEMP 97.9; O2SAT 94
[2017-06-19 08:00] VITALS: BP 169/80; PULSE 70; RESP 18; TEMP 98.4; O2SAT 94
--- NOTE | 2017-06-19 09:13 | HHI.FPPN ---
Subjective Remarks Mr Brady feels well and wants to go home today. He lives with his father and has good support from his brother and sister who live nearby. We discussed that this antifungal med should make him feel "stronger than ever" if that is his only problem in 2-3 weeks after starting it. He is to follow up with Dr Farooq as an outpt. He also has been to see Dr Alvarez in the past and may be able to make a follow up appt there (unless the clinic is closed) vs finding another Dr as [facility] or pt could even consider a one time follow up at the [facility]. We explained he needs follow up of his labs to be sure he has no side effects from his med including renal, hepatic and needs an appt with an [employer] as well. Objective Vitals Vital Signs Date Time Temp Pulse Resp B/P (MAP) Pulse Ox O2 Delivery O2 Flow Rate FiO2 06/19/17 08:44 21 06/19/17 04:00 97.9 66 17 148/75 (99) 94 06/19/17 00:00 98.3 102 17 142/78 (99) 94 06/18/17 20:15 Room Air 06/18/17 20:00 99.3 76 17 166/87 (113) 94 06/18/17 16:00 98.1 80 19 165/98 (120) 94 06/18/17 12:00 97.9 92 19 156/79 (104) 96 06/18/17 10:17 Room Air I/O 06/18/17 06/18/17 06/18/17 06/19/17 06/19/17 06/19/17 07:00 15:00 23:00 07:00 15:00 23:00 Intake Total 1080 ml 1200 ml 650 ml Output Total 1500 ml Balance -420 ml 1200 ml 650 ml Intake Oral 1080 ml 1200 ml 650 ml Output Urine Total 1500 ml # Voids 2 4 4 # Bowel Movements 4 2 4 Result Diagram: 06/18/1771906/18/1720 Objective Remarks GENERAL: Thin male, no distress, sitting up in bed, comfortable on room air but needed 3 liters on walk test SKIN: No rashes or lesions CARDIOVASCULAR: normal rate, regular rhythm. No murmurs. No calf tenderness. No edema BLE. RESPIRATORY: Wheezing left anterior lung field and posterior corresponding with his cavitary lesion no respiratory distress, 98% O2 on room air GASTROINTESTINAL: Abdomen nondistended. Multiple abdominal scars. Soft. Nontender to palpation. NEURO/PSYCH: Awake, alert. Urinary Catheter: No Vascular Central Line Catheter: No A/P Assessment and Plan 51-year-old male admitted for sepsis secondary to cavitary pneumonia. Was recently discharged on May 24, 2017, after being diagnosed with bilateral pulmonary emboli and bilateral DVTs (d/c'd on Xarelto). He was found to have a dense consolidation left upper lobe leading to suspicion for cancer but was recommended to follow-up outpatient for further work-up. He has a history of lung nodules and underwent bronchoscopy and lung biopsies last year which was reported to be negative. The patient has been evaluated by infectious disease on multiple occasions. No TB was detected at that time. 06/08 CTA shows dense consolidation in the left upper lobe with multiple small cavities centrally. 2 smaller cavitary masses can be seen as well. On admission, patient was placed on broad-spectrum antibiotics. Sputum and blood cx testing for Tb, fungus, and bacteria were ordered. Pulmonology and ID following. 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 Discharge Planning D/C tomorrow after one more day of monitoring LFTs on voriconazole Problem List: (1) Cavitary pneumonia ICD Codes: J18.9 - Pneumonia, unspecified organism; J98.4 - Other disorders of lung Plan: CT scan with findings of dense consolidation in the left upper lobe with multiple small cavities centrally Alcohol abuse hx, possible aspiration. HIV, Hep C, and Tb (gold, DNA,mitogen, antigen) negative from 05/19 admission blood cx, urine antigens, flu negative, acid fast and fungal smears negative Bronchoscopy performed 06/14 Fungal Cx bronchial washing showing aspergillus Cont duonebs Q6h, albuterol 2.5mg neb Q6h added PRN for sob - At home - ipratropium inhaler Q6H scheduled, albuterol Q6H for 2 weeks then PRN PT evaluated functional status - determined no needs for discharge Case management to ensure he can get his medications at discharge Consulted pulmonology, appreciate assistance - Bronchoscopy performed with washings 06/14 - Will see patient in office 2 weeks after discharge ID consulted, appreciate recommendations - Bronchoscopy culture shows Aspergillus - Voriconazole IV 200 mg Q12H started 05/17, monitor liver enzymes - Will need 6 weeks minimum of voriconazole most likely, pulmonology to determine final duration in office - Weekly CBC, LFT while on voriconazole - Refer to ophthalmology for periodic monitoring of pulmonary toxicity Antibiotic history * s/p Zosyn 4.5 g every 8 hours (06/08-06/15) * s/p Levaquin 750 mg IV daily (D108/09-06/12) * s/p Vancomycin 1 g every 12 hours (06/09-06/12) Previous workup for lung mass and weight loss: TB test on 05/20/17 were negative. Coccidioides antigens and antibodies were negative. HIV 1 and 2 antibodies were negative. Hepatitis C antibodies negative. M. tuberculosis DNA PCR was not detected. Quantiferon gold was also negative. Elevated CEA of 5.3 normal was between 0.2-5.0. CA 19-9 ag WNL CA 125 WNL PSA WNL HCG WNL AFP WNL Beta-2-GPI IgG, IgA, IgM WNL Anticardiolipin IgA IgM IgG WNL. Lung biopsies last year negative (2) Pulmonary embolism ICD Codes: I26.99 - Other pulmonary embolism without acute cor pulmonale Status: Chronic Plan: Previous pulmonary embolism. Repeat CT showed no new Emboli. Hemodynamically stable. - Continue Xarelto 15 mg bid x 20 days, then 20 mg daily for remainder of treatment (6 total months) - Ensure he can get Xarelto at discharge (3) Peptic ulcer disease with hemorrhage ICD Codes: K27.4 - Chronic or unspecified peptic ulcer, site unspecified, with hemorrhage Status: Resolved Plan: He was diagnosed with peptic ulcer disease requiring 9 abdominal surgeries. Pt with stable H/H, will continue to monitor. - Continue Protonix 40 mg po daily (4) fen/ppx Status: Acute Plan: Fluids: PO only Electrolytes: hypokalemia, having diarrhea, continue to monitor Nutrition: regular DVT ppx: On Xarelto GI ppx: Protonix 40 mg po daily Problem Qualifiers (1) Pulmonary embolism: Qualified Codes: I27.82 - Chronic pulmonary embolism Jennifer Cruz MD Jun 19, 2017 09:13
[2017-06-19] MEDS ORDERED: OXYGENDME NAS.CANULA (09:43)
[2017-06-19] MEDS: POTASSIUM CHLORIDE 25 MEQ EFFERVESCENT TAB PO SCH (10:04)
[2017-06-19] MEDS: POTASSIUM CHLORIDE 20 MEQ CONTROLLED RELEASE TAB PO SCH (10:04)
[2017-06-19] MEDS: PANTOPRAZOLE SOD 40 MG DELAYED RELEASE TAB PO SCH (10:05)
[2017-06-19] MEDS: RIVAROXABAN 15 MG TAB PO SCH (10:05)
[2017-06-19] MEDS: VORICONAZOLE 200 MG TAB PO SCH (10:05)
[2017-06-19 12:00] VITALS: BP 147/85; PULSE 75; RESP 17; TEMP 98.8; O2SAT 98
--- NOTE | 2017-06-21 21:29 | HHI.DS ---
Discharge Summary Admission Date Jun 08, 2017 at 20:24 Discharge Date: Jun 19, 2017 Admitting Diagnosis acute pneumonia, PE, recent admission (1) Cavitary pneumonia Diagnosis: Principal Plan: CT scan with findings of dense consolidation in the left upper lobe with multiple small cavities centrally Alcohol abuse hx, possible aspiration. HIV, Hep C, and Tb (gold, DNA,mitogen, antigen) negative from 05/19 admission blood cx, urine antigens, flu negative, acid fast and fungal smears negative Bronchoscopy performed 06/14 Fungal Cx bronchial washing showing aspergillus Cont duonebs Q6h, albuterol 2.5mg neb Q6h added PRN for sob - At home - ipratropium inhaler Q6H scheduled, albuterol Q6H for 2 weeks then PRN PT evaluated functional status - determined no needs for discharge Case management to ensure he can get his medications at discharge Consulted pulmonology, appreciate assistance - Bronchoscopy performed with washings 06/14 - Will see patient in office 2 weeks after discharge ID consulted, appreciate recommendations - Bronchoscopy culture shows Aspergillus - Voriconazole IV 200 mg Q12H started 05/17, monitor liver enzymes - Will need 6 weeks minimum of voriconazole most likely, pulmonology to determine final duration in office - Weekly CBC, LFT while on voriconazole - Refer to ophthalmology for periodic monitoring of pulmonary toxicity Antibiotic history * s/p Zosyn 4.5 g every 8 hours (06/08-06/15) * s/p Levaquin 750 mg IV daily (D108/09-06/12) * s/p Vancomycin 1 g every 12 hours (06/09-06/12) Previous workup for lung mass and weight loss: TB test on 05/20/17 were negative. Coccidioides antigens and antibodies were negative. HIV 1 and 2 antibodies were negative. Hepatitis C antibodies negative. M. tuberculosis DNA PCR was not detected. Quantiferon gold was also negative. Elevated CEA of 5.3 normal was between 0.2-5.0. CA 19-9 ag WNL CA 125 WNL PSA WNL HCG WNL AFP WNL Beta-2-GPI IgG, IgA, IgM WNL Anticardiolipin IgA IgM IgG WNL. Lung biopsies last year negative ICD Codes: J18.9 - Pneumonia, unspecified organism; J98.4 - Other disorders of lung (2) Pulmonary embolism Diagnosis: Secondary Plan: Previous pulmonary embolism. Repeat CT showed no new Emboli. Hemodynamically stable. - Continue Xarelto 15 mg bid x 20 days, then 20 mg daily for remainder of treatment (6 total months) - Ensure he can get Xarelto at discharge ICD Codes: I26.99 - Other pulmonary embolism without acute cor pulmonale Status: Chronic (3) Peptic ulcer disease with hemorrhage Diagnosis: Secondary Plan: He was diagnosed with peptic ulcer disease requiring 9 abdominal surgeries. Pt with stable H/H, will continue to monitor. - Continue Protonix 40 mg po daily ICD Codes: K27.4 - Chronic or unspecified peptic ulcer, site unspecified, with hemorrhage Status: Resolved Consultants Pulmonology: Dr. Martinez ID: Dr. Barrett Procedures Bronchoscopy Brief History HPI: Started having pain on the left side of his chest. The pain has gotten worse in the past 3-4 days. He got worried that he had another blood clot. The pain was a "12,15,19 out of 10". He was also having a productive cough during the past several days. The sputum is a very yellow / green. Also having headaches and body aches during this time. He also had fevers and chills. He was sent home from work because sweat was pouring down his face. "I just felt drained". No hemoptysis or vomiting. The past couple of days he is having SOB when coughing. He denies burning with urination. He denies any abdominal pain. He denies diarrhea, no blood in urine or stools. Does report nose bleeds recently. He has been taking his xarelto regularly. Denies recent travel. Denies exposure to fungi that he knows. CBC/BMP: 06/18/17 0720 06/18/17 0720 Imaging Last Impressions Chest X-Ray 06/15/17 0000 Signed Impressions: Service Date/Time: Thursday, June 15, 2017 17:35 - CONCLUSION: Stable chest x-ray with severe left upper lobe and mild right lower lung zone airspace consolidation with small bilateral pleural effusions. Teodoro Boothe MD CT Angiography 06/08/17 1749 Signed Impressions: Service Date/Time: Thursday, June 08, 2017 19:02 - CONCLUSION: 1. Small area of pulmonary embolism involving the proximal left lower lobe artery. 2. Dense consolidation in the left upper lobe with multiple small cavities centrally. This could represent a necrotic pneumonia or fungal infection. 3. 2 smaller cavitary masses. 4. Underlying emphysema. Miles Kauffman MD Head CT 06/08/17 0000 Signed Impressions: Service Date/Time: Thursday, June 08, 2017 18:55 - CONCLUSION: 1. Mild to moderate atrophic change and chronic small vessel ischemic changes. 2. No acute hemorrhage or mass effect. Miles Kauffman MD PE at Discharge GENERAL: Thin male, no distress, sitting up in bed, comfortable on room air but needed 3 liters on walk test SKIN: No rashes or lesions CARDIOVASCULAR: normal rate, regular rhythm. No murmurs. No calf tenderness. No edema BLE. RESPIRATORY: Wheezing left anterior lung field and posterior corresponding with his cavitary lesion, no respiratory distress, 98% O2 on room air GASTROINTESTINAL: Abdomen non-distended. Multiple abdominal scars. Soft. Nontender to palpation. NEURO/PSYCH: Awake, alert. Hospital Course Mr. Brady is a 51 year-old Male with recent hx of DVT and PE (on xerelto). He presented to the ED on 06/08/17 with complaints of Left sided chest pain, productive cough, sob and malaise associated with RODRIGUEZ, fever, and chills. On he had been discharged from the hospital with dx of PE. On admission, pt was found to meet sepsis criteria: tachy 108, leukocytosis, lactic acid of 2.3 with source of infection being the lungs. Pt was treated with broad spectrum antibiotics. CXR showed left upper lobe pneumonia and right upper lobe nodules, CT chest showed no new emboli but pt found to have consolidation in left upper lobe with multiple small cavities suggestive of necrotic or fungal PNA. Pulmonary and ID were consulted. Bronchoscopy studies showed 1 bronchial cx positive for aspergillus and antibiotic coverage was switched to voriconazole IV and then transitioned to po. Other lab studies revealed no elevation of troponins, negative ua, negative sputum cx and blood cx, negative legionella and pneumo antigens. Pt also found to be negative for influenza A and B. During hospital course pt developed hypokalemia that was treated and resolved prior to discharge. Pt was also found to require 3L NC during ambulation on oxygen walk test. Stable O2 saturation while at rest. Pt hemodynamically stable upon discharge. Pt discharged with po voriconazole, xerelto, ipratropium inh, kcl supplements and f/u lab scripts, oxygen tank for 3L and advised to f/u with showroom sales assistant. Pt Condition on Discharge: Stable Discharge Disposition: Discharge Home Discharge Instructions DIET: Follow Instructions for: As Tolerated, No Restrictions Activities you can perform: Regular-No Restrictions Follow up Referrals: Ophthalmology - 2 Weeks On voriconazole for aspergillus pneumonia; needs periodic monitoring for eye toxicity PCP Follow-up - 3-5 Days with Veronica Alvarez MD Pulmonology - 2 Weeks with Juan Martinez MD New Orders: CBC WITH DIFF - 1 Week CBC WITH DIFF - 07/02/17 CBC WITH DIFF - 07/09/17 CBC WITH DIFF - 07/16/17 CBC WITH DIFF - 07/23/17 CBC WITH DIFF - 07/30/17 HEPATIC FUNCTION OAKES - 1 Week HEPATIC FUNCTION OAKES - 07/02/17 HEPATIC FUNCTION OAKES - 07/09/17 HEPATIC FUNCTION OAKES - 07/16/17 HEPATIC FUNCTION OAKES - 07/23/17 HEPATIC FUNCTION OAKES - 07/30/17 New Medications: Ipratropium HFA 12.9 GM Inh (Atrovent HFA 12.9 GM Inh) 17 Mcg/Actuation Aer 2 PUFF INH Q6HR PRN for SHORTNESS OF BREATH, #1 INHALER 0 Refills Oxygen (O2) (Oxygen (O2)) Device LITER DENISE.CANULA CONTINUOUS PRN for DYSPNEA, #3 Oxygen Concentrator Portable Gaseous 2 L/min via Nasal Canula Continuous For 99 months Rivaroxaban (Xarelto) 20 Mg Tab 20 MG PO DAILY for Blood Clot Prevention, #30 TAB 5 Refills Take one tablet daily after completing three weeks of taking one 15 mg tablet twice a day Potassium Chloride Microencaps (Potassium Chloride Microencaps) 20 Meq Tab 40 MEQ PO Q12HR, #60 TAB Voriconazole (Vfend) 200 Mg Tab 200 MG PO Q12HR, #90 TAB Changed Medications: Albuterol 8.5 GM Inh (Proair Hfa 8.5 GM Inh) 90 Mcg/Act Aer 2 PUFF INH Q4-6H PRN for SOB/WHEEZING, #1 INHALER 1 Refill (Changed from: 108 mcg/actuation) For the first 2 weeks after discharge, take 2 puffs four (4) times a day (roughly every 6 hours) Continued Medications: Acetaminophen (Tylenol) 325 Mg Tab 650 MG PO Q4H PRN for PAIN SCALE 1 TO 2, TAB 0 Refills Gabapentin (Gabapentin) 300 Mg Cap 300 MG PO TID, #90 CAP 4 Refills Rivaroxaban (Xarelto) 15 Mg Tab 15 MG PO Q12HR for Blood Clot Prevention for 21 Days, #42 TAB 0 Refills Please take 15 mg BID for 21 days, followed by 20 mg daily with food. Ron Ulloa MD, R1 Jun 21, 2017 21:29
== END 2017-06-19 14:39 | disposition home or self-care (01) | DRG 871 ==
LOC: NEPE 15:18 → NEDA 20:24 → N06B 22:31 → N04B 06-09 16:26
PROVIDERS: ADMIT Family Medicine; ATTEND Family Medicine
PROC: 0B938ZZ Drainage of Right Main Bronchus, Via Natural or Artificial Opening Endoscopic (ICD-10-PCS; 2017-06-14)
PROC: 0BDH8ZX Extraction of Lung Lingula, Via Natural or Artificial Opening Endoscopic, Diagnostic (ICD-10-PCS; 2017-06-14)
PROC: 0BDG8ZX Extraction of Left Upper Lung Lobe, Via Natural or Artificial Opening Endoscopic, Diagnostic (ICD-10-PCS; 2017-06-14)
PROC: 0B978ZZ Drainage of Left Main Bronchus, Via Natural or Artificial Opening Endoscopic (ICD-10-PCS; principal; 2017-06-14 07:34)
DX: A41.9 Sepsis, unspecified organism (principal); J18.9 Pneumonia, unspecified organism; I26.99 Other pulmonary embolism without acute cor pulmonale; J85.0 Gangrene and necrosis of lung; B44.9 Aspergillosis, unspecified; R64 Cachexia; J44.0 Chronic obstructive pulmonary disease with (acute) lower respiratory infection; J44.1 Chronic obstructive pulmonary disease with (acute) exacerbation; Z68.1 Body mass index [BMI] 19.9 or less, adult; F17.210 Nicotine dependence, cigarettes, uncomplicated; Y95 Nosocomial condition; K27.7 Chronic peptic ulcer, site unspecified, without hemorrhage or perforation; E87.6 Hypokalemia; R19.7 Diarrhea, unspecified; F10.20 Alcohol dependence, uncomplicated; J98.4 Other disorders of lung; R06.03 Acute respiratory distress; J40 Bronchitis, not specified as acute or chronic; R00.0 Tachycardia, unspecified; R09.1 Pleurisy; Z79.01 Long term (current) use of anticoagulants; Z86.718 Personal history of other venous thrombosis and embolism; Z82.5 Family history of asthma and other chronic lower respiratory diseases
CPT/HCPCS: 70450; 71010; 71020; 71275; 76937; 80048; 80053; 80076; 80202; 81001; 82948; 83605; 83735; 84484; 85007; 85025; 85027; 85610; 85730; 86077; 86850; 86870; 86900; 86901; 86920; 86922; 87015; 87040; 87070; 87071; 87102; 87107; 87116; 87205; 87206; 87449; 87493; 87804; 88305; 93005; 94150; 94620; 94640; 94664; 94667; 94668; 96365; J0456; J0696; J1956; J2250; J2370; J2543; J3370; J3465; J3475; J7030; J7050; Q9967

== ENCOUNTER → 2017-06-25 | Outpatient (CLI) | payer OTHER ==
[~2017-06-25] MED LIST changes: +IPRA17I INH; +OXYGENDME NAS.CANULA; +POTA20TA5 PO; +VORI200 PO; +XARE20TA PO
[2017-06-25 14:51] LABS: AUTOMATED NEUTROPHIL # 14.2 TH/MM3 (1.8-7.7); BASOPHIL # 0.1 TH/MM3 (0-0.2); BASOPHIL % 0.6 % (0.0-2.0); EOSINOPHIL # 0.2 TH/MM3 (0-0.4); EOSINOPHIL % 1.3 % (0.0-4.0); HEMATOCRIT 30.2 % (39.0-51.0); LYMPH % 11.7 % (9.0-44.0); LYMPHOCYTE # 2.1 TH/MM3 (1.0-4.8); MEAN CELL VOLUME 89.2 FL (80.0-100.0); MEAN CORPUSCULAR HEMOGLOBIN 32.1 PG (27.0-34.0); MONO % 7.3 % (0.0-8.0); NEUT % 79.1 % (16.0-70.0); PLATELET COUNT 698 TH/MM3 (150-450); RED BLOOD COUNT 3.39 MIL/MM3 (4.50-5.90)
[2017-06-25 14:57] LABS: HEMO FLAGS AUTO DIFF
[2017-06-25 15:31] LABS: PLATELET ESTIMATE SMEAR HIGH (NORMAL); PLATELET MORPHOLOGY NORMAL (NORMAL); SCAN/DIFF AUTO DIFF CONFIRMED
== END ==
LOC: CLAB 14:25
PROVIDERS: ATTEND Family Medicine
DX: B44.9 Aspergillosis, unspecified (principal)
CPT/HCPCS: 36415; 85025

== ENCOUNTER 2017-10-01 10:11 | Emergency (ER) | payer OTHER ==
[~2017-10-01] VITALS: Ht 182.9 cm; Wt 56.2 kg
[2017-10-01 10:13] VITALS: BP 190/92; PULSE 82; RESP 16; TEMP 98.1; O2SAT 100
--- NOTE | 2017-10-01 10:49 | PD ---
HPI Chief Complaint: Abdominal Pain Time Seen by Provider: 10:38 Travel History International Travel<30 days: No Contact w/Intl Traveler<30days: No Traveled to known affect area: No History of Present Illness HPI recently dx with hiatal hernia and sent over here by his pcp dr Sultana Veras. patient states that when symptoms are ongoing he feels epig area pressure, difficulty breathing because of pain, and resolves with either vomiting or in due time....patient does NOT have any of these symptoms now. no current abd pain either. denies alleviating/aggravating factors.... all:asa pmhx sig for dvt/pe, copd, migraine, inguinal hernia, ileostomy, ulcer.mrsa...also ulcer perforations since age of 18. PFSH Past Medical History Hx Anticoagulant Therapy: Yes (R/T DVT/PE) Arthritis: Yes Asthma: No Autoimmune Disease: No Blood Disorders: No Anxiety: No Depression: No Heart Rhythm Problems: No Cancer: No Cardiovascular Problems: Yes High Cholesterol: No Chemotherapy: No Chest Pain: No Congestive Heart Failure: No COPD: Yes Cerebrovascular Accident: No Diabetes: No Diminished Hearing: No Endocrine: No Gastrointestinal Disorders: Yes GERD: No Genitourinary: No Hiatal Hernia: No Immune Disorder: No Inguinal Hernia: Yes Implanted Vascular Access Dvce: Yes Kidney Stones: No Musculoskeletal: Yes Neurologic: Yes Psychiatric: No Reproductive: No Respiratory: Yes (PE) Immunizations Current: No Migraines: Yes Pneumonia: Yes Radiation Therapy: No Renal Failure: No Seizures: No Sickle Cell Disease: No Sleep Apnea: No Thyroid Disease: No Ulcer: Yes (PERFORATED ULCER, PEPTIC ULCER) Past Surgical History Abdominal Surgery: Yes (ILEOSTOMY WITH REVERSAL, HERNIA REPAIR, EX LAP R/T PERFORATED ULCER) AICD: No Arteriovenous Shunt: No Body Medical Devices: a few brennan or slips in abdomen for surgery Cardiac Surgery: No Ear Surgery: No Endocrine Surgery: No Eye Surgery: No Genitourinary Surgery: No Gynecologic Surgery: No Insulin Pump: No Joint Replacement: No Oral Surgery: No Pacemaker: No Thoracic Surgery: No Other Surgery: Yes Social History Alcohol Use: Yes (couple of beers daily) Tobacco Use: Yes (1/2 PPD ) Substance Use: No Allergies-Medications (Allergen,Severity, Reaction): Coded Allergies: aspirin (Unverified Allergy, Mild, ULCERS, 2/23/18) Reported Meds & Prescriptions Reported Meds & Active Scripts Active Oxygen (O2) Device Liter DENISE.CANULA CONTINUOUS PRN Oxygen Concentrator Portable Gaseous 2 L/min via Nasal Canula Continuous For 99 months Potassium Chloride Microencaps 20 Meq Tab 40 Meq PO Q12HR Xarelto (Rivaroxaban) 20 Mg Tab 20 Mg PO DAILY Take one tablet daily after completing three weeks of taking one 15 mg tablet twice a day Atrovent HFA 12.9 GM Inh (Ipratropium Stetson) 17 Mcg/Actuation Aer 2 Puff INH Q6HR PRN Vfend (Voriconazole) 200 Mg Tab 200 Mg PO Q12HR Proair Hfa 8.5 GM Inh (Albuterol Sulfate) 90 Mcg/Act Aer 2 Puff INH Q4-6H PRN For the first 2 weeks after discharge, take 2 puffs four (4) times a day (roughly every 6 hours) Xarelto (Rivaroxaban) 15 Mg Tab 15 Mg PO Q12HR 21 Days Please take 15 mg BID for 21 days, followed by 20 mg daily with food. Gabapentin 300 Mg Cap 300 Mg PO TID Reported Tylenol (Acetaminophen) 325 Mg Tab 650 Mg PO Q4H PRN Review of Systems Except as stated in HPI: all other systems reviewed are Neg (no ACTUAL complaints today) General / Constitutional: No: Fever Eyes: No: Visual changes HENT: No: Headaches Cardiovascular: No: Chest Pain or Discomfort Respiratory: No: Shortness of Breath Gastrointestinal: No: Abdominal Pain Genitourinary: No: Dysuria Musculoskeletal: Positive: Pain Skin: No Rash Neurologic: No: Weakness Psychiatric: No: Depression Endocrine: No: Polydipsia Hematologic/Lymphatic: No: Easy Bruising Physical Exam Narrative GENERAL: SKIN: Warm and dry. HEAD: Atraumatic. Normocephalic. EYES: Pupils equal and round. No scleral icterus. No injection or drainage. ENT: No nasal bleeding or discharge. Mucous membranes pink and moist. NECK: Trachea midline. No JVD. CARDIOVASCULAR: Regular rate and rhythm. RESPIRATORY: No accessory muscle use. Clear to auscultation. Breath sounds equal bilaterally. GASTROINTESTINAL: Abdomen soft, non-tender, nondistended. patient does not appear to have much of a rectus abdominis left. MUSCULOSKELETAL: Extremities without clubbing, cyanosis, or edema. No obvious deformities. NEUROLOGICAL: Awake and alert. No obvious cranial nerve deficits. Motor grossly within normal limits. Five out of 5 muscle strength in the arms and legs. Normal speech. PSYCHIATRIC: Appropriate mood and affect; insight and judgment normal. Data Data Last Documented VS Vital Signs Date Time Temp Pulse Resp B/P (MAP) Pulse Ox O2 Delivery O2 Flow Rate FiO2 10/01/17 10:13 98.1 82 16 190/92 (124) 100 Room Air Orders Orders Complete Blood Count With Diff (10/01/17 10:48) Comprehensive Metabolic Panel (10/01/17 10:48) Lipase (10/01/17 10:48) Urinalysis - C+S If Indicated (10/01/17 10:48) Iv Access Insert/Monitor (10/01/17 10:48) Sodium Chloride 0.9% Flush (Ns Flush) (10/01/17 11:00) Abdomen, Flat & Upright (10/01/17 ) Labs Laboratory Tests Test 10/01/17 10:55 White Blood Count 7.3 TH/MM3 Red Blood Count 4.44 MIL/MM3 Hemoglobin 13.5 GM/DL Hematocrit 40.7 % Mean Corpuscular Volume 91.6 FL Mean Corpuscular Hemoglobin 30.4 PG Mean Corpuscular Hemoglobin Concent 33.2 % Red Cell Distribution Width 14.1 % Platelet Count 341 TH/MM3 Mean Platelet Volume 6.5 FL Neutrophils (%) (Auto) 63.4 % Lymphocytes (%) (Auto) 23.7 % Monocytes (%) (Auto) 10.4 % Eosinophils (%) (Auto) 2.0 % Basophils (%) (Auto) 0.5 % Neutrophils # (Auto) 4.6 TH/MM3 Lymphocytes # (Auto) 1.7 TH/MM3 Monocytes # (Auto) 0.8 TH/MM3 Eosinophils # (Auto) 0.1 TH/MM3 Basophils # (Auto) 0.0 TH/MM3 CBC Comment DIFF FINAL Differential Comment Urine Color YELLOW Urine Turbidity CLEAR Urine pH 5.5 Urine Specific Clyman 1.020 Urine Protein TRACE mg/dL Urine Glucose (UA) NEG mg/dL Urine Ketones NEG mg/dL Urine Occult Blood NEG Urine Nitrite NEG Urine Bilirubin NEG Urine Urobilinogen 2.0 MG/DL Urine Leukocyte Esterase NEG Urine RBC 1 /hpf Urine WBC 1 /hpf Urine Calcium Oxalate Crystals OCC /hpf Urine Hyaline Casts 1 /lpf Urine Mucus FEW /lpf Microscopic Urinalysis Comment CULT NOT INDICATED Blood Urea Nitrogen 9 MG/DL Creatinine 0.82 MG/DL Random Glucose 87 MG/DL Total Protein 6.8 GM/DL Albumin 2.4 GM/DL Calcium Level 8.1 MG/DL Alkaline Phosphatase 132 U/L Aspartate Amino Transf (AST/SGOT) 16 U/L Alanine Aminotransferase (ALT/SGPT) 12 U/L Total Bilirubin 0.3 MG/DL Sodium Level 139 MEQ/L Potassium Level 3.7 MEQ/L Chloride Level 107 MEQ/L Carbon Dioxide Level 23.7 MEQ/L Anion Gap 8 MEQ/L Estimat Glomerular Filtration Rate 99 ML/MIN Lipase 138 U/L [facility] Medical Decision Making Medical Screen Exam Complete: Yes Emergency Medical Condition: Yes Medical Record Reviewed: Yes Differential Diagnosis sbo v ileus v free air Narrative Course CBC SHOWS NO LEUKOCYTOSIS, NO ANEMIA, NORMAL PLATELETS AND NO LEFT SHIFT ELECTROLYTE NL, NL KIDNEY FUNCTION, NORMAL LFT'S AND LIPASE UA IS NEG FOR UTI XRAY NEG FOR ANY SBO/ILEUS/OR FREE AIR Diagnosis Primary Impression: medical clearance Referrals: Miles Lee MD Patient Instructions: General Instructions, Hiatal Hernia (DC) Disposition: DISCHARGE HOME Condition: Stable Karthik Montejo MD Oct 01, 2017 10:49
[2017-10-01] MEDS ORDERED: SODIUM CHLORIDE 0.9% FLUSH 10 ML FLUSH IV FLUSH PRN (11:00)
[2017-10-01 11:21] LABS: AUTOMATED NEUTROPHIL # 4.6 TH/MM3 (1.8-7.7); BASOPHIL % 0.5 % (0.0-2.0); EOSINOPHIL # 0.1 TH/MM3 (0-0.4); HEMATOCRIT 40.7 % (39.0-51.0); HEMOGLOBIN 13.5 GM/DL (13.0-17.0); LYMPH % 23.7 % (9.0-44.0); LYMPHOCYTE # 1.7 TH/MM3 (1.0-4.8); MEAN CELL VOLUME 91.6 FL (80.0-100.0); MEAN CORPUSCULAR HEMOGLOBIN 30.4 PG (27.0-34.0); MEAN CORPUSCULAR HGB CONC 33.2 % (32.0-36.0); MEAN PLATELET VOLUME 6.5 FL (7.0-11.0); MONO % 10.4 % (0.0-8.0); MONOCYTE # 0.8 TH/MM3 (0-0.9); NEUT % 63.4 % (16.0-70.0); PLATELET COUNT 341 TH/MM3 (150-450); RED BLOOD COUNT 4.44 MIL/MM3 (4.50-5.90); RED CELL DISTRIBUTION WIDTH 14.1 % (11.6-17.2); WHITE BLOOD COUNT 7.3 TH/MM3 (4.0-11.0)
[2017-10-01 11:40] LABS: ALBUMIN 2.4 GM/DL (3.4-5.0); AST (GOT) 16 U/L (15-37); BICARBONATE 23.7 MEQ/L (21.0-32.0); BLOOD UREA NITROGEN 9 MG/DL (7-18); CALCIUM 8.1 MG/DL (8.5-10.1); CHLORIDE 107 MEQ/L (98-107); CREATININE 0.82 MG/DL (0.60-1.30); GLOMERULAR FILTRATION RATE 99 ML/MIN (>89); GLUCOSE,RANDOM 87 MG/DL (74-106); SODIUM (NA) 139 MEQ/L (136-145)
[2017-10-01 11:44] LABS: BILIRUBIN, URINE NEG (NEG); BLOOD, URINE NEG (NEG); CALCIUM OXALATE CRYSTALS,URINE OCC /hpf; GLUCOSE,URINE NEG (NEG); HYALINE CAST, URINE 1 /lpf (RARE); KETONE, URINE NEG (NEG); MUCUS URINE FEW /lpf (OCC); NITRITE,URINE NEG (NEG); PH, URINE 5.5 (5.0-8.5); URINE COLOR YELLOW (YELLW/STRAW); URINE LEUKOCYTE ESTERASE NEG (NEG)
[2017-10-01 11:47] LABS: ALKALINE PHOSPHATASE 132 U/L (45-117); ALT (GPT) 12 U/L (12-78); TOTAL BILIRUBIN ADULT 0.3 MG/DL (0.2-1.0); TOTAL PROTEIN 6.8 GM/DL (6.4-8.2)
--- NOTE | 2017-10-01 12:29 | RADRPT ---
EXAM DATE/TIME: 10/01/2017 12:12 [place] COMPARISON: No previous studies available for comparison. INDICATIONS : Mid abdominal pain for 2 weeks, dysphagia MEDICAL HISTORY : Carcinoma, lung. Ulcers. perforated ulcers x 9 SURGICAL HISTORY : Colon resection. colostomy and reversal ENCOUNTER: Initial ACUITY: 2 weeks PAIN SCORE: 8/10 LOCATION: Bilateral abdomen FINDINGS: Supine and upright views of the abdomen were performed. A no obstruction or free air. Numerous surgic al clips and bowel brennan present in the abdomen, especially left upper quadrant. Basilar parenchyma l scarring in the lungs. No acute bony abnormalities. CONCLUSION: 1. Postoperative changes. No obstruction or free air. Young Dodd MD on October 01, 2017 at 12:24 Board Certified Radiologist. This report was verified electronically.
== END 2017-10-01 13:12 | disposition home or self-care (01) ==
LOC: NEPD 10:11
DX: K44.9 Diaphragmatic hernia without obstruction or gangrene (principal); M19.90 Unspecified osteoarthritis, unspecified site; J44.9 Chronic obstructive pulmonary disease, unspecified; F17.200 Nicotine dependence, unspecified, uncomplicated; Z79.899 Other long term (current) drug therapy; Z88.6 Allergy status to analgesic agent; Z86.718 Personal history of other venous thrombosis and embolism; Z86.711 Personal history of pulmonary embolism
CPT/HCPCS: 74019; 80053; 81001; 83690; 85025; 99284

== ENCOUNTER → 2017-10-06 | Outpatient (CLI) | payer OTHER ==
[2017-10-06 14:27] LABS: AUTOMATED NEUTROPHIL # 5.3 TH/MM3 (1.8-7.7); BASOPHIL % 0.6 % (0.0-2.0); EOSINOPHIL # 0.2 TH/MM3 (0-0.4); EOSINOPHIL % 1.8 % (0.0-4.0); HEMATOCRIT 41.4 % (39.0-51.0); HEMOGLOBIN 13.9 GM/DL (13.0-17.0); LYMPH % 25.1 % (9.0-44.0); LYMPHOCYTE # 2.1 TH/MM3 (1.0-4.8); MEAN CORPUSCULAR HEMOGLOBIN 30.9 PG (27.0-34.0); MEAN CORPUSCULAR HGB CONC 33.6 % (32.0-36.0); MEAN PLATELET VOLUME 6.4 FL (7.0-11.0); MONO % 9.5 % (0.0-8.0); MONOCYTE # 0.8 TH/MM3 (0-0.9); PLATELET COUNT 392 TH/MM3 (150-450); RED CELL DISTRIBUTION WIDTH 14.1 % (11.6-17.2); WHITE BLOOD COUNT 8.4 TH/MM3 (4.0-11.0)
[2017-10-06 15:13] LABS: FOLATE 12.4 NG/ML (3.1-17.5); FREE T4 1.1 NG/DL (0.76-1.46)
== END ==
LOC: CLAB 14:09
DX: F33.8 Other recurrent depressive disorders (principal); I10 Essential (primary) hypertension
CPT/HCPCS: 36415; 82607; 82746; 84439; 84443; 85025

== ENCOUNTER → 2017-10-28 | Outpatient (CLI) | payer OTHER ==
--- NOTE | 2017-10-28 10:38 | RADRPT ---
EXAM DATE/TIME: 10/28/2017 09:23 COMPARISON: No previous studies available for comparison. INDICATIONS : Painful lump at prior surgical site in mid abdomen for 4 months, dysphagia, evaluate hiatal hernia FLUORO TIME: 2.3 minutes IMAGE COUNT: 35 CONTRAST: 1. E-Z HD Barium Sulfate (98% w/w) 2. E-Z Gas II Effervescent granules (Antacid 0.14 oz) 3. Liquid E-Z Paque Barium Sulfate (60% w/v, 41% w/w) 4. Barium tablet MEDICAL HISTORY : Chronic obstructive pulmonary disease. multiple ruptured ulcers SURGICAL HISTORY : gastric and small bowel surgeries x 9 ENCOUNTER: Initial ACUITY: 4 - 6 months PAIN SCORE: 6/10 LOCATION: Bilateral abdomen FINDINGS: A double contrast upper GI series was performed. Barium transits the esophagus without obstruction. T here is minimal smooth narrowing of the distal esophagus which may represent reflux esophagitis. A ba rium tablet gets stuck at this level. Upper endoscopy may be helpful for further evaluation of this f inding. Minimal gastroesophageal reflux is noted. Gastrojejunostomy is noted. No obstruction is noted at the anastomosis. No ulceration or stricture is noted. No extravasation is noted. CONCLUSION: 1. Minimal smooth narrowing involving the distal esophagus raising possibility of reflux esophagitis. Barium tablet remained lodged at this level. Upper endoscopy may be helpful for further evaluation t his finding. 2. Minimal esophageal reflux. Loki Moralez MD on October 28, 2017 at 10:23 Board Certified Radiologist. This report was verified electronically.
== END ==
LOC: HRAD 09:04
PROVIDERS: ATTEND Surgery Trauma Surgery
DX: K43.2 Incisional hernia without obstruction or gangrene (principal)
CPT/HCPCS: 74241

== ENCOUNTER 2018-03-02 11:02 | Inpatient (IN) ==
[~2018-03-02 11:02] MED LIST changes: -ALBUAER3 INH; -GABA300C5 PO; -IPRA17I INH; +Lidocaine PF 1% Inj 5 ML Syringe INFILTRATN ONE; +Metoprolol Inj 5 MG/5 ML Vial IV.PUSH ONE; -OXYGENDME NAS.CANULA; -POTA20TA5 PO; +Phenylephrine/NS 1000 MCG/10ML Syringe IV.PUSH ONE; -TYLE325T PO; -VORI200 PO; -XARE15TA PO; -XARE20TA PO
[2018-03-02] MEDS ORDERED: Sodium Chlor 0.9% Inj 500 ML IV.SIG SCH (12:00)
[2018-03-02] MEDS ORDERED: Metoprolol Tartrate 25 MG Tablet PO SCH (12:00)
[2018-03-02] MEDS ORDERED: Vancomycin Inj 1 GM/200 ML PIGGYBACK IV.SIG ONE (12:00)
[2018-03-02] MEDS ORDERED: Chlorhexidine Gluconate 2% 1 Pack (2 Cloths) TOPICAL SCH (12:00)
[2018-03-02 12:56] LABS: Baso # (Auto) 0.1 th/mm3 (0.0-0.2); Baso % (Auto) 0.8 % (0.0-2.0); Eos % (Auto) 0.1 % (0.0-4.0); Hematocrit 34.9 % (39.0-51.0); Hemoglobin 11.7 gm/dL (13.0-17.0); Lymph # (Auto) 1.1 th/mm3 (1.0-4.8); Mean Corpuscular HGB Conc 33.5 % (32.0-36.0); Mean Corpuscular Hemoglobin 29.2 pg (27.0-34.0); Mean Corpuscular Volume 87.3 fL (80.0-100.0); Mean Platelet Volume 7.8 fL (7.0-11.0); Mono % (Auto) 8.5 % (0.0-8.0); Neut # (Auto) 9.7 th/mm3 (1.8-7.7); Neut % (Auto) 81.6 % (16.0-70.0); Platelet Count 766 th/mm3 (150-450); Red Cell Distribution Width 14.5 % (11.6-17.2); White Blood Count 11.9 th/mm3 (4.0-11.0)
[2018-03-02 13:03] LABS: Activated Partial Thrombo Time 30.9 sec (24.3-30.1); Prothrombin Time 10.4 sec (9.8-11.6)
[2018-03-02 13:20] LABS: Anion Gap 9 meq/L (5-15); Blood Urea Nitrogen 7 mg/dL (7-18); Calcium 8.7 mg/dL (8.5-10.1); Carbon Dioxide 26.6 meq/L (21.0-32.0); Chloride 102 meq/L (98-107); Glomerular Filtration Rate Greater Than 89 mL/min (>89); Glucose,Random 76 mg/dL (74-106); Potassium 4.2 meq/L (3.5-5.1); Sodium 138 meq/L (136-145)
[2018-03-02] MEDS ORDERED: fentaNYL Citrate Inj 100 MCG/2 ML Ampul ONE ×3 (13:20→18:30)
--- NOTE | 2018-03-02 14:47 | ECG ---
Date Performed: 03/02/2018 Time Performed: 12:07:38 PTAGE: 52 years EKG: Sinus rhythm BORDERLINE RIGHT AXIS DEVIATION SEPTAL MYOCARDIAL INFARCTION , OF INDETERMINATE AGE ABNORMAL ECG Com pared to prior electrocardiogram, rate has decreased PREVIOUS TRACING : 06/09/2017 04.40 DOCTOR: He Branham Interpretating Date/Time 03/02/2018 14:46:20
[2018-03-02] MEDS ORDERED: Sugammadex Inj 200 MG/2 ML Vial IV.PUSH ONE (15:18)
--- NOTE | 2018-03-02 17:49 | P.OP ---
- Preoperative Diagnosis (1) Hernia of anterior abdominal wall - Postoperative Diagnosis (1) Hernia of anterior abdominal wall Date of procedure: 03/02/18 Procedure: Exploratory laparotomy Lysis of adhesions Transverse abdominis muscle release with bilateral myofascial flap advancement Anesthesia: LATANYAA Surgeon: Miles Lee MD Director Plans: Alonzo Nair MD Estimated blood loss (mL): 150 IV fluids (mL): 3,000 Pathology: none sent Operation and Findings: The patient was taken to the operating room and placed on the operating table in the supine position. After an adequate level of general endotracheal anesthesia was achieved bilateral transversus abdominis peritoneal block was placed bilaterally. The abdomen was then prepped and draped. Timeout was taken confirming the correct patient, site, and procedure to be performed. Incision was made in the patient's previous midline incision and scar from previous surgeries removed. The peritoneal cavity was entered uneventfully. Abdominal adhesions were noted and the loops of bowel on the anterior abdominal wall were gently taken down with sharp dissection and blunt dissection. When this had been accomplished the rectus muscles were exposed by dividing the fascia utilizing electrocautery. The rectus muscles were elevated and the posterior fascia was dissected off. Dissection was carried laterally as far as possible on both sides. This was extended up toward the ribs and down to the symphysis. When this had been completed the posterior fascia was closed with 0 PDS in a running fashion. With this completely closed the fascia was released laterally bilaterally. This was performed because the anterior fascia could not be reapproximated yet. Transverse rectus abdominis muscles were released bilaterally. This allowed for better approximation. A large piece of polypropylene Bard mesh was then chosen and trimmed to size to fit the defect. This was approximately 25 x 30 cm in dimension. The corners were rounded. The mesh was transfixed to the symphysis with PDS sutures as were the superior portion. The mesh was then transfix laterally at multiple points with PDS sutures. When this was completed the anterior fascia was reapproximated with a running #1 PDS suture. This could not be closed completely and the upper one third of the wound was closed with interrupted PDS and 3-0 Vicryl suture to completely cover the mesh. When this had been completed, the patient had very thin skin and it was felt that quilting the skin down to the subcutaneous tissue with no fat would not be highly successful. Thus 2 round Misha drains were brought via separate stab incisions out in the left and right lower quadrant and fixed to the skin with 3-0 nylon sutures. The wound was then reclosed with 2-0 Vicryl suture and the skin closed with 5-0 PDS and her 4-0 Monocryl in a running subcuticular fashion. The wound was dressed with a sae dressing and Biopatch dressings were placed around each of the Misha drains. The patient had placement of a binder and he was then extubated and taken back to the recovery room in stable condition. Sponge needle and instrument counts were reported to be correct 2. Patient tolerated the procedure well.
[2018-03-02] MEDS ORDERED: Naloxone Inj 0.4 MG/ML Vial IV.PUSH PRN (18:06)
[2018-03-02] MEDS ORDERED: Bisacodyl 10 MG Supp RECTAL PRN (18:06)
[2018-03-02] MEDS ORDERED: Post-op Orders (for Pharmacy) OTHER ONE (18:06)
[2018-03-02] MEDS ORDERED: Morphine Inj 30 MG/30 ML PCA.VIAL PCA PRN (18:21)
[2018-03-02] MEDS ORDERED: Morphine Inj 4 MG/ML Vial ONE (18:31)
[2018-03-02 19:12] LABS: Hematocrit 35.9 % (39.0-51.0); Mean Corpuscular HGB Conc 33.5 % (32.0-36.0); Mean Corpuscular Hemoglobin 29.1 pg (27.0-34.0); Mean Platelet Volume 7.6 fL (7.0-11.0); Platelet Count 823 th/mm3 (150-450); Red Blood Count 4.13 mil/mm3 (4.50-5.90); Red Cell Distribution Width 14.3 % (11.6-17.2); White Blood Count 16.1 th/mm3 (4.0-11.0)
[2018-03-02] MEDS: Pantoprazole Inj 40 MG Vial IV.PUSH SCH (19:39)
[2018-03-03 08:53] LABS: Baso % (Auto) 0.4 % (0.0-2.0); Hematocrit 35.8 % (39.0-51.0); Hemoglobin 11.5 gm/dL (13.0-17.0); Lymph # (Auto) 1.6 th/mm3 (1.0-4.8); Lymph % (Auto) 15.4 % (9.0-44.0); Mean Corpuscular Volume 87.4 fL (80.0-100.0); Mean Platelet Volume 7.5 fL (7.0-11.0); Mono # (Auto) 0.9 th/mm3 (0.0-0.9); Mono % (Auto) 8.7 % (0.0-8.0); Neut # (Auto) 7.7 th/mm3 (1.8-7.7); Neut % (Auto) 75.5 % (16.0-70.0); Platelet Count 757 th/mm3 (150-450); Red Cell Distribution Width 14.7 % (11.6-17.2); White Blood Count 10.2 th/mm3 (4.0-11.0)
[2018-03-03] MEDS ORDERED: CITALOPRAM 10 MG PO SCH (09:00)
[2018-03-03] MEDS: Citalopram 20 MG Tablet PO SCH (09:08)
[2018-03-03] MEDS: Lisinopril 20 MG Tablet PO SCH (09:08)
[2018-03-03 09:14] LABS: Calcium 8.5 mg/dL (8.5-10.1); Carbon Dioxide 25.6 meq/L (21.0-32.0); Potassium 4.9 meq/L (3.5-5.1)
--- NOTE | 2018-03-03 13:21 | P.PNGS ---
<Nat Horne - Last Filed: 03/03/18 13:19> Subjective Interval history: Doing well; pain controlled; happy to have clear liquids Physical Exam Vital signs: Vital Signs 03/02/18 17:38 03/02/18 17:45 03/02/18 18:00 Temperature 98.6 F Pulse Rate 104 H 102 H 95 H Respiratory Rate 18 20 20 Blood Pressure 168/80 H 132/72 169/77 H Pulse Oximetry 100 93 L 98 03/02/18 18:15 03/02/18 18:30 03/02/18 20:30 Temperature 97.4 F L Pulse Rate 88 90 74 Respiratory Rate 20 22 20 Blood Pressure 127/70 119/66 155/78 H Pulse Oximetry 97 92 L 98 03/03/18 00:00 03/03/18 04:00 03/03/18 08:00 Temperature 97.3 F L 97.2 F L 97.3 F L Pulse Rate 62 60 53 L Respiratory Rate 20 18 17 Blood Pressure 146/71 H 132/67 132/74 Pulse Oximetry 97 98 97 03/03/18 09:09 03/03/18 12:00 Temperature 97.1 F L Pulse Rate 59 L Respiratory Rate 20 16 Blood Pressure 140/65 Pulse Oximetry 97 Intake & Output 03/02/18 03/03/18 03/03/18 18:59 06:59 18:59 Intake Total 2400 / 2400 1080 / 1080 100 / 100 Output Total 120 / 120 50 / 50 Balance 2400 / 2400 960 / 960 50 / 50 Weight 51.5 kg 56.4 kg Intake: IV 2400 / 2400 600 / 600 100 / 100 Ofirmev Inj 1,000 mg In 100 ml 100 / 100 100 / 100 100 / 100 @ 400 mls/hr IV.SIG Q6H [facility] Rx# :[id number] LR 1000 mL Inj 500 ML @ Wide 2000 / 2000 500 / 500 Open IV.SIG BOLUS ONE Rx#: [id number] Vancomycin Inj 1 gm In 200 ml @ 200 / 200 200 mls/hr IV.SIG BARK PEELER ONE Rx#:[id number] Ancef Inj 1,000 MG In NS Inj 100 / 100 100 ML @ 200 mls/hr IV.SIG BARK PEELER ONE Rx#:[id number] Oral 480 / 480 Output: Urine Amount (Catheter) 75 / 75 Indwelling Urethral Catheter 75 / 75 Wound Drainage 45 / 45 50 / 50 # 1 Left Abdomen SALVATORE Drain # 2 Right Abdomen Other: Bladder Irrigation Fluid - Amount Drained Indwelling Urethral Catheter 300 Weight On Admission 51.5 kg Narrative: Alert and awake Cardio: RRR Resp: CTAB Abd: Binder in place; ANA with good seal; SALVATORE with serosanguineous fluid Alberto in place with clear yellow urine Ext without edema - Urinary Catheter Management Indwelling Urethral Catheter Cath placed during this visit: yes Reason for continuing: Other continuation reason Insertion date: 03/02/18 Insertion time: 13:23 Assessment and Plan - Plan 52 year old male POD1 abdominal wall reconstruction -Clear liquids -IVF -WIRELESS RETAIL MANAGER for pain control -Subq Heparin; plan to start Xarelto tomorrow -Appreciate Medicine consult -OOB as tolerated -DC Alberto in AM <Miles Lee - Last Filed: 03/07/18 19:53> Physical Exam Vital signs: Vital Signs 03/06/18 20:00 03/07/18 00:00 03/07/18 08:00 Temperature 98.9 F 98.9 F 98.1 F Pulse Rate 94 H 76 75 Respiratory Rate 18 18 17 Blood Pressure 146/82 H 138/64 Pulse Oximetry 92 L 94 L 95 03/07/18 12:00 03/07/18 16:00 Temperature 97.7 F 97.6 F Pulse Rate 90 86 Respiratory Rate 17 17 Blood Pressure 134/77 142/73 H Pulse Oximetry 94 L 91 L Intake & Output 03/07/18 03/07/18 03/08/18 06:59 18:59 06:59 Intake Total 1000 / 1000 3460 / 3460 Output Total 90 / 90 Balance 910 / 910 3460 / 3460 Intake: IV 1000 / 1000 1300 / 1300 LR 1000 mL Inj 1,000 ML @ 100 1000 / 1000 1300 / 1300 mls/hr IV.CONT .Q10H [facility] Rx#: [id number] Oral 2160 / 2160 Output: Urine 40 / 40 Wound Drainage 50 / 50 # 1 Left Abdomen SALVATORE Drain 30 # 2 Right Abdomen Other: # Voids 10 Date of Last Bowel Movement 03/05/18 # Bowel Movements 0 - Urinary Catheter Management Indwelling Urethral Catheter Cath placed during this visit: no Assessment and Plan - Assessment (1) Hernia of anterior abdominal wall Code(s): K43.9 - Ventral hernia without obstruction or gangrene Status: Acute - Plan Abdomen soft; picot dressing dry and intact; SALVATORE drains serosanguineous. Pain control appears adequate. The exam, history, and the medical decision-making described in the above note were completed with the assistance of the mid-level provider. I reviewed and agree with the findings presented. I attest that I had a [id number] encounter with the patient on the same day, and personally performed and documented my assessment and findings in the medical record.
--- NOTE | 2018-03-03 13:54 | P.CONIM ---
History of Present Illness Service: General Surgery Consult date: 03/03/18 Requesting Physician: Miles Lee Reason for Consult: Medical management Primary Care Provider: Cong Veras Chief Complaint: s/p hernia repair History of Present Illness: Mr. Brady is a 52 yo M with PMH PE, recurrent gastric ulcers/GI bleeding, who is POD from anterior wall hernia repair. Medicine consulted for management. Per EMR review, patient underwent anterior abdominal wall hernia repair yesterday with Dr. Lee and Dr. Nair. Patient states that he has been doing well since surgery. He did well eating clear liquids today. No significant pain. Patient's PMH reviewed for pertinence in medical therapy while inpatient: He reports diagnosis of pneumonia and pulmonary embolism, he is on Xarelto at home. He has not had recent shortness of breath, but reports COPD history. He is a former smoker but has not smoked for years. He takes Albuterol PRN and Atrovent at home. He would like to consider other inhalers with his PCP in the near future. Patient reports history of gastric ulcers. He currently takes a PPI but has taken multiple forms of H2's, PPI's previously. Patient does not currently report chest pain, shortness of breath, significant abdominal pain on current pain regimen, or other concerns at this time. Review of Systems All other systems reviewed negative except as stated in HPI Constitutional: Denies chills, Denies fatigue Ears, Nose, Mouth, and Throat: Denies mouth lesions, Denies nasal obstruction Cardiovascular: Denies chest pain, Denies chest pain with activity Respiratory: Denies change in phlegm color, Denies chest congestion Gastrointestinal: Denies abdominal pain, Denies bloating Musculoskeletal: Denies back pain Skin/Breast: Denies wounds, Denies yellowing of the skin Neurologic: Denies headache(s), Denies localized weakness PMFSH - History History Provided By: Patient - Medical History Medical History: Medical History (Last Reviewed 03/02/18 @ 12:25 by Itzel Oliver) Anxiety COPD (chronic obstructive pulmonary disease) Depression GERD (gastroesophageal reflux disease) Hiatal hernia History of pneumonia Hx pulmonary embolism Hypertension Peptic ulcer disease Peptic ulcer with hemorrhage - Surgical History Surgical History: Surgical History (Last Reviewed 03/02/18 @ 12:25 by Itzel Oliver) H/O colostomy H/O left inguinal hernia repair History of colostomy reversal History of elbow surgery - Tobacco History Second Hand Smoke Exposure: Yes Tobacco Use In Past 30 Days: Yes (quit exactly 1 month ago) Smoking Status: Former smoker Tobacco Type: Cigarettes - Alcohol History How Often Do You Have a Drink Containing Alcohol: 2 to 3 times a week - Substance Use History Substance History: No History of Abuse - Travel History Recent Travel in the [place] Within the Last 8 Weeks: No Recent Travel Out of the Country Within the Last 8 Weeks: No Medications and Allergies Active Medications: Active Medications Hydrocodone Bitart/Acetaminophen ([place] 5/325) 1 tab PO Q4H PRN PRN Reason: PAIN SCALE 3 TO 5 Hydrocodone Bitart/Acetaminophen ([place] 5/325) 2 tab PO Q4H PRN PRN Reason: PAIN 6-10;IF UNABLE TO TAKE PO Last Admin: 03/03/18 06:31 Dose: 2 tab Al Hydroxide/Mg Hydroxide (Milk Of Magnesia Liq) 30 ml PO Q12H PRN PRN Reason: Mild Constipation Albuterol (Ventolin Hfa Inh) 2 puff INH Q4H PRN PRN Reason: Shortness Of Breath Bisacodyl (Dulcolax Supp) 10 mg RECTAL DAILY PRN PRN Reason: SEVERE CONSITIPATION Chlorhexidine Gluconate (Chlorhexidine 2% Cloth) 3 pack TOPICAL WRAPPER OPERATOR [facility] Stop: 03/05/18 11:54 Last Admin: 03/02/18 12:00 Dose: 3 pack Citalopram Hydrobromide (Celexa) 10 mg PO DAILY [facility] Last Admin: 03/03/18 09:08 Dose: 10 mg Diphenhydramine HCl (Benadryl Inj) 25 mg IV.PUSH Q6H PRN PRN Reason: ITCHING Heparin Sodium (Porcine) (Heparin Inj) 5,000 units SQ Q8H [facility] Lactated Ringer's (Lr 1000 Ml Inj) 1,000 mls @ 30 mls/hr IV.SIG .Q24H [facility] Stop: 03/05/18 11:54 Last Admin: 03/02/18 23:29 Dose: Not Given Sodium Chloride (Ns Inj) 500 mls @ 30 mls/hr IV.SIG .Q10H [facility] Stop: 03/05/18 11:54 Acetaminophen (Ofirmev Inj) 1,000 mg in 100 mls @ 400 mls/hr IV.SIG Q6H [facility] Stop: 03/05/18 08:14 Last Admin: 03/03/18 13:23 Dose: 400 mls/hr Lactated Ringer's (Lr 1000 Ml Inj) 1,000 mls @ 100 mls/hr IV.CONT .Q10H [facility] Last Admin: 03/03/18 13:27 Dose: 100 mls/hr Morphine Sulfate (Morphine Inj) 30 mg in 30 mls @ 0 mls/hr MACHINE ASSISTANT UNSCH PRN PRN Reason: per MACHINE ASSISTANT parameters Last Admin: 03/02/18 19:07 Dose: 0 mls/hr Lactulose (Lactulose Liq) 30 ml PO DAILY PRN PRN Reason: SEVERE CONSITIPATION Lisinopril (Prinivil) 20 mg PO DAILY [facility] Last Admin: 03/03/18 09:08 Dose: 20 mg Metoprolol Tartrate (Lopressor) 25 mg PO WRAPPER OPERATOR [facility] Stop: 03/05/18 11:54 Last Admin: 03/02/18 12:24 Dose: Not Given Miscellaneous (Pill Splitter) 1 each OTHER UNSCH PRN PRN Reason: PILL SPLITTER Miscellaneous Information ([facility] Nursing Information) 1 each OTHER UNSCH PRN PRN Reason: SEE LABEL COMMENTS Stop: 03/03/18 18:21 Naloxone HCl (Narcan Inj) 0.4 mg IV.PUSH UNSCH PRN PRN Reason: SEE LABEL COMMENTS Ondansetron HCl (Zofran Odt) 4 mg PO Q6H PRN PRN Reason: NAUSEA OR VOMITING Pantoprazole Sodium (Protonix Inj) 40 mg IV.PUSH Q24H [facility] Last Admin: 03/02/18 19:39 Dose: 40 mg Povidone Iodine (Betadine 5% Antisepsis Kit) 1 applicatio EACH NARE WRAPPER OPERATOR [facility] Stop: 03/05/18 11:54 Last Admin: 03/02/18 12:24 Dose: 1 applicatio Sennosides (Senokot) 17.2 mg PO Q12H PRN PRN Reason: Moderate Constipation Allergies Allergy/AdvReac Type Severity Reaction Status Date / Time aspirin Allergy Mild ULCERS Verified 03/02/18 12:25 Home Medications Medication Instructions Recorded Confirmed Type albuterol sulfate 2 puff INHALATION Q4H PRN 02/28/18 03/02/18 History citalopram 10 mg PO DAILY 02/28/18 03/02/18 History esomeprazole magnesium 20 mg PO BID 02/28/18 03/02/18 History lisinopril 20 mg PO DAILY 02/28/18 03/02/18 History rivaroxaban [Xarelto] 20 mg PO DAILY 02/28/18 03/02/18 History Exam Vital signs: Vital Signs 03/02/18 17:38 03/02/18 17:45 03/02/18 18:00 Temperature 98.6 F Pulse Rate 104 H 102 H 95 H Respiratory Rate 18 20 20 Blood Pressure 168/80 H 132/72 169/77 H Pulse Oximetry 100 93 L 98 03/02/18 18:15 03/02/18 18:30 03/02/18 20:30 Temperature 97.4 F L Pulse Rate 88 90 74 Respiratory Rate 20 22 20 Blood Pressure 127/70 119/66 155/78 H Pulse Oximetry 97 92 L 98 03/03/18 00:00 03/03/18 04:00 03/03/18 08:00 Temperature 97.3 F L 97.2 F L 97.3 F L Pulse Rate 62 60 53 L Respiratory Rate 20 18 17 Blood Pressure 146/71 H 132/67 132/74 Pulse Oximetry 97 98 97 03/03/18 09:09 03/03/18 12:00 Temperature 97.1 F L Pulse Rate 59 L Respiratory Rate 20 16 Blood Pressure 140/65 Pulse Oximetry 97 Intake & Output 03/02/18 03/03/18 03/03/18 18:59 06:59 18:59 Intake Total 2400 / 2400 2080 / 2080 200 / 200 Output Total 120 / 120 50 / 50 Balance 2400 / 2400 1959 / 1959 150 / 150 Weight 51.5 kg 56.4 kg Intake: IV 2400 / 2400 1600 / 1600 200 / 200 LR 1000 mL Inj 1,000 ML @ 100 1000 / 1000 mls/hr IV.CONT .Q10H [facility] Rx#: [id number] Ofirmev Inj 1,000 mg In 100 ml 100 / 100 100 / 100 200 / 200 @ 400 mls/hr IV.SIG Q6H [facility] Rx# :[id number] LR 1000 mL Inj 500 ML @ Wide 2000 / 2000 500 / 500 Open IV.SIG BOLUS ONE Rx#: [id number] Vancomycin Inj 1 gm In 200 ml @ 200 / 200 200 mls/hr IV.SIG WRAPPER OPERATOR [facility] Rx#:[id number] Ancef Inj 1,000 MG In NS Inj 100 / 100 100 ML @ 200 mls/hr IV.SIG WRAPPER OPERATOR ONE Rx#:[id number] Oral 480 / 480 Output: Urine Amount (Catheter) 75 / 75 Indwelling Urethral Catheter 75 / 75 Wound Drainage 45 / 45 50 / 50 # 1 Left Abdomen SALVATORE Drain # 2 Right Abdomen / Other: Bladder Irrigation Fluid - Amount Drained Indwelling Urethral Catheter 300 Weight On Admission 51.5 kg Narrative: Gen: No distress Skin: midline abdominal incision; drains in place. Incision covered; vac functioning well HEENT: Normal mucous membranes Resp: CTAB; decreased breath sounds CV: Regular rate and rhythm; grossly normal peripheral perfusion Abd: no pain to light palpation; nondistended. - urine from slade clear Ext: grossly normal ROM/strength Neuro: grossly normal CN; grossly normal peripheral motor/sensory function Results - Labs CBC & Chem 7: 03/03/18 08:11 03/03/18 08:11 Labs: Laboratory Results - last 24 hr 03/02/18 03/03/18 03/03/18 18:44 08:11 08:11 WBC 16.1 H 10.2 RBC 4.13 L 4.10 L Hgb 12.0 L 11.5 L Hct 35.9 L 35.8 L MCV 87.0 87.4 MCH 29.1 28.0 MCHC 33.5 32.0 RDW 14.3 14.7 Plt Count 823 H 757 H MPV 7.6 7.5 Neut % (Auto) 75.5 H Lymph % (Auto) 15.4 [place] % (Auto) 8.7 H Eos % (Auto) 0.0 Baso % (Auto) 0.4 Neut # (Auto) 7.7 Lymph # (Auto) 1.6 [place] # (Auto) 0.9 Eos # (Auto) 0.0 Baso # (Auto) 0.0 WBC Differential . Differential Comment Auto diff final Sodium 134 L Potassium 4.9 Chloride 99 Carbon Dioxide 25.6 Anion Gap 9 BUN 11 Creatinine 1.02 Estimated GFR 76 L Random Glucose 119 H Calcium 8.5 Assessment and Plan - Plan Mr. Brady is a 52 yo M with PMH PE, GI bleeding who presents for anterior wall hernia repair: POD 1s/p anterior abdominal wall hernia repair Impression: Doing well. Per operative note- exploratory laparotomy, lysis of adhesions, and transverse abdominis release w/ bilateral myofascial flap advancement 03/02. 150ml EBL -Continue post-operative care -pain control -Morphine MACHINE ASSISTANT -PRN Ofirmev q6hrs -Will change Hydrocodone/Tylenol to Oxycodone -Slade in place -Did well with liquid diet -Awaiting BM; PRN lactulose and Mg hydroxide ordered -monitor drain output -Continue wound vacuum Respiratory History PE IMpression: history of outpatient treatment with Xarelto. Last seen on imaging 05/2017 -Per Gen Surgery- Continue ppx dose Heparin POD 1 with plan to resume Xarelto tomorrow -Monitor VS, saturations COPD Impression: CTAB. Emphysematous changes on prior CT. -Continue PRN Tylenol -Will add home Atrovent -Will add LABA/steroid per pt request; he desires at discharge GI History of recurrent ulcers. Takes esomeprazole at home -Continue IV Pantoprazole 40mg daily Cardiac HTN -continue Lisinopril 20mg daily - PRN Hydralazine -Continue home Celexa DVT PPX -Started on Heparin 5k U q8hr today >24 hrs post-op Code Status: Full Discharge Planning: Per General surgery
[2018-03-03] MEDS: Heparin - SQ 10,000 UNITS/ML Vial SQ SCH ×2 (15:35→18:02)
[2018-03-03] MEDS: Pantoprazole Inj 40 MG Vial IV.PUSH SCH (20:29)
[2018-03-03] MEDS ORDERED: Dextromethorphan Syrup 7.5 MG/5 ML UDC PO PRN (22:13)
[2018-03-03] MEDS: guaiFENesin 600 MG ER Tablet PO SCH (23:10)
[2018-03-04] MEDS: Heparin - SQ 10,000 UNITS/ML Vial SQ SCH ×2 (00:41→09:25)
[2018-03-04 05:04] LABS: Baso % (Auto) 0.5 % (0.0-2.0); Eos % (Auto) 0.5 % (0.0-4.0); Hematocrit 31.6 % (39.0-51.0); Hemoglobin 10.5 gm/dL (13.0-17.0); Lymph # (Auto) 1.9 th/mm3 (1.0-4.8); Lymph % (Auto) 21.5 % (9.0-44.0); Mean Corpuscular HGB Conc 33.2 % (32.0-36.0); Mean Corpuscular Volume 87.2 fL (80.0-100.0); Mean Platelet Volume 7.8 fL (7.0-11.0); Mono # (Auto) 0.5 th/mm3 (0.0-0.9); Mono % (Auto) 5.6 % (0.0-8.0); Neut # (Auto) 6.5 th/mm3 (1.8-7.7); Neut % (Auto) 71.9 % (16.0-70.0); Platelet Count 631 th/mm3 (150-450); Red Blood Count 3.62 mil/mm3 (4.50-5.90); Red Cell Distribution Width 14.5 % (11.6-17.2)
[2018-03-04 05:30] LABS: Anion Gap 7 meq/L (5-15); Blood Urea Nitrogen 8 mg/dL (7-18); Calcium 8.2 mg/dL (8.5-10.1); Carbon Dioxide 24.8 meq/L (21.0-32.0); Chloride 102 meq/L (98-107); Glomerular Filtration Rate Greater Than 89 mL/min (>89); Glucose,Random 71 mg/dL (74-106); Sodium 134 meq/L (136-145)
[2018-03-04 05:31] LABS: Potassium 4.7 meq/L (3.5-5.1)
[2018-03-04] MEDS: Citalopram 20 MG Tablet PO SCH (09:24)
[2018-03-04] MEDS: guaiFENesin 600 MG ER Tablet PO SCH ×2 (09:24→21:00)
[2018-03-04] MEDS: Lisinopril 20 MG Tablet PO SCH (09:24)
--- NOTE | 2018-03-04 12:43 | P.PNGS ---
<ColeenNat - Last Filed: 03/04/18 12:20> Subjective Interval history: Resting in bed No issues Asking for a cup of coffee Physical Exam Vital signs: Vital Signs 03/03/18 16:00 03/03/18 17:33 03/03/18 20:00 Temperature 97.4 F L 97.1 F L Pulse Rate 58 L 51 L Respiratory Rate 17 20 18 Blood Pressure 170/79 H 180/86 H Pulse Oximetry 97 95 03/04/18 00:00 03/04/18 04:00 03/04/18 08:00 Temperature 97.2 F L 97.4 F L 97.7 F Pulse Rate 59 L 48 L 56 L Respiratory Rate 16 14 14 Blood Pressure 181/91 H 170/84 H 165/80 H Pulse Oximetry 94 L 98 98 Intake & Output 03/03/18 03/04/18 03/04/18 18:59 06:59 18:59 Intake Total 300 / 300 1680 / 1680 Output Total 1310 / 1310 800 / 800 1300 / 1300 Balance -1010 / -1010 880 / 880 -1300 / -1300 Intake: IV 300 / 300 1200 / 1200 LR 1000 mL Inj 1,000 ML @ 100 1000 / 1000 mls/hr IV.CONT .Q10H [facility] Rx#: [id number] Ofirmev Inj 1,000 mg In 100 ml 300 / 300 200 / 200 @ 400 mls/hr IV.SIG Q6H [facility] Rx# :[id number] Oral 480 / 480 Output: Urine 800 / 800 800 / 800 1300 / 1300 Urine Amount (Catheter) 420 / 420 Indwelling Urethral Catheter 420 / 420 Wound Drainage 90 / 90 # 1 Left Abdomen SALVATORE Drain 35 / 35 # 2 Right Abdomen 55 / 55 Other: Bladder Irrigation Fluid - Amount Drained Indwelling Urethral Catheter 300 # Bowel Movements 1 Narrative: Alert and awake Cardio: RRR Resp: CTAB Abd: ANA in place with good seal; SALVATORE x 2 with serosanguineous drainage; Binder in place ---readjusted for patient comfort - Urinary Catheter Management Indwelling Urethral Catheter Cath placed during this visit: yes, but has since been removed by the nurse Reason for continuing: Decision to DC catheter Insertion date: 03/02/18 Insertion time: 13:23 Removal date: 03/04/18 Removal time: 09:20 Assessment and Plan - Plan 52 year old male POD2 abdominal wall reconstruction -Soft diet -DC IVF -Start Xarelto -DIRECTOR INFORMATION for pain control; Roxicodone available as well -Appreciate Medicine consult -OOB as tolerated -Alberto DCed; + post removal void <Alonzo Nair - Last Filed: 03/04/18 15:36> Physical Exam Vital signs: Vital Signs 03/03/18 16:00 03/03/18 17:33 03/03/18 20:00 Temperature 97.4 F L 97.1 F L Pulse Rate 58 L 51 L Respiratory Rate 17 20 18 Blood Pressure 170/79 H 180/86 H Pulse Oximetry 97 95 03/04/18 00:00 03/04/18 04:00 03/04/18 08:00 Temperature 97.2 F L 97.4 F L 97.7 F Pulse Rate 59 L 48 L 56 L Respiratory Rate 16 14 14 Blood Pressure 181/91 H 170/84 H 165/80 H Pulse Oximetry 94 L 98 98 03/04/18 12:00 Temperature 97.3 F L Pulse Rate 89 Respiratory Rate 17 Blood Pressure 164/90 H Pulse Oximetry 89 L Intake & Output 03/03/18 03/04/18 03/04/18 18:59 06:59 18:59 Intake Total 300 / 300 1680 / 1680 Output Total 1310 / 1310 800 / 800 1300 / 1300 Balance -1010 / -1010 880 / 880 -1300 / -1300 Intake: IV 300 / 300 1200 / 1200 LR 1000 mL Inj 1,000 ML @ 100 1000 / 1000 mls/hr IV.CONT .Q10H [facility] Rx#: [id number] Ofirmev Inj 1,000 mg In 100 ml 300 / 300 200 / 200 @ 400 mls/hr IV.SIG Q6H [facility] Rx# :[id number] Oral 480 / 480 Output: Urine 800 / 800 800 / 800 1300 / 1300 Urine Amount (Catheter) 420 / 420 Indwelling Urethral Catheter 420 / 420 Wound Drainage 90 / 90 # 1 Left Abdomen SALVATORE Drain 35 / 35 # 2 Right Abdomen 55 / 55 Other: Bladder Irrigation Fluid - Amount Drained Indwelling Urethral Catheter 300 # Bowel Movements 1 - Urinary Catheter Management Indwelling Urethral Catheter Cath placed during this visit: no Assessment and Plan - Attending Attestation I personally evaluated the patient in room 1714. He is painful today, after having had some coughing. He has not tried oral pain meds yet. His ANA dressing remains intact, with no drainage, drains have light pink tinged serous drainage. Extremities without edema or tenderness. Overall he is doing very well. The exam, history, and the medical decision-making described in the above note were completed with the assistance of the mid-level provider. I reviewed and agree with the findings presented. I attest that I had a [id number] encounter with the patient on the same day, and personally performed and documented my assessment and findings in the medical record.
--- NOTE | 2018-03-04 14:42 | P.DCO ---
- Home Health Nursing Order: Wound care and dressing changes Instructions: Routine SALVATORE care; ANA in place - Certification I have seen patient Mohit Brady on 03/04/18. My clinical findings support the need for the requested home health care services because: Limited mobility due to disease progression I certify that my clinical findings support that this patient is homebound because: Post-op weakness
[2018-03-04] MEDS: hydrALAZINE 10 MG Tablet PO PRN (16:27)
--- NOTE | 2018-03-04 17:24 | P.PNIM ---
Subjective Interval history: The patient complained of significant pain. He said the morphine EDUCATION AND OUTREACH COORDINATOR did not help. He felt the pills were not helping. He has been ambulating. Has not been sleeping at night. Physical Exam Vital signs: Vital Signs 03/03/18 17:33 03/03/18 20:00 03/04/18 00:00 Temperature 97.1 F L 97.2 F L Pulse Rate 51 L 59 L Respiratory Rate 20 18 16 Blood Pressure 180/86 H 181/91 H Pulse Oximetry 95 94 L 03/04/18 04:00 03/04/18 08:00 03/04/18 12:00 Temperature 97.4 F L 97.7 F 97.3 F L Pulse Rate 48 L 56 L 89 Respiratory Rate 14 14 17 Blood Pressure 170/84 H 165/80 H 164/90 H Pulse Oximetry 98 98 89 L 03/04/18 16:21 03/04/18 16:22 Temperature Pulse Rate 52 L Respiratory Rate 18 Blood Pressure Pulse Oximetry 96 Intake & Output 03/03/18 03/04/18 03/04/18 18:59 06:59 18:59 Intake Total 300 / 300 1680 / 1680 100 / 100 Output Total 1310 / 1310 800 / 800 1300 / 1300 Balance -1010 / -1010 880 / 880 -1200 / -1200 Intake: IV 300 / 300 1200 / 1200 100 / 100 LR 1000 mL Inj 1,000 ML @ 100 1000 / 1000 mls/hr IV.CONT .Q10H BRENNAN Rx#: [id number] Ofirmev Inj 1,000 mg In 100 ml 300 / 300 200 / 200 100 / 100 @ 400 mls/hr IV.SIG Q6H BRENNAN Rx# :[id number] Oral 480 / 480 Output: Urine 800 / 800 800 / 800 1300 / 1300 Urine Amount (Catheter) 420 / 420 Indwelling Urethral Catheter 420 / 420 Wound Drainage 90 / 90 # 1 Left Abdomen SALVATORE Drain 35 / 35 # 2 Right Abdomen 55 / 55 Other: Bladder Irrigation Fluid - Amount Drained Indwelling Urethral Catheter 300 # Bowel Movements 1 Narrative: Gen: No distress Skin: midline abdominal incision; drains in place. Incision covered; vac functioning well HEENT: Normal mucous membranes Resp: CTAB; decreased breath sounds CV: Regular rate and rhythm; grossly normal peripheral perfusion Abd: no pain to light palpation; nondistended. Ext: grossly normal ROM/strength Neuro: grossly normal CN; grossly normal peripheral motor/sensory function - Urinary Catheter Management Indwelling Urethral Catheter Cath placed during this visit: yes, but has since been removed by the nurse Reason for continuing: Decision to DC catheter Insertion date: 03/02/18 Insertion time: 13:23 Removal date: 03/04/18 Removal time: 09:20 Results - Labs CBC & Chem 7: 03/04/18 04:02 03/04/18 04:02 Laboratory Results - last 24 hr 03/04/18 03/04/18 04:02 04:02 WBC 9.0 RBC 3.62 L Hgb 10.5 L Hct 31.6 L MCV 87.2 MCH 29.0 MCHC 33.2 RDW 14.5 Plt Count 631 H MPV 7.8 Neut % (Auto) 71.9 H Lymph % (Auto) 21.5 Clark % (Auto) 5.6 Eos % (Auto) 0.5 Baso % (Auto) 0.5 Neut # (Auto) 6.5 Lymph # (Auto) 1.9 Clark # (Auto) 0.5 Eos # (Auto) 0.0 Baso # (Auto) 0.0 WBC Differential . Differential Comment Auto diff final Sodium 134 L Potassium 4.7 Chloride 102 Carbon Dioxide 24.8 Anion Gap 7 BUN 8 Creatinine 0.67 Estimated GFR Greater than 89 Random Glucose 71 L Calcium 8.2 L Assessment and Plan - Plan Mr. Brady is a 52 yo M with PMH PE, GI bleeding who presents for anterior wall hernia repair: POD 1s/p anterior abdominal wall hernia repair Per operative note- exploratory laparotomy, lysis of adhesions, and transverse abdominis release w/ bilateral myofascial flap advancement 03/02. 150ml EBL -Continue post-operative care -pain control -Morphine EDUCATION AND OUTREACH COORDINATOR -PRN Ofirmev q6hrs -Will change Hydrocodone/Tylenol to Oxycodone. Increase to 15 mg as needed for severe pain. -Did well with liquid diet -Awaiting BM; PRN lactulose and Mg hydroxide ordered -monitor drain output -Continue wound vacuum Respiratory History PE History of outpatient treatment with Xarelto. Last seen on imaging 05/2017 -Per Gen Surgery- Continue Xarelto -Monitor VS, saturations COPD Emphysematous changes on prior CT. -Continue PRN Tylenol -Will add home Atrovent -Will add LABA/steroid per pt request; he desires at discharge GI History of recurrent ulcers. Takes esomeprazole at home -Continue IV Pantoprazole 40mg daily Cardiac HTN -continue Lisinopril 20mg daily - PRN Hydralazine -Continue home Celexa DVT PPx: per surgery
[2018-03-04] MEDS: Rivaroxaban 20 MG Tablet PO SCH (19:33)
[2018-03-04] MEDS: Tiotropium Bromide 18 MCG/ACT Inhaler INH SCH (19:33)
[2018-03-04] MEDS: Budesonide-Formoterol 160/4.5 MCG 6 GM Inhaler INH SCH (19:33)
[2018-03-04] MEDS: Pantoprazole Inj 40 MG Vial IV.PUSH SCH (21:00)
[2018-03-05] MEDS: Budesonide-Formoterol 160/4.5 MCG 6 GM Inhaler INH SCH ×3 (00:16→21:07)
[2018-03-05] MEDS: hydrALAZINE 10 MG Tablet PO PRN (00:18)
--- NOTE | 2018-03-05 09:03 | P.PNGS ---
Subjective Patient reports: feels better, pain is less, tolerating liquids well, flatus Physical Exam Vital signs: Vital Signs 03/04/18 12:00 03/04/18 16:00 03/04/18 16:21 Temperature 97.3 F L 97.4 F L Pulse Rate 89 61 Respiratory Rate 17 18 Blood Pressure 164/90 H 177/86 H Pulse Oximetry 89 L 90 L 96 03/04/18 16:22 03/04/18 20:00 03/05/18 00:00 Temperature 98.0 F 97.8 F Pulse Rate 52 L 80 65 Respiratory Rate 18 18 18 Blood Pressure 148/87 H 173/93 H Pulse Oximetry 91 L 91 L 03/05/18 04:00 Temperature 98.4 F Pulse Rate 62 Respiratory Rate 18 Blood Pressure 149/70 H Pulse Oximetry 91 L Intake & Output 03/04/18 03/05/18 03/05/18 18:59 06:59 18:59 Intake Total 200 / 200 1680 / 1680 Output Total 1300 / 1300 900 / 900 Balance -1100 / -1100 780 / 780 Weight 58.4 kg Intake: IV 200 / 200 1200 / 1200 LR 1000 mL Inj 1,000 ML @ 100 0 / 0 1000 / 1000 mls/hr IV.CONT .Q10H BRENNAN Rx#: [id number] Ofirmev Inj 1,000 mg In 100 ml 200 / 200 200 / 200 @ 400 mls/hr IV.SIG Q6H BRENNAN Rx# :[id number] Oral 480 / 480 Output: Urine 1300 / 1300 850 / 850 Wound Drainage 50 / 50 # 1 Left Abdomen SALVATORE Drain 20 / 20 # 2 Right Abdomen 30 / 30 - Routine Abdominal Exam Present: soft, wound Comments: ANA in place, clean and dry. JPs with serous fluid. - Urinary Catheter Management Indwelling Urethral Catheter Cath placed during this visit: yes, but has since been removed by the nurse Reason for continuing: Decision to DC catheter Insertion date: 03/02/18 Insertion time: 13:23 Removal date: 03/04/18 Removal time: 09:20 Assessment and Plan - Assessment (1) Hernia of anterior abdominal wall Code(s): K43.9 - Ventral hernia without obstruction or gangrene Status: Acute - Plan Advance diet once pt has BM Pt wants to continue with CARTON [employer]ER for now OOB, ambulate
[2018-03-05] MEDS: Tiotropium Bromide 18 MCG/ACT Inhaler INH SCH (09:35)
[2018-03-05] MEDS: Citalopram 20 MG Tablet PO SCH (09:42)
[2018-03-05] MEDS: Lisinopril 20 MG Tablet PO SCH (09:44)
[2018-03-05] MEDS: guaiFENesin 600 MG ER Tablet PO SCH ×2 (09:44→21:07)
[2018-03-05] MEDS: Rivaroxaban 20 MG Tablet PO SCH (09:44)
--- NOTE | 2018-03-05 13:09 | P.PNIM ---
Subjective Interval history: The patient said he was in pain. He said that his pain pump was out and he was wondering if he was getting it refilled. He had no other acute complaints. Discussed with nursing. Physical Exam Vital signs: Vital Signs 03/04/18 16:00 03/04/18 16:21 03/04/18 16:22 Temperature 97.4 F L Pulse Rate 61 52 L Respiratory Rate 18 18 Blood Pressure 177/86 H Pulse Oximetry 90 L 96 03/04/18 20:00 03/05/18 00:00 03/05/18 04:00 Temperature 98.0 F 97.8 F 98.4 F Pulse Rate 80 65 62 Respiratory Rate 18 18 18 Blood Pressure 148/87 H 173/93 H 149/70 H Pulse Oximetry 91 L 91 L 91 L 03/05/18 08:00 03/05/18 11:23 03/05/18 12:00 Temperature 97.7 F 97.4 F L Pulse Rate 69 60 Respiratory Rate 17 18 Blood Pressure 178/88 H 112/56 L Pulse Oximetry 90 L 97 100 Intake & Output 03/04/18 03/05/18 03/05/18 18:59 06:59 18:59 Intake Total 200 / 200 1680 / 1680 1000 / 1000 Output Total 1300 / 1300 900 / 900 Balance -1100 / -1100 780 / 780 1000 / 1000 Weight 58.4 kg Intake: IV 200 / 200 1200 / 1200 1000 / 1000 LR 1000 mL Inj 1,000 ML @ 100 0 / 0 1000 / 1000 1000 / 1000 mls/hr IV.CONT .Q10H [facility]N Rx#: [id number] Ofirmev Inj 1,000 mg In 100 ml 200 / 200 200 / 200 @ 400 mls/hr IV.SIG Q6H BRENNAN Rx# :[id number] Oral 480 / 480 Output: Urine 1300 / 1300 850 / 850 Wound Drainage 50 / 50 # 1 Left Abdomen SALVATORE Drain 20 / 20 # 2 Right Abdomen 30 / 30 Narrative: Gen: No distress Skin: midline abdominal incision; drains in place. Incision covered; vac functioning well HEENT: Normal mucous membranes Resp: CTAB; decreased breath sounds CV: Regular rate and rhythm; grossly normal peripheral perfusion Abd: no pain to light palpation; nondistended. Ext: grossly normal ROM/strength Neuro: grossly normal CN; grossly normal peripheral motor/sensory function - Urinary Catheter Management Indwelling Urethral Catheter Cath placed during this visit: yes, but has since been removed by the nurse Reason for continuing: Decision to DC catheter Insertion date: 03/02/18 Insertion time: 13:23 Removal date: 03/04/18 Removal time: 09:20 Results - Labs CBC & Chem 7: 03/04/18 04:02 03/04/18 04:02 Assessment and Plan - Plan Mr. Brady is a 52 yo M with PMH PE, GI bleeding who presents for anterior wall hernia repair: POD 1s/p anterior abdominal wall hernia repair Per operative note- exploratory laparotomy, lysis of adhesions, and transverse abdominis release w/ bilateral myofascial flap advancement 03/02. 150ml EBL -Continue post-operative care -pain control. Changed Hydrocodone/Tylenol to oxycodone. -bowel regimen. -Continue wound vacuum per surgery Respiratory History PE History of outpatient treatment with Xarelto. Last seen on imaging 05/2017 -Per Gen Surgery- Continue Xarelto COPD Emphysematous changes on prior CT. -Continue PRN Tylenol -Will add home Atrovent -added LABA/steroid per pt request; he desires at discharge GI History of recurrent ulcers. Takes esomeprazole at home -Continue pantoprazole 40mg daily Cardiac HTN -continue Lisinopril 20mg daily - PRN Hydralazine -Continue home Celexa DVT PPx: per surgery
[2018-03-06 07:43] LABS: Hematocrit 32.4 % (39.0-51.0); Hemoglobin 10.8 gm/dL (13.0-17.0); Mean Corpuscular HGB Conc 33.2 % (32.0-36.0); Mean Corpuscular Hemoglobin 28.5 pg (27.0-34.0); Mean Corpuscular Volume 85.8 fL (80.0-100.0); Mean Platelet Volume 7.6 fL (7.0-11.0); Platelet Count 530 th/mm3 (150-450); Red Blood Count 3.78 mil/mm3 (4.50-5.90); Red Cell Distribution Width 14.6 % (11.6-17.2); White Blood Count 11.5 th/mm3 (4.0-11.0)
[2018-03-06] MEDS: guaiFENesin 600 MG ER Tablet PO SCH ×2 (08:39→21:25)
[2018-03-06] MEDS: Lisinopril 20 MG Tablet PO SCH (08:39)
[2018-03-06] MEDS: Citalopram 20 MG Tablet PO SCH (08:39)
[2018-03-06] MEDS: Budesonide-Formoterol 160/4.5 MCG 6 GM Inhaler INH SCH (08:40)
[2018-03-06] MEDS: Rivaroxaban 20 MG Tablet PO SCH (08:40)
[2018-03-06] MEDS: Tiotropium Bromide 18 MCG/ACT Inhaler INH SCH (08:41)
[2018-03-06] MEDS ORDERED: Morphine Inj 4 MG/ML Vial IV.PUSH PRN (10:07)
--- NOTE | 2018-03-06 10:10 | P.PNGS ---
Subjective Patient reports: feels better, pain is less, flatus, no bowel movement Physical Exam Vital signs: Vital Signs 03/05/18 11:23 03/05/18 12:00 03/05/18 16:00 Temperature 97.4 F L 97.7 F Pulse Rate 60 71 Respiratory Rate 18 17 Blood Pressure 112/56 L 144/74 H Pulse Oximetry 97 100 95 03/05/18 20:00 03/06/18 00:00 03/06/18 08:00 Temperature 97.8 F 98.9 F 98.2 F Pulse Rate 82 80 75 Respiratory Rate 18 18 18 Blood Pressure 146/78 H 146/83 H 140/80 Pulse Oximetry 92 L 95 93 L Intake & Output 03/05/18 03/06/18 03/06/18 18:59 06:59 18:59 Intake Total 2300 / 2300 1000 / 1000 Output Total 810 / 810 310 / 310 Balance 1490 / 1490 690 / 690 Intake: IV 1100 / 1100 1000 / 1000 LR 1000 mL Inj 1,000 ML @ 100 1000 / 1000 1000 / 1000 mls/hr IV.CONT .Q10H BRENNAN Rx#: [id number] Ofirmev Inj 1,000 mg In 100 ml 100 / 100 @ 400 mls/hr IV.SIG Q6H BRENNAN Rx# :[id number] Oral 1200 / 1200 Output: Urine 800 / 800 300 / 300 Wound Drainage 10 / 10 10 / 10 # 1 Left Abdomen CONCEPCION Drain 5 / 5 5 / 5 # 2 Right Abdomen 5 / 5 5 / 5 - Routine Abdominal Exam Present: soft (sae in place concepcion x2 serosang) - Urinary Catheter Management Indwelling Urethral Catheter Cath placed during this visit: yes, but has since been removed by the nurse Reason for continuing: Decision to DC catheter Insertion date: 03/02/18 Insertion time: 13:23 Removal date: 03/04/18 Removal time: 09:20 Assessment and Plan - Assessment (1) Hernia of anterior abdominal wall Code(s): K43.9 - Ventral hernia without obstruction or gangrene Status: Acute Plan: 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
--- NOTE | 2018-03-06 11:49 | P.PNIM ---
Subjective Interval history: The patient was resting comfortably in bed. He has been having bowel movements. He is tolerating a diet. He is breathing comfortably. No acute complaints at this time. Physical Exam Vital signs: Vital Signs 03/05/18 12:00 03/05/18 16:00 03/05/18 20:00 Temperature 97.4 F L 97.7 F 97.8 F Pulse Rate 60 71 82 Respiratory Rate 18 17 18 Blood Pressure 112/56 L 144/74 H 146/78 H Pulse Oximetry 100 95 92 L 03/06/18 00:00 03/06/18 08:00 Temperature 98.9 F 98.2 F Pulse Rate 80 75 Respiratory Rate 18 18 Blood Pressure 146/83 H 140/80 Pulse Oximetry 95 93 L Intake & Output 03/05/18 03/06/18 03/06/18 18:59 06:59 18:59 Intake Total 2300 / 2300 1000 / 1000 Output Total 810 / 810 310 / 310 Balance 1490 / 1490 690 / 690 Intake: IV 1100 / 1100 1000 / 1000 LR 1000 mL Inj 1,000 ML @ 100 1000 / 1000 1000 / 1000 mls/hr IV.CONT .Q10H BRENNAN Rx#: [id number] Ofirmev Inj 1,000 mg In 100 ml 100 / 100 @ 400 mls/hr IV.SIG Q6H BRENNAN Rx# :[id number] Oral 1200 / 1200 Output: Urine 800 / 800 300 / 300 Wound Drainage 10 10 10 / 10 # 1 Left Abdomen SALVATORE Drain 5 / 5 5 / 5 # 2 Right Abdomen 5 / 5 5 / 5 Narrative: Gen: No distress Skin: midline abdominal incision; drains in place. Incision covered; vac functioning well HEENT: Normal mucous membranes Resp: CTAB; decreased breath sounds CV: Regular rate and rhythm; grossly normal peripheral perfusion Abd: no pain to light palpation; nondistended. Incisions are clean. Ext: grossly normal ROM/strength Neuro: grossly normal CN; grossly normal peripheral motor/sensory function - Urinary Catheter Management Indwelling Urethral Catheter Cath placed during this visit: yes, but has since been removed by the nurse Reason for continuing: Decision to DC catheter Insertion date: 03/02/18 Insertion time: 13:23 Removal date: 03/04/18 Removal time: 09:20 Results - Labs CBC & Chem 7: 03/06/18 06:30 03/04/18 04:02 Laboratory Results - last 24 hr 03/06/18 06:30 WBC 11.5 H RBC 3.78 L Hgb 10.8 L Hct 32.4 L MCV 85.8 MCH 28.5 MCHC 33.2 RDW 14.6 Plt Count 530 H MPV 7.6 Assessment and Plan - Plan Mr. Brady is a 52 yo M with PMH PE, GI bleeding who presents for anterior wall hernia repair: S/p anterior abdominal wall hernia repair Per operative note- exploratory laparotomy, lysis of adhesions, and transverse abdominis release w/ bilateral myofascial flap advancement 03/02. 150ml EBL -Continue post-operative care -pain control. Changed Hydrocodone to oxycodone. -bowel regimen. -wound care per surgery Respiratory History PE History of outpatient treatment with Xarelto. Last seen on imaging 05/2017 -Per Gen Surgery- Continue Xarelto COPD Emphysematous changes on prior CT. -Continue PRN Tylenol -Will add home Atrovent -added LABA/steroid per pt request. GI History of recurrent ulcers. Takes esomeprazole at home -Continue pantoprazole 40mg daily Cardiac HTN -continue Lisinopril 20mg daily - PRN Hydralazine DVT PPx: per surgery
[2018-03-07] MEDS: Budesonide-Formoterol 160/4.5 MCG 6 GM Inhaler INH SCH ×3 (07:31→20:26)
[2018-03-07] MEDS: Citalopram 20 MG Tablet PO SCH (08:52)
[2018-03-07] MEDS: guaiFENesin 600 MG ER Tablet PO SCH ×2 (08:53→20:26)
[2018-03-07] MEDS: Rivaroxaban 20 MG Tablet PO SCH (08:53)
[2018-03-07] MEDS: Lisinopril 20 MG Tablet PO SCH (08:54)
[2018-03-07] MEDS: Tiotropium Bromide 18 MCG/ACT Inhaler INH SCH (08:57)
--- NOTE | 2018-03-07 14:42 | P.PNGS ---
<Nat Horne - Last Filed: 03/07/18 14:41> Subjective Interval history: Up to couch by the window; no issues; No BM yet Physical Exam Vital signs: Vital Signs 03/06/18 16:00 03/06/18 20:00 03/07/18 00:00 Temperature 98.5 F 98.9 F 98.9 F Pulse Rate 71 94 H 76 Respiratory Rate 17 18 18 Blood Pressure 105/69 146/82 H Pulse Oximetry 94 L 92 L 94 L 03/07/18 08:00 03/07/18 12:00 Temperature 98.1 F 97.7 F Pulse Rate 75 90 Respiratory Rate 17 17 Blood Pressure 138/64 134/77 Pulse Oximetry 95 94 L Intake & Output 03/06/18 03/07/18 03/07/18 18:59 06:59 18:59 Intake Total 1999 / 1999 1000 / 1000 1300 / 1300 Output Total 90 / 90 Balance 1999 / 1999 910 / 910 1300 / 1300 Intake: IV 1000 / 1000 1000 / 1000 1300 / 1300 LR 1000 mL Inj 1,000 ML @ 100 1000 / 1000 1000 / 1000 1300 / 1300 mls/hr IV.CONT .Q10H BRENNAN Rx#: [id number] Oral 1000 / 1000 Output: Urine 40 / 40 Wound Drainage 50 / 50 # 1 Left Abdomen SALVATORE Drain 30 / 30 # 2 Right Abdomen 20 / 20 Other: # Voids 3 Date of Last Bowel Movement 03/05/18 03/05/18 # Bowel Movements 2 Narrative: Alert and awake Cardio: RRR Resp:CTAB Abd; ANA in place with good seal; SALVATORE x2 with serosanguineous drainage - Urinary Catheter Management Indwelling Urethral Catheter Cath placed during this visit: yes, but has since been removed by the nurse Reason for continuing: Decision to DC catheter Insertion date: 03/02/18 Insertion time: 13:23 Removal date: 03/04/18 Removal time: 09:20 Assessment and Plan - Assessment (1) Hernia of anterior abdominal wall Code(s): K43.9 - Ventral hernia without obstruction or gangrene Status: Acute Plan: reg diet 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 ppx- pt on xeralto likely d/c in 24 hours OOB, ambulate - Plan 52 year old male POD5 abdominal wall reconstruction -Soft diet -DC IVF -Continue Xarelto -Roxicodone for pain control -Appreciate Medicine consult -OOB as tolerated -Likely DC tomorrow <Miles Lee - Last Filed: 03/07/18 19:59> Physical Exam Vital signs: Vital Signs 03/06/18 20:00 03/07/18 00:00 03/07/18 08:00 Temperature 98.9 F 98.9 F 98.1 F Pulse Rate 94 H 76 75 Respiratory Rate 18 18 17 Blood Pressure 146/82 H 138/64 Pulse Oximetry 92 L 94 L 95 03/07/18 12:00 03/07/18 16:00 Temperature 97.7 F 97.6 F Pulse Rate 90 86 Respiratory Rate 17 17 Blood Pressure 134/77 142/73 H Pulse Oximetry 94 L 91 L Intake & Output 03/07/18 03/07/18 03/08/18 06:59 18:59 06:59 Intake Total 1000 / 1000 3460 / 3460 Output Total 90 / 90 Balance 910 / 910 3460 / 3460 Intake: IV 1000 / 1000 1300 / 1300 LR 1000 mL Inj 1,000 ML @ 100 1000 / 1000 1300 / 1300 mls/hr IV.CONT .Q10H BRENNAN Rx#: [id number] Oral 2160 / 2160 Output: Urine 40 / 40 Wound Drainage 50 / 50 # 1 Left Abdomen SALVATORE Drain 30 / 30 # 2 Right Abdomen 20 / 20 Other: # Voids 10 Date of Last Bowel Movement 03/05/18 # Bowel Movements 0 - Urinary Catheter Management Indwelling Urethral Catheter Cath placed during this visit: no Assessment and Plan - Assessment (1) Hernia of anterior abdominal wall Code(s): K43.9 - Ventral hernia without obstruction or gangrene Status: Acute - Plan Abdomen soft. Passing flatus. Drain output serosanguineous. Will remove drains when output less than 30 mils in 24 hours. I attest that I had a [id number] encounter with the patient on the same day, and personally performed and documented my assessment and findings in the medical record. The following services were provided during this hospital visit: Chart data review, vital sign assessments/reviewing monitor data Review of consultation notes if present Medication orders/review and/or management Ordering and/or reviewing lab tests Ordering and/or interpreting/reviewing x-rays and/or diagnostic studies Care of the patient and discussion of the patient with the care team Documentation time To help prompt me to consider important information that might be impacting today's encounter and assessment, Information from prior notes written by myself or my colleagues may have been "brought forward/copy and pasted" into today's note.
[2018-03-08] MEDS: Budesonide-Formoterol 160/4.5 MCG 6 GM Inhaler INH SCH (08:29)
[2018-03-08] MEDS: Tiotropium Bromide 18 MCG/ACT Inhaler INH SCH (08:30)
[2018-03-08] MEDS: Lisinopril 20 MG Tablet PO SCH (08:31)
[2018-03-08] MEDS: Citalopram 20 MG Tablet PO SCH (08:32)
[2018-03-08] MEDS: Rivaroxaban 20 MG Tablet PO SCH (08:32)
[2018-03-08] MEDS: guaiFENesin 600 MG ER Tablet PO SCH (08:32)
--- NOTE | 2018-03-08 15:40 | P.DS ---
Date of admission: 03/02/18 18:48 Primary care physician: Cong Veras Attending physician on discharge: Miles Leslie date of discharge: 03/08/18 Brief History from admission: 52 year old male s/p abdominal wall reconstruction DS: Diagnosis - Discharge Diagnosis (1) Hernia of anterior abdominal wall Status: Acute DS: Medications - Discharge Medications Prescriptions: budesonide-formoterol [Symbicort] 1 puff INH BID #1 g oxycodone 5 mg PO Q4H PRN #18 tab PRN Reason: post op acute pain tiotropium bromide [Spiriva with HandiHaler] 1 mcg INH DAILY #1 inh DS: Summary Hospital Course: This is a 52 year old male s/p abdominal wall reconstruction. The patient was able to tolerate a regular diet. The patient's pain was controlled using oral pain medications. The patient was able to continue his Xarelto as he takes at home. He will follow up in the office. - Time Spent with Patient Total time spent providing and/or coordinating discharge services: Less than 30 minutes - Quality: VTE Deep Vein Thrombosis/Pulmonary Embolism Present on Admission: Yes Exam Vital signs: Vital Signs 03/07/18 16:00 03/07/18 19:10 03/07/18 20:00 Temperature 97.6 F 98.4 F Pulse Rate 86 70 Respiratory Rate 17 18 17 Blood Pressure 142/73 H 146/73 H Pulse Oximetry 91 L 94 L 03/08/18 00:35 03/08/18 08:00 03/08/18 12:00 Temperature 97.9 F 97.5 F L 97.8 F Pulse Rate 68 61 71 Respiratory Rate 18 18 15 Blood Pressure 136/76 135/78 150/65 H Pulse Oximetry 97 98 94 L Intake & Output 03/07/18 03/08/18 03/08/18 18:59 06:59 18:59 Intake Total 3760 / 3760 Output Total 1513 / 1513 Balance 3760 / 3760 -1513 / -1513 Weight 58 kg Intake: IV 1600 / 1600 LR 1000 mL Inj 1,000 ML @ 100 1300 / 1300 mls/hr IV.CONT .Q10H BRENNAN Rx#: [id number] Oral 2160 / 2160 Output: Urine 1500 / 1500 Stool 0 / 0 Wound Drainage / # 1 Left Abdomen SALVATORE Drain 8 / 8 # 2 Right Abdomen 5 / 5 Other: # Voids 10 Date of Last Bowel Movement 03/04/18 03/04/18 # Bowel Movements 0 Narrative: Alert and awake Cardio: RRR Resp: CTAB Abd: ANA removed; incision c/d/i Results Procedures completed during hospitalization: abdominal wall reconstruction Discharge Plan - Discharge Disposition Patient Disposition: W/Home Health Service - Discharge Condition Condition: Good - Discharge Order Discharge Orders: Discharge Order (Routine); Ordered 03/08/18 Ordered By: Nat Horne - Discharge Details Anticipated Discharge Date: 03/08/18 Discharge Comment: rx on chart - Physicians Team Attending Provider: Miles Lee Other Providers: Alonzo Nair MD ; Surgeons,[facility] ; Miles Avila DO - Rxs /Orders / Referrals /Forms Prescriptions: New budesonide-formoterol [Symbicort] 160-4.5 mcg/actuation Hfa Aerosol Inhaler 1 puff INH BID Qty: 1 RF: 0 oxycodone 5 mg Tablet 5 mg PO Q4H PRN (Reason: post op acute pain) Qty: 18 RF: 0 tiotropium bromide [Spiriva with HandiHaler] 18 mcg Capsule, W/Inhalation Device 1 mcg INH DAILY Qty: 1 RF: 0 Continue albuterol sulfate 90 mcg/actuation Hfa Aerosol Inhaler 2 puff INHALATION Q4H PRN (Reason: Shortness Of Breath) citalopram 10 mg Tablet 10 mg PO DAILY esomeprazole magnesium 20 mg Tablet,Delayed Release (Dr/Ec) 20 mg PO BID lisinopril 20 mg Tablet 20 mg PO DAILY rivaroxaban [Xarelto] 20 mg Tablet 20 mg PO DAILY Referrals: Cong Veras PA-C [Other] - See Instructions Miles Lee MD [GENERAL SURGERY] - See Instructions (Follow up appointment made for March 14 at 1PM.) - Discharge Instructions Patient Printed Instructions: Oxycodone, Slow Release (By mouth), Ventral Hernia (ED)
--- NOTE | 2018-03-08 15:48 | P.PNIM ---
Subjective Interval history: The patient was looking forward to going home. He was ambulating without difficulty. He reported a small bowel movement. Discussed with surgery. Physical Exam Vital signs: Vital Signs 03/07/18 16:00 03/07/18 19:10 03/07/18 20:00 Temperature 97.6 F 98.4 F Pulse Rate 86 70 Respiratory Rate 17 18 17 Blood Pressure 142/73 H 146/73 H Pulse Oximetry 91 L 94 L 03/08/18 00:35 03/08/18 08:00 03/08/18 12:00 Temperature 97.9 F 97.5 F L 97.8 F Pulse Rate 68 61 71 Respiratory Rate 18 18 15 Blood Pressure 136/76 135/78 150/65 H Pulse Oximetry 97 98 94 L Intake & Output 03/07/18 03/08/18 03/08/18 18:59 06:59 18:59 Intake Total 3760 / 3760 Output Total 1513 / 1513 Balance 3760 / 3760 -1513 / -1513 Weight 58 kg Intake: IV 1600 / 1600 LR 1000 mL Inj 1,000 ML @ 100 1300 / 1300 mls/hr IV.CONT .Q10H BRENNAN Rx#: [id number] Oral 2160 / 2160 Output: Urine 1500 / 1500 Stool 0 / 0 Wound Drainage # 1 Left Abdomen SALVATORE Drain # 2 Right Abdomen / Other: # Voids 10 Date of Last Bowel Movement 03/04/18 03/04/18 # Bowel Movements 0 Narrative: Gen: No distress HEENT: Normal mucous membranes Resp: CTAB; decreased breath sounds CV: Regular rate and rhythm; grossly normal peripheral perfusion Abd: no pain to light palpation; nondistended. Incisions are clean. Ext: No edema. Neuro: grossly normal CN; grossly normal peripheral motor/sensory function. - Urinary Catheter Management Indwelling Urethral Catheter Cath placed during this visit: yes, but has since been removed by the nurse Reason for continuing: Decision to DC catheter Insertion date: 03/02/18 Insertion time: 13:23 Removal date: 03/04/18 Removal time: 09:20 Results - Labs CBC & Chem 7: 03/06/18 06:30 03/04/18 04:02 Assessment and Plan - Plan Mr. Brady is a 52 yo M with PMH PE, GI bleeding who presents for anterior wall hernia repair: S/p anterior abdominal wall hernia repair Per operative note- exploratory laparotomy, lysis of adhesions, and transverse abdominis release w/ bilateral myofascial flap advancement 03/02. -Continue post-operative care -pain control. -bowel regimen. -follow up with surgery as an outpt. Respiratory History PE History of outpatient treatment with Xarelto. Last seen on imaging 05/2017 -Per Gen Surgery- Continue Xarelto COPD Emphysematous changes on prior CT. -Continue PRN Tylenol -continue home Atrovent -added LABA/steroid per pt request. Script provided. GI History of recurrent ulcers. Takes esomeprazole at home -Continue pantoprazole 40mg daily Cardiac HTN -continue Lisinopril 20mg daily - PRN Hydralazine DVT PPx: per surgery
== END 2018-03-08 16:41 | disposition home health service (06) ==
LOC: HSDC 11:02 → HSDI 18:48 → N07 20:03
PROVIDERS: ADMIT Surgery Trauma Surgery; ATTEND Surgery Trauma Surgery